=== PATIENT | male | born 1950 | race Caucasian/White ===

== ENCOUNTER → 2017-03-31 14:24 | Outpatient (CLI) | payer SELFPAY ==
[2017-03-31 17:09] LABS: Cholesterol 107 mg/dL (200); High Density Lipoprotein 31 mg/dL; Triglycerides 133 mg/dL; Very Low Density Lipoprotein 27 mg/dL (5-40)
[2017-04-02 11:38] LABS: Hep C Antibodies <0.1 s/co ratio (0.0-0.9)
== END ==
PROVIDERS: Family Provider Family Medicine; PCP Family Medicine; Visit Provider Family Medicine
DX: I73.9 Peripheral vascular disease, unspecified (principal); Z11.59 Encounter for screening for other viral diseases
CPT/HCPCS: 36415; 80061; 86803

== ENCOUNTER → 2018-05-24 | Outpatient (CLI) | payer MEDICARE, OTHER, SELFPAY ==
[2018-05-24 14:46] VITALS: BMI 27.7
[2018-05-24 15:50] LABS: Absolute Lymphocyte Count 1.69 X10^3/ul (0.83-4.51); Absolute Neutrophil Count 2.8 X10^3/uL (2.0-7.7); Basophil# 0.01 X10^3/uL; Basophil% 0.2 % (0-1); Eosinophil# 0.18 X10^3/uL; Eosinophils% 3.5 % (0-5); Hematocrit 37.6 % (40-54); Lymphocyte # 1.69 X10^3/ul (4.0); Lymphocyte % 32.8 % (19-41); Mean Corp Hgb Conc 31.9 g/gl (32-36); Mean Corpuscular Hgb 30.9 pg (27.0-32.0); Mean Corpuscular Volume 96.9 fL (80-94); Mean Platelet Vol. 9.2 fl (6.2-12.0); Monocyte# 0.47 X10^3/uL; Monocyte% 9.1 % (0-10); Neutrophil # 2.78 X10^3/uL (2.7-7.7); POSITIVE COUNT NO; POSITIVE DIFFERENTIAL NO; POSITIVE MORPHOLOGY NO; Platelet Count 146 K/mm3 (150-450); RBC Distribution Width CV 12.8 % (11.6-14.6); RBC Distribution Width SD 43.9 fl (35.1-43.9); Red Blood Count 3.88 M/mm3 (4.6-6.2); White Blood Count 5.2 K/mm3 (4.4-11.0)
[2018-05-24 16:22] LABS: Anion Gap 6 (5-15); BUN 16 mg/dL (7-18); BUN/Creat Ratio 14.4 RATIO (10-20); Calcium,Total 8.4 mg/dL (8.5-10.1); Chloride 105 mmol/L (98-107); Creatinine, Serum 1.11 mg/dL (0.70-1.30); EST Glomerular Filtration Rate 71 mL/min (>60); Est Glom Filt Rate - Afr Amer 85 mL/min (>60); Glucose 85 mg/dL (74-106); Potassium 4.1 mmol/L (3.5-5.1); Sodium Level 140 mmol/L (136-145)
== END | disposition home or self-care (01) ==
LOC: PAVLAB 15:25
PROVIDERS: Family Provider Family Medicine; PCP Family Medicine; Visit Provider Surgery
DX: I73.9 Peripheral vascular disease, unspecified (principal); Z95.828 Presence of other vascular implants and grafts
CPT/HCPCS: 36415; 80048; 85025

== ENCOUNTER → 2018-06-01 | Outpatient (CLI) | payer MEDICARE, OTHER, SELFPAY ==
[2018-05-24 14:46] VITALS: BMI 27.7
--- NOTE | 2018-06-01 17:18 | CT_ITS ---
STUDY: CTA OF THE ABDOMINAL AORTA AND BILATERAL LOWER EXTREMITIES REASON FOR EXAM: Male, 67 years old. History of peripheral vascular disease with the lower extremity pain. History of prior femoral bypass surgery. Prior left-sided stent. RADIATION DOSAGE (If Supplied By Facility): CTDIvol = ( 9.84 ) mGy, DLP = ( 1520.71 ) mGycm TECHNIQUE: Axial CT angiography multi-detector data acquisition was obtained from the dome of the liver to the ankles following intravenous administration of 100mL IV Isovue 370. Axial images and MIP images were reconstructed from the axial data set. Post-processing of the angiographic images was performed, with multiplanar reformation and 3D reconstruction. Individualized dose optimization techniques were used for this CT. TECHNICAL QUALITY: Good COMPARISON: None. Descriptors of Narrowing: None (0%) Mild (< 50%) Moderate (50-70%) Severe (70-90%) Subtotal/Total Occlusion (90-100%) Non-Evaluable (technically non-diagnostic FINDINGS: Abdominal aorta: Calcified atherosclerotic plaque seen throughout the course of the aorta. There is no evidence of narrowing or aneurysmal dilatation. Celiac and superior mesenteric arteries: Atherosclerotic plaque formation at the origin of the celiac artery. Moderate degree of the stenosis caused by atherosclerotic plaque at the origin and proximal portions of the superior mesenteric artery. There is evidence of calcific plaques of the splenic artery. Inferior mesenteric artery: Not visualized. Right renal artery(arteries): No demonstrated narrowing. Left renal artery(arteries): Moderate calcific plaques at the origin of the left renal artery. Right common iliac artery: Diffuse plaque formation along the common iliac artery. Mild stenosis. Right external iliac artery: Moderate degree of calcific plaque throughout the external iliac artery. There is a moderate degree of stenosis in its distal portion. Right internal iliac artery: No demonstrated narrowing. Left common iliac artery: There is occlusion of the left common iliac artery due to calcific plaques. Left external iliac artery: Occlusion of the external iliac artery. 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 Left internal iliac artery: Nonvisualized. There is evidence of a femoral to femoral bypass graft RIGHT LOWER EXTREMITY Right common femoral artery: Nonstenotic calcified plaques. Right profundus femoris: No demonstrated narrowing. Right superficial femoral: Moderate stenosis of the distal superficial femoral artery due to calcified plaques. Right popliteal artery: Atherosclerotic calcified plaques in the popliteal artery causing approximately 50-60% stenosis. Right tibioperoneal trunk: No demonstrated narrowing. Calcific plaques. Right anterior tibial artery: No demonstrated narrowing. Calcific plaques. Right posterior tibial artery: No demonstrated narrowing. Calcific plaques. Right peroneal artery: No demonstrated narrowing. Calcific plaques. LEFT LOWER EXTREMITY Left common femoral artery: No demonstrated narrowing. Left profundus femoris: No demonstrated narrowing. Left superficial femoral: Moderate degree of her atherosclerotic plaques in the distal portion of the superficial femoral artery. Left popliteal artery: Moderate degree of atherosclerotic plaques at the level of the popliteal artery with a focal tight stenoses. Left tibioperoneal trunk: No demonstrated narrowing. Calcific plaques. Left anterior tibial artery: No demonstrated narrowing. Calcific plaques. Left posterior tibial artery: No demonstrated narrowing. Calcific plaques. Left peroneal artery: No demonstrated narrowing. Calcific plaques CT/CTA Abd w/Runoff W/WO Contrast IMPRESSION: Prior femoral-femoral bypass graft. 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 Electronically Signed: Ben Murphy, at 9:07 EDT , Service support ,
== END | disposition home or self-care (01) ==
LOC: CT 17:18
PROVIDERS: Family Provider Family Medicine; PCP Family Medicine; Referring Provider Surgery; Visit Provider Surgery
DX: I73.9 Peripheral vascular disease, unspecified (principal)
CPT/HCPCS: 75635; Q9967

== ENCOUNTER 2018-06-18 06:39 | Day surgery (SDC) | payer MEDICARE, OTHER, SELFPAY ==
[2018-06-04 13:29] VITALS: BMI 28.5
[2018-06-17 08:34] VITALS: BMI 28.5
--- NOTE | 2018-06-18 05:56 | HP.PCM_ITS ---
Problem List (1) PVD (peripheral vascular disease) Status: Acute History and Physical Date of Admission: 06/18/18 MR#:[id number] Name: DESIRAE REINA Rep #: [id number] : 1950 Provider: Rico Tucker MD Age/Sex: 67/M Location: [facility] Status: Signed Intake Vital Signs 06/04/18 Height 6 ft 06/04/18 Weight: 210 lb 5 oz 06/04/18 Body Mass Index (BMI) 28.5 06/04/18 Blood Pressure 178/75 H 06/04/18 Blood Pressure Location Rt brachial 06/04/18 Blood Pressure Position Sitting 06/04/18 Respiratory Rate 20 H 06/04/18 Pulse Rate 74 06/04/18 Pulse Ox 98 Intake Visit Reasons: f/u labs and CTA 06/01 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 Is patient in pain?: Yes Allergies amoxicillin Allergy (Unknown, Verified 06/04/18 13:29) Unknown clindamycin Allergy (Unknown, Verified 06/04/18 13:29) Unknown Sulfa (Sulfonamide Antibiotics) Allergy (Unknown, Verified 06/04/18 13:29) Unknown Medications Aspirin [Aspirin, Baby] 81 mg PO DAILY@0800 08/21/14 [History Confirmed 06/04/18] Atorvastatin Calcium [Lipitor] 20 mg PO QHS 08/21/14 [History Confirmed 06/04/18] Gabapentin [Neurontin] 600 mg PO TIDCM 08/21/14 [History Confirmed 06/04/18] lisinopril 20 mg tablet 30 mg PO DAILY tab 05/24/18 [History Confirmed 06/04/18] metoprolol succinate ER 100 mg tablet,extended release 24 hr 100 mg PO DAILY 05/24/18 [History Confirmed 06/04/18] pentoxifylline ER 400 mg tablet,extended release 400 mg PO TID tab 05/24/18 [History Confirmed 06/04/18] [facility] Medical History PVD (peripheral vascular disease) (Acute) Hyperlipidemia (Acute) Hypertension (Chronic) Erectile dysfunction (Acute) Depression (Acute) COPD (chronic obstructive pulmonary disease) (Chronic) Claudication (Acute) Surgical History hx of APLL (Acute) Hx of colonoscopy (Acute) Hx of right knee surgery (Acute) Hx of aorto-femoral bypass (Acute) Hx of appendectomy (Acute) Family History Father Emphysema lung Mother , DVT History of DVT (deep vein thrombosis) Social History Smoking Status: Former smoker second hand exposure: No alcohol intake: never substance use type: does not use caffeine: Yes frequency: does not exercise HPI HPI HPI: DESIRAE REINA, is a 67 M who presents to the office today for ongoing discussion regarding left greater than right lower extremity claudication which is quality of life limiting MR#:[id number] Name: DESIRAE REINA CRefredrick #:[id number] : 1950 Provider:Rico Tucker MD Age/Sex: 67/M Location:[facility] Status:Signed Intake Vital Signs 05/24/18 Height 6 ft 1 in 05/24/18 Weight: 210 lb 05/24/18 Body Mass Index (BMI) 27.7 05/24/18 Blood Pressure 166/94 H 05/24/18 Blood Pressure Location Rt brachial 05/24/18 Blood Pressure Position Sitting 05/24/18 Respiratory Rate 14 05/24/18 Pulse Rate 71 05/24/18 Pulse Source Monitor 05/24/18 Temperature 97.9 F 05/24/18 Temperature Source Oral 05/24/18 Pulse Ox 100 05/24/18 Oxygen Delivery Method room air Intake Visit Reasons: PAD/PVR 4/2 [facility]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 Is patient in pain?: Yes (Bilateral legs and feet) Pain scale (1-10): 2 Allergies amoxicillin Allergy (Unknown, Verified 05/24/18 14:47) Unknown clindamycin Allergy (Unknown, Verified 05/24/18 14:47) Unknown Sulfa (Sulfonamide Antibiotics) Allergy (Unknown, Verified 05/24/18 14:47) Unknown Medications Aspirin [Aspirin, Baby] 81 mg PO DAILY@0800 08/21/14 [History Confirmed 05/24/18] Atorvastatin Calcium [Lipitor] 20 mg PO QHS 08/21/14 [History Confirmed 05/24/18] Gabapentin [Neurontin] 600 mg PO TIDCM 08/21/14 [History Confirmed 05/24/18] lisinopril 20 mg tablet 30 mg PO DAILY tab 05/24/18 [History Confirmed 05/24/18] metoprolol succinate ER 100 mg tablet,extended release 24 hr 100 mg PO DAILY 05/24/18 [History Confirmed 05/24/18] pentoxifylline ER 400 mg tablet,extended release 400 mg PO TID tab 05/24/18 [History Confirmed 05/24/18] PFSH Medical History PVD (peripheral vascular disease) (Acute) Hyperlipidemia (Acute) Hypertension (Chronic) Erectile dysfunction (Acute) Depression (Acute) COPD (chronic obstructive pulmonary disease) (Chronic) Claudication (Acute) Surgical History hx of APLL (Acute) Hx of colonoscopy (Acute) Hx of right knee surgery (Acute) Hx of aorto-femoral bypass (Acute) Hx of appendectomy (Acute) Family History Father Emphysema lung Mother , DVT History of DVT (deep vein thrombosis) Social History Smoking Status: Former smoker second hand exposure: No alcohol intake: never substance use type: does not use caffeine: Yes frequency: does not exercise HPI HPI HPI: DESIRAE REINA, is a 67 M who presents to the office today for surgical consultation regarding progressive bilateral lower extremity peripheral vascular occlusive disease worse on the left than on the right. Since I last saw the patient he is retired. HPI HPI HPI: DESIRAE REINA, is a 67 M who presents to the office today for ROS General General: No weight change, appetite, fatigue, colon cancer, breast cancer or weakness HEENT HEENT: No difficulty swallowing, eye injury, eye surgery, swollen glands or hoarseness Endo Endocrine: No thyroid disease, diabetes mellitus, thyroid cancer, Hair loss, heat intolerance or cold intolerance Skin Skin: No rash or changing moles Breast Breast: No left breast lump, right breast lump, nipple discharge, breast pain, abnormal mammogram, abnormal US or breast enlargement Musc Musculoskeletal: No back problems, arthritis, rheumatoid arthritis, gout or joint pain Cardio Cardiovascular: No murmur, pacemaker, heart disease, atrial fibrillation, high blood pressure, heart attack, heart stent, palpitations, shortness of breat with exertion or chest pain Psych Psychiatric: No depression, anxiety or hearing voices Resp Respiratory: No shortness of breath, No sleep apnea, Yes cough, Yes COPD, No asthma, No emphysema, No wheezing Gastro Gastrointestinal: No abdominal pain, No nausea or vomiting, No diarrhea, No constipation, No blood in stool, No acid reflux, No hemorrhoids, No ulcers, No gallbladder problem, No black,tarry stools Erik Hematologic: Yes blood thinners, No blood disorders, No bleeding, No anemia, No blood clots Neuro Neurologic: Yes numbness, Yes tingling, No weakness Exam Const General: cooperative, healthy appearing Nutritional Appearance: overweight Orientation: alert, awake HENFL Head: normal to inspection Eyes General: appearance normal, both eyes and all related structures Neck Neck: normal visual inspection Chest Breast Palpation: No nipple discharge Other: Increased anterior posterior diameter, clear to auscultation Resp Effort & Inspection: normal respiratory effort Auscultation: clear to auscultation bilaterally Cardio Rate: regular rate Rhythm: regular rhythm Heart Sounds: no murmurs Other: Bilateral radials are 3+, bilateral brachials 3+, bilateral carotids 3+ with no obvious bruit. Bilateral femorals and popliteals and DPs and PTs are 0 GI Palpation: soft, no hepatosplenomegaly Auscultation: normal bowel sounds Other: No bruits Skin Other: Hyperpigmentation bilateral lower extremities with violaceous discoloration of the feet Extrem Other: 2+ pitting edema bilateral malleolar areas and feet. Erythematous/violaceous discoloration No obvious ulcerations. No tenderness. Capillary refill slightly diminished Psych Affect: other (Slightly flat affect) Assessment & Plan Problems 1. PVD (peripheral vascular disease) I73.9 Plan 67-year-old gentleman. He has a [id number] femoral-femoral crossover graft. He has had angioplasty of the right distal SFA and he has had a Viabahn endograft of the left distal SFA. He has no significant palpable pulses actually from the groins distally bilaterally. The exact location of the disease process difficult to decipher Particularly in light of the patient's femorofemoral crossover and patch angioplasty on the right with extension of the fluid on the left I believe obtaining a CTA of the abdomen with runoff would be quite beneficial. His inflow is dependent upon the right iliac system. He has had an opportunity to ask and have questions answered. I am certainly willing to proceed with a CTA. I will then have him return to my office for ongoing consultation. Hopefully he will not have to be sent to a tertiary center to continue his management. He will continue maximization of his medical care and remain on the aspirin and atorvastatin and pentoxifylline. Very much appreciate the ongoing opportunity of assisting with his surgical care CC: Dr. Chris Tucker M.D., F.A.C.S. Orders Orders: CBC W/Diff, Automated Today Z95.828 Basic Metabolic Profile (BMP) Today I73.9 CTA Abd w/Runoff W/WO Contrast Today I73.9 Coding Level of Care Code Comprehensive,moderate Diagnoses PVD (peripheral vascular disease) I73.9 05/24/18 1547<Electronically signed by Rico Tucker MD> Date Rico Tucker MD [facility] Imaging Services [address] [place] [id number] CTA Abd w/Runoff W/WO Contrast MR#: [id number] Name: DESIRAE REINA #:[id number] : 1950M 67 From: Ben Murphy MD PCP:Yobani Negron MD Status:REG CLI Study:CTA Abd w/Runoff W/WO Contrast Date of Exam:06/01/18 Exam#[id number] Ordering Dr: Rico Tucker MD STUDY: CTA OF THE ABDOMINAL AORTA AND BILATERAL LOWER EXTREMITIES REASON FOR EXAM: Male, 67 years old. History of peripheral vascular disease with the lower extremity pain. History of prior femoral bypass surgery. Prior left-sided stent. RADIATION DOSAGE (If Supplied By Facility): CTDIvol = ( 9.84 ) mGy, DLP = ( 1520.71 ) mGycm TECHNIQUE: Axial CT angiography multi-detector data acquisition was obtained from the dome of the liver to the ankles following intravenous administration of 100mL IV Isovue 370. Axial images and MIP images were reconstructed from the axial data set. Post-processing of the angiographic images was performed, with multiplanar reformation and 3D reconstruction. Individualized dose optimization techniques were used for this CT. TECHNICAL QUALITY: Good COMPARISON: None. Descriptors of Narrowing: None (0%) Mild (< 50%) Moderate (50-70%) Severe (70-90%) Subtotal/Total Occlusion (90-100%) Non-Evaluable (technically non-diagnostic FINDINGS: Abdominal aorta: Calcified atherosclerotic plaque seen throughout the course of the aorta. There is no evidence of narrowing or aneurysmal dilatation. Celiac and superior mesenteric arteries: Atherosclerotic plaque formation at the origin of the celiac artery. Moderate degree of the stenosis caused by atherosclerotic plaque at the origin and proximal portions of the superior mesenteric artery. There is evidence of calcific plaques of the splenic artery. Inferior mesenteric artery: Not visualized. Right renal artery(arteries): No demonstrated narrowing. Left renal artery(arteries): Moderate calcific plaques at the origin of the left renal artery. Right common iliac artery: Diffuse plaque formation along the common iliac artery. Mild stenosis. Right external iliac artery: Moderate degree of calcific plaque throughout the external iliac artery. There is a moderate degree of stenosis in its distal portion. Right internal iliac artery: No demonstrated narrowing. Left common iliac artery: There is occlusion of the left common iliac artery due to calcific plaques. Left external iliac artery: Occlusion of the external iliac artery. 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 Left internal iliac artery: Nonvisualized. There is evidence of a femoral to femoral bypass graft RIGHT LOWER EXTREMITY Right common femoral artery: Nonstenotic calcified plaques. Right profundus femoris: No demonstrated narrowing. Right superficial femoral: Moderate stenosis of the distal superficial femoral artery due to calcified plaques. Right popliteal artery: Atherosclerotic calcified plaques in the popliteal artery causing approximately 50-60% stenosis. Right tibioperoneal trunk: No demonstrated narrowing. Calcific plaques. Right anterior tibial artery: No demonstrated narrowing. Calcific plaques. Right posterior tibial artery: No demonstrated narrowing. Calcific plaques. Right peroneal artery: No demonstrated narrowing. Calcific plaques. LEFT LOWER EXTREMITY Left common femoral artery: No demonstrated narrowing. Left profundus femoris: No demonstrated narrowing. Left superficial femoral: Moderate degree of her atherosclerotic plaques in the distal portion of the superficial femoral artery. Left popliteal artery: Moderate degree of atherosclerotic plaques at the level of the popliteal artery with a focal tight stenoses. Left tibioperoneal trunk: No demonstrated narrowing. Calcific plaques. Left anterior tibial artery: No demonstrated narrowing. Calcific plaques. Left posterior tibial artery: No demonstrated narrowing. Calcific plaques. Left peroneal artery: No demonstrated narrowing. Calcific plaques CT/CTA Abd w/Runoff W/WO Contrast IMPRESSION: Prior femoral-femoral bypass graft. 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 Electronically Signed: Ben Murphy, at 9:07 EDT , Service support , CC: Yobani Negron MD; Rico Tucker MD ~ Casting Sorter: Signed HPI HPI HPI: DESIRAE REINA, is a 67 M who presents to the office today for ROS General General: No weight change, appetite, fatigue, colon cancer, breast cancer or weakness HEENT HEENT: No difficulty swallowing, eye injury, eye surgery, swollen glands or hoarseness Endo Endocrine: No thyroid disease, diabetes mellitus, thyroid cancer, Hair loss, heat intolerance or cold intolerance Skin Skin: No rash or changing moles Breast Breast: No left breast lump, right breast lump, nipple discharge, breast pain, abnormal mammogram, abnormal US or breast enlargement Musc Musculoskeletal: No back problems, arthritis, rheumatoid arthritis, gout or joint pain Cardio Cardiovascular: No murmur, pacemaker, heart disease, atrial fibrillation, high blood pressure, heart attack, heart stent, palpitations, shortness of breat with exertion or chest pain Psych Psychiatric: No depression, anxiety or hearing voices Resp Respiratory: No shortness of breath, No sleep apnea, Yes cough, Yes COPD, No asthma, No emphysema, No wheezing Gastro Gastrointestinal: No abdominal pain, No nausea or vomiting, No diarrhea, No constipation, No blood in stool, No acid reflux, No hemorrhoids, No ulcers, No gallbladder problem, No black,tarry stools Erik Hematologic: Yes blood thinners, No blood disorders, No bleeding, No anemia, No blood clots Neuro Neurologic: No weakness Exam Chest Breast Palpation: No nipple discharge Cardio Heart Sounds: no murmurs Assessment & Plan Problems 1. PVD (peripheral vascular disease) I73.9 Plan 67-year-old gentleman who has occlusion of the left common and external iliac and has a patent right to left femoral-femoral crossover graft. On his CTA he is felt to have at least moderate stenosis of the right external iliac artery. He has mild aneurysmal change of the left common femoral at the insertion of the crossover graft. He has calcific disease of bilateral superficial femoral arteries. By history has known history of a left SFA Viabahn stent graft. I would anticipate possible in-stent stenosis as well as additional disease of the SFA possible popliteal on the left. He is most symptomatic on the left. At this point I would anticipate under ultrasound guidance hopefully being able to access the right superficial femoral artery just distal to the siddiqi of the graft. This would mean I could not use a Perclose device but I could use a minx. I would want to carefully inspect the right external iliac artery for possible recurrent in-stent stenosis or additional disease of the external iliac artery on the right. Then pending those results hopefully would be able to gain access to the femoral femoral crossover graft carefully manipulating my way by the hold on the left where there is post to be some aneurysmal change and then inspecting the left lower extremity for possible endovascular intervention of the SFA and popliteal. In detail I have discussed the technique, benefit, risks, alternatives. Absolutely no guarantees of success have been offered. The patient has had an opportunity to ask and have questions answered. We will schedule and proceed at his discretion. CC: Dr. Chris Tucker M.D., F.A.C.S. Coding Level of Care Code Off vis,est,level 2 Diagnoses PVD (peripheral vascular disease) I73.9 06/04/18 1424 <Electronically signed by Rico Tucker MD> Date Rico Fallon Signature: Date (if applicable) CC: Yobani Negron MD ~
--- NOTE | 2018-06-18 11:02 | PCM.OPRPT ---
Problem List (1) PVD (peripheral vascular disease) Status: Acute Report of Operation Date of Procedure: 06/18/18 Pre-Operative Diagnosis: Symptomatic bilateral lower extremity peripheral vascular occlusive disease Post-Operative Diagnosis: Chronically occluded left common iliac and left external iliac arteries. Occluded right distal external iliac. Occluded right common femoral. Occluded right to left femoral-femoral crossover graft. Occluded left common femoral. Moderate stenosis of right proximal profundofemoral Surgery/Procedure Performed:: Abdominal pelvic proximal bilateral lower extremity arteriogram. Right external iliac 8 x 80 mm ever cross angioplasty and 8 x 80 mm prot?g? stenting. Right common femoral artery 8 x 80 mm Powerflex angioplasty. Left brachial artery percutaneous access. Right superficial femoral artery percutaneous access Description of Surgical Findings:: Timeout and informed consent was obtained. 67-year-old gent was taken the patient special procedure lab placed on the table. The right groin was sterilely prepped draped. Throughout the procedure he received a total of 100 mcg of fentanyl milligrams Versed ascension and sedation. Great effort was required and ultrasound guidance to finally obtain clean access to the right superficial femoral artery using a puncture micropuncture technique. 3 or 4 different accesses were achieved but the wire would not advance. It was later determined that this was secondary to occlusion of the right common femoral artery. I was able to get slightly more distal access in the right superficial femoral artery and under ultrasound guidance and after placing 2% lidocaine advance a stiff micropuncture sheath. I hand injected and obtained retrograde images of the right groin demonstrating occlusion of the right common femoral artery and occlusion of the femoral-femoral crossover graft. At this time then I went to the left brachial artery which was prepped and draped. Again ultrasound was used. Again 2% lidocaine was instilled under ultrasound guidance. A micropuncture needle was inserted micropuncture wire inserted a micropuncture sheath inserted no 3 5 J-wire was inserted a 5 [place]ian short sheath dilator was inserted and then using a angled Glidewire and a 5 [place]ian and a versa flush catheter access was gained to the abdominal aorta. I then exchanged out for a 4 [place]ian angled glide cath placed that into the right common iliac artery. Using hand-injection of Isovue static views were obtained of the pelvis. This demonstrated severe irregular disease of the right external iliac with occlusion of the right distal external iliac and occlusion of the right common femoral severe disease of the proximal portion of the right profundofemoral patent right superficial femoral occluded right to left femoral-femoral crossover graft occluded left common iliac artery occluded left external iliac artery occluded left common femoral artery with separate refill of the left profundofemoral and superficial femoral Subsequently from the left brachial approach I placed an 035 Magic wire and then I advanced a 90 cm 6 [place]ian Vivian sheath. I was able to utilize an 035 quick cross catheter and a stiff 035 Glidewire and gain access to the area of complete occlusion of the right external iliac and I was able to obtain true lumen into the right superficial femoral artery. I then had a pre-balloon that area with a 3 x 40 mm Powerflex balloon. Then placed a 5 x 80 mm Powerflex balloon followed by a 8 x 80 mm ever flex balloon. The right common femoral artery was balloon dilated the right externally act was treated then within the right external iliac because of diffuse irregular plaque I placed a 8 x 80 mm prot?g? stent. That was seated in place with the 8 x 80 ever flex balloon. Having achieved that now I had reestablished straight in-line flow to the right lower extremity albeit with residuals disease involving the right common femoral artery origin of the right profundofemoral artery. Obviously the femoral-femoral crossover graft remains occluded. At this point I felt that the patient was going to require open surgery to re-treat the bilateral occluded common femoral arteries the disease involving the proximal right profundofemoral artery. I felt that I would reestablish in-line flow however through the right iliac system. It is of note that the patient received an initial 9000 units of heparin and then based upon ACT measurements and aliquots received an additional 3000 units of heparin. Based upon ACT measurements and at the end of the procedure he received 20 mg of protamine IV. Also treated some mild hypertension with 10 mg of hydralazine and 5 mg of Lopressor IV. He tolerated procedure well there are no apparent complications Imaging demonstrates a patent though irregular aorta. The left common iliac and external iliac and common femoral are occluded there is separate refill of the left superficial femoral and profunda just close to the occluded femoral-femoral crossover siddiqi. The right common iliac is mildly diseased the right external iliac severely diseased and occluded distally the right common femoral artery is occluded. There is severe disease of the proximal right profundofemoral artery. The right superficial femoral artery is patent. As noted the right to left femoral-femoral crossover graft is occluded. Subsequent to angioplasty and stenting there is now in-line flow with a patent right external iliac. There is flow through a narrowed irregular right common femoral artery filling the right profundofemoral and superficial femoral artery. The femoral-femoral crossover graft remains occluded. It is of additional note that I briefly tried to gain access to the occluded Of the left common iliac but that was not successful with a brief attempt. This is been occluded for at least 9 years. Rico Tucker M.D., F.A.C.S.
[2018-06-18 11:46] LABS: ACT Activated Clotting Time 169 sec (74-137)
[2018-06-18 11:46] LABS: ACT Activated Clotting Time 241 sec (74-137)
[2018-06-18 11:46] LABS: ACT Activated Clotting Time 246 sec (74-137)
[2018-06-18 11:46] LABS: ACT Activated Clotting Time 136 sec (74-137)
[2018-06-18 11:46] LABS: ACT Activated Clotting Time 257 sec (74-137)
[2018-06-18] MEDS: 0.9% Normal Saline 1,000 ML 100 ML IV (13:00)
[2018-06-18 14:00] VITALS: BP 178/76; BP 181/78; PULSE 72; PULSE 85; RESP 16; TEMP 36.7; TEMP 36.8; O2SAT 100
[2018-06-18 15:00] VITALS: BP 137/79; PULSE 65; RESP 16; TEMP 36.8; O2SAT 100
[2018-06-18 16:00] VITALS: BP 178/76; PULSE 74; RESP 16; TEMP 36.7; O2SAT 100
[2018-06-18] MEDS: Acetaminophen 325 MG Tablet PO (16:55)
[2018-06-18 17:01] VITALS: BP 174/81; PULSE 72; RESP 16; TEMP 36.6; O2SAT 100
--- NOTE | 2018-06-18 17:30 | NURSING ---
Dr. Tucker here to see pt, states pt may go home after bedrest up at 1800. Pt to wear arm board brace to left arm until tomorrow morning 06/19/2018. Plavix prescription sent to pts pharmacy per Dr. Tucker.
[2018-06-18 18:00] VITALS: BP 186/83; PULSE 67; RESP 16; TEMP 37.1; O2SAT 100
--- NOTE | 2018-06-18 18:09 | NURSING ---
Pt up to BR and walk in room, tolerated well. Discharge instructions reviewed with pt and verbalizes understanding. Copy of discharge instructions given to pt. Pt called his to come pick him up.
[2023-04-24 15:27] LABS: ACT Activated Clotting Time 136 sec (74-137)
[2023-04-24 15:27] LABS: ACT Activated Clotting Time 257 sec (74-137)
[2023-04-24 15:28] LABS: ACT Activated Clotting Time 241 sec (74-137)
[2023-04-24 15:28] LABS: ACT Activated Clotting Time 169 sec (74-137)
[2023-04-24 15:28] LABS: ACT Activated Clotting Time 246 sec (74-137)
== END 2018-06-18 18:19 | disposition home or self-care (01) ==
LOC: CLSP 06:41 → PCU 06-21 07:26
PROVIDERS: Family Provider Family Medicine; PCP Family Medicine; Referring Provider Surgery; Visit Provider Surgery
DX: I73.9 Peripheral vascular disease, unspecified (principal); E78.5 Hyperlipidemia, unspecified; I10 Essential (primary) hypertension; J44.9 Chronic obstructive pulmonary disease, unspecified; E66.3 Overweight; Z68.28 Body mass index [BMI] 28.0-28.9, adult; Z79.82 Long term (current) use of aspirin; Z79.899 Other long term (current) drug therapy; Z87.891 Personal history of nicotine dependence
CPT/HCPCS: 36245; 37221; 37224; 75710; 76937; 85347; 99152; 99153; J7030; J7040; Q9967; C1725; C1769; C1876; C1887; C1894

== ENCOUNTER 2018-08-23 05:35 | Inpatient (IN) | payer MEDICARE, OTHER, SELFPAY ==
[2018-07-05 13:29] VITALS: BMI 28.5
[2018-08-12 14:01] VITALS: BP 147/74; PULSE 67; RESP 16; TEMP 36.3; O2SAT 99; BMI 29.3
--- NOTE | 2018-08-12 14:28 | SDCEKG_ITS ---
Test Reason : Blood Pressure : / mmHG Vent. Rate : 058 BPM Atrial Rate : 250 BPM P-R Int : 000 ms QRS Dur : 084 ms QT Int : 420 ms P-R-T Axes : 000 -02 021 degrees QTc Int : 412 ms Atrial fibrillation with slow ventricular response Poor R- wave Progression Abnormal ECG Confirmed by EKLSEY PFEIFFER, CHECO ([id number]), brands editor ANGELA RICHARDS ([id number]) on 08/16/2018 1:40:20 PM Referred By: Rico Tucker Confirmed By:CHECO COLE MD
[2018-08-12 15:18] LABS: Anion Gap 4 (5-15); BUN 16 mg/dL (7-18); BUN/Creat Ratio 14.4 RATIO (10-20); Calcium,Total 8.5 mg/dL (8.5-10.1); Chloride 102 mmol/L (98-107); Creatinine, Serum 1.11 mg/dL (0.70-1.30); EST Glomerular Filtration Rate 70 mL/min (>60); Est Glom Filt Rate - Afr Amer 85 mL/min (>60); Estimated Creatinine Clearance 71.85 ml/min; Glucose 90 mg/dL (74-106); Hematocrit 38.9 % (40-54); Hemoglobin 12.6 g/dl (13.0-16.5); Mean Corp Hgb Conc 32.4 g/gl (32-36); Mean Corpuscular Hgb 31.4 pg (27.0-32.0); Mean Platelet Vol. 9.6 fl (6.2-12.0); Platelet Count 162 K/mm3 (150-450); Potassium 4.2 mmol/L (3.5-5.1); RBC Distribution Width CV 14.1 % (11.6-14.6); RBC Distribution Width SD 50.2 fl (35.1-43.9); Red Blood Count 4.01 M/mm3 (4.6-6.2); Sodium Level 134 mmol/L (136-145); White Blood Count 5.2 K/mm3 (4.4-11.0)
[2018-08-12 15:19] LABS: Scan Indicated on CBC? Y/N NO
[2018-08-16 13:54] VITALS: BMI 29.1
[2018-08-23] VITALS (30 sets, daily range): BP systolic 72–133; BP diastolic 44–79; PULSE 69–100; RESP 9–28; TEMP 35.9–36.9; O2SAT 90–100; BMI 29.5
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
--- NOTE | 2018-08-23 06:51 | PCM.OPRPT ---
Problem List (1) Claudication Status: Chronic (2) PVD (peripheral vascular disease) Status: Chronic Report of Operation Date of Procedure: 08/23/18 Pre-Operative Diagnosis: Severe left lower extremity vascular claudication with bilateral common femoral artery stenosis occlusions and occluded femoral-femoral crossover graft and high-grade left profundofemoral artery stenosis Post-Operative Diagnosis: Same Surgery/Procedure Performed:: Right radial arterial line placement. Bilateral common femoral artery endarterectomies, redo 8 mm reinforced propaten right to left femoral-femoral crossover graft. [place] propatent reference number [id number]; serial #[id number] expiry date 03/30/2022 Description of Surgical Findings:: Timeout and informed consent was obtained. At the bedside Roscoe test was performed demonstrating adequate ulnar flow. The right wrist was gently extended. It was prepped with Betadine. Under ultrasound guidance 1% lidocaine was instilled as a local anesthetic. A total of 1 cc was used. 20-gauge Arrow kit Angiocath was advanced into the vessel and the Seldinger wire technique was easily advanced. It was secured to skin with 3-0 silk. OpSite dressing and Yue wrap applied. Blood loss was minimal. The patient tolerated the procedure well. Good waveform was obtained. No apparent complication. The patient was subsequently taken the operating for definitive surgery. Timeout and informed consent was obtained. 68-year-old gentleman was taken to the operating placement table. OR was delayed while he received vancomycin 1 g intravenously. Then bilateral groins and bilateral lower extremities were sterilely prepped and draped. Ioban draping was additionally used. The patient has had a previous right to left femoral-femoral crossover graft with previous bilateral common femoral endarterectomies. The skin scars bilaterally was sharply reexcised inspected and discarded. The right groin was initiated first. Dissection performed down through the substance tissue tedious dissection was performed with sharp and blunt dissection until the right external iliac artery femoral-femoral crossover graft would superficial femoral artery and profundofemoral femoral artery were all identified. Vesseloops were placed circumferential control was obtained. Similar dissection was performed on the left and the patient has a known occluded left common femoral artery occluded left external iliac artery the femorofemoral crossover graft is occluded the left superficial femoral artery and profundofemoral artery refill somewhat after their origins. So sharp and blunt dissection was performed in the left until the siddiqi of the graft could be identified the profundofemoral and superficial femoral arteries are also identified. The patient then received 10,000 units of heparin. Based upon ACT measurements throughout the procedure he received is an additional 1000 units 1000 units and 500 units totaling 13,500 units of heparin. Baseline ACT was 109 with subsequent values of 329 and 274 and 257 and 252 and 208 and after the protamine 131. He received at the end of the procedure 40 mg of protamine of reversal agent. Peripheral vascular clamps were placed on the right superficial femoral artery and profundofemoral artery and external iliac. 11 blade was used to make an arteriotomy in the lateral aspect of the common femoral but there is still remained inflow from the calcific vessel. I wanted to place another Mccoy clamp but none was available. I then used a 7 [place]i Kole balloon and inserted that into the artery and gently inflated the balloon with a stopcock until blood flow had been ceased. I extended the arterectomy more proximally on the right external iliac and down onto the right superficial femoral artery. A redo endarterectomy is warm there is a heavy calcified piece of plaque in the posterior aspect of the right common femoral artery. The profundofemoral artery was nicely patent once this was removed. The incision was carried down onto the superficial femoral artery pass an area of stenosis. Careful debris was removed particularly proximally furthered removing plaque and debris up to where the recently placed self-expanding stent was encountered. The vessel was irrigated. I then used a 8 mm diameter by 40 cm reinforced [place] propaten graft. I used dissection of that to create a rectangular graft. I performed a patch angioplasty of the long endarterectomy site with a running CV 6 [place]-Eric suture. I then made an incision within that patch and placed to the right limb of the newly tunneled PTFE graft spatulated into that with a CV 7 [place]-Eric suture. I released clamps there was good flow significant amount of suture hole bleeding had to Hold Pressure Place, Surgicel. Person was then assigned to hold pressure while I then addressed the left groin. A arteriotomy was made in the proximal left superficial femoral artery extending over into the previous bypass graft fluid. There is thrombus they evacuated and there was plaque debris as I redid the endarterectomy. I was able to get a 4 Latrell dilator into the left profundofemoral artery orifice and there was good backflow. I then spatulated the left limb of the PTFE 8 mm graft ice slight and thinned that siddiqi and I performed a end-to-side anastomosis to the artery performing it combined patch angioplasty and bypass using CV 7 [place]-Eric suture. At the completion there appeared to be good antegrade and retrograde flow. Clamps were released. Again suture hole bleeding was encountered several repair sutures with CV 7 [place]-Eric suture was performed hemostasis was eventually achieved the feet were inspected and noted to be viable and pink. Reversal agent of protamine was given. Significant amount of time was performed and obtaining hemostasis bilaterally. I finally remove the Surgicel and placed FloSeal in each groin. Each groin was then closed in layers with 3 different layers of running 3-0 Vicryl. Then running septic or 4-0 Monocryl for the skin. Steri-Strips Telfa and tape dressings applied. Sponge and instrument and needle counts reported that surgery correct. IV fluids 3000 cc. Anesthesia estimated blood loss to be 1500 cc I believe that is generous. Urine output was 1200 cc. At the completion 30 cc of 0.5% Marcaine was instilled in each groin for postoperative comfort. Specimens plaque. Drains none. The patient was taken to the recovery area in size condition no apparent complication. Rico Tucker M.D., F.A.C.S. Type of Anesthesia:: General Anesthesiologist: lFex Galan
--- NOTE | 2018-08-23 06:53 | DCINST_ITS ---
Discharge Diet: No Restrictions Discharge Activity: May Not Drive - for 1 week or while taking narcotic pain medicine. May shower in (days): 3 - June shower on Thursday Lifting Restrictions: 10 pounds Call your doctor if your incision/area has: Continuous Slow Oozing, Sudden Increased Bleeding, Increased Pain/ Swelling, Increased Redness, Foul Smelling Discharge Call your doctor if you observe: Fever of 101 or Higher Suture Line Care: Avoid Pulling/Pushing, Avoid Pinching/Bending Additional Dressing/Incision Instructions:: You may change your dressings daily to inspect the incisions. Leave Steri-Strips on for 1 week. Allergies/Adverse Reactions: Allergies amoxicillin Allergy (Unknown, Verified 08/16/18 13:58) Unknown clindamycin Allergy (Unknown, Verified 08/16/18 13:58) Unknown Penicillins [PCN] Allergy (Unknown, Verified 08/16/18 13:58) Unknown Sulfa (Sulfonamide Antibiotics) Allergy (Unknown, Verified 08/16/18 13:58) Unknown Medications to take at Discharge Aspirin [Aspirin, Baby] 81 mg PO DAILY@0800 08/21/14 Atorvastatin Calcium [Lipitor] 20 mg PO QHS 08/21/14 Gabapentin [Neurontin] 600 mg PO TIDCM 08/21/14 albuterol sulfate HFA 90 mcg/actuation aerosol inhaler 2 puff INHALATION Q4H PRN g 08/16/18 clopidogrel 75 mg tablet 75 mg PO DAILY 08/16/18 lisinopril 20 mg tablet 30 mg PO DAILY tab 08/16/18 metoprolol succinate ER 100 mg tablet,extended release 24 hr 100 mg PO DAILY 08/16/18 pentoxifylline ER 400 mg tablet,extended release 400 mg PO TID tab 08/16/18 Hydrocodone Bitart/Apap 5-325 [Elmer 5MG-325MG] 1 tab PO Q6H PRN PRN 2 Days #6 tab 08/25/18 The following prescriptions were given: Hydrocodone Bitart/Apap 5-325 [Elmer 5MG-325MG] 1 tab PO Q6H PRN PRN 2 Days #6 tab PRN Reason: Pain Transmission Status: Received by ERROL [id number] [facility] Primary Care Physician: Yobani Negron MD [Primary Care Provider] - Test Results: Test results from this visit will be discussed in further detail at your follow- up appointment, if applicable. Please Follow Up With: Rico Tucker MD - [phone] When: Call to make an appointment to be seen in about 10 days.
--- NOTE | 2018-08-23 07:15 | PLAQ_PTH ---
PATIENT: DESIRAE REINA LOC: MS2 U#:[id number] AGE/SX: 68/M ROOM: [facility] [place] RE08/23/[address]: Dr. Rico Tucker MD : 1950 BED: 1 DIS: 08/25/2018 SPEC #: [id number] RECD: 08/23/18 15:00 STATUS: SHEILA RERica #: [id number] JUSTUS: 08/23/18 07:[address]: Rico Tucker DEPT: SURGICAL PATHOLOGY RECD BY: Jose Antonio Paulson ENTERED: 08/24/18 14:13 SP TYPE: PLAQUE OTHR DR: Dr. Yobani Negron MD Tissues: PLAQUE Procedures: Decalcification bone/plaque Surgery Specimen Level III HEADER OPERATION: Redo of bilateral common femoral artery arterectomy PRE-OP DIAGNOSIS: Claudication; peripheral vascular disease; history of aortofemoral bypass TISSUE SUBMITTED: Plaque MICROSCOPIC DIAGNOSIS Plaque: Pieces of atherosclerotic tissue with focal calcification (plaque) and blood clots. CHRISSY:lacey 08/27/18 GROSS DESCRIPTION Received in fixative is one container labeled with the patient's name and designated plaque. The specimen consists of multiple fragments of poole, indurated tissue mixed with a tubular piece of poole-pink tissue. The tubular piece of poole-pink tissue measures 3.5 cm in length and 0.6 cm in diameter. Additional fragment measures in aggregate 5 x 3.5 x 1 cm. Sectioning of tubular piece of tissue reveals the lumen filled with blood clot. Additional piece of tissue shows a focal, indurated area consistent with calcification. Marketing Liaison tissue is submitted in one cassette after decalcification. / CHRISSY:lacey 08/24/18 TC:5 CPT: 45033, 47176
[2018-08-23] MEDS: Vancomycin IV 1,000 MG/200 ML BAG 200 MG IV (07:25)
[2018-08-23] MEDS: Heparin Injection (Vial) 5,000 UNIT/ML VIAL 5000 UNIT (08:56)
[2018-08-23] MEDS: Bupivacaine 0.5% PF 10 ML VIAL (14:06)
[2018-08-23 15:21] LABS: Hematocrit 25.7 % (40-54); Hemoglobin 8.5 g/dl (13.0-16.5); Mean Corp Hgb Conc 33.1 g/gl (32-36); Mean Corpuscular Hgb 32.3 pg (27.0-32.0); Mean Corpuscular Volume 97.7 fL (80-94); Mean Platelet Vol. 9.6 fl (6.2-12.0); Platelet Count 151 K/mm3 (150-450); RBC Distribution Width CV 13.6 % (11.6-14.6); RBC Distribution Width SD 45.6 fl (35.1-43.9); Red Blood Count 2.63 M/mm3 (4.6-6.2); White Blood Count 5.8 K/mm3 (4.4-11.0)
[2018-08-23 15:26] LABS: Scan Indicated on CBC? Y/N NO
--- NOTE | 2018-08-23 15:49 | SUR.PHASEI ---
AT 15:35, DR. LEWIS CAME TO BEDSIDE AND WAS UPDATED ON PATIENT STATUS. MAP ON THE A-LINE HAS REMAINED [address] LEWIS WILL CONTINUE TO MONITOR
--- NOTE | 2018-08-23 16:56 | PCM.GEN.VAS ---
General Vascular Note - Objective Vital Signs Temp Pulse Resp BP Pulse Ox 98 F 69 16 79/49 L 98 08/23/18 14:45 08/23/18 16:15 08/23/18 16:15 08/23/18 16:15 08/23/18 16:15 Oxygen Flow Rate (L/min) 6 Oxygen Delivery Method Room Air Weight: 217 lb 9.54 oz Body Mass Index (BMI) 29.5 Intake and Output for Last 24 Hours 08/21/18 08/22/18 08/23/18 23:59 23:59 23:59 Output Total 1650 / 1650 Balance -1650 / -1650 Laboratory Tests Past 24 Hrs 08/23/18 08/23/18 10:54 15:05 WBC 5.8 RBC 2.63 L Hgb 8.5 L Hct 25.7 L MCV 97.7 H MCH 32.3 H MCHC 33.1 RDW 13.6 RDW Differential 45.6 H Plt Count 151 MPV 9.6 Blood Type A NEGATIVE Antibody Screen NEGATIVE Vascular Exam: L Femoral: 2+, L Posterior Tibial: 0 - doppler, L Doraslis Pedis: 0 - doppler, R Femoral: 2+, R Posterior Tibial: 0 - doppler, R Doraslis Pedis: 0 - doppler - Assessment/Plan Pt arousable, no specific complaints Mild hypotension noted not responding to fluids No c/o chest pain or SOB Large volume UOP during the procedure Bilateral groins are very supple, no bleeding Feet warm, viable. Will transfer to unit for increased level of care
--- NOTE | 2018-08-23 17:11 | NURSING ---
DR Bebeto BHATIA AT BEDSIDE, PP AND TIBIAL PULSES ASSESSED PER DOPPLER.
--- NOTE | 2018-08-23 17:25 | EKG12_ITS ---
Test Reason : Blood Pressure : / mmHG Vent. Rate : 077 BPM Atrial Rate : 416 BPM P-R Int : 000 ms QRS Dur : 082 ms QT Int : 410 ms P-R-T Axes : 000 011 022 degrees QTc Int : 463 ms Atrial fibrillation Abnormal ECG No previous ECGs available Confirmed by SUSIE LOWRY ([id number]), dictionary editor ANSLEY TRINIDAD ([id number]) on 08/27/2018 3:36:37 PM Referred By: Rico Tucker Confirmed By:SUSIE LOWRY
[2018-08-23] MEDS: Lactated Ringers 1,000 ML 100 ML IV ×2 (17:47→23:00)
[2018-08-23] MEDS: Atorvastatin Calcium 20 MG Tablet PO (21:06)
[2018-08-24] VITALS (15 sets, daily range): BP systolic 80–121; BP diastolic 50–74; PULSE 70–96; RESP 16–19; TEMP 36.4–36.7; O2SAT 96–100
[2018-08-24 04:30] LABS: Hematocrit 25.9 % (40-54); Hemoglobin 8.5 g/dl (13.0-16.5); Mean Corp Hgb Conc 32.8 g/gl (32-36); Mean Corpuscular Hgb 31.1 pg (27.0-32.0); Mean Corpuscular Volume 94.9 fL (80-94); Mean Platelet Vol. 10.1 fl (6.2-12.0); Platelet Count 146 K/mm3 (150-450); RBC Distribution Width CV 14.4 % (11.6-14.6); RBC Distribution Width SD 47.4 fl (35.1-43.9); Red Blood Count 2.73 M/mm3 (4.6-6.2); White Blood Count 8.1 K/mm3 (4.4-11.0)
[2018-08-24 04:31] LABS: Scan Indicated on CBC? Y/N NO
[2018-08-24 04:38] LABS: Anion Gap 8 (5-15); BUN 20 mg/dL (7-18); BUN/Creat Ratio 17.2 RATIO (10-20); Calcium,Total 7.6 mg/dL (8.5-10.1); Chloride 107 mmol/L (98-107); Creatinine, Serum 1.16 mg/dL (0.70-1.30); EST Glomerular Filtration Rate 67 mL/min (>60); Est Glom Filt Rate - Afr Amer 81 mL/min (>60); Estimated Creatinine Clearance 68.75 ml/min; Glucose 120 mg/dL (74-106); Sodium Level 139 mmol/L (136-145)
--- NOTE | 2018-08-24 05:53 | PCM.GEN.VAS ---
General Vascular Note - Subjective No specific complaints, slight numbness of the left foot, no significant pain - Objective Vital Signs Temp Pulse Resp BP Pulse Ox 97.8 F 83 17 97/58 L 98 08/24/18 04:00 08/24/18 05:00 08/24/18 05:00 08/24/18 05:00 08/24/18 05:00 Oxygen Flow Rate (L/min) 3 Oxygen Delivery Method Room Air Weight: 217 lb 9.54 oz Body Mass Index (BMI) 29.5 Intake and Output for Last 24 Hours 08/22/18 08/23/18 08/24/18 23:59 23:59 23:59 Intake Total 3411 / 4834 2176 / 2176 Output Total 1650 / 1950 550 / 550 Balance 1761 / 2884 1626 / 1626 Laboratory Tests Past 24 Hrs 08/23/18 08/23/18 08/23/18 10:54 10:54 15:05 WBC 5.8 RBC 2.63 L Hgb 8.5 L Hct 25.7 L MCV 97.7 H MCH 32.3 H MCHC 33.1 RDW 13.6 RDW Differential 45.6 H Plt Count 151 MPV 9.6 Sodium Potassium Chloride Carbon Dioxide Anion Gap BUN Creatinine Estim Creat Clear Calc Est GFR (MDRD) Af Amer Est GFR (MDRD) Non-Af BUN/Creatinine Ratio Glucose Calcium Troponin I Blood Type A NEGATIVE Antibody Screen NEGATIVE Crossmatch See Detail 08/23/18 08/23/18 08/23/18 18:00 21:10 23:50 WBC RBC Hgb Hct MCV MCH MCHC RDW RDW Differential Plt Count MPV Sodium Potassium Chloride Carbon Dioxide Anion Gap BUN Creatinine Estim Creat Clear Calc Est GFR (MDRD) Af Amer Est GFR (MDRD) Non-Af BUN/Creatinine Ratio Glucose Calcium Troponin I < 0.015 < 0.015 < 0.015 Blood Type Antibody Screen Crossmatch 08/24/18 08/24/18 03:55 03:55 WBC 8.1 RBC 2.73 L Hgb 8.5 L Hct 25.9 L MCV 94.9 H MCH 31.1 MCHC 32.8 RDW 14.4 RDW Differential 47.4 H Plt Count 146 L MPV 10.1 Sodium 139 Potassium 5.0 Chloride 107 Carbon Dioxide 24.0 Anion Gap 8 BUN 20 H Creatinine 1.16 Estim Creat Clear Calc 68.75 Est GFR (MDRD) Af Amer 81 Est GFR (MDRD) Non-Af 67 BUN/Creatinine Ratio 17.2 Glucose 120 H Calcium 7.6 L Troponin I Blood Type Antibody Screen Crossmatch Vascular Exam: L Femoral: 2+, L Posterior Tibial: 0 - doppler, L Doraslis Pedis: 0 - doppler, R Femoral: 2+, R Posterior Tibial: 0 - Doppler, R Doraslis Pedis: 0 - Doppler - Assessment/Plan Chest clear Plan transfer to the floor, dressing change, remove Lima and A-line, mobilize patient, resume routine medications. Cardiac enzymes negative. Hemoglobin stable Rico Tucker M.D., F.A.C.S.
[2018-08-24] MEDS: Enoxaparin 40 MG/0.4 ML Syringe SC (05:55)
[2018-08-24 07:16] LABS: ACT Activated Clotting Time 208 sec (74-137)
[2018-08-24 07:16] LABS: ACT Activated Clotting Time 109 sec (74-137)
[2018-08-24 07:16] LABS: ACT Activated Clotting Time 131 sec (74-137)
[2018-08-24 07:16] LABS: ACT Activated Clotting Time 257 sec (74-137)
[2018-08-24 07:16] LABS: ACT Activated Clotting Time 252 sec (74-137)
[2018-08-24 07:16] LABS: ACT Activated Clotting Time 274 sec (74-137)
[2018-08-24 07:16] LABS: ACT Activated Clotting Time 329 sec (74-137)
[2018-08-24] MEDS: Clopidogrel Bisulfate 75 MG Tablet PO (07:52)
[2018-08-24] MEDS: Acetaminophen 325 MG Tablet 650 MG PO ×2 (07:52→13:53)
[2018-08-24] MEDS: Lisinopril 10 MG Tablet 30 MG PO (07:53)
[2018-08-24] MEDS: Aspirin 81 MG TAB.CHEW PO (07:53)
[2018-08-24] MEDS: Gabapentin 300 MG Capsule 600 MG PO ×3 (07:53→17:45)
[2018-08-24] MEDS: Metoprolol(XL)Succ 100 MG Tablet PO (07:54)
[2018-08-24] MEDS: Lactated Ringers 1,000 ML 100 ML IV ×2 (09:13→19:09)
--- NOTE | 2018-08-24 10:25 | CASEMGMT ---
RN CM Assessment Presentation: Bilateral femoral artery endarterectomies. Intro role of CM and purpose of RN CM assessment to patient in room. Pt is awake and alert and able to participate in assessment. Demographics, PCP and Pharmacy verified. PCP: Dr. Negron Specialists: Dr. bautista Tucker Preferred Pharmacy: [facility] Insurance: [facility] Prescription Benefit: yes LNOK: Living Arrangements: Lives independently with . Denies any care needs. Transportation: Drives DME: none HHC: none Patient DC goals: Home DC PLAN: Home Brandon BARAKAT BSN ACM
--- NOTE | 2018-08-24 17:14 | PCM.PN.BLA ---
Progress Note No significant change from this a.m. Pt has been ambulating BP improved Hasn't voided much since wagner out Will bladder scan Hopeful home tomorrow
[2018-08-24] MEDS: Atorvastatin Calcium 20 MG Tablet PO (21:05)
[2018-08-25] VITALS: PULSE 73
[2018-08-25 01:45] VITALS: BP 111/74; PULSE 76; RESP 16; TEMP 36.6; O2SAT 100
[2018-08-25 04:03] VITALS: PULSE 60
[2018-08-25] MEDS: Enoxaparin 40 MG/0.4 ML Syringe SC (05:06)
[2018-08-25 06:00] LABS: Hematocrit 23.3 % (40-54); Hemoglobin 7.6 g/dl (13.0-16.5); Mean Corp Hgb Conc 32.6 g/gl (32-36); Mean Corpuscular Hgb 31.5 pg (27.0-32.0); Mean Corpuscular Volume 96.7 fL (80-94); Mean Platelet Vol. 9.7 fl (6.2-12.0); Platelet Count 122 K/mm3 (150-450); RBC Distribution Width CV 14.8 % (11.6-14.6); RBC Distribution Width SD 48.7 fl (35.1-43.9); Red Blood Count 2.41 M/mm3 (4.6-6.2); White Blood Count 5.7 K/mm3 (4.4-11.0)
--- NOTE | 2018-08-25 06:02 | PCM.PN.SRG ---
Subjective: Comfortable, able to void, walking - Physical Exam Abdomen: - - groins supple, dressing stuck to steris Vital Signs Temp Pulse Resp BP Pulse Ox 97.9 F 60 16 111/74 100 08/25/18 01:45 08/25/18 04:03 08/25/18 01:45 08/25/18 01:45 08/25/18 01:45 Oxygen Flow Rate (L/min) 3 Oxygen Delivery Method Room Air Weight: 221 lb 1.978 oz Body Mass Index (BMI) 29.5 Intake and Output for Last 24 Hours 08/23/18 08/24/18 08/25/18 23:59 23:59 23:59 Intake Total 3411 / 4834 3982 / 4222 1632 / 1632 Output Total 1650 / 1950 550 / 850 1100 / 1100 Balance 1761 / 2884 3432 / 3372 532 / 532 Laboratory Tests Past 24 Hrs 08/23/18 08/23/18 08/23/18 08:43 10:37 11:14 WBC RBC Hgb Hct MCV MCH MCHC RDW RDW Differential Plt Count Activated Clotting Time 109 329 H 274 H 08/23/18 08/23/18 08/23/18 11:50 12:25 12:58 WBC RBC Hgb Hct MCV MCH MCHC RDW RDW Differential Plt Count Activated Clotting Time 257 H 252 H 208 H 08/23/18 08/25/18 13:25 05:30 WBC Pending RBC Pending Hgb Pending Hct Pending MCV Pending MCH Pending MCHC Pending RDW Pending RDW Differential Pending Plt Count Pending Activated Clotting Time 131 Medical Necessity - Tobacco Use Smoking Status: Former smoker Tobacco Use: Cigarettes Assessment/Plan Plan discharge on home medications
[2018-08-25 06:08] LABS: Scan Indicated on CBC? Y/N NO
--- NOTE | 2018-08-25 06:14 | DS.PCM_ITS ---
Discharge Date and Diagnosis Date of Admission: 08/23/18 Date of Discharge: 08/25/18 - Primary Discharge Diagnosis Multi segmental peripheral vascular occlusive disease with severe claudication Acute perioperative blood loss anemia - Secondary Discharge Diagnosis Chronic Problems (Last Reviewed 08/16/18 @ 14:36 by Christa Kearns MD) Essential hypertension (Chronic) Claudication (Chronic) History of angioplasty of peripheral vessel (Chronic ~06/2018) hx of APLL (Chronic) Hx of aorto-femoral bypass (Chronic) 08/29/10 PVD (peripheral vascular disease) (Chronic) Hyperlipidemia (Chronic) Hospital Course and Treatment Operations: - - Redo bilateral common femoral artery endarterectomies and redo 8 mm reinforced PTFE femoral femoral bypass graft Summary of Care Provided: The patient is a 68 year old M who is been a lifelong smoker. He ceased November 2017. He has severe multisegmental peripheral vascular occlusive disease and progressive claudication. Imaging ever since demonstrates occlusion of the left common iliac and external sac and common femoral and origins of the left superficial femoral and profundofemoral. There is severe occlusive disease involving the right common femoral artery and proximal right profundofemoral and superficial femoral artery. There is occlusion of his previously placed femoral-femoral crossover graft. He was taken to the operating room after arterial line was placed. He underwent redo bilateral common femoral artery endarterectomies which extended on the right all the way up to the recently placed external iliac stent. A PTFE patch angioplasty was performed of the right common femoral artery and then the 8 mm reinforced PTFE femoral-femoral crossover graft was connected to that patch angioplasty. On the left the completely occluded common femoral artery and origins of the superficial femoral artery and profundofemoral artery were endarterectomized and reopened. The siddiqi of the graft was used to perform the patch angioplasty on the left. He did have suture line bleeding from all of the PTFE graft. His admission hemoglobin was approximately 12.5 he did require 1 unit of packed red blood cells in the postoperative period. His cardiopulmonary status remained stable. He presented to the hospital with 1+ pitting edema of bilateral lower extremities and is discharged with approximately 2+ pitting edema. Bilateral DP and PT pulses are dopplerable. Bilateral groins were dry supple with initial healing. He will be discharged on his routine admission medications in addition a prescription for [place] 6 tablets has been provided if needed but zofo-dvk-stoyqcd medicines have been encouraged. He has surgical follow-up scheduled for 10 days. - Physical Exam General: Alert, Oriented x3, Cooperative Lungs: Clear to auscultation Cardiovascular: - - Irregular/atrial fibrillation Abdomen: Bowel Sounds Present, Soft, Non Tender Extremities: - - 2+ pitting edema bilateral lower extremities Skin: - - Initially healing bilateral groin incisions Neurological: - - Alert aware of his situation in place Vital Signs Temp Pulse Resp BP Pulse Ox 97.9 F 60 16 111/74 100 08/25/18 01:45 08/25/18 04:03 08/25/18 01:45 08/25/18 01:45 08/25/18 01:45 Oxygen Flow Rate (L/min) 3 Oxygen Delivery Method Room Air Weight: 221 lb 1.978 oz Body Mass Index (BMI) 29.5 Intake and Output for Last 24 Hours 08/23/18 08/24/18 08/25/18 23:59 23:59 23:59 Intake Total 3411 / 4834 3982 / 4222 1632 / 1632 Output Total 1650 / 1950 550 / 850 1100 / 1100 Balance 1761 / 2884 3432 / 3372 532 / 532 Laboratory Tests Past 24 Hrs 08/23/18 08/23/18 08/23/18 08:43 10:37 11:14 WBC RBC Hgb Hct MCV MCH MCHC RDW RDW Differential Plt Count MPV Activated Clotting Time 109 329 H 274 H 08/23/18 08/23/18 08/23/18 11:50 12:25 12:58 WBC RBC Hgb Hct MCV MCH MCHC RDW RDW Differential Plt Count MPV Activated Clotting Time 257 H 252 H 208 H 08/23/18 08/25/18 13:25 05:30 WBC 5.7 RBC 2.41 L Hgb 7.6 L Hct 23.3 L MCV 96.7 H MCH 31.5 MCHC 32.6 RDW 14.8 H RDW Differential 48.7 H Plt Count 122 L MPV 9.7 Activated Clotting Time 131 Discharge Diet: No Restrictions Discharge Activity: May Not Drive - for 1 week or while taking narcotic pain medicine. May shower in (days): 3 - May shower on Thursday Call your doctor if your incision/area has: Continuous Slow Oozing, Sudden Increased Bleeding, Increased Pain/ Swelling, Increased Redness, Foul Smelling Discharge Call your doctor if you observe: Fever of 101 or Higher Suture Line Care: Avoid Pulling/Pushing, Avoid Pinching/Bending Additional Dressing/Incision Instructions:: You may change your dressings daily to inspect the incisions. Leave Steri-Strips on for 1 week. Home Medications: Medications to take at Discharge Aspirin [Aspirin, Baby] 81 mg PO DAILY@0800 08/21/14 Atorvastatin Calcium [Lipitor] 20 mg PO QHS 08/21/14 Gabapentin [Neurontin] 600 mg PO TIDCM 08/21/14 albuterol sulfate HFA 90 mcg/actuation aerosol inhaler 2 puff INHALATION Q4H PRN g 08/16/18 clopidogrel 75 mg tablet 75 mg PO DAILY 08/16/18 lisinopril 20 mg tablet 30 mg PO DAILY tab 08/16/18 metoprolol succinate ER 100 mg tablet,extended release 24 hr 100 mg PO DAILY 08/16/18 pentoxifylline ER 400 mg tablet,extended release 400 mg PO TID tab 08/16/18 Hydrocodone Bitart/Apap 5-325 [[place] 5MG-325MG] 1 tab PO Q6H PRN PRN 2 Days #6 tab 08/25/18 Following Prescrptions Were Given to Patient: Hydrocodone Bitart/Apap 5-325 [[place] 5MG-325MG] 1 tab PO Q6H PRN PRN 2 Days #6 tab PRN Reason: Pain Transmission Status: Received by ERROL [facility] Primary Care Physician: Yobani Negron MD [Primary Care Provider] - Please Follow Up With: Rico Tucker MD - [phone] When: Call to make an appointment to be seen in about 10 days. Medical Necessity - Tobacco Use Smoking Status: Former smoker Tobacco Use: Cigarettes Meaningful Use Info Meaningful Use Diagnoses (Choose all that apply): None applicable
[2018-08-25] MEDS: Furosemide 20 MG/2 ML VIAL IV (06:33)
[2018-08-25 07:24] VITALS: PULSE 70
[2018-08-25 07:39] VITALS: BP 98/58; PULSE 72; RESP 18; TEMP 36.6; O2SAT 100
[2018-08-25] MEDS: Gabapentin 300 MG Capsule 600 MG PO (07:42)
[2018-08-25] MEDS: Aspirin 81 MG TAB.CHEW PO (07:43)
[2018-08-25] MEDS: Clopidogrel Bisulfate 75 MG Tablet PO (07:43)
[2018-08-25 08:04] VITALS: PULSE 72
== END 2018-08-25 11:50 | disposition home or self-care (01) | DRG 253 ==
LOC: ACINP 06:09 → ICU 17:11 → MS2 08-24 10:27
PROVIDERS: Admitting Provider Surgery; Family Provider Family Medicine; PCP Family Medicine; Referring Provider Surgery; Visit Provider Surgery
PROC: 04CL0ZZ Extirpation of Matter from Left Femoral Artery, Open Approach (ICD-10-PCS; principal; 2018-08-23 06:45)
DX: I70.213 Atherosclerosis of native arteries of extremities with intermittent claudication, bilateral legs (principal); T82.868A Thrombosis due to vascular prosthetic devices, implants and grafts, initial encounter; D62 Acute posthemorrhagic anemia; E78.5 Hyperlipidemia, unspecified; I10 Essential (primary) hypertension; J44.9 Chronic obstructive pulmonary disease, unspecified; F17.210 Nicotine dependence, cigarettes, uncomplicated
CPT/HCPCS: 36415; 80048; 84484; 85027; 85347; 86850; 86900; 86920; 88304; 88311; 93005; J7030; J7040; J7120; P9016; C1757; J1940; J2405

== ENCOUNTER → 2018-08-31 | Outpatient (CLI) | payer MEDICARE, OTHER, SELFPAY ==
[2018-08-23 17:45] VITALS: BMI 29.5
[2018-08-31 13:25] LABS: Hematocrit 25.5 % (40-54); Hemoglobin 8.3 g/dL (13.0-16.5); Mean Corp Hgb Conc 32.5 g/dL (32-36); Mean Corpuscular Hgb 32.8 pg (27.0-32.0); Mean Corpuscular Volume 100.8 fL (80-94); Mean Platelet Vol. 9.5 fl (6.2-12.0); Platelet Count 215 K/mm3 (150-450); RBC Distribution Width CV 16.9 % (11.6-14.6); RBC Distribution Width SD 59.7 fl (35.1-43.9); Red Blood Count 2.53 M/mm3 (4.6-6.2); White Blood Count 6.5 K/mm3 (4.4-11.0)
== END | disposition home or self-care (01) ==
LOC: PAVLAB 13:04
PROVIDERS: Family Provider Family Medicine; PCP Family Medicine; Referring Provider Surgery; Visit Provider Surgery
DX: D64.9 Anemia, unspecified (principal)
CPT/HCPCS: 36415; 85027

== ENCOUNTER → 2018-10-14 | Outpatient (CLI) | payer MEDICARE, OTHER, SELFPAY ==
[2018-08-23 17:45] VITALS: BMI 29.5
--- NOTE | 2018-10-14 10:52 | ART_ITS ---
Reason For Study: Claudication Procedure A bilateral lower extremity continuous wave Doppler with analog waveform analysis,segmental pressures,and ankle brachial indexes with exercise. Left Segmental Pressures Left brachial= 127mmHg. Left posterior tibial artery = 128mmHg. Left dorsalis pedis artery = 146mmHg. The left dorsalis pedis waveforms are biphasic. The left posterior tibial artery waveforms are biphasic. Right Segmental Pressures Right brachial= 126mmHg. Right posterior tibial artery = 132mmHg. Right dorsalis pedis artery = 140mmHg. The right dorsalis pedis waveforms are biphasic. The right posterior tibial artery waveforms are biphasic. Indices The right ankle brachial index by the dorsalis pedis is 1.10. The right ankle brachial index by the posterior tibial artery is 1.04. The right post exercise ankle brachial index is 0.34. The left ankle brachial index by the dorsalis pedis is 1.15. The left ankle brachial index by the posterior tibial artery is 1.01. The left post exercise ankle brachial index is 0.43. Interpretation Summary Normal resting bilateral lower extremity DEVIN's of 1.1 on the right and 1.15 on the left. Abnormal exercise indice of 0.34 on the right and 0.43 on the left. Findings are consistent with arterial occlusive disease bilaterally. Normal resting elevation of VPRs bilateral calves noted. The level of the disease cannot be determined. Digital waveforms are markedly abnormal bilaterally. Ordering Physician: Rico Tucker Referring Physician: Chris Negron Performed By: Elvie Sanders RVT
== END | disposition home or self-care (01) ==
LOC: CVS 10:51
PROVIDERS: Family Provider Family Medicine; PCP Family Medicine; Referring Provider Surgery; Visit Provider Surgery
DX: I73.9 Peripheral vascular disease, unspecified (principal)
CPT/HCPCS: 93924

== ENCOUNTER → 2018-10-21 | Outpatient (CLI) | payer MEDICARE, OTHER, SELFPAY ==
[2018-08-16 13:54] VITALS: BMI 29.1
[2018-08-23 17:45] VITALS: BMI 29.5
--- NOTE | 2018-10-21 13:55 | ECHOD_ITS ---
Reason For Study: HYERTENSION Procedure This was a 2D Doppler, Color Flow transthoracic echocardiogram. Exam performed in department. Left Ventricle Normal size and thickness. The estimated ejection fraction is 60 %. Diastolic function is indeterminate. No regional wall motion abnormalities noted. Right Ventricle Normal RV size. Normal systolic function. Atria The left atrium is mildly enlarged. Normal right atrium. Mitral Valve There is mild mitral annular calcification. There is no mitral valve stenosis. Mild (1+) mitral valve insufficiency. Tricuspid Valve There is no tricuspid stenosis. Mild tricuspid valve insufficiency. Pulmonary artery systolic pressure is 35 mmHg. Aortic Valve Trisinus/trileaflet aortic valve. There is no aortic stenosis. Trivial aortic valve insufficiency. Pulmonic Valve There is no pulmonic valvular stenosis. No pulmonic valve insufficiency. Great Vessels Normal aortic root. Pericardium/Pleural No pericardial effusion. MMode/2D Measurements & Calculations LVIDd: 5.0 cm IVSd: 1.00 cm LAV(MOD-bp): 90.1 ml LVIDs: 3.6 cm LVPWd: 1.0 cm LAV(MOD-bp) Indexed: 41.0 ml/m2 RVDd: 3.4 cm FS: 28.7 % LAV(MOD-sp2): 91.7 ml LAV(MOD-sp4): 86.5 ml LA dimension(2D): 4.4 cm LA A4 area: 27.0 cm2 RA A4 area: 21.9 cm2 Doppler Measurements & Calculations MV E max marizol: 107.7 cm/sec Ao V2 max: 139.6 cm/sec LV V1 max: 101.0 cm/sec Ao max P.8 mmHg LV V1 max P.1 mmHg PA V2 max: 107.9 cm/sec TR max marizol: 269.2 cm/sec TR max P.2 mmHg Interpretation Summary The estimated ejection fraction is 60 %. Diastolic function is indeterminate. Mild (1+) mitral valve insufficiency. Mild tricuspid valve insufficiency. Pulmonary artery systolic pressure is 35 mmHg. Trivial aortic valve insufficiency. Ordering Physician: Christa Kearns Referring Physician: Chris Negron Performed By: Saige Suazo, TANVIR, RVT
== END | disposition home or self-care (01) ==
LOC: CVS 13:55
PROVIDERS: Family Provider Family Medicine; PCP Family Medicine; Referring Provider Specialist; Visit Provider Specialist
DX: I10 Essential (primary) hypertension (principal); I48.91 Unspecified atrial fibrillation
CPT/HCPCS: 93306

== ENCOUNTER 2018-11-05 10:15 | Outpatient (RCR) | payer MEDICARE, OTHER, SELFPAY ==
[2018-08-23 17:45] VITALS: BMI 29.5
[2018-10-28 11:46] LABS: International Normalized Ratio 1.5; Prothrombin Time (Protime)PT. 18.1 SECONDS (11.7-14.9)
[2018-11-05 11:03] LABS: International Normalized Ratio 1.7; Prothrombin Time (Protime)PT. 19.7 SECONDS (11.7-14.9)
== END 2018-11-05 12:00 | disposition home or self-care (01) ==
LOC: LAB 10:15
PROVIDERS: Family Provider Family Medicine; PCP Family Medicine; Referring Provider Specialist; Visit Provider Specialist
DX: I48.1 Persistent atrial fibrillation (principal); Z79.01 Long term (current) use of anticoagulants
CPT/HCPCS: 36415; 85610

== ENCOUNTER 2018-12-16 10:31 | Outpatient (RCR) | payer MEDICARE, OTHER, SELFPAY ==
[2018-11-05 16:02] VITALS: BMI 29.5
[2018-11-16 13:52] LABS: International Normalized Ratio 1.7; Prothrombin Time (Protime)PT. 19.8 SECONDS (11.7-14.9)
[2018-11-25 14:06] LABS: International Normalized Ratio 1.5; Prothrombin Time (Protime)PT. 18.3 SECONDS (11.7-14.9)
[2018-12-02 11:41] LABS: Prothrombin Time (Protime)PT. 22.8 SECONDS (11.7-14.9)
[2018-12-16 11:02] LABS: International Normalized Ratio 1.7; Prothrombin Time (Protime)PT. 19.5 SECONDS (11.7-14.9)
== END 2018-12-16 18:00 | disposition home or self-care (01) ==
LOC: LAB 10:31
PROVIDERS: Family Provider Family Medicine; PCP Family Medicine; Referring Provider Specialist; Visit Provider Specialist
DX: I48.19 Other persistent atrial fibrillation (principal); Z79.01 Long term (current) use of anticoagulants
CPT/HCPCS: 36415; 85610

== ENCOUNTER 2019-01-03 10:47 | Outpatient (RCR) | payer MEDICARE, OTHER, SELFPAY ==
[2018-11-30 13:08] VITALS: BMI 29.4
[2018-12-23 11:43] LABS: International Normalized Ratio 1.9; Prothrombin Time (Protime)PT. 21.6 SECONDS (11.7-14.9)
[2019-01-03 11:46] LABS: International Normalized Ratio 2.1; Prothrombin Time (Protime)PT. 23.2 SECONDS (11.7-14.9)
== END 2019-01-03 18:00 | disposition home or self-care (01) ==
LOC: LAB 10:47
PROVIDERS: Family Provider Family Medicine; PCP Family Medicine; Referring Provider Specialist; Visit Provider Specialist
DX: I48.19 Other persistent atrial fibrillation (principal); Z79.01 Long term (current) use of anticoagulants
CPT/HCPCS: 36415; 85610

== ENCOUNTER 2019-01-24 10:39 | Outpatient (RCR) | payer MEDICARE, OTHER, SELFPAY ==
[2018-11-30 13:08] VITALS: BMI 29.4
[2019-01-24 11:25] LABS: Prothrombin Time (Protime)PT. 22.6 SECONDS (11.7-14.9)
== END 2019-01-24 18:00 | disposition home or self-care (01) ==
LOC: LAB 10:39
PROVIDERS: Family Provider Family Medicine; PCP Family Medicine; Referring Provider Specialist; Visit Provider Specialist
DX: I48.19 Other persistent atrial fibrillation (principal); Z79.01 Long term (current) use of anticoagulants
CPT/HCPCS: 36415; 85610

== ENCOUNTER 2019-02-21 12:59 | Outpatient (RCR) | payer MEDICARE, OTHER, SELFPAY ==
[2018-11-30 13:08] VITALS: BMI 29.4
[2019-02-21 13:58] LABS: Prothrombin Time (Protime)PT. 22.7 SECONDS (11.7-14.9)
== END 2019-02-21 18:00 | disposition home or self-care (01) ==
LOC: LAB 12:59
PROVIDERS: Family Provider Family Medicine; PCP Family Medicine; Referring Provider Specialist; Visit Provider Specialist
DX: I48.19 Other persistent atrial fibrillation (principal); Z79.01 Long term (current) use of anticoagulants
CPT/HCPCS: 36415; 85610

== ENCOUNTER 2019-03-21 13:02 | Outpatient (RCR) | payer MEDICARE, OTHER, SELFPAY ==
[2018-11-30 13:08] VITALS: BMI 29.4
[2019-03-21 14:05] LABS: International Normalized Ratio 2.1; Prothrombin Time (Protime)PT. 23.2 SECONDS (11.7-14.9)
== END 2019-03-21 18:00 | disposition home or self-care (01) ==
LOC: LAB 13:02
PROVIDERS: Family Provider Family Medicine; PCP Family Medicine; Referring Provider Specialist; Visit Provider Specialist
DX: I48.19 Other persistent atrial fibrillation (principal); Z79.01 Long term (current) use of anticoagulants
CPT/HCPCS: 36415; 85610

== ENCOUNTER 2019-04-18 13:33 | Outpatient (RCR) | payer MEDICARE, OTHER, SELFPAY ==
[2018-11-30 13:08] VITALS: BMI 29.4
[2019-04-18 14:28] LABS: Prothrombin Time (Protime)PT. 22.4 SECONDS (11.7-14.9)
== END 2019-04-18 18:00 | disposition home or self-care (01) ==
LOC: LAB 13:33
PROVIDERS: Family Provider Family Medicine; PCP Family Medicine; Referring Provider Specialist; Visit Provider Specialist
DX: I48.19 Other persistent atrial fibrillation (principal); Z79.01 Long term (current) use of anticoagulants
CPT/HCPCS: 36415; 85610

== ENCOUNTER 2019-05-23 13:28 | Outpatient (RCR) | payer MEDICARE, OTHER, SELFPAY ==
[2018-11-30 13:08] VITALS: BMI 29.4
[2019-05-23 14:54] LABS: International Normalized Ratio 2.1; Prothrombin Time (Protime)PT. 23.4 SECONDS (11.7-14.9)
== END 2019-06-16 18:00 | disposition home or self-care (01) ==
LOC: LAB 13:28
PROVIDERS: Family Provider Family Medicine; PCP Family Medicine; Referring Provider Specialist; Visit Provider Specialist
DX: I48.19 Other persistent atrial fibrillation (principal); Z79.01 Long term (current) use of anticoagulants
CPT/HCPCS: 36415; 85610

== ENCOUNTER 2019-06-20 13:16 | Outpatient (RCR) | payer MEDICARE, OTHER, SELFPAY ==
[2019-06-06 11:27] VITALS: BMI 29.4
[2019-06-20 14:01] LABS: International Normalized Ratio 2.1; Prothrombin Time (Protime)PT. 22.9 SECONDS (11.7-14.9)
== END 2019-06-20 18:00 | disposition home or self-care (01) ==
LOC: LAB 13:16
PROVIDERS: Family Provider Family Medicine; PCP Family Medicine; Referring Provider Specialist; Visit Provider Specialist
DX: I48.19 Other persistent atrial fibrillation (principal); Z79.01 Long term (current) use of anticoagulants
CPT/HCPCS: 36415; 85610

== ENCOUNTER 2019-08-15 13:02 | Outpatient (RCR) | payer MEDICARE, OTHER, SELFPAY ==
[2019-06-06 11:27] VITALS: BMI 29.4
[2019-07-18 15:29] LABS: International Normalized Ratio 2.7; Prothrombin Time (Protime)PT. 28.2 SECONDS (11.7-14.9)
[2019-08-15 14:32] LABS: International Normalized Ratio 1.9; Prothrombin Time (Protime)PT. 20.8 SECONDS (11.7-14.9)
== END 2019-08-15 18:00 | disposition home or self-care (01) ==
LOC: LAB 13:02
PROVIDERS: Family Provider Family Medicine; PCP Family Medicine; Referring Provider Specialist; Visit Provider Specialist
DX: I48.19 Other persistent atrial fibrillation (principal); Z79.01 Long term (current) use of anticoagulants
CPT/HCPCS: 36415; 85610

== ENCOUNTER 2019-08-29 13:20 | Outpatient (RCR) | payer MEDICARE, OTHER, SELFPAY ==
[2019-06-06 11:27] VITALS: BMI 29.4
[2019-08-29 14:11] LABS: International Normalized Ratio 2.2; Prothrombin Time (Protime)PT. 23.6 SECONDS (11.7-14.9)
== END 2019-08-29 18:00 | disposition home or self-care (01) ==
LOC: LAB 13:20
PROVIDERS: Family Provider Family Medicine; PCP Family Medicine; Referring Provider Specialist; Visit Provider Specialist
DX: I48.19 Other persistent atrial fibrillation (principal); Z79.01 Long term (current) use of anticoagulants
CPT/HCPCS: 36415; 85610

== ENCOUNTER 2019-09-26 13:19 | Outpatient (RCR) | payer MEDICARE, OTHER, SELFPAY ==
[2019-06-06 11:27] VITALS: BMI 29.4
[2019-09-26 13:43] LABS: International Normalized Ratio 2.1
== END 2019-10-17 18:00 | disposition home or self-care (01) ==
LOC: LAB 13:19
PROVIDERS: Family Provider Family Medicine; PCP Family Medicine; Referring Provider Specialist; Visit Provider Specialist
DX: I48.19 Other persistent atrial fibrillation (principal); Z79.01 Long term (current) use of anticoagulants
CPT/HCPCS: 36415; 85610

== ENCOUNTER 2019-10-26 13:33 | Outpatient (RCR) | payer MEDICARE, OTHER, SELFPAY ==
[2019-06-06 11:27] VITALS: BMI 29.4
[2019-10-26 14:40] LABS: International Normalized Ratio 1.8; Prothrombin Time (Protime)PT. 20.6 SECONDS (11.7-14.9)
== END 2019-10-26 18:00 | disposition home or self-care (01) ==
LOC: LAB 13:33
PROVIDERS: Family Provider Family Medicine; PCP Family Medicine; Referring Provider Specialist; Visit Provider Specialist
DX: I48.19 Other persistent atrial fibrillation (principal); Z79.01 Long term (current) use of anticoagulants
CPT/HCPCS: 36415; 85610

== ENCOUNTER 2019-12-06 13:42 | Outpatient (RCR) | payer MEDICARE, OTHER, SELFPAY ==
[2019-06-06 11:27] VITALS: BMI 29.4
[2019-11-22 15:12] LABS: International Normalized Ratio 1.8; Prothrombin Time (Protime)PT. 20.1 SECONDS (11.7-14.9)
[2019-12-06 14:49] LABS: Prothrombin Time (Protime)PT. 23.3 SECONDS (11.7-14.9)
[2019-12-06 14:50] LABS: International Normalized Ratio 2.1
== END 2019-12-06 18:00 | disposition home or self-care (01) ==
LOC: LAB 13:42
PROVIDERS: Family Provider Family Medicine; PCP Family Medicine; Referring Provider Specialist; Visit Provider Specialist
DX: I48.19 Other persistent atrial fibrillation (principal); Z79.01 Long term (current) use of anticoagulants
CPT/HCPCS: 36415; 85610

== ENCOUNTER 2019-12-20 13:40 | Outpatient (RCR) | payer MEDICARE, OTHER, SELFPAY ==
[2019-12-09 11:27] VITALS: BMI 31.4
[2019-12-20 15:34] LABS: Prothrombin Time (Protime)PT. 22.5 SECONDS (11.7-14.9)
== END 2019-12-20 18:00 | disposition home or self-care (01) ==
LOC: LAB 13:40
PROVIDERS: Family Provider Family Medicine; PCP Family Medicine; Referring Provider Specialist; Visit Provider Specialist
DX: I48.19 Other persistent atrial fibrillation (principal); Z79.01 Long term (current) use of anticoagulants
CPT/HCPCS: 36415; 85610

== ENCOUNTER 2020-02-15 13:32 | Outpatient (RCR) | payer MEDICARE, OTHER, SELFPAY ==
[2019-12-09 11:27] VITALS: BMI 31.4
[2020-01-18 14:20] LABS: International Normalized Ratio 2.1; Prothrombin Time (Protime)PT. 22.6 SECONDS (11.7-14.9)
[2020-02-15 15:00] LABS: International Normalized Ratio 1.7; Prothrombin Time (Protime)PT. 19.6 SECONDS (11.7-14.9)
== END 2020-02-15 18:00 | disposition home or self-care (01) ==
LOC: LAB 13:32
PROVIDERS: Family Provider Family Medicine; PCP Family Medicine; Referring Provider Specialist; Visit Provider Specialist
DX: I48.19 Other persistent atrial fibrillation (principal); Z79.01 Long term (current) use of anticoagulants
CPT/HCPCS: 36415; 85610

== ENCOUNTER 2020-03-07 14:02 | Outpatient (RCR) | payer MEDICARE, SELFPAY ==
[2019-12-09 11:27] VITALS: BMI 31.4
[2020-02-22 16:51] LABS: International Normalized Ratio 1.8; Prothrombin Time (Protime)PT. 20.6 SECONDS (11.7-14.9)
[2020-03-07 14:49] LABS: International Normalized Ratio 2.3
== END 2020-03-07 18:00 | disposition home or self-care (01) ==
LOC: LAB 14:02
PROVIDERS: Family Provider Family Medicine; PCP Family Medicine; Referring Provider Specialist; Visit Provider Specialist
DX: I48.19 Other persistent atrial fibrillation (principal); Z79.01 Long term (current) use of anticoagulants
CPT/HCPCS: 36415; 85610

== ENCOUNTER 2020-03-21 13:44 | Outpatient (RCR) | payer MEDICARE, SELFPAY ==
[2019-12-09 11:27] VITALS: BMI 31.4
[2020-03-21 14:54] LABS: International Normalized Ratio 2.9; Prothrombin Time (Protime)PT. 29.8 SECONDS (11.7-14.9)
== END 2020-03-21 18:00 | disposition home or self-care (01) ==
LOC: LAB 13:44
PROVIDERS: Family Provider Family Medicine; PCP Family Medicine; Referring Provider Specialist; Visit Provider Specialist
DX: I48.19 Other persistent atrial fibrillation (principal); Z79.01 Long term (current) use of anticoagulants
CPT/HCPCS: 36415; 85610

== ENCOUNTER 2020-05-16 13:44 | Outpatient (RCR) | payer MEDICARE, SELFPAY ==
[2019-12-09 11:27] VITALS: BMI 31.4
[2020-04-18 11:21] LABS: International Normalized Ratio 2.4; Prothrombin Time (Protime)PT. 25.5 SECONDS (11.7-14.9)
[2020-05-16 14:28] LABS: International Normalized Ratio 2.7; Prothrombin Time (Protime)PT. 27.7 SECONDS (11.7-14.9)
== END 2020-05-16 18:00 | disposition home or self-care (01) ==
LOC: LAB 13:44
PROVIDERS: Family Provider Family Medicine; PCP Family Medicine; Referring Provider Specialist; Visit Provider Specialist
DX: I48.19 Other persistent atrial fibrillation (principal); Z79.01 Long term (current) use of anticoagulants
CPT/HCPCS: 36415; 85610

== ENCOUNTER 2020-06-13 13:03 | Outpatient (RCR) | payer MEDICARE, SELFPAY ==
[2019-12-09 11:27] VITALS: BMI 31.4
[2020-06-13 13:32] LABS: International Normalized Ratio 2.3; Prothrombin Time (Protime)PT. 24.1 SECONDS (11.7-14.9)
== END 2020-06-13 18:00 | disposition home or self-care (01) ==
LOC: LAB 13:03
PROVIDERS: Family Provider Family Medicine; PCP Family Medicine; Referring Provider Specialist; Visit Provider Specialist
DX: I48.19 Other persistent atrial fibrillation (principal); Z79.01 Long term (current) use of anticoagulants
CPT/HCPCS: 36415; 85610

== ENCOUNTER 2020-07-11 13:57 | Outpatient (RCR) | payer MEDICARE, SELFPAY ==
[2019-12-09 11:27] VITALS: BMI 31.4
[2020-07-11 15:02] LABS: International Normalized Ratio 1.9; Prothrombin Time (Protime)PT. 21.4 SECONDS (11.7-14.9)
== END 2020-07-11 18:00 | disposition home or self-care (01) ==
LOC: LAB 13:57
PROVIDERS: Family Provider Family Medicine; PCP Family Medicine; Referring Provider Specialist; Visit Provider Specialist
DX: I48.19 Other persistent atrial fibrillation (principal); Z79.01 Long term (current) use of anticoagulants
CPT/HCPCS: 36415; 85610

== ENCOUNTER 2020-07-25 13:51 | Outpatient (RCR) | payer MEDICARE, SELFPAY ==
[2019-12-09 11:27] VITALS: BMI 31.4
[2020-07-25 14:26] LABS: International Normalized Ratio 2.3; Prothrombin Time (Protime)PT. 24.5 SECONDS (11.7-14.9)
== END 2020-07-25 18:00 | disposition home or self-care (01) ==
LOC: LAB 13:51
PROVIDERS: Family Provider Family Medicine; PCP Family Medicine; Referring Provider Specialist; Visit Provider Specialist
DX: I48.19 Other persistent atrial fibrillation (principal); Z79.01 Long term (current) use of anticoagulants
CPT/HCPCS: 36415; 85610

== ENCOUNTER 2020-08-22 14:10 | Outpatient (RCR) | payer MEDICARE, SELFPAY ==
[2019-12-09 11:27] VITALS: BMI 31.4
[2020-08-22 17:39] LABS: International Normalized Ratio 2.2; Prothrombin Time (Protime)PT. 23.4 SECONDS (11.7-14.9)
== END 2020-08-22 18:00 | disposition home or self-care (01) ==
LOC: LAB 14:10
PROVIDERS: Family Provider Family Medicine; PCP Family Medicine; Referring Provider Specialist; Visit Provider Specialist
DX: I48.19 Other persistent atrial fibrillation (principal); Z79.01 Long term (current) use of anticoagulants
CPT/HCPCS: 36415; 85610

== ENCOUNTER 2020-09-19 13:09 | Outpatient (RCR) | payer MEDICARE, SELFPAY ==
[2019-12-09 11:27] VITALS: BMI 31.4
[2020-09-19 13:53] LABS: International Normalized Ratio 2.2; Prothrombin Time (Protime)PT. 23.2 SECONDS (11.7-14.9)
== END 2020-09-19 18:00 | disposition home or self-care (01) ==
LOC: LAB 13:09
PROVIDERS: Family Provider Family Medicine; PCP Family Medicine; Referring Provider Specialist; Visit Provider Specialist
DX: I48.19 Other persistent atrial fibrillation (principal); Z79.01 Long term (current) use of anticoagulants
CPT/HCPCS: 36415; 85610

== ENCOUNTER 2020-10-31 13:42 | Outpatient (RCR) | payer MEDICARE, SELFPAY ==
[2020-10-16 20:00] VITALS: BMI 31.4
[2020-10-17 14:59] LABS: International Normalized Ratio 1.9; Prothrombin Time (Protime)PT. 20.6 SECONDS (11.7-14.9)
[2020-10-31 14:09] LABS: Prothrombin Time (Protime)PT. 22.1 SECONDS (11.7-14.9)
== END 2020-10-31 18:00 | disposition home or self-care (01) ==
LOC: LAB 13:42
PROVIDERS: Family Provider Family Medicine; PCP Family Medicine; Referring Provider Specialist; Visit Provider Specialist
DX: I48.19 Other persistent atrial fibrillation (principal); Z79.01 Long term (current) use of anticoagulants
CPT/HCPCS: 36415; 85610

== ENCOUNTER 2020-11-28 13:33 | Outpatient (RCR) | payer MEDICARE, SELFPAY ==
[2020-11-15 20:19] VITALS: BMI 31.4
[2020-11-28 14:44] LABS: International Normalized Ratio 2.3; Prothrombin Time (Protime)PT. 24.5 SECONDS (11.7-14.9)
== END 2020-12-16 03:33 | disposition home or self-care (01) ==
LOC: LAB 13:33
PROVIDERS: Family Provider Family Medicine; PCP Family Medicine; Referring Provider Specialist; Visit Provider Specialist
DX: I48.19 Other persistent atrial fibrillation (principal); Z79.01 Long term (current) use of anticoagulants
CPT/HCPCS: 36415; 85610

== ENCOUNTER 2020-12-26 13:25 | Outpatient (RCR) | payer MEDICARE, SELFPAY ==
[2020-12-16 03:33] VITALS: BMI 31.4
[2020-12-26 14:31] LABS: International Normalized Ratio 2.1; Prothrombin Time (Protime)PT. 22.5 SECONDS (11.7-14.9)
== END 2021-01-15 18:00 | disposition home or self-care (01) ==
LOC: LAB 13:25
PROVIDERS: Family Provider Family Medicine; PCP Family Medicine; Referring Provider Specialist; Visit Provider Specialist
DX: I48.19 Other persistent atrial fibrillation (principal); Z79.01 Long term (current) use of anticoagulants
CPT/HCPCS: 36415; 85610

== ENCOUNTER 2021-01-23 13:21 | Outpatient (RCR) | payer MEDICARE, SELFPAY ==
[2021-01-16 02:12] VITALS: BMI 31.4
[2021-01-23 14:15] LABS: International Normalized Ratio 2.1; Prothrombin Time (Protime)PT. 23.1 SECONDS (11.7-14.9)
== END 2021-02-16 18:00 | disposition home or self-care (01) ==
LOC: LAB 13:21
PROVIDERS: Family Provider Family Medicine; PCP Family Medicine; Referring Provider Specialist; Visit Provider Specialist
DX: I48.19 Other persistent atrial fibrillation (principal); Z79.01 Long term (current) use of anticoagulants
CPT/HCPCS: 36415; 85610

== ENCOUNTER 2021-02-20 12:59 | Outpatient (RCR) | payer MEDICARE, SELFPAY ==
[2021-02-17 04:00] VITALS: BMI 31.4
[2021-02-20 13:55] LABS: Prothrombin Time (Protime)PT. 22.2 SECONDS (11.7-14.9)
== END 2021-03-18 18:00 | disposition home or self-care (01) ==
LOC: LAB 12:59
PROVIDERS: Family Provider Family Medicine; PCP Family Medicine; Referring Provider Specialist; Visit Provider Specialist
DX: I48.11 Longstanding persistent atrial fibrillation (principal); Z79.01 Long term (current) use of anticoagulants
CPT/HCPCS: 36415; 85610

== ENCOUNTER 2021-03-20 13:34 | Outpatient (RCR) | payer MEDICARE, SELFPAY ==
[2021-03-18 22:47] VITALS: BMI 31.4
[2021-03-20 14:20] LABS: International Normalized Ratio 2.1; Prothrombin Time (Protime)PT. 22.5 SECONDS (11.7-14.9)
== END 2021-03-20 18:00 | disposition home or self-care (01) ==
LOC: LAB 13:34
PROVIDERS: Family Provider Family Medicine; PCP Family Medicine; Referring Provider Specialist; Visit Provider Specialist
DX: I48.19 Other persistent atrial fibrillation (principal); Z79.01 Long term (current) use of anticoagulants
CPT/HCPCS: 36415; 85610

== ENCOUNTER 2021-05-09 13:27 | Outpatient (RCR) | payer MEDICARE, SELFPAY ==
[2021-04-16 09:31] VITALS: BMI 31.4
[2021-04-17 15:39] LABS: International Normalized Ratio 1.9; Prothrombin Time (Protime)PT. 21.4 SECONDS (11.7-14.9)
[2021-05-01 17:16] LABS: International Normalized Ratio 1.8; Prothrombin Time (Protime)PT. 19.8 SECONDS (11.7-14.9)
[2021-05-09 14:51] LABS: International Normalized Ratio 2.1
== END 2021-05-16 18:00 | disposition home or self-care (01) ==
LOC: LAB 13:27
PROVIDERS: Family Provider Family Medicine; PCP Family Medicine; Referring Provider Specialist; Visit Provider Specialist
DX: I48.11 Longstanding persistent atrial fibrillation (principal); Z79.01 Long term (current) use of anticoagulants
CPT/HCPCS: 36415; 85610

== ENCOUNTER 2021-05-20 13:57 | Outpatient (CLI) | payer MEDICARE, SELFPAY ==
--- NOTE | 2021-05-20 14:01 | ART_ITS ---
Reason For Study: Claudication Procedure A bilateral lower extremity continuous wave Doppler with analog waveform analysis,segmental pressures,and ankle brachial indexes with exercise. Left Segmental Pressures Left brachial= 171mmHg. Left calf = >254mmHg. Left posterior tibial artery = 82mmHg. Left dorsalis pedis artery = 129mmHg. The left dorsalis pedis waveforms are monophasic. The left posterior tibial artery waveforms are monophasic. Right Segmental Pressures Right brachial= 169mmHg. Right calf = >254mmHg. Right posterior tibial artery = 89mmHg. Right dorsalis pedis artery = 120mmHg. The right dorsalis pedis waveforms are monophasic. The right posterior tibial artery waveforms are monophasic. Indices The right ankle brachial index by the dorsalis pedis is 0.70. The right ankle brachial index by the posterior tibial artery is 0.52. The right post exercise ankle brachial index is 0.19. The left ankle brachial index by the dorsalis pedis is 0.75. The left ankle brachial index by the posterior tibial artery is 0.48. The left post exercise ankle brachial index is 0.15. VL/Lower Ext Art Exam w/ Exercise Interpretation Summary Abnormal bilateral lower extremity ankle-brachial indices and monophasic Dopple r waveforms consistent with moderately severe occlusive disease. Digital volume pulse recordings are significantly depressed suggestive of multi segmental arterial occlusive disease bilaterally as well as small vessel occlusive disease With exercise the right DEVIN goes from resting 0.72 immediately after exercise a t 0.19 with incomplete recovery at 9 minutes to 0.41. This is significantly abnormal. With exercise left DEVIN goes from 0.75 to immediately after exercise at 0.15 and at 9 minutes there is failure to recover at 0.45 which is significantly abnormal Findings suggest advancement of disease bilaterally from previous examination o f October 14, 2018 Ordering Physician: Rico Tucker Referring Physician: Chris Negron Performed By: Elvie Sanders, RVT
== END 2021-05-20 23:59 | disposition home or self-care (01) ==
LOC: CVS 13:59
PROVIDERS: PCP Family Medicine; Referring Provider Surgery; Visit Provider Surgery
DX: I73.9 Peripheral vascular disease, unspecified (principal)
CPT/HCPCS: 93924

== ENCOUNTER 2021-06-05 13:30 | Outpatient (RCR) | payer MEDICARE, SELFPAY ==
[2021-05-17 01:34] VITALS: BMI 31.4
[2021-06-05 14:30] LABS: International Normalized Ratio 2.2
== END 2021-06-05 18:00 | disposition home or self-care (01) ==
LOC: LAB 13:30
PROVIDERS: Family Provider Family Medicine; PCP Family Medicine; Referring Provider Specialist; Visit Provider Specialist
DX: I48.11 Longstanding persistent atrial fibrillation (principal); Z79.01 Long term (current) use of anticoagulants
CPT/HCPCS: 36415; 85610

== ENCOUNTER 2021-06-26 07:18 | Day surgery (SDC) | payer MEDICARE, SELFPAY ==
[2021-06-19 13:51] LABS: Hematocrit 38.2 % (40-54); Hemoglobin 12.3 g/dL (13.0-16.5); Mean Corp Hgb Conc 32.2 g/dL (32-36); Mean Corpuscular Hgb 32.2 pg (27.0-32.0); Mean Platelet Vol. 9.7 fl (6.2-12.0); Platelet Count 145 K/mm3 (150-450); RBC Distribution Width CV 14.5 % (11.6-14.6); RBC Distribution Width SD 52.9 fl (35.1-43.9); Red Blood Count 3.82 M/mm3 (4.6-6.2); White Blood Count 5.8 K/mm3 (4.4-11.0)
[2021-06-19 14:15] LABS: Anion Gap 6 (5-15); BUN 15 mg/dL (7-18); BUN/Creat Ratio 13.3 RATIO (10-20); Calcium,Total 8.5 mg/dL (8.5-10.1); Chloride 104 mmol/L (98-107); Creatinine, Serum 1.13 mg/dL (0.70-1.30); EST Glomerular Filtration Rate 68 mL/min (>60); Est Glom Filt Rate - Afr Amer 83 mL/min (>60); Glucose 77 mg/dL (74-106); Potassium 3.9 mmol/L (3.5-5.1); Sodium Level 139 mmol/L (136-145)
[2021-06-26 07:30] LABS: INR Fingerstick 1.4; Prothrombin Time Fingerstick 17.5 SEC (11.7-14.9)
--- NOTE | 2021-06-26 07:54 | HP.PCM_ITS ---
History and Physical Date of Admission: 06/26/21 [facility] [id number] [place] [address] [phone] OFFICE VISITDate of Service: 05/22/21 MR#:[id number]: DESIRAE REINA CRep #:[id number] Provider:Dr. Rico Tucker MDAge/Sex: 70/M [facility] Intake Visit Reasons: F/U VASCULAR IMAGING 05/20 Chief Complaint: discuss surgery/plan of care Allergies amoxicillin Allergy (Unknown, Verified 05/22/21 13:58) Unknown clindamycin Allergy (Unknown, Verified 05/22/21 13:58) Unknown Penicillins [PCN] Allergy (Unknown, Verified 05/22/21 13:58) Unknown Sulfa (Sulfonamide Antibiotics) Allergy (Unknown, Verified 05/22/21 13:58) Unknown Medications aspirin 81 mg PO DAILY@0800 08/21/14 [History Confirmed 05/22/21] atorvastatin 20 mg PO QHS 08/21/14 [History Confirmed 05/22/21] gabapentin 600 mg PO TIDCM 08/21/14 [History Confirmed 05/22/21] albuterol sulfate 90 mcg/actuation aerosol inhaler 2 puff INHALATION Q4H PRN g 08/16/18 [History Confirmed 05/22/21] lisinopril 20 mg tablet 30 mg PO DAILY tab 08/16/18 [History Confirmed 05/22/21] metoprolol succinate 100 mg tablet,extended release 24 hr 100 mg PO DAILY 08/16/18 [History Confirmed 05/22/21] pentoxifylline 400 mg tablet,extended release 400 mg PO TID tab 08/16/18 [History Confirmed 05/22/21] warfarin 4 mg tablet 4 mg PO .COMPLEX #180 tablet 06/07/20 [Rx Confirmed 05/22/21] folic acid 1 mg tablet 1 mg PO DAILY 05/22/21 [History Confirmed 05/22/21] PFSH Medical History Claudication COPD (chronic obstructive pulmonary disease) Depression Erectile dysfunction Essential hypertension Hyperlipidemia senior care (current) use of anticoagulants PVD (peripheral vascular disease) Surgical History History of angioplasty of peripheral vessel (~06/2018) Hx of aorto-femoral bypass hx of apll Hx of appendectomy Hx of colonoscopy Hx of right knee surgery Family History Father Emphysema lung Mother , DVT History of DVT (deep vein thrombosis) Grandfather Cancer lung Social History Smoking Status: Former smoker how long ago did patient quit smokin year ago second hand exposure: No alcohol intake: never substance use type: does not use caffeine: Yes Type: coffee Number of servings: 3 frequency: does not exercise HPI: Patient is a 70 y/o M I am following for bilateral lower extremity claudication. Patient presents for an update history and physical. He denies any changes, illness or hospitalizations since his last office visit with Dr. Tucker. He denies any new symptoms since his last office visit. He has held his Coumadin for 4 days prior to the procedure. He denies any complications or side effects for previous vascular procedures. Patient's previous history per Dr. Tucker: DESIRAE REINA, is a 70 M who presents to the office today for surgical follow-up of peripheral arterial occlusive disease. I have most recently seen him on November 05, 2018. The patient had significant left lower extremity claudication because he had an occluded previous femoral-femoral crossover graft. We reestablished flow by performing an angioplasty and stenting of the right iliac system. The right common iliac was patent. The right internal iliac was patent. There was thrombus diffuse disease of the right external iliac. This was recanalized and treated with a 8 x 80 mm prot?g? stent and an 8 x 80 mm EverCross angioplasty. This intervention was performed through his left brachial approach as retrograde access could not be achieved through the groin. His left iliac system is chronically occluded. We did a redo femoral-femoral crossover graft with bilateral patch angioplasty and endarterectomies. He was improved with those results. At rest he had a normal right DEVIN of 1.1 and a left DEVIN of 1.15. Exercise indices were abnormal on the right at 0.34 and on the left is 0.43. As noted below he has had an updated bilateral extremity noninvasive exercise study. The right DEVIN at rest per dorsalis pedis is 0.7 and the post exercise index 0.19. On the left the resting index is 0.75 and subsequent exercise 0.15 The patient presents today complaining of progressive bilateral extremity weakness cramping coolness. States that this has been progressive over the past year. He is on routine Coumadin therapy. He states that his INR averages about 2-2-1/2. The Coumadin is treating atrial fibrillation. May 20, 2021 Reason For Study: Claudication Procedure A bilateral lower extremity continuous wave Doppler with analog waveform analysis,segmental pressures,and ankle brachial indexes with exercise. Left Segmental Pressures Left brachial= 171mmHg. Left calf = >254mmHg. Left posterior tibial artery = 82mmHg. Left dorsalis pedis artery = 129mmHg. The left dorsalis pedis waveforms are monophasic. The left posterior tibial artery waveforms are monophasic. Right Segmental Pressures Right brachial= 169mmHg. Right calf = >254mmHg. Right posterior tibial artery = 89mmHg. Right dorsalis pedis artery = 120mmHg. The right dorsalis pedis waveforms are monophasic. The right posterior tibial artery waveforms are monophasic. Indices The right ankle brachial index by the dorsalis pedis is 0.70. The right ankle brachial index by the posterior tibial artery is 0.52. The right post exercise ankle brachial index is 0.19. The left ankle brachial index by the dorsalis pedis is 0.75. The left ankle brachial index by the posterior tibial artery is 0.48. The left post exercise ankle brachial index is 0.15. VL/Lower Ext Art Exam w/ Exercise Interpretation Summary Abnormal bilateral lower extremity ankle-brachial indices and monophasic Doppler waveforms consistent with moderately severe occlusive disease. Digital volume pulse recordings are significantly depressed suggestive of multi segmental arterial occlusive disease bilaterally as well as small vessel occlusive disease With exercise the right DEVIN goes from resting 0.72 immediately after exercise at 0.19 with incomplete recovery at 9 minutes to 0.41. This is significantly abnormal. With exercise left DEVIN goes from 0.75 to immediately after exercise at 0.15 and at 9 minutes there is failure to recover at 0.45 which is significantly abnormal Findings suggest advancement of disease bilaterally from previous examination of October 14, 2018 Ordering Physician: Rico Tucker Referring Physician: Chris Negron Performed By: Elvie Sanders RVT 05/20/21 [id number] Rico Tucker MD The patient's most recent imaging study was June 01, 2018 which was a CTA of the abdomen with runoff STUDY: CTA OF THE ABDOMINAL AORTA AND BILATERAL LOWER EXTREMITIES REASON FOR EXAM: Male, 67 years old. History of peripheral vascular disease with the lower extremity pain. History of prior femoral bypass surgery. Prior left-sided stent. RADIATION DOSAGE (If Supplied By Facility): CTDIvol = ( 9.84 ) mGy, DLP = ( 1520.71 ) mGycm TECHNIQUE: Axial CT angiography multi-detector data acquisition was obtained from the dome of the liver to the ankles following intravenous administration of 100mL IV Isovue 370. Axial images and MIP images were reconstructed from the axial data set. Post-processing of the angiographic images was performed, with multiplanar reformation and 3D reconstruction. Individualized dose optimization techniques were used for this CT. TECHNICAL QUALITY: Good COMPARISON: None. Descriptors of Narrowing: None (0%) Mild (< 50%) Moderate (50-70%) Severe (70-90%) Subtotal/Total Occlusion (90-100%) Non-Evaluable (technically non-diagnostic FINDINGS: Abdominal aorta: Calcified atherosclerotic plaque seen throughout the course of the aorta. There is no evidence of narrowing or aneurysmal dilatation. Celiac and superior mesenteric arteries: Atherosclerotic plaque formation at the origin of the celiac artery. Moderate degree of the stenosis caused by atherosclerotic plaque at the origin and proximal portions of the superior mesenteric artery. There is evidence of calcific plaques of the splenic artery. Inferior mesenteric artery: Not visualized. Right renal artery(arteries): No demonstrated narrowing. Left renal artery(arteries): Moderate calcific plaques at the origin of the left renal artery. Right common iliac artery: Diffuse plaque formation along the common iliac artery. Mild stenosis. Right external iliac artery: Moderate degree of calcific plaque throughout the external iliac artery. There is a moderate degree of stenosis in its distal portion. Right internal iliac artery: No demonstrated narrowing. Left common iliac artery: There is occlusion of the left common iliac artery due to calcific plaques. Left external iliac artery: Occlusion of the external iliac artery. 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 Left internal iliac artery: Nonvisualized. There is evidence of a femoral to femoral bypass graft RIGHT LOWER EXTREMITY Right common femoral artery: Nonstenotic calcified plaques. Right profundus femoris: No demonstrated narrowing. Right superficial femoral: Moderate stenosis of the distal superficial femoral artery due to calcified plaques. Right popliteal artery: Atherosclerotic calcified plaques in the popliteal artery causing approximately 50-60% stenosis. Right tibioperoneal trunk: No demonstrated narrowing. Calcific plaques. Right anterior tibial artery: No demonstrated narrowing. Calcific plaques. Right posterior tibial artery: No demonstrated narrowing. Calcific plaques. Right peroneal artery: No demonstrated narrowing. Calcific plaques. LEFT LOWER EXTREMITY Left common femoral artery: No demonstrated narrowing. Left profundus femoris: No demonstrated narrowing. Left superficial femoral: Moderate degree of her atherosclerotic plaques in the distal portion of the superficial femoral artery. Left popliteal artery: Moderate degree of atherosclerotic plaques at the level of the popliteal artery with a focal tight stenoses. Left tibioperoneal trunk: No demonstrated narrowing. Calcific plaques. Left anterior tibial artery: No demonstrated narrowing. Calcific plaques. Left posterior tibial artery: No demonstrated narrowing. Calcific plaques. Left peroneal artery: No demonstrated narrowing. Calcific plaques CT/CTA Abd w/Runoff W/WO Contrast IMPRESSION: Prior femoral-femoral bypass graft. 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 Electronically Signed: Ben Murphy, at 9:07 EDT , Service support , ROS General General: No weight change, appetite, fatigue, colon cancer, breast cancer or weakness HEENT HEENT: No difficulty swallowing, eye injury, eye surgery, swollen glands or hoarseness Endo Endocrine: No thyroid disease, diabetes mellitus, thyroid cancer, Hair loss, heat intolerance or cold intolerance Skin Skin: No rash or changing moles Breast Breast: No left breast lump, right breast lump, nipple discharge, breast pain, abnormal mammogram, abnormal US or breast enlargement Musc Musculoskeletal: No back problems, arthritis, rheumatoid arthritis, gout or joint pain Cardio Cardiovascular: No murmur, pacemaker, heart disease, atrial fibrillation, high blood pressure, heart attack, heart stent, palpitations, shortness of breat with exertion or chest pain Psych Psychiatric: No depression, anxiety or hearing voices Resp Respiratory: No shortness of breath, No sleep apnea, Yes cough, Yes COPD, No asthma, No emphysema, No wheezing Gastro Gastrointestinal: No abdominal pain, No nausea or vomiting, No diarrhea, No constipation, No blood in stool, No acid reflux, No hemorrhoids, No ulcers, No gallbladder problem, No black,tarry stools Erik Hematologic: Yes blood thinners, No blood disorders, No bleeding, No anemia, No blood clots Neuro Neurologic: No weakness Exam Const General: cooperative, comfortable and no acute distress Nutritional Appearance: obese Orientation: alert and awake [facility] Head: normal to inspection Eyes General: appearance normal, both eyes and all related structures Neck Neck: normal visual inspection Chest Other: Increased AP diameter Resp Effort & Inspection: normal respiratory effort Auscultation: clear to auscultation bilaterally Cardio Other: Normal rate, regular rhythm Bilateral radials 3+. Bilateral brachials 3+. Bilateral femorals are palpable at approximately 2+. Well-healed bilateral groin incisions. GI Other: Soft, nontender, overweight, normal bowel sounds Musc Cervical Spine: normal cervical lordosis Skin Other: Lower extremities demonstrate violaceous changes particularly to the feet. Neuro General: patient alert, patient awake and patient oriented x3 Extrem Other: There is 2+ pitting edema. Psych Appearance: grossly normal Assessment & Plan Assessment/Plan (1) Claudication: PLAN: Dr. Tucker will plan to perform an abdominopelvic bilateral lower ext remity arteriogram with possible intervention. Access will be gained retrograde left brachial approach. Patient has had the opportunity to ask and have questions answered. Patient verbally understands and agrees with the plan. He will be instructed when to restart the Coumadin following the procedure. Dr. Tucker's plan per his note: 70-year-old gentleman who has progressive bilateral extremity arterial occlusive disease and claudication. As noted he has had angioplasty and stenting of his right external iliac system with then a redo right to left femoral-femoral crossover graft. This was done with bilateral common femoral endarterectomies and patch angioplasty. He now has recurrent symptoms which would correlate with his noninvasive PVRs. The fact that both legs seem to be recurring might suggest that there is an inflow problem within the right iliac system. His left iliac system is chronically occluded. I propose for him a retrograde left brachial approach. We were able to successfully perform this in the past for him. Obtain abdominal pelvic bilateral extremity arteriogram. Hopefully his disease is located within the right external iliac system and that we can intervene with an endovascular approach. He is aware of the technique, benefit, risk and alternatives. No guarantees of success have been offered. We will have him hold his Coumadin 4 days pr eprocedure. He is aware that pending findings I might recommend tertiary referral. At this point he is desiring to have an attempt with performance of the arteriogram for detailed analysis and possible intervention. I think that would be a reasonable approach. I had his previous arteriogram we were dealing with thrombus and occlusion of the right iliac system. A formal extended bilateral extremity arteriogram was not performed. I anticipate proceeding with that on this occasion. Charges/Coding Visit Charges Inpatient E&M: 48026 Init Hosp L1 (No charge update H&P)
[2021-06-26 07:57] VITALS: BMI 30.3
--- NOTE | 2021-06-26 10:30 | OP.PCM_ITS ---
Problems Associated Problem List Diagnoses (1) PVD (peripheral vascular disease): Report of Operation Date of Procedure: 06/26/21 Pre-Operative Diagnosis: Progressive bilateral extremity arterial occlusive disease with claudication Post-Operative Diagnosis: 90% stenosis proximal right external iliac artery. Patent femoral-femoral crossover graft and bilateral femoral patch angioplasty Surgery/Procedure Performed:: Abdominal pelvic bilateral lower extremity arteriogram Right external iliac 5 x 80 mm [place] cross balloon angioplasty Right proximal external iliac 8 x 60 mm Misago stent placement with subsequent 8 x 60 mm med across angioplasty Description of Surgical Findings:: Timeout and informed consent was obtained. 70-year-old gentleman was taken to the special procedures lab placed upon on the table. Throughout the procedure in aliquots he received a total of 50 mcg of fentanyl and 3 mg of Versed is intravenous sedation. Bilateral groins and the left upper extremity was sterilely prepped and draped. Ultrasound was used to initially inspect the left radial artery and then I used that to inject 2% lidocaine throughout the procedure total of 8 cc was used. Micropuncture needle was used to gain access to the left radial artery followed by wire advancement the skin was slightly incised to 6 Cameroonian short sheath dilator was inserted an 035 angled Glidewire and a 4 Cameroonian IM cath was used to gain access to the thoracic aorta the Glidewire was then advanced. We then used 110 cm pigtail catheter a aortogram was obtained using 15 cc a second for 8 cc of contrast. This demonstrated high-grade 90% stenosis of the proximal right external iliac. A J-wire was placed and then subsequently a [employer] destination slender 6 Cameroonian sheath was placed. As soon as the radial sheath had been initially placed the patient received 10,000 units of heparin intravenously. Then I was able to get a Glidewire to go past the high-grade stenosis of the proximal right external iliac demonstrating that the previously placed 8 x 80 EverCross stent was widely patent. We predilated with a 5 x 8 rapid exchange balloon. Then we placed a 8 x 60 mm Misago stent. Unfortunately we could not image through the sheath with the stent in position due to valve failure on the sheath. Patient had significant amount of calcification in stent placement was mostly based upon that. A 30 degree RACHEAL oblique view was utilized to maximize visualization. The stent was deployed and then an 8 x 60 mm [place] cross balloon was used to post dilate and this was done up to 14 edward of pressure. The pigtail catheter was reinserted and final images of the abdomen pelvis and bilateral lower extremities down to the knees were obtained. This demonstrated a very nicely placed stent with resolution of the area of high-grade proximal right external iliac stenosis as well as patent femoral-femoral crossover and patent bilateral profundofemoral and superficial femoral arteries. The Glidewire was reinserted the pigtail removed back to the sheath the sheath was withdrawn and a transradial band was applied with sheath removal. Patient's hand remained viable no apparent complication about the procedure Total contrast used approximately 40 cc of Visipaque. Images demonstrate a patent abdominal aorta the right renal artery appears to be completely occluded there is mild stenosis of the proximal left renal artery there is complete occlusion of the left common iliac and the internal/external iliac not identified on the left the right common iliac is patent with diffuse disease there is high-grade 90% stenosis of the proximal right external iliac proximal to the previously placed stent. The previously placed 8 x 80 mm EverCross stent is widely patent. The patch angioplasty of the right common femoral widely patent as is the profundofemoral and superficial femoral and the crossover graft nicely open. The left femoral patch angioplasty also widely patent with good flow to the profundofemoral and superficial femoral with again good flow down to the knee. Due to the positioning of my sheath and catheter I did not give a large contrast bolus to image below the knee He was separately taken to the recovery room in satisfactory addition without apparent complication. He tolerated the procedure well. Specimens none. Drains none. Blood loss 100 cc Rico Tucker M.D., F.A.C.S. Surgeon: Rico Tucker Type of Anesthesia: IV Sedation and Local
== END 2021-06-26 13:30 | disposition home or self-care (01) ==
LOC: CLSP 07:18
PROVIDERS: PCP Family Medicine; Referring Provider Surgery; Visit Provider Surgery
DX: I70.211 Atherosclerosis of native arteries of extremities with intermittent claudication, right leg (principal); I82.421 Acute embolism and thrombosis of right iliac vein; I10 Essential (primary) hypertension; Z87.891 Personal history of nicotine dependence; E78.5 Hyperlipidemia, unspecified; Z79.899 Other long term (current) drug therapy; Z79.82 Long term (current) use of aspirin; Z79.01 Long term (current) use of anticoagulants
CPT/HCPCS: 36200; 36245; 36246; 36415; 36416; 37221; 75625; 75716; 76937; 80048; 85027; 85610; 99152; 99153; C1725; C1894; J7030; Q9967; C1769; C1876

== ENCOUNTER 2021-07-03 13:28 | Outpatient (RCR) | payer MEDICARE, SELFPAY ==
[2021-06-16 02:52] VITALS: BMI 31.4
[2021-07-03 14:38] LABS: International Normalized Ratio 1.6; Prothrombin Time (Protime)PT. 18.2 SECONDS (11.7-14.9)
== END 2021-07-03 18:00 | disposition home or self-care (01) ==
LOC: LAB 13:28
PROVIDERS: Family Provider Family Medicine; PCP Family Medicine; Referring Provider Specialist; Visit Provider Specialist
DX: I48.19 Other persistent atrial fibrillation (principal); Z79.01 Long term (current) use of anticoagulants
CPT/HCPCS: 36415; 85610

== ENCOUNTER → 2021-07-31 | Outpatient (CLI) | payer MEDICARE, SELFPAY ==
--- NOTE | 2021-07-31 14:02 | ART_ITS ---
Reason For Study: Claudication Procedure A bilateral lower extremity continuous wave Doppler with analog waveform analysis,segmental pressures,and ankle brachial indexes with exercise. Left Segmental Pressures Left brachial= 125mmHg. Left posterior tibial artery = 119mmHg. Left dorsalis pedis artery = 146mmHg. Left digit = 77 mmHg. Right Segmental Pressures Right brachial= 118mmHg. Right posterior tibial artery = 135mmHg. Right dorsalis pedis artery = 173mmHg. Right digit = 93 mmHg. Indices The right ankle brachial index by the posterior tibial artery is 1.08. The right ankle brachial index by the dorsalis pedis is 1.38. The right digital-brachial index is 0.74. The right ankle brachial index by the dorsalis pedis post exercise is 0.79. The left ankle brachial index by the posterior tibial artery is 0.95. The left ankle brachial index by the dorsalis pedis is 1.17. The left digital-brachial index is 0.62. The left dorsalis pedis index post exercise is 0.83. VL/Lower Ext Art Exam w/ Exercise Interpretation Summary Normal right lower extremity resting ankle-brachial indices for the right PT an d DP respectively at 1.08 and 1.38. Abnormal right posterior tibial and dorsalis pedis monophasic Doppler waveforms consistent with a more significant level of occlusive disease. Abnormal right lower extremity exercise response from a baseline DEVIN of 1.38 to immediately after exercise at 0.79 with failure recovery by 9 minutes Normal left lower extremity PT and DP ankle-brachial index at rest at 0.95 and 1.17 respectively. As above abnormal left posterior tibial and dorsalis pedis Doppler waveforms being monophasic suggesting a more severe level of occlusive disease. Abnormal left lower extremity exercise index from a resting 1.172 immediately a fter exercise at 0.83 with failure of complete recovery by 9 minutes. The findings above however are significantly improved bilaterally from the prev ious examination of May 20, 2021 Ordering Physician: Sagrario Gonzalez Referring Physician: Sagrario Gonzalez Performed By: Garima West RDCS/RVT
== END | disposition home or self-care (01) ==
PROVIDERS: PCP Family Medicine; Referring Provider Physician Assistant; Visit Provider Physician Assistant
DX: I73.9 Peripheral vascular disease, unspecified (principal)
CPT/HCPCS: 93924

== ENCOUNTER 2021-08-07 12:52 | Outpatient (RCR) | payer MEDICARE, SELFPAY ==
[2021-07-16 20:30] VITALS: BMI 31.4
[2021-07-17 15:38] LABS: Prothrombin Time (Protime)PT. 22.3 SECONDS (11.7-14.9)
[2021-08-07 13:45] LABS: International Normalized Ratio 1.7; Prothrombin Time (Protime)PT. 19.2 SECONDS (11.7-14.9)
== END 2021-08-07 23:59 | disposition home or self-care (01) ==
LOC: LAB 12:52
PROVIDERS: Family Provider Family Medicine; PCP Family Medicine; Referring Provider Specialist; Visit Provider Specialist
DX: I48.19 Other persistent atrial fibrillation (principal); Z79.01 Long term (current) use of anticoagulants
CPT/HCPCS: 36415; 85610

== ENCOUNTER 2021-09-04 13:25 | Outpatient (RCR) | payer MEDICARE, SELFPAY ==
[2021-08-16 06:50] VITALS: BMI 31.4
[2021-08-21 14:47] LABS: International Normalized Ratio 2.2; Prothrombin Time (Protime)PT. 24.1 SECONDS (11.7-14.9)
[2021-09-04 14:52] LABS: Prothrombin Time (Protime)PT. 22.1 SECONDS (11.7-14.9)
== END 2021-09-15 02:09 | disposition home or self-care (01) ==
LOC: LAB 13:25
PROVIDERS: Family Provider Family Medicine; PCP Family Medicine; Referring Provider Specialist; Visit Provider Specialist
DX: I48.19 Other persistent atrial fibrillation (principal); Z79.01 Long term (current) use of anticoagulants
CPT/HCPCS: 36415; 85610

== ENCOUNTER 2021-10-16 13:29 | Outpatient (RCR) | payer MEDICARE, SELFPAY ==
[2021-09-15 02:09] VITALS: BMI 31.4
[2021-10-02 14:30] LABS: International Normalized Ratio 1.9; Prothrombin Time (Protime)PT. 21.3 SECONDS (11.7-14.9)
[2021-10-16 14:05] LABS: International Normalized Ratio 1.8; Prothrombin Time (Protime)PT. 20.6 SECONDS (11.7-14.9)
== END 2021-10-16 18:00 | disposition home or self-care (01) ==
LOC: LAB 13:29
PROVIDERS: Family Provider Family Medicine; PCP Family Medicine; Referring Provider Specialist; Visit Provider Specialist
DX: I48.19 Other persistent atrial fibrillation (principal); Z79.01 Long term (current) use of anticoagulants
CPT/HCPCS: 36415; 85610

== ENCOUNTER 2021-10-30 13:44 | Outpatient (RCR) | payer MEDICARE, SELFPAY ==
[2021-10-16 22:46] VITALS: BMI 31.4
[2021-10-30 15:13] LABS: Prothrombin Time (Protime)PT. 22.7 SECONDS (11.7-14.9)
== END 2021-10-30 18:00 | disposition home or self-care (01) ==
LOC: LAB 13:44
PROVIDERS: Family Provider Family Medicine; PCP Family Medicine; Referring Provider Specialist; Visit Provider Specialist
DX: I48.19 Other persistent atrial fibrillation (principal); Z79.01 Long term (current) use of anticoagulants
CPT/HCPCS: 36415; 85610

== ENCOUNTER 2021-12-11 13:58 | Outpatient (RCR) | payer MEDICARE, SELFPAY ==
[2021-11-15 20:36] VITALS: BMI 31.4
[2021-11-27 15:47] LABS: International Normalized Ratio 1.9; Prothrombin Time (Protime)PT. 21.2 SECONDS (11.7-14.9)
[2021-12-11 15:01] LABS: International Normalized Ratio 2.3
== END 2021-12-11 18:00 | disposition home or self-care (01) ==
LOC: LAB 13:58
PROVIDERS: Internal Medicine Cardiovascular Disease; Family Provider Family Medicine; PCP Family Medicine; Referring Provider Specialist; Visit Provider Specialist
DX: I48.19 Other persistent atrial fibrillation (principal); Z79.01 Long term (current) use of anticoagulants
CPT/HCPCS: 36415; 85610

== ENCOUNTER → 2022-01-01 | Outpatient (CLI) | payer MEDICARE, SELFPAY ==
--- NOTE | 2022-01-01 13:55 | ART_ITS ---
Reason For Study: Claudication Procedure A bilateral lower extremity continuous wave Doppler with analog waveform analysis,segmental pressures,and ankle brachial indexes without exercise. Left Segmental Pressures Left brachial= 155mmHg. Left posterior tibial artery = 146mmHg. Left dorsalis pedis artery = >254mmHg. Left digit = 99 mmHg. Right Segmental Pressures Right brachial= 162mmHg. Right posterior tibial artery = >254mmHg. Right dorsalis pedis artery = >254mmHg. Right digit = 130 mmHg. Indices The right ankle brachial index by the posterior tibial artery is NC. The right ankle brachial index by the dorsalis pedis is NC. The right digital-brachial index is 0.80. The left ankle brachial index by the posterior tibial artery is 0.90. The left ankle brachial index by the dorsalis pedis is NC. The left digital-brachial index is 0.61. VL/Lower Ext Art Exam w/o Exercis Interpretation Summary Noncalculable right PT and DP ankle-brachial indices secondary noncompressibili ty. Triphasic right posterior tibial and dorsalis pedis Doppler waveforms with normal digital index of 0.8. Medial calcification of vessel wall suspected. Mildly depressed left PT ankle-brachial index of 0.9 with a 9 calculable left D P index due to noncompressibility. Triphasic normal left PT and DP Doppler waveforms. Abnormal left digital brachial index of 0.61 consistent with arterial occlusive disease. Direct comparison to July 31, 2021 was difficult due to the noncompressibility of vessel garvey. Ordering Physician: Sagrario Gonzalez Referring Physician: Chris Negron Performed By: Garima West RDCS/RVT
== END | disposition home or self-care (01) ==
LOC: CVS 13:54
PROVIDERS: PCP Family Medicine; Referring Provider Physician Assistant; Visit Provider Physician Assistant
DX: I73.9 Peripheral vascular disease, unspecified (principal)
CPT/HCPCS: 93923

== ENCOUNTER 2022-01-15 13:31 | Outpatient (RCR) | payer MEDICARE, SELFPAY ==
[2021-12-17 09:27] VITALS: BMI 31.4
[2022-01-15 14:37] LABS: International Normalized Ratio 2.7; Prothrombin Time (Protime)PT. 28.3 SECONDS (11.7-14.9)
== END 2022-01-15 18:00 | disposition home or self-care (01) ==
LOC: LAB 13:31
PROVIDERS: Family Provider Family Medicine; PCP Family Medicine; Referring Provider Specialist; Visit Provider Specialist
DX: I48.19 Other persistent atrial fibrillation (principal); Z79.01 Long term (current) use of anticoagulants
CPT/HCPCS: 36415; 85610

== ENCOUNTER 2022-02-12 14:01 | Outpatient (RCR) | payer MEDICARE, SELFPAY ==
[2022-01-15 22:55] VITALS: BMI 31.4
[2022-02-12 14:36] LABS: International Normalized Ratio 2.6; Prothrombin Time (Protime)PT. 27.5 SECONDS (11.7-14.9)
== END 2022-02-12 18:00 | disposition home or self-care (01) ==
LOC: LAB 14:01
PROVIDERS: Family Provider Family Medicine; PCP Family Medicine; Referring Provider Specialist; Visit Provider Specialist
DX: I48.19 Other persistent atrial fibrillation (principal); Z79.01 Long term (current) use of anticoagulants
CPT/HCPCS: 36415; 85610

== ENCOUNTER 2022-03-12 13:36 | Outpatient (RCR) | payer MEDICARE, SELFPAY ==
[2022-02-16 00:52] VITALS: BMI 31.4
[2022-03-12 15:02] LABS: International Normalized Ratio 2.5; Prothrombin Time (Protime)PT. 26.4 SECONDS (11.7-14.9)
== END 2022-03-12 15:00 | disposition home or self-care (01) ==
LOC: LAB 13:36
PROVIDERS: Family Provider Family Medicine; PCP Family Medicine; Referring Provider Specialist; Visit Provider Specialist
DX: I48.19 Other persistent atrial fibrillation (principal); Z79.01 Long term (current) use of anticoagulants
CPT/HCPCS: 36415; 85610

== ENCOUNTER 2022-05-14 13:37 | Outpatient (RCR) | payer MEDICARE, SELFPAY ==
[2022-03-19 08:03] VITALS: BMI 31.4
[2022-04-16 15:22] LABS: International Normalized Ratio 2.5; Prothrombin Time (Protime)PT. 26.7 SECONDS (11.7-14.9)
[2022-05-14 15:26] LABS: International Normalized Ratio 3.5; Prothrombin Time (Protime)PT. 34.6 SECONDS (11.7-14.9)
== END 2022-05-16 21:43 | disposition home or self-care (01) ==
LOC: LAB 13:37
PROVIDERS: Family Provider Family Medicine; PCP Family Medicine; Referring Provider Specialist; Visit Provider Specialist
DX: I48.19 Other persistent atrial fibrillation (principal); Z79.01 Long term (current) use of anticoagulants
CPT/HCPCS: 36415; 85610

== ENCOUNTER 2022-06-04 13:22 | Outpatient (RCR) | payer MEDICARE, SELFPAY ==
[2022-05-16 21:44] VITALS: BMI 31.4
[2022-06-04 13:55] LABS: International Normalized Ratio 3.6; Prothrombin Time (Protime)PT. 35.5 SECONDS (11.7-14.9)
== END 2022-06-15 01:09 | disposition home or self-care (01) ==
LOC: LAB 13:22
PROVIDERS: Family Provider Family Medicine; PCP Family Medicine; Referring Provider Specialist; Visit Provider Specialist
DX: I48.19 Other persistent atrial fibrillation (principal); Z79.01 Long term (current) use of anticoagulants
CPT/HCPCS: 36415; 85610

== ENCOUNTER 2022-07-02 13:46 | Outpatient (RCR) | payer MEDICARE, SELFPAY ==
[2022-06-15 01:09] VITALS: BMI 31.4
[2022-06-18 14:01] LABS: International Normalized Ratio 3.1; Prothrombin Time (Protime)PT. 32.4 SECONDS (11.7-14.9)
[2022-07-02 15:00] LABS: International Normalized Ratio 2.8; Prothrombin Time (Protime)PT. 29.7 SECONDS (11.7-14.9)
== END 2022-07-02 15:00 | disposition home or self-care (01) ==
LOC: LAB 13:46
PROVIDERS: Family Provider Family Medicine; PCP Family Medicine; Referring Provider Specialist; Visit Provider Specialist
DX: I48.19 Other persistent atrial fibrillation (principal); Z79.01 Long term (current) use of anticoagulants
CPT/HCPCS: 36415; 85610

== ENCOUNTER 2022-08-06 13:52 | Outpatient (RCR) | payer MEDICARE, SELFPAY ==
[2022-07-17 08:13] VITALS: BMI 31.4
[2022-07-30 15:01] LABS: International Normalized Ratio 3.5; Prothrombin Time (Protime)PT. 35.3 SECONDS (11.7-14.9)
[2022-08-06 15:06] LABS: International Normalized Ratio 2.9
== END 2022-08-06 18:00 | disposition home or self-care (01) ==
LOC: LAB 13:52
PROVIDERS: Family Provider Family Medicine; PCP Family Medicine; Referring Provider Specialist; Visit Provider Specialist
DX: I48.19 Other persistent atrial fibrillation (principal); Z79.01 Long term (current) use of anticoagulants
CPT/HCPCS: 36415; 85610

== ENCOUNTER 2022-09-03 13:35 | Outpatient (RCR) | payer MEDICARE, SELFPAY ==
[2022-08-15 21:46] VITALS: BMI 31.4
[2022-09-03 14:46] LABS: Prothrombin Time (Protime)PT. 31.9 SECONDS (11.7-14.9)
== END 2022-09-15 18:00 | disposition home or self-care (01) ==
LOC: LAB 13:35
PROVIDERS: Family Provider Family Medicine; PCP Family Medicine; Referring Provider Specialist; Visit Provider Specialist
DX: I48.19 Other persistent atrial fibrillation (principal); Z79.01 Long term (current) use of anticoagulants
CPT/HCPCS: 36415; 85610

== ENCOUNTER 2022-10-15 13:31 | Outpatient (RCR) | payer MEDICARE, SELFPAY ==
[2022-09-16 00:18] VITALS: BMI 31.4
[2022-10-01 14:37] LABS: International Normalized Ratio 3.2
[2022-10-15 13:51] LABS: International Normalized Ratio 2.8; Prothrombin Time (Protime)PT. 29.5 SECONDS (11.7-14.9)
== END 2022-10-15 18:00 | disposition home or self-care (01) ==
LOC: LAB 13:31
PROVIDERS: Family Provider Family Medicine; PCP Family Medicine; Referring Provider Specialist; Visit Provider Specialist
DX: I48.19 Other persistent atrial fibrillation (principal); Z79.01 Long term (current) use of anticoagulants
CPT/HCPCS: 36415; 85610

== ENCOUNTER 2022-11-12 12:53 | Outpatient (RCR) | payer MEDICARE, SELFPAY ==
[2022-10-16 22:09] VITALS: BMI 31.4
[2022-11-12 13:32] LABS: International Normalized Ratio 2.9; Prothrombin Time (Protime)PT. 30.8 SECONDS (11.7-14.9)
== END 2022-11-12 18:00 | disposition home or self-care (01) ==
LOC: LAB 12:53
PROVIDERS: Family Provider Family Medicine; PCP Family Medicine; Referring Provider Specialist; Visit Provider Specialist
DX: I48.19 Other persistent atrial fibrillation (principal); Z79.01 Long term (current) use of anticoagulants
CPT/HCPCS: 36415; 85610

== ENCOUNTER 2022-12-10 13:31 | Outpatient (RCR) | payer MEDICARE, SELFPAY ==
[2022-11-16 01:50] VITALS: BMI 31.4
[2022-12-10 15:15] LABS: International Normalized Ratio 3.2
== END 2022-12-10 18:00 | disposition home or self-care (01) ==
LOC: LAB 13:31
PROVIDERS: Family Provider Family Medicine; PCP Family Medicine; Referring Provider Specialist; Visit Provider Specialist
DX: I48.19 Other persistent atrial fibrillation (principal); Z79.01 Long term (current) use of anticoagulants
CPT/HCPCS: 36415; 85610

== ENCOUNTER 2022-12-24 13:29 | Outpatient (RCR) | payer MEDICARE, SELFPAY ==
[2022-12-16 23:23] VITALS: BMI 31.4
[2022-12-24 13:53] LABS: International Normalized Ratio 2.1; Prothrombin Time (Protime)PT. 23.5 SECONDS (11.7-14.9)
== END 2023-01-15 18:00 | disposition home or self-care (01) ==
LOC: LAB 13:29
PROVIDERS: Family Provider Family Medicine; PCP Family Medicine; Referring Provider Specialist; Visit Provider Specialist
DX: I48.19 Other persistent atrial fibrillation (principal); Z79.01 Long term (current) use of anticoagulants
CPT/HCPCS: 36415; 85610

== ENCOUNTER → 2022-12-30 | Outpatient (CLI) | payer MEDICARE, SELFPAY ==
--- NOTE | 2022-12-30 13:50 | ART_ITS ---
Reason For Study: PVD Procedure A bilateral lower extremity continuous wave Doppler with analog waveform analysis,segmental pressures,and ankle brachial indexes without exercise. Left Segmental Pressures Left brachial= 110mmHg. Left calf = >254mmHg. Left posterior tibial artery = 103mmHg. Left dorsalis pedis artery = 184mmHg. Left digit = 82 mmHg. The left posterior tibial artery waveforms are biphasic. The left dorsalis pedis waveforms are biphasic. Right Segmental Pressures Right brachial= 114mmHg. Right calf = 170mmHg. Right posterior tibial artery = 100mmHg. Right dorsalis pedis artery = 188mmHg. Right digit = 78 mmHg. The right posterior tibial artery waveforms are biphasic. The right dorsalis pedis waveforms are biphasic. Indices The right ankle brachial index by the posterior tibial artery is 0.88. The right ankle brachial index by the dorsalis pedis is 1.65. The right digital-brachial index is 0.68. The left ankle brachial index by the posterior tibial artery is 0.90. The left ankle brachial index by the dorsalis pedis is 1.61. The left digital-brachial index is 0.72. VL/Lower Ext Art Exam w/o Exercis Interpretation Summary Right PT and DP ankle-brachial indices at rest are 0.88 and 1.65 respectively w ith biphasic Doppler waveforms. This suggests medial calcification of the vessel garvey. The right di gital brachial index is borderline abnormal at 0.68 Left PT and DP ankle-brachial indices are 0.9 and 1.61 respectively with biphas ic Doppler waveforms again suggesting medial calcification of vessel garvey. The left digital brachia l index is normal at 0.72 It is of note that previously January 01, 2022 bilateral PT and DP Doppler wav eforms were triphasic Ordering Physician: Rico Tucker Referring Physician: Rico Tucker Performed By: Dave Gonzalez RVT
== END | disposition home or self-care (01) ==
LOC: CVS 13:48
PROVIDERS: PCP Family Medicine; Referring Provider Surgery; Visit Provider Surgery
DX: I73.9 Peripheral vascular disease, unspecified (principal)
CPT/HCPCS: 93923

== ENCOUNTER 2023-02-11 13:36 | Outpatient (RCR) | payer MEDICARE, SELFPAY ==
[2023-01-16 03:10] VITALS: BMI 31.4
[2023-01-21 15:20] LABS: International Normalized Ratio 2.1; Prothrombin Time (Protime)PT. 23.3 SECONDS (11.7-14.9)
[2023-02-11 14:23] LABS: International Normalized Ratio 2.2; Prothrombin Time (Protime)PT. 24.3 SECONDS (11.7-14.9)
== END 2023-02-15 18:00 | disposition home or self-care (01) ==
LOC: LAB 13:36
PROVIDERS: Family Provider Family Medicine; PCP Family Medicine; Referring Provider Specialist; Visit Provider Specialist
DX: Z79.01 Long term (current) use of anticoagulants
CPT/HCPCS: 36415; 85610

== ENCOUNTER 2023-03-11 14:03 | Outpatient (RCR) | payer MEDICARE, SELFPAY ==
[2023-02-15 20:59] VITALS: BMI 31.4
[2023-03-11 15:36] LABS: International Normalized Ratio 1.9; Prothrombin Time (Protime)PT. 22.1 SECONDS (11.7-14.9)
== END 2023-03-11 18:00 | disposition home or self-care (01) ==
LOC: LAB 14:03
PROVIDERS: Family Provider Family Medicine; PCP Family Medicine; Referring Provider Specialist; Visit Provider Specialist
DX: Z79.01 Long term (current) use of anticoagulants (principal); I48.19 Other persistent atrial fibrillation
CPT/HCPCS: 36415; 85610

== ENCOUNTER 2023-03-25 13:44 | Outpatient (RCR) | payer MEDICARE, SELFPAY ==
[2023-03-18 21:48] VITALS: BMI 31.4
[2023-03-25 14:30] LABS: International Normalized Ratio 2.2; Prothrombin Time (Protime)PT. 24.7 SECONDS (11.7-14.9)
== END 2023-04-16 18:00 | disposition home or self-care (01) ==
LOC: LAB 13:44
PROVIDERS: Family Provider Family Medicine; PCP Family Medicine; Referring Provider Specialist; Visit Provider Specialist
DX: Z79.01 Long term (current) use of anticoagulants (principal); I48.11 Longstanding persistent atrial fibrillation
CPT/HCPCS: 36415; 85610

== ENCOUNTER 2023-04-23 13:39 | Outpatient (RCR) | payer MEDICARE, SELFPAY ==
[2023-04-16 22:24] VITALS: BMI 31.4
[2023-04-23 15:04] LABS: International Normalized Ratio 2.8; Prothrombin Time (Protime)PT. 29.6 SECONDS (11.7-14.9)
== END 2023-05-16 18:00 | disposition home or self-care (01) ==
LOC: LAB 13:39
PROVIDERS: Family Provider Family Medicine; PCP Family Medicine; Referring Provider Specialist; Visit Provider Specialist
DX: Z79.01 Long term (current) use of anticoagulants (principal); I48.19 Other persistent atrial fibrillation
CPT/HCPCS: 36415; 85610

== ENCOUNTER 2023-05-20 13:42 | Outpatient (RCR) | payer MEDICARE, SELFPAY ==
[2023-05-16 22:06] VITALS: BMI 31.4
[2023-05-20 14:14] LABS: International Normalized Ratio 2.3; Prothrombin Time (Protime)PT. 25.1 SECONDS (11.7-14.9)
== END 2023-06-16 22:40 | disposition home or self-care (01) ==
LOC: LAB 13:42
PROVIDERS: Family Provider Family Medicine; PCP Family Medicine; Referring Provider Specialist; Visit Provider Specialist
DX: Z79.01 Long term (current) use of anticoagulants (principal); I48.19 Other persistent atrial fibrillation
CPT/HCPCS: 36415; 85610

== ENCOUNTER 2023-07-15 13:00 | Outpatient (RCR) | payer MEDICARE, SELFPAY ==
[2023-06-16 22:40] VITALS: BMI 31.4
[2023-06-17 16:01] LABS: International Normalized Ratio 1.7; Prothrombin Time (Protime)PT. 20.3 SECONDS (11.7-14.9)
[2023-06-24 15:08] LABS: Prothrombin Time (Protime)PT. 22.4 SECONDS (11.7-14.9)
[2023-07-15 13:45] LABS: International Normalized Ratio 2.9; Prothrombin Time (Protime)PT. 30.5 SECONDS (11.7-14.9)
== END 2023-07-15 18:00 | disposition home or self-care (01) ==
LOC: LAB 13:00
PROVIDERS: Family Provider Family Medicine; PCP Family Medicine; Referring Provider Specialist; Visit Provider Specialist
DX: Z79.01 Long term (current) use of anticoagulants (principal); I48.19 Other persistent atrial fibrillation
CPT/HCPCS: 36415; 85610

== ENCOUNTER 2023-08-05 13:51 | Outpatient (RCR) | payer MEDICARE, SELFPAY ==
[2023-07-20 09:18] VITALS: BMI 31.4
[2023-08-05 15:21] LABS: International Normalized Ratio 2.3; Prothrombin Time (Protime)PT. 24.8 SECONDS (11.7-14.9)
== END 2023-08-05 18:00 | disposition home or self-care (01) ==
LOC: LAB 13:51
PROVIDERS: Family Provider Family Medicine; PCP Family Medicine; Referring Provider Specialist; Visit Provider Specialist
DX: Z79.01 Long term (current) use of anticoagulants (principal); I48.19 Other persistent atrial fibrillation
CPT/HCPCS: 36415; 85610

== ENCOUNTER 2023-09-02 13:36 | Outpatient (RCR) | payer MEDICARE, SELFPAY ==
[2023-08-16 22:13] VITALS: BMI 31.4
[2023-09-02 15:43] LABS: International Normalized Ratio 2.3
== END 2023-09-16 18:00 | disposition home or self-care (01) ==
LOC: LAB 13:36
PROVIDERS: Family Provider Family Medicine; PCP Family Medicine; Referring Provider Specialist; Visit Provider Specialist
DX: Z79.01 Long term (current) use of anticoagulants (principal); I48.19 Other persistent atrial fibrillation
CPT/HCPCS: 36415; 85610

== ENCOUNTER 2023-09-30 13:33 | Outpatient (RCR) | payer MEDICARE, SELFPAY ==
[2023-09-16 20:45] VITALS: BMI 31.4
== END 2023-09-30 18:00 | disposition home or self-care (01) ==
LOC: LAB 13:33
PROVIDERS: Family Provider Family Medicine; PCP Family Medicine; Referring Provider Specialist; Visit Provider Specialist
DX: Z79.01 Long term (current) use of anticoagulants (principal); I48.19 Other persistent atrial fibrillation

== ENCOUNTER 2023-10-28 13:33 | Outpatient (RCR) | payer MEDICARE, SELFPAY ==
[2023-10-18 02:21] VITALS: BMI 31.4
[2023-10-28 15:05] LABS: International Normalized Ratio 2.3
== END 2023-10-28 18:00 | disposition home or self-care (01) ==
LOC: LAB 13:33
PROVIDERS: Family Provider Family Medicine; PCP Family Medicine; Referring Provider Specialist; Visit Provider Specialist
DX: Z79.01 Long term (current) use of anticoagulants (principal); I48.19 Other persistent atrial fibrillation
CPT/HCPCS: 36415; 85610

== ENCOUNTER 2023-11-25 13:53 | Outpatient (RCR) | payer MEDICARE, SELFPAY ==
[2023-11-17 03:38] VITALS: BMI 31.4
[2023-11-25 15:28] LABS: International Normalized Ratio 2.2; Prothrombin Time (Protime)PT. 24.7 SECONDS (11.7-14.9)
== END 2023-11-25 18:00 | disposition home or self-care (01) ==
LOC: LAB 13:53
PROVIDERS: Family Provider Family Medicine; PCP Family Medicine; Referring Provider Specialist; Visit Provider Specialist
DX: Z79.01 Long term (current) use of anticoagulants (principal); I48.19 Other persistent atrial fibrillation
CPT/HCPCS: 36415; 85610

== ENCOUNTER 2023-12-24 13:31 | Outpatient (RCR) | payer MEDICARE, SELFPAY ==
[2023-12-17 21:03] VITALS: BMI 31.4
[2023-12-24 14:08] LABS: International Normalized Ratio 1.9
== END 2024-01-16 18:00 | disposition home or self-care (01) ==
LOC: LAB 13:31
PROVIDERS: Family Provider Family Medicine; PCP Family Medicine; Referring Provider Specialist; Visit Provider Specialist
DX: Z79.01 Long term (current) use of anticoagulants (principal); I48.19 Other persistent atrial fibrillation

== ENCOUNTER 2024-01-20 14:03 | Outpatient (RCR) | payer MEDICARE, SELFPAY ==
[2024-01-16 22:46] VITALS: BMI 31.4
[2024-01-20 14:49] LABS: International Normalized Ratio 2.3; Prothrombin Time (Protime)PT. 25.1 SECONDS (11.7-14.9)
== END 2024-01-20 18:00 | disposition home or self-care (01) ==
LOC: LAB 14:03
PROVIDERS: Physician Assistant Medical; Family Provider Family Medicine; PCP Family Medicine; Referring Provider Specialist; Visit Provider Specialist
DX: Z79.01 Long term (current) use of anticoagulants (principal); I48.19 Other persistent atrial fibrillation
CPT/HCPCS: 36415; 85610

== ENCOUNTER 2024-02-23 14:27 | Outpatient (RCR) | payer MEDICARE, SELFPAY ==
[2024-02-17 03:56] VITALS: BMI 31.4
[2024-02-23 15:14] LABS: International Normalized Ratio 2.7; Prothrombin Time (Protime)PT. 28.9 SECONDS (11.7-14.9)
== END 2024-02-23 18:00 | disposition home or self-care (01) ==
LOC: LAB 14:27
PROVIDERS: Family Provider Family Medicine; PCP Family Medicine; Referring Provider Specialist; Visit Provider Specialist
DX: Z79.01 Long term (current) use of anticoagulants (principal); I48.19 Other persistent atrial fibrillation
CPT/HCPCS: 36415; 85610

== ENCOUNTER 2024-03-24 14:19 | Outpatient (RCR) | payer MEDICARE, SELFPAY ==
[2024-03-18 21:21] VITALS: BMI 31.4
[2024-03-24 15:21] LABS: International Normalized Ratio 2.5; Prothrombin Time (Protime)PT. 27.4 SECONDS (11.7-14.9)
== END 2024-04-15 18:00 | disposition home or self-care (01) ==
LOC: LAB 14:19
PROVIDERS: Family Provider Family Medicine; PCP Family Medicine; Referring Provider Specialist; Visit Provider Specialist
DX: Z79.01 Long term (current) use of anticoagulants (principal); I48.19 Other persistent atrial fibrillation
CPT/HCPCS: 36415; 85610

== ENCOUNTER 2024-03-29 18:48 | Inpatient (IN) | payer MEDICARE, SELFPAY ==
[2024-03-29 18:52] VITALS: BP 146/86; PULSE 72; RESP 16; TEMP 35.6; O2SAT 80; BMI 33.2
[2024-03-29 18:57] VITALS: O2SAT 85
--- NOTE | 2024-03-29 20:03 | RAD_ITS ---
PROCEDURE: CHEST 1 VIEW (PORTABLE) REASON FOR EXAM: Shortness of breath. TECHNIQUE: Frontal view of the chest. COMPARISON: None. FINDINGS: Cardiac size and pulmonary vasculature are within normal limits. No consolidation, pleural effusion, or pneumothorax is present. RAD/Chest 1 View (Portable) IMPRESSION: No acute cardiopulmonary process. Reading [facility]
[2024-03-29 20:04] VITALS: O2SAT 93
--- NOTE | 2024-03-29 20:04 | EKG12_ITS ---
Test Reason : DYSRHYTHMIA Blood Pressure : */* mmHG Vent. Rate : 77 BPM Atrial Rate : * BPM P-R Int : * ms QRS Dur : 170 ms QT Int : 390 ms P-R-T Axes : * 3 46 degrees QTcB Int : 441 ms Atrial fibrillation Abnormal ECG Confirmed by Minh Izquierdo ([id number]), commercial production editor [place] ([id number]) on 03/30/2024 11:27:29 AM Referred By: Confirmed By: Minh Izquierdo
--- NOTE | 2024-03-29 20:06 | EDS_ITS ---
HPI History of Present Illness Chief Complaint: Fall Informant: patient Narrative Narrative: Patient is a 73 year old male with history of hypertension, hyperlipidemia, persistent atrial fibrillation (on Coumadin reports last INR was 2.5, last dose was last night), peripheral vascular disease with claudication and history of left femorofemoral bypass graft in 2019 as well as angioplasty in 2021. He is presenting today after a fall. Patient states he was taking the trash out in his garage and he just tripped and fell. He landed on his right side. He is complaining of pain to his left hip. He is not able to get himself up. He was on the ground for about an hour until he called family and ultimately EMS came to get him up. When family tried to get him up it was too painful for him and his left hip. When EMS arrived it was also noted that patient was hypoxic and he was placed on supplemental oxygen. Patient does not wear home O2. Patient does report that he has had cold all winter and feels his breathing is actually doing a lot better lately. He states this happens every winter. He does have a history of COPD and history of tobacco use. He has been having wheezing intermittently. He denies any chest pain. He denies any fevers. Does not claim any GI or symptoms. No abdominal pain reported. States he did not hit his head when he fell. No other complaints or concerns at this time. Denies any acute numbness or tingling. Patient states that he usually uses a cane to ambulate. [facility] Medical History (Updated 03/29/24 @ 23:[address] 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 Essential hypertension Hyperlipidemia Erectile dysfunction Depression COPD (chronic obstructive pulmonary disease) Home Medications ?Medication ?Instructions ?Recorded ?Last Taken ?Type aspirin 81 mg chewable tablet 81 mg PO DAILY@0800 bloo d thining 08/21/14 08/22/18 History atorvastatin 20 mg tablet 20 mg PO QHS cholesterol 07/3108/22/18 History gabapentin 300 mg capsule 600 mg PO TIDCM pain 5 08/22/18 History albuterol sulfate 90 mcg/actuation 2 puff inhalation Q 4H PRN Sob &/Or 08/16/18 08/09/18 History aerosol inhaler Wheezing metoprolol succinate 100 mg 100 mg PO DAILY bp 9 06/26/21 History tablet,extended release 24 hr folic acid 1 mg tablet 1 mg PO DAILY 05/22/21 Unkno wn History lisinopril 40 mg tablet 40 mg PO DAILY 12/22/22 Unkn own History amlodipine 5 mg tablet 5 mg PO DAILY #90 tabs 02/24 Unknown Rx warfarin 6 mg tablet 6 mg PO DAILY 03/29/24 Unkno wn History Allergy/AdvReac Type Severity Reaction Status Date / Time amoxicillin Allergy Unknown Unknown Verified 02/25/24 13:19 clindamycin Allergy Unknown Unknown Verified 02/25/24 13:19 Penicillins (PCN) Allergy Unknown Unknown Verified 02/25/24 13:19 Sulfa (Sulfonamide Allergy Unknown Unknown Verified 02/25/24 13:19 Antibiotics) Family History Father Emphysema lung Mother , DVT History of DVT (deep vein thrombosis) Grandfather Cancer lung Surgical History Femoral-femoral bypass graft thrombosis, 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) History of angioplasty of peripheral vessel (06/2021) Hx of colonoscopy Hx of right knee surgery Hx of aorto-femoral bypass Hx of appendectomy Social History Smoking Status: Light Smoker (<10/day) how long ago did patient quit smokin year ago second hand exposure: No alcohol intake: never substance use type: does not use caffeine: Yes Type: coffee Number of servings: 3 frequency: does not exercise ROS ROS ED Constitutional Constitutional ED: Denies chills or fever(s) ENT ENT ED: Denies rhinorrhea or sore throat Cardiovascular Cardiovascular: Denies chest pain Respiratory/Chest Respiratory/Chest: Reports cough, dyspnea and sputum Gastrointestinal Gastrointestinal: Denies abdominal pain, diarrhea, nausea or vomiting Genitourinary Genitourinary ED: Denies dysuria Musculoskeletal Musculoskeletal: Reports other Details: right hip pain ; Denies arthralgias or back pain Integumentary Denies Abrasions or rash Neurologic Neurologic: Denies paresthesias or weakness Hematologic/Lymphatic Hematologic/Lymphatic: Reports easy bleeding, easy bruising and other Details: ON Coumadin EXAM Physical Exam Const Vital Signs: 03/29/24 18:52 03/29/24 18:57 03/29/24 19:16 Temperature 96.1 F L Temperature Source Temporal Pulse Rate 72 Respiratory Rate 16 Respiratory Effort Normal Respiratory Pattern Blood Pressure 146/86 H Blood Pressure Mean 106 Pulse Ox 80 85 Oxygen Delivery Method Room Air Nasal Cannula Oxygen Flow Rate (L/min) 3 03/29/24 20:04 03/29/24 20:25 03/29/24 21:00 Temperature Temperature Source Pulse Rate 85 82 Respiratory Rate 20 H 18 Respiratory Effort Respiratory Pattern Normal Blood Pressure 151/79 H Blood Pressure Mean 103 Pulse Ox 93 92 Oxygen Delivery Method Nasal Cannula Nasal Cannula Oxygen Flow Rate (L/min) 4 4 03/29/24 23:00 03/29/24 23:00 Temperature 98.2 F Temperature Source Pulse Rate 79 79 Respiratory Rate 18 18 Respiratory Effort Respiratory Pattern Blood Pressure 170/84 H 170/84 H Blood Pressure Mean 112 112 Pulse Ox 96 96 Oxygen Delivery Method Room Air Oxygen Flow Rate (L/min) Positive well nourished and well developed General Appearance ED: well developed and NAD HEENT Reports dry mucous membranes Negative for trauma or tenderness Mouth ED: Yes dry mucous membranes Mouth: dry mucous membranes Eyes PERRL Neck supple and no JVD Chest Wall inspection of chest normal and palpation of chest normal Resp normal respiratory effort Effort and Inspection: Negative for retractions Auscultation: wheezes expiratory wheezes; Negative for rales Cardio regular rate Rhythm: abnormal rhythm irregularly irregular GI normal to inspection, nondistended, normoactive bowel sounds and non-tender Palpation: soft; Negative for tender or guarding Extremity Extremity Narrative: chornic peripheral edema. No rotational deformity of the extremity. Pelvis is stable. Mild pain with range of motion of the right hip. No pain with range of motion of the left hip. No other bony tenderness appreciated. General Extremety ED: Yes edema General Extremity: edema Neuro oriented x3 Sensorium / Orientation: alert Motor Exam: general weakness Psych mental status grossly normal Skin no rashes or lesions noted and no wounds MDM MDM MDM Narrative Medical decision making narrative: Patient valuated for fall with subsequent right hip pain. He also notes he has had ongoing cough and was found to be hypoxic per EMS. Does have a history of C OPD and history of tobacco use. On exam does have some wheezing. Differential includes hip fracture, hip dislocation, hip contusion, COPD exacerbation, pneumonia, influenza, CHF. Patient is she declined any pain medication. Is requiring supplemental oxygen. He is anticoagulated on Coumadin low special for pulmonary bullae. INR is therapeutic with level of 3.0. He did not hit his head and denies any loss of conscious. I do not think he requires any neuroimaging at this time. CBC largely normal. BMP normal. CK is normal with no signs of rhabdomyolysis. He is mildly elevated BNP of 210 which is nonspecific in this clinical setting. Again INR is therapeutic at 3.0. X-ray reviewed by myself as well as radiology does not show any acute process. Hip x-ray does show acute minimally displaced right femoral neck fracture on my review as well as with radiology. Patient's case is discussed with orthopedics on-call, Dr. Isaacs. Will be admitted for operative management of his hip fracture. Patient admitted to the medicine service with Dr. Quiroz. Tentative plan for surgery the day after tomorrow. Lab Data Attestation: I reviewed the patient's lab results. Labs: Laboratory Results - last 24 hr 03/29/24 19:10 WBC 8.9 RBC 4.47 L Hgb 13.9 Hct 45.0 MCV 100.7 H MCH 31.1 MCHC 30.9 L RDW Std Deviation 59.3 H RDW Coeff of Hermes 15.9 H Plt Count 177 MPV 10.4 Immature Gran % (Auto) 0.600 Neut % (Auto) 75.3 H Lymph % (Auto) 14.5 L [place] % (Auto) 6.0 Eos % (Auto) 3.2 Baso % (Auto) 0.4 Absolute Neuts (auto) 6.7 Absolute Lymphs (auto) 1.30 Nucleated RBC % 0 PT 31.8 H INR 3.0 Sodium 142 Potassium 3.6 Chloride 104 Carbon Dioxide 33.0 H Anion Gap 5 BUN 22 H Creatinine 1.15 Estim Creat Clear Calc 75.80 Est GFR (MDRD) Af Amer 81 Est GFR (MDRD) Non-Af 67 BUN/Creatinine Ratio 19.1 Glucose 129 H Calcium 8.8 Total Creatine Kinase 54 B-Natriuretic Peptide 210.7 H Radiography Diagnostic Testing: Clinical Impression(s) from Imaging Studies Chest X-Ray 03/29/24 20:03 IMPRESSION: No acute cardiopulmonary process. Reading Location: [facility] Hip/Pelvis X-Ray 03/29/24 20:50 IMPRESSION: Acute minimally displaced right femoral neck fracture. [facility] Rhythm Strip Rhythm Strip: A-fib Rate: 77 Ectopy: None EKG Initial EKG: Attestation: I personally reviewed and interpreted this EKG as follows: Interpretation: Atrial Fibrillation Comments: Atrial fibrillation at a rate of 77 bpm Normal QRS and QTc Normal ST segments Nonspecific intraventricular block present Prior EKG tracings: available for review Prior: No Prior Management Discussion w/another healthcare provider: Hospitalist and Recreation Program Specialist Discharge Plan Triage Chief Complaint: Fall ED Provider: Destiny Angela Dx/Rx/DC Orders Clinical Impression: Hip fracture, right, Persistent atrial fibrillation, assisted (current) use of anticoagulants, Wheezing Prescriptions: No Action albuterol sulfate 90 mcg/actuation HFA aerosol inhaler 2 puff INHALATION Q4H PRN (Reason: Sob &/Or Wheezing) metoprolol succinate 100 mg tablet extended release 24 hr 100 mg PO DAILY folic acid 1 mg tablet 1 mg PO DAILY lisinopril 40 mg tablet 40 mg PO DAILY amlodipine 5 mg tablet 5 mg PO DAILY Qty: 90 3RF atorvastatin 20 MG tablet 20 mg PO QHS Patient Comments: CHOLESTEROL gabapentin 300 MG capsule 600 mg PO TIDCM Patient Comments: PAIN, NEUROPATHY aspirin 81 MG tablet,chewable 81 mg PO DAILY@0800 Patient Comments: [facility] warfarin 6 mg tablet 6 mg PO DAILY Primary Care Provider: Yobani Negron Referrals: Yobani Negron MD [Primary Care Provider] - Print Language: Com[place]an Disposition Disposition: Acute Care Hospital [facility]
[2024-03-29 20:23] LABS: Absolute Neutrophil Count 6.7 X10^3/uL (2.0-7.7); Basophil# 0.04 X10^3/uL; Basophil% 0.4 % (0-1); Eosinophil# 0.29 X10^3/uL; Eosinophils% 3.2 % (0-5); Hemoglobin 13.9 g/dL (13.0-16.5); Lymphocyte % 14.5 % (19-41); Mean Corp Hgb Conc 30.9 g/dL (32-36); Mean Corpuscular Hgb 31.1 pg (27.0-32.0); Mean Corpuscular Volume 100.7 fL (80-94); Mean Platelet Vol. 10.4 fl (6.2-12.0); Monocyte# 0.54 X10^3/uL; NRBC Flagged by Analyzer 0 % (0-5); Neutrophil # 6.72 X10^3/uL (2.7-7.7); Neutrophil % 75.3 % (47-70); Platelet Count 177 K/mm3 (150-450); RBC Distribution Width CV 15.9 % (11.6-14.6); RBC Distribution Width SD 59.3 fl (35.1-43.9); Red Blood Count 4.47 M/mm3 (4.6-6.2); White Blood Count 8.9 K/mm3 (4.4-11.0)
[2024-03-29 20:25] VITALS: PULSE 85; RESP 20
[2024-03-29] MEDS: Ipratropium/Albuterol Sulfate 3 ML AMPUL.NEB INHALATION (20:25)
[2024-03-29 20:34] LABS: Anion Gap 5 (5-15); BUN 22 mg/dL (7-18); BUN/Creat Ratio 19.1 RATIO (10-20); Calcium,Total 8.8 mg/dL (8.5-10.1); Chloride 104 mmol/L (98-107); Creatinine, Serum 1.15 mg/dL (0.70-1.30); EST Glomerular Filtration Rate 67 mL/min (>60); Est Glom Filt Rate - Afr Amer 81 mL/min (>60); Glucose 129 mg/dL (74-106); Potassium 3.6 mmol/L (3.5-5.1); Sodium Level 142 mmol/L (136-145)
--- NOTE | 2024-03-29 20:50 | RAD_ITS ---
PROCEDURE: RIGHT HIP, UNI W/ PELVIS 2-3 VIEWS REASON FOR EXAM: Pain. Fall. TECHNIQUE: Two views of the right hip and single frontal view of the pelvis are obtained. COMPARISON: None. FINDINGS: There is cortical irregularity involving the right femoral neck related to an acute mildly displaced fracture. No dislocation is identified. Mild degenerative changes are present. Extensive vascular calcifications are identified. RAD/HIP, UNI W/ Pelvis 2-3 Views IMPRESSION: Acute minimally displaced right femoral neck fracture. Reading Location: [facility]
[2024-03-29 21:00] VITALS: BP 151/79; PULSE 82; RESP 18; O2SAT 92
[2024-03-29 21:01] LABS: CPK Total, Creatine Kinase 54 U/L (39-308)
[2024-03-29 21:10] LABS: BNP,B-Type NATRIURETIC PEPTIDE 210.7 pg/mL (0-100)
--- NOTE | 2024-03-29 21:28 | CONS.ORTHO ---
HPI Consult Data Date of Consult: 03/29/24 HPI Narrative HPI Narrative: DESIRAE REINA, is a 73 M who presents with a right hip fracture. NOF. displaced. called this evening at 928pm. [facility] Medical History (Updated 03/29/24 @ 21:29 by Andres Isaacs MD) Hip fracture, right Peripheral vascular disease of extremity with claudication senior living (current) use of anticoagulants Essential hypertension Hyperlipidemia Erectile dysfunction Depression COPD (chronic obstructive pulmonary disease) Home Medications ?Medication ?Instructions ?Recorded ?Last Taken ?Type aspirin 81 mg chewable tablet 81 mg PO DAILY@0800 blood thining 08/21/14 08/22/18 History atorvastatin 20 mg tablet 20 mg PO QHS cholesterol 08/21/14 08/22/18 History gabapentin 300 mg capsule 600 mg PO TIDCM pain 08/21/14 08/22/18 History albuterol sulfate 90 mcg/actuation 2 puff inhalation Q4H PRN Sob &/Or 08/16/18 08/09/18 History aerosol inhaler Wheezing metoprolol succinate 100 mg 100 mg PO DAILY bp 08/16/18 06/26/21 History tablet,extended release 24 hr folic acid 1 mg tablet 1 mg PO DAILY 05/22/21 Unknown History lisinopril 40 mg tablet 40 mg PO DAILY 12/22/22 Unknown History amlodipine 5 mg tablet 5 mg PO DAILY #90 tabs 02/25/24 Unknown Rx warfarin 6 mg tablet 6 mg PO DAILY 03/29/24 Unknown History Allergy/AdvReac Type Severity Reaction Status Date / Time amoxicillin Allergy Unknown Unknown Verified 02/25/24 13:19 clindamycin Allergy Unknown Unknown Verified 02/25/24 13:19 Penicillins (PCN) Allergy Unknown Unknown Verified 02/25/24 13:19 Sulfa (Sulfonamide Allergy Unknown Unknown Verified 02/25/24 13:19 Antibiotics) Family History Father Emphysema lung Mother , DVT History of DVT (deep vein thrombosis) Grandfather Cancer lung Surgical History Femoral-femoral bypass graft thrombosis, 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) History of angioplasty of peripheral vessel (06/2021) Hx of colonoscopy Hx of right knee surgery Hx of aorto-femoral bypass Hx of appendectomy Social History Smoking Status: Light Smoker (<10/day) how long ago did patient quit smokin year ago second hand exposure: No alcohol intake: never substance use type: does not use caffeine: Yes Type: coffee Number of servings: 3 frequency: does not exercise Vital Signs Vital Signs Vital Signs: 03/29/24 18:52 03/29/24 18:57 03/29/24 19:16 Temperature 96.1 F L Temperature Source Temporal Pulse Rate 72 Respiratory Rate 16 Respiratory Effort Normal Respiratory Pattern Blood Pressure 146/86 H Blood Pressure Mean 106 Pulse Ox 80 85 Oxygen Delivery Method Room Air Nasal Cannula Oxygen Flow Rate (L/min) 3 03/29/24 20:25 Temperature Temperature Source Pulse Rate 85 Respiratory Rate 20 H Respiratory Effort Respiratory Pattern Normal Blood Pressure Blood Pressure Mean Pulse Ox Oxygen Delivery Method Oxygen Flow Rate (L/min) Weight Weight: 244 lb 11.41 oz Body Mass Index (BMI) 33.2 Lab / Micro Data 03/29/24 19:10 03/29/24 19:10 Labs: Laboratory Results - last 24 hr 03/29/24 19:10: WBC 8.9, RBC 4.47 L, Hgb 13.9, Hct 45.0, MCV 100.7 H, MCH 31.1, MCHC 30.9 L, RDW Std Deviation 59.3 H, RDW Coeff of Hermes 15.9 H, Plt Count 177, MPV 10.4, Immature Gran % (Auto) 0.600, Neut % (Auto) 75.3 H, Lymph % (Auto) 14.5 L, [place] % (Auto) 6.0, Eos % (Auto) 3.2, Baso % (Auto) 0.4, Absolute Neuts (auto) 6.7, Absolute Lymphs (auto) 1.30, Nucleated RBC % 0, Sodium 142, Potassium 3.6, Chloride 104, Carbon Dioxide 33.0 H, Anion Gap 5, BUN 22 H, Creatinine 1.15, Estim Creat Clear Calc 75.80, Est GFR (MDRD) Af Amer 81, Est GFR (MDRD) Non-Af 67, BUN/Creatinine Ratio 19.1, Glucose 129 H, Calcium 8.8, Total Creatine Kinase 54, B-Natriuretic Peptide 210.7 H Assessment & Plan Assessment/Plan (1) Hip fracture, right: PLAN: 73 yr M with right NOF displaced garden type 3. would recommend shayy arthroplasty. plan for medicine to admit. ED doc to order INR as the patient on warfarin. will need to hold anti coagulation, wait for INR to be normalized before proceeding to surgery. typically give vitamin K 5mg po to reverse arthur - will leave up to hospitalist to get his levels within range to be safe to proceed to surgery. JOE for now. plan to see the patient some time tomorrow.
[2024-03-29] MEDS: Morphine 4 MG/ML Syringe IV (22:28)
[2024-03-29 22:31] LABS: Prothrombin Time (Protime)PT. 31.8 SECONDS (11.7-14.9)
[2024-03-29 23:00] VITALS: BP 170/84; PULSE 79; RESP 18; TEMP 36.8; O2SAT 96
--- NOTE | 2024-03-29 23:30 | PCM.HP.STD ---
[facility] - General General Date of Admission: 03/30/24 Date of Service: 03/29/24 Chief Complaint: Fall with Right Hip Pain. HPI Narrative DESIRAE REINA, is a 73 M with a past medical history of essential hypertension; on lisinopril, metoprolol and amlodipine, hyperlipidemia; on atorvastatin, obesity; with BMI of 33.2 this admission, chronic atrial fibrillation; on warfarin, history of tobacco abuse; with subsequent COPD, PVD; s/p LLE fem-pop bypass with graft (2010) and thrombosis with angioplasty (2018) and stent (2021) on baby aspirin daily, history of ED, neuropathy; on gabapentin, history of depression; currently untreated, history of appendectomy, history of colonoscopy and OA; with history of Right knee surgery with patient ambulating with cane at baseline who presents to [facility] ER complaining of fall with subsequent Right hip pain and inability to ambulate. Mr. Reina reports his symptoms began approximately one hour prior to admission when he was walking to take out the trash when he lost his balance and fell onto his Right hip with subsequent inability to get up. He then laid on the ground for ~1 hour until his family discovered him and activated EMS. When EMS arrived he was noted to he hypoxic so he was started on supplemental oxygen. He denies significant head trauma or LOC with his fall. He admits to intermittent wheezing but he denies associated fever, chills, chest pain, palpitations, heart racing, dysuria, paresthesias, headache or recent illness. In the ER he was noted to have a pelvic x-ray positive for cortical irregularity involving the Right femoral neck related to an acute mildly displaced fracture with no dislocation identified and mild degenerative changes present with extensive vascular calcification identified in chest x-ray that showed no acute cardiopulmonary process with an INR 3 present on admission which will likely delay his ORIF for ~48 hours. He was then admitted to the general medical floor for a stay that is expected to extend beyond 2 midnights. [facility] Medical History (Updated 03/30/24 @ 01:54 by Danisha Crabtree) Atrial fibrillation Former smoker Hip fracture, right Peripheral vascular disease of extremity with claudication [facility] (current) use of anticoagulants Essential hypertension Hyperlipidemia Erectile dysfunction Depression COPD (chronic obstructive pulmonary disease) Home Medications ?Medication ?Instructions ?Recorded ?Last Taken ?Type aspirin 81 mg chewable tablet 81 mg PO DAILY@0800 blood thining 08/21/14 08/22/18 History atorvastatin 20 mg tablet 20 mg PO QHS cholesterol 08/21/14 08/22/18 History gabapentin 300 mg capsule 600 mg PO TIDCM pain 08/21/14 08/22/18 History albuterol sulfate 90 mcg/actuation 2 puff inhalation Q4H PRN Sob &/Or 08/16/18 08/09/18 History aerosol inhaler Wheezing metoprolol succinate 100 mg 100 mg PO DAILY bp 08/16/18 06/26/21 History tablet,extended release 24 hr folic acid 1 mg tablet 1 mg PO DAILY 05/22/21 Unknown History lisinopril 40 mg tablet 40 mg PO DAILY 12/22/22 Unknown History amlodipine 5 mg tablet 5 mg PO DAILY #90 tabs 02/25/24 Unknown Rx warfarin 6 mg tablet 6 mg PO DAILY 03/29/24 Unknown History Allergy/AdvReac Type Severity Reaction Status Date / Time amoxicillin Allergy Unknown Unknown Verified 02/25/24 13:19 clindamycin Allergy Unknown Unknown Verified 02/25/24 13:19 Penicillins (PCN) Allergy Unknown Unknown Verified 02/25/24 13:19 Sulfa (Sulfonamide Allergy Unknown Unknown Verified 02/25/24 13:19 Antibiotics) Family History Father Emphysema lung Mother , DVT History of DVT (deep vein thrombosis) Grandfather Cancer lung Surgical History Femoral-femoral bypass graft thrombosis, 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) History of angioplasty of peripheral vessel (06/2021) Hx of colonoscopy Hx of right knee surgery Hx of aorto-femoral bypass Hx of appendectomy Social History Smoking Status: Former smoker how long ago did patient quit smokin year ago second hand exposure: No alcohol intake: never substance use type: does not use caffeine: Yes Type: coffee Number of servings: 3 frequency: does not exercise ROS ROS Narrative Review of Systems: Constitutional: Patient denies fever or chills. Eyes: Patient denies changes in vision or discharge from eyes. ENT: Patient denies runny nose, sore throat or ear pain. Resp: Patient admits to SOB and cough with sputum. CV: Patient denies chest pain, palpitations or heart racing. GI: Patient denies abdominal pain, nausea, vomiting, constipation or diarrhea. : Patient denies dysuria or hematuria. MSK: Patient admits to Right hip pain made worse with movement. Skin: Patient denies rash, abscess, wounds or jaundice. Psych: Patient denies symptoms of uncontrolled depression or anxiety. Allergy: Patient denies lip swelling, tongue swelling or urticaria. Hematology: Patient denies easy bleeding or easy bruisability. Endocrinology: Patient polyuria, polydipsia or polyphagia. 14 point ROS otherwise negative for positives noted above in HPI. Vital Signs Vital Signs Vital Signs: 03/29/24 18:52 03/29/24 18:57 03/29/24 19:16 Temperature 96.1 F L Temperature Source Temporal Pulse Rate 72 Respiratory Rate 16 Respiratory Effort Normal Respiratory Pattern Blood Pressure 146/86 H Blood Pressure Mean 106 Pulse Ox 80 85 Oxygen Delivery Method Room Air Nasal Cannula Oxygen Flow Rate (L/min) 3 03/29/24 20:04 03/29/24 20:25 03/29/24 21:00 Temperature Temperature Source Pulse Rate 85 82 Respiratory Rate 20 H 18 Respiratory Effort Respiratory Pattern Normal Blood Pressure 151/79 H Blood Pressure Mean 103 Pulse Ox 93 92 Oxygen Delivery Method Nasal Cannula Nasal Cannula Oxygen Flow Rate (L/min) 4 4 Weight Weight: 244 lb 11.41 oz Body Mass Index (BMI) 33.2 Physical Exam Const alert, oriented x3, no apparent distress, average body habitus and healthy appearing General Appearance: cooperative HEENT normocephalic, head/scalp atraumatic, hearing grossly normal bilaterally and moist oral mucous membranes Eyes PERRL, EOMs intact bilaterally and conjunctivae normal Neck no lymphadenopathy and supple Resp normal respiratory effort, no retractions, no use of accessory muscles and clear to auscultation bilaterally Cardio regular rate and regular rhythm GI normal to inspection, nondistended, normoactive bowel sounds, soft to palpation, non-tender and non-distended Extremity Extremity Narrative: Pain with movement of the Right hip with positive log-roll sign and no signs of vascular compromise. Skin Skin Narrative: Patient denies rash, abscess, jaundice or wounds. Neuro oriented x3, CN's II-XII intact bilaterally, moves all extremities and no focal motor deficits Sensorium / Orientation: awake, alert, oriented to person, oriented to place and oriented to time Speech: speech normal Psych affect normal Results Medical Records Data Attestation: I reviewed the patient's medical records Lab / Micro Data Attestation: I reviewed the patient's lab results. 03/30/24 06:35 03/29/24 19:10 Labs: Laboratory Results - last 24 hr 03/29/24 19:10: WBC 8.9, RBC 4.47 L, Hgb 13.9, Hct 45.0, MCV 100.7 H, MCH 31.1, MCHC 30.9 L, RDW Std Deviation 59.3 H, RDW Coeff of Hermes 15.9 H, Plt Count 177, MPV 10.4, Immature Gran % (Auto) 0.600, Neut % (Auto) 75.3 H, Lymph % (Auto) 14.5 L, [place] % (Auto) 6.0, Eos % (Auto) 3.2, Baso % (Auto) 0.4, Absolute Neuts (auto) 6.7, Absolute Lymphs (auto) 1.30, Nucleated RBC % 0, PT 31.8 H, INR 3.0, Sodium 142, Potassium 3.6, Chloride 104, Carbon Dioxide 33.0 H, Anion Gap 5, BUN 22 H, Creatinine 1.15, Estim Creat Clear Calc 75.80, Est GFR (MDRD) Af Amer 81, Est GFR (MDRD) Non-Af 67, BUN/Creatinine Ratio 19.1, Glucose 129 H, Calcium 8.8, Total Creatine Kinase 54, B-Natriuretic Peptide 210.7 H Micro: Microbiology 03/29/24 21:14 Mucosa - Nose SARS-CoV-2, Influenza & RSV (PCR) - Final Imaging Radiology Impression Chest X-Ray 03/29/24 20:03 IMPRESSION: No acute cardiopulmonary process. Reading Location: [facility] Hip/Pelvis X-Ray 03/29/24 20:50 IMPRESSION: Acute minimally displaced right femoral neck fracture. Reading Location: [facility] Assessment & Plan Assessment/Plan (1) Hip fracture, right: QUALIFIERS: Encounter type: initial encounter Fracture type: closed Qualified Code(s): S72.001A - Fracture of unspecified part of neck of right femur, initial encounter for closed fracture (2) Persistent atrial fibrillation: (3) COPD (chronic obstructive pulmonary disease): QUALIFIERS: COPD type: unspecified COPD Qualified Code(s): J44.9 - Chronic obstructive pulmonary disease, unspecified (4) Peripheral vascular disease of extremity with claudication: (5) Essential hypertension: (6) Obesity (BMI 30.0-34.9): PLAN: Plan 1. Pelvic x-ray positive for cortical irregularity involving the Right femoral neck related to an acute mildly displaced fracture with no dislocation identified and mild degenerative changes present with extensive vascular calcification identified - Admit to general medical floor. Give acetaminophen as needed for [id number] (level 1-5/10) pain or fever. Give morphine IV as needed for severe (level 6-10/10) pain. Finally, orthopedic surgeon is already evaluated patient with help greatly appreciated and plan for ORIF in ~48 hours once INR reaches goal of 1.6. 2. Chronic Atrial Fibrillation; on warfarin with INR of 3 present on admission complicating #1 - Hold warfarin and give vitamin K 2.5 mg po once for gentle reversal with preoperative goal INR of 1.6. Check INR daily. Check echocardiogram to evaluate LVEF with last echo done here in 2021 showed LVEF of 60% with indeterminate diastolic dysfunction and no regional wall motion abnormalities at that time. Patient earnestly requested to see his housekeeper cleaning cooking this admission with consult pending in the a.m. and appreciated advance. 3. Hypoxia with history of tobacco abuse; and subsequent COPD compounding #1 & #2 - Stable with no evidence of acute flare. Give albuterol nebulizers prn. 4. PVD; s/p LLE fem-pop bypass with graft (2010) and thrombosis with angioplasty (2018) and stent (2021) on baby aspirin daily adding to the medical complexity of #1 - #3 - Noted. 5. Obesity; with BMI of 33.2 this admission adding to the burden of disease from #1 - #4 - Weight loss will be recommended. Check TSH. This complicates his case and may hamper recovery. 6. Essential Hypertension; on lisinopril, metoprolol and amlodipine - Maintain home regimen plus give prn Hydralazine IV for systolic blood pressure > 160 mmHg. 7. History of ED - Noted. 8. Neuropathy; on gabapentin - Resume gabapentin as previous. 9. History of depression; currently untreated - Stable. 10. History of appendectomy - Noted. 11. History of colonoscopy - Noted. 12. OA; with history of Right knee surgery with patient ambulating with cane at baseline - Noted. 13. DVT prophylaxis - INR of 3 present on admission with low-dose oral vitamin K ordered 2.[address] SCD on LLE. Orthopod to decide on postoperative DVT prophylaxis regimen. Total time: Approximately (but not less than) 75 minutes. Charges/Coding Visit Charges Inpatient E&M: 50300 Init Hosp L3
[2024-03-30] VITALS (19 sets, daily range): BP systolic 101–184; BP diastolic 53–77; PULSE 69–95; RESP 16–22; TEMP 36.3–37.2; O2SAT 91–96; BMI 32.0
[2024-03-30] MEDS: Phytonadione (Vit K1) 5 MG TABLET 2.5 MG PO (02:07)
[2024-03-30] MEDS: 0.9% Normal Saline (1000mL) 1,000 ML 70 ML IV (02:07)
[2024-03-30 06:50] LABS: Absolute Lymphocyte Count 1.06 X10^3/uL (0.83-4.51); Absolute Neutrophil Count 6.1 X10^3/uL (2.0-7.7); Basophil# 0.03 X10^3/uL; Basophil% 0.4 % (0-1); Eosinophil# 0.29 X10^3/uL; Eosinophils% 3.6 % (0-5); Hematocrit 41.1 % (40-54); Hemoglobin 12.6 g/dL (13.0-16.5); Lymphocyte # 1.06 X10^3/ul (0.83-4.51); Lymphocyte % 13.2 % (19-41); Mean Corp Hgb Conc 30.7 g/dL (32-36); Mean Corpuscular Hgb 30.6 pg (27.0-32.0); Mean Corpuscular Volume 99.8 fL (80-94); Mean Platelet Vol. 9.9 fl (6.2-12.0); Monocyte# 0.55 X10^3/uL; Monocyte% 6.8 % (0-10); NRBC Flagged by Analyzer 0 % (0-5); Neutrophil # 6.08 X10^3/uL (2.7-7.7); Neutrophil % 75.6 % (47-70); Platelet Count 156 K/mm3 (150-450); RBC Distribution Width CV 15.8 % (11.6-14.6); Red Blood Count 4.12 M/mm3 (4.6-6.2)
[2024-03-30 07:00] LABS: International Normalized Ratio 2.9; Prothrombin Time (Protime)PT. 30.9 SECONDS (11.7-14.9)
[2024-03-30 07:23] LABS: ALB/GLOB Ratio 0.6 RATIO (0.9-2.4); AST(SGOT) 12 U/L (15-37); Alanine Aminotransfer ALT/SGPT 12 U/L (16-61); Albumin, Serum 2.7 g/dL (3.2-5.0); Alkaline Phosphatase 94 U/L (45-117); Anion Gap 3 (5-15); BUN 21 mg/dL (7-18); BUN/Creat Ratio 20.2 RATIO (10-20); Calcium,Total 8.5 mg/dL (8.5-10.1); Chloride 105 mmol/L (98-107); Creatinine, Serum 1.04 mg/dL (0.70-1.30); EST Glomerular Filtration Rate 75 mL/min (>60); Est Glom Filt Rate - Afr Amer 90 mL/min (>60); Estimated Creatinine Clearance 82.34 ml/min; Globulin 4.4 g/dL (2.2-4.2); Glucose 118 mg/dL (74-106); Magnesium 2.1 mg/dL (1.6-2.6); Phosphorus 2.9 mg/dL (2.5-4.9); Protein, Total 7.1 g/dL (6.4-8.2); Sodium Level 140 mmol/L (136-145)
--- NOTE | 2024-03-30 07:45 | CONS.ORTHO ---
HPI Consult Data Date of Consult: 03/30/24 HPI Narrative HPI Narrative: DESIRAE REINA, is a 73 M who presents with a right femoral neck fracture. The patient fell at home on concrete was unable to ambulate after that. Complaining of right hip pain. Was found to have a femoral neck fracture. Was called last evening. Patient's INR is elevated due to being on warfarin for chronic atrial fibrillation. Patient usually uses a cane at home. [facility] Medical History (Updated 03/30/24 @ 01:54 by Danisha Crabtree) Atrial fibrillation Former smoker Hip fracture, right Peripheral vascular disease of extremity with claudication [facility] (current) use of anticoagulants Essential hypertension Hyperlipidemia Erectile dysfunction Depression COPD (chronic obstructive pulmonary disease) Home Medications ?Medication ?Instructions ?Recorded ?Last Taken ?Type aspirin 81 mg chewable tablet 81 mg PO DAILY@0800 blood thining 08/21/14 08/22/18 History atorvastatin 20 mg tablet 20 mg PO QHS cholesterol 08/21/14 08/22/18 History gabapentin 300 mg capsule 600 mg PO TIDCM pain 08/21/14 08/22/18 History albuterol sulfate 90 mcg/actuation 2 puff inhalation Q4H PRN Sob &/Or 08/16/18 08/09/18 History aerosol inhaler Wheezing metoprolol succinate 100 mg 100 mg PO DAILY bp 08/16/18 06/26/21 History tablet,extended release 24 hr folic acid 1 mg tablet 1 mg PO DAILY 05/22/21 Unknown History lisinopril 40 mg tablet 40 mg PO DAILY 12/22/22 Unknown History amlodipine 5 mg tablet 5 mg PO DAILY #90 tabs 02/25/24 Unknown Rx warfarin 6 mg tablet 6 mg PO DAILY 03/29/24 Unknown History Allergy/AdvReac Type Severity Reaction Status Date / Time amoxicillin Allergy Unknown Unknown Verified 02/25/24 13:19 clindamycin Allergy Unknown Unknown Verified 02/25/24 13:19 Penicillins (PCN) Allergy Unknown Unknown Verified 02/25/24 13:19 Sulfa (Sulfonamide Allergy Unknown Unknown Verified 02/25/24 13:19 Antibiotics) Family History Father Emphysema lung Mother , DVT History of DVT (deep vein thrombosis) Grandfather Cancer lung Surgical History Femoral-femoral bypass graft thrombosis, 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) History of angioplasty of peripheral vessel (06/2021) Hx of colonoscopy Hx of right knee surgery Hx of aorto-femoral bypass Hx of appendectomy Social History Smoking Status: Former smoker how long ago did patient quit smokin year ago second hand exposure: No alcohol intake: never substance use type: does not use caffeine: Yes Type: coffee Number of servings: 3 frequency: does not exercise Vital Signs Vital Signs Vital Signs: 03/29/24 18:52 03/29/24 18:57 03/29/24 19:16 Temperature 96.1 F L Temperature Source Temporal Pulse Rate 72 Respiratory Rate 16 Respiratory Effort Normal Respiratory Depth Respiratory Pattern Blood Pressure 146/86 H Blood Pressure Mean 106 Blood Pressure Source Blood Pressure Position Blood Pressure Location Pulse Ox 80 85 Oxygen Delivery Method Room Air Nasal Cannula Oxygen Flow Rate (L/min) 3 Fraction of Inspired Oxygen (FIO2) 03/29/24 20:04 03/29/24 20:25 03/29/24 21:00 Temperature Temperature Source Pulse Rate 85 82 Respiratory Rate 20 H 18 Respiratory Effort Respiratory Depth Respiratory Pattern Normal Blood Pressure 151/79 H Blood Pressure Mean 103 Blood Pressure Source Blood Pressure Position Blood Pressure Location Pulse Ox 93 92 Oxygen Delivery Method Nasal Cannula Nasal Cannula Oxygen Flow Rate (L/min) 4 4 Fraction of Inspired Oxygen (FIO2) 03/29/24 23:00 03/29/24 23:00 03/30/24 00:56 Temperature 98.2 F Temperature Source Pulse Rate 79 79 90 Respiratory Rate 18 18 22 H Respiratory Effort Respiratory Depth Shallow Respiratory Pattern Tachypnea Blood Pressure 170/84 H 170/84 H Blood Pressure Mean 112 112 Blood Pressure Source Blood Pressure Position Blood Pressure Location Pulse Ox 96 96 Oxygen Delivery Method Room Air Nasal Cannula Oxygen Flow Rate (L/min) 4 Fraction of Inspired Oxygen (FIO2) 94 03/30/24 01:02 03/30/24 01:31 03/30/24 02:50 Temperature 98 F 98.1 F Temperature Source Oral Oral Pulse Rate 95 93 Respiratory Rate 20 H 20 H Respiratory Effort Respiratory Depth Respiratory Pattern Blood Pressure 128/66 H 184/69 H Blood Pressure Mean 86 107 Blood Pressure Source Manual Monitor Blood Pressure Position Semi-Fowlers Semi-Fowlers Blood Pressure Location Left Arm Left Forearm Pulse Ox 92 96 Oxygen Delivery Method Nasal Cannula Nasal Cannula Nasal Cannula Oxygen Flow Rate (L/min) 4 4 4 Fraction of Inspired Oxygen (FIO2) 03/30/24 03:00 03/30/24 05:30 03/30/24 05:35 Temperature 97.4 F L 98.7 F Temperature Source Oral Oral Pulse Rate 69 94 95 Respiratory Rate 18 18 Respiratory Effort Respiratory Depth Respiratory Pattern Blood Pressure 101/53 L 141/77 H Blood Pressure Mean 69 98 Blood Pressure Source Monitor Monitor Blood Pressure Position Semi-Fowlers Semi-Fowlers Blood Pressure Location Right Arm Left Arm Pulse Ox 92 93 Oxygen Delivery Method Nasal Cannula Nasal Cannula Oxygen Flow Rate (L/min) 6 4 Fraction of Inspired Oxygen (FIO2) Weight Weight: 235 lb 14.314 oz Body Mass Index (BMI) 32.0 Physical Exam Const alert, oriented x3, no apparent distress and well nourished Extremity normal capillary refill Extremity Narrative: Closed injury. There is hip pain on the right side. Able to wiggle the toes dorsiflex and plantarflex the foot. Normal sensation throughout the foot foot is warm and well-perfused. Lab / Micro Data 03/30/24 06:35 03/30/24 06:35 Labs: Laboratory Results - last 24 hr 03/29/24 19:10: WBC 8.9, RBC 4.47 L, Hgb 13.9, Hct 45.0, MCV 100.7 H, MCH 31.1, MCHC 30.9 L, RDW Std Deviation 59.3 H, RDW Coeff of Hermes 15.9 H, Plt Count 177, MPV 10.4, Immature Gran % (Auto) 0.600, Neut % (Auto) 75.3 H, Lymph % (Auto) 14.5 L, [place] % (Auto) 6.0, Eos % (Auto) 3.2, Baso % (Auto) 0.4, Absolute Neuts (auto) 6.7, Absolute Lymphs (auto) 1.30, Nucleated RBC % 0, PT 31.8 H, INR 3.0, Sodium 142, Potassium 3.6, Chloride 104, Carbon Dioxide 33.0 H, Anion Gap 5, BUN 22 H, Creatinine 1.15, Estim Creat Clear Calc 75.80, Est GFR (MDRD) Af Amer 81, Est GFR (MDRD) Non-Af 67, BUN/Creatinine Ratio 19.1, Glucose 129 H, Calcium 8.8, Total Creatine Kinase 54, B-Natriuretic Peptide 210.7 H, TSH 4.080 H 03/30/24 06:35: WBC 8.0, RBC 4.12 L, Hgb 12.6 L, Hct 41.1, MCV 99.8 H, MCH 30.6, MCHC 30.7 L, RDW Std Deviation 58.0 H, RDW Coeff of Hermes 15.8 H, Plt Count 156, MPV 9.9, Immature Gran % (Auto) 0.400, Neut % (Auto) 75.6 H, Lymph % (Auto) 13.2 L, [place] % (Auto) 6.8, Eos % (Auto) 3.6, Baso % (Auto) 0.4, Absolute Neuts (auto) 6.1, Absolute Lymphs (auto) 1.06, Nucleated RBC % 0, PT 30.9 H, INR 2.9, Sodium 140, Potassium 4.0, Chloride 105, Carbon Dioxide 32.0, Anion Gap 3 L, BUN 21 H, Creatinine 1.04, Estim Creat Clear Calc 82.34, Est GFR (MDRD) Af Amer 90, Est GFR (MDRD) Non-Af 75, BUN/Creatinine Ratio 20.2 H, Glucose 118 H, Calcium 8.5, Phosphorus 2.9, Magnesium 2.1, Total Bilirubin 1.30 H, AST 12 L, ALT 12 L, Alkaline Phosphatase 94, Total Protein 7.1, Albumin 2.7 L, Globulin 4.4 H, Albumin/Globulin Ratio 0.6 L Micro: Microbiology 03/29/24 21:14 Mucosa - Nose SARS-CoV-2, Influenza & RSV (PCR) - Final Rhythm Strip Rhythm Strip: A-fib Rate: 77 Ectopy: None Imaging Radiology Impression Chest X-Ray 03/29/24 20:03 IMPRESSION: No acute cardiopulmonary process. Reading Location: [facility] Hip/Pelvis X-Ray 03/29/24 20:50 IMPRESSION: Acute minimally displaced right femoral neck fracture. Reading Location: [facility] Assessment & Plan Assessment/Plan (1) Hip fracture, right: QUALIFIERS: Encounter type: initial encounter Fracture type: closed Qualified Code(s): S72.001A - Fracture of unspecified part of neck of right femur, initial encounter for closed fracture PLAN: 73-year-old man with a right femoral neck fracture. This appears displaced. Discussed the pros cons risk benefits conservative versus surgical intervention here. Typically all hip fractures are fixed and necessary debilitated. Nonoperative treatment high risk of prolonged bedrest DVT and pneumonia and other complications. Surgery has its onset risks. My preferred treatment here would be hemiarthroplasty cemented. Get evidence for superiorly with cementing as well as lower dislocation risk with hemiarthroplasty. This is given the displacement of the hip fracture would not recommend sedation due to higher secondary complications such as repeat interventions needed. Patient right hip marked signed the consent form for right hip hemiarthroplasty possible need for blood products. Patient has an INR that is 2.9 this morning I have ordered IV 5 mg vitamin K and to recheck the INR to make sure that comes down to within normal range for surgery. The patient is aware it can be diet as tolerated today.
--- NOTE | 2024-03-30 08:06 | ECHOCS_ITS ---
Reason For Study Reason For Study: Arrhythmia Procedure This was a 2D Doppler, Color Flow transthoracic echocardiogram. Technically difficult study. Echo done with patient sitting upright due to right hip fracture. Contrast injection was performed. Exam performed portable in patient room. Left Ventricle Normal LV size. The estimated ejection fraction is 65 %. Unable to assess diastolic dysfunction. No regional wall motion abnormalities noted. Right Ventricle Normal RV size. Normal systolic function. Atria The left and right atria are normal. No doppler evidence for ASD. Mitral Valve There is moderate to severe mitral annular calcification. There is no mitral valve stenosis. No mitral valve insufficiency. Tricuspid Valve There is no tricuspid stenosis. Unable to estimate RV systolic pressure due to insufficient tricuspid regurgitant envelope. No tricuspid valve insufficiency. Aortic Valve There is no aortic stenosis. Trivial aortic valve insufficiency. Pulmonic Valve There is no pulmonic valvular stenosis. No pulmonic valve insufficiency. Great Vessels Normal aortic root. Pericardium/Pleural No pericardial effusion. Medication Diluted definity 2ml given slow IV push to enhance endocardial definition. MMode/2D Measurements & Calculations LVIDd: 4.4 cm IVSd: 1.2 cm LAV(MOD- bp): 67.7 ml LVIDs: 2.9 cm LVPWd: 1.1 cm RVDd: 4.2 cm FS: 32.4 % LAV(MOD- bp) Indexed: 29.7 ml/m2 LAV(MOD- sp2): 53.3 ml LAV(MOD- sp4): 79.5 ml SV(MOD-sp2): 43.7 ml LVAd ap2: 25.1 cm2 LA A4 area: 25.6 cm2 LVLd ap2: 7.3 cm SI(MOD-sp2): 19.2 ml/m2 EDV(MOD-sp2): 68.9 ml EDV(sp2-el): 73.3 ml LVAs ap2: 13.6 cm2 LVLs ap2: 6.3 cm ESV(MOD-sp2): 25.1 ml ESV(sp2-el): 24.9 ml EF(MOD-sp2): 63.5 % LA dimension(2D): 4.3 cm RA A4 area: 21.4 cm2 Doppler Measurements & Calculations MV E max marizol: 90.3 cm/sec MV V2 max: 111.6 cm/sec Ao V2 max: 98.2 cm/sec MV max P.0 mmHg Ao max P.9 mmHg MV V2 mean: 43.8 cm/sec MV mean P.1 mmHg MV V2 VTI: 22.1 cm LV V1 max: 78.3 cm/sec LV V1 max P.5 mmHg ECHO/Echo Complete W/ Contrast Interpretation Summary The estimated ejection fraction is 65 %. Unable to assess diastolic dysfunction. Trivial aortic valve insufficiency. Ordering Physician: Brayden Aguilar Performed By: Rashaad Salinas RCS
[2024-03-30] MEDS: Folic Acid 1 MG Tablet PO (08:45)
[2024-03-30] MEDS: Aspirin E.C. 81 MG Tablet PO (08:45)
[2024-03-30] MEDS: Gabapentin 600 MG Tablet PO ×3 (08:46→16:35)
[2024-03-30] MEDS: Phytonadione (Vit K) 5 MG in 0.9% Normal Saline (50mL Bag) 50 ML 150 MG IV ×2 (08:56→20:07)
[2024-03-30] MEDS: Metoprolol(XL)Succ 100 MG Tablet PO (10:11)
[2024-03-30] MEDS: Lisinopril 40 MG Tablet PO (10:12)
[2024-03-30] MEDS: amLODIPine 5 MG Tablet PO (10:13)
--- NOTE | 2024-03-30 11:37 | CASEMGMT ---
YUVAL DAO Assessment: Face to Face with pt for initial transition planning/care coordination assessment. YUVAL DAO introduced self and role at [facility], pt voices understanding and consents to assessment. Pt is A&O x4 and answers all questions appropriately at this time. Pt lying in bed in no distress with oxygen on. Care providers, pharmacy, and demographics verified/updated. Admitting Dx: R hip fx after fall Strata Score: 1 PCP:Jamil Specialists:Dennis cardio Preferred Pharmacy: [facility] Insurance: [employer] [facility] Prescription Benefit: yes LNOK: Yana Lord, Living Arrangements: Pt lives with in a single story home with 6 steps to enter with a rail. Pt reports he was I in ADL/IADLs at home prior to fall but his does IADLs. Pt denies concerns at home. Transportation: Pt drives self and denies concerns with transportation. DME:cane HHC/SNF:Denies hx of Pt to have OR. Pt aware that therapy will evaluate him post surgery to make recommendations. Pt states no further concerns/needs. CM to follow. Advised pt to ask CM if any further questions/concerns/needs arise, voices understanding. Pt Goal: Home Plan: TBD pending surgery and therapy anthony Gabriel RN, CM
[2024-03-30] MEDS: Albuterol 2.5 MG/3 ML VIAL.NEB. INHALATION (13:50)
--- NOTE | 2024-03-30 15:06 | PN.ORTHO_ITS ---
Subjective Subjective PAD 1 right NOF fracture Objective Data Objective Data Vital Signs: Vital Signs Temp Pulse Resp BP Pulse Ox O2 Del Method O2 Flow Rate 98.5 F 82 18 122/63 H 94 Nasal Cannula 4 03/30/24 12:37 03/30/24 13:20 03/30/24 13:20 03/30/24 12:37 03/30/24 13:20 03/30/24 14:50 03/30/24 14:50 FiO2 94 03/30/24 00:56 Oxygen Flow Rate (L/min) 4 Oxygen Delivery Method Nasal Cannula Weight: 235 lb 14.314 oz Body Mass Index (BMI) 32.0 Intake & Output: Intake and Output for Last 24 Hours 03/28/24 03/29/24 03/30/24 23:59 23:59 23:59 Intake Total 50.5 / 50.5 Output Total 600 / 600 Balance -549.5 / -549.5 Lab / Micro Data 03/30/24 06:35 03/30/24 06:35 Labs: Laboratory Results - last 24 hr 03/29/24 19:10: WBC 8.9, RBC 4.47 L, Hgb 13.9, Hct 45.0, MCV 100.7 H, MCH 31.1, MCHC 30.9 L, RDW Std Deviation 59.3 H, RDW Coeff of Hermes 15.9 H, Plt Count 177, MPV 10.4, Immature Gran % (Auto) 0.600, Neut % (Auto) 75.3 H, Lymph % (Auto) 14.5 L, [place] % (Auto) 6.0, Eos % (Auto) 3.2, Baso % (Auto) 0.4, Absolute Neuts (auto) 6.7, Absolute Lymphs (auto) 1.30, Nucleated RBC % 0, PT 31.8 H, INR 3.0, Sodium 142, Potassium 3.6, Chloride 104, Carbon Dioxide 33.0 H, Anion Gap 5, BUN 22 H, Creatinine 1.15, Estim Creat Clear Calc 75.80, Est GFR (MDRD) Af Amer 81, Est GFR (MDRD) Non-Af 67, BUN/Creatinine Ratio 19.1, Glucose 129 H, Calcium 8.8, Total Creatine Kinase 54, B-Natriuretic Peptide 210.7 H, TSH 4.080 H 03/30/24 06:35: WBC 8.0, RBC 4.12 L, Hgb 12.6 L, Hct 41.1, MCV 99.8 H, MCH 30.6, MCHC 30.7 L, RDW Std Deviation 58.0 H, RDW Coeff of Hermes 15.8 H, Plt Count 156, MPV 9.9, Immature Gran % (Auto) 0.400, Neut % (Auto) 75.6 H, Lymph % (Auto) 13.2 L, [place] % (Auto) 6.8, Eos % (Auto) 3.6, Baso % (Auto) 0.4, Absolute Neuts (auto) 6.1, Absolute Lymphs (auto) 1.06, Nucleated RBC % 0, PT 30.9 H, INR 2.9, Sodium 140, Potassium 4.0, Chloride 105, Carbon Dioxide 32.0, Anion Gap 3 L, BUN 21 H, Creatinine 1.04, Estim Creat Clear Calc 82.34, Est GFR (MDRD) Af Amer 90, Est GFR (MDRD) Non-Af 75, BUN/Creatinine Ratio 20.2 H, Glucose 118 H, Calcium 8.5, Phosphorus 2.9, Magnesium 2.1, Total Bilirubin 1.30 H, AST 12 L, ALT 12 L, Alkaline Phosphatase 94, Total Protein 7.1, Albumin 2.7 L, Globulin 4.4 H, A lbumin/Globulin Ratio 0.6 L Micro: Microbiology 03/29/24 21:14 Mucosa - Nose SARS-CoV-2, Influenza & RSV (PCR) - Final Radiography Diagnostic Testing: Radiology Impression Chest X-Ray 03/29/24 20:03 IMPRESSION: No acute cardiopulmonary process. Reading Location: [facility] Hip/Pelvis X-Ray 03/29/24 20:50 IMPRESSION: Acute minimally displaced right femoral neck fracture. Reading Location: [facility] Echocardiogram 03/30/24 08:06 Interpretation Summary The estimated ejection fraction is 65 %. Unable to assess diastolic dysfunction. Trivial aortic valve insufficiency. Ordering Physician: Brayden Aguilar Performed By: Rashaad Salinas RCS Rhythm Strip Rhythm Strip: A-fib Rate: 77 Ectopy: None Assessment & Plan Assessment/Plan (1) Hip fracture, right: QUALIFIERS: Encounter type: initial encounter Fracture type: c losed Qualified Code(s): S72.001A - Fracture of unspecified part of neck of right femur, initial encounter for closed fracture PLAN: Discussed with Dr. Echevarria today (anesthesia). Will go ahead with case tomorrow around noon, with FFP to be given tomorrow morning. Asked the nurse to order - hospitalist please ensure patient gets it before surgery and INR tomorrow AM. Goal to do hip fractures with 48 hours or increased mortality. Latrice aware. NPO midnight please.
--- NOTE | 2024-03-30 16:05 | NURSING ---
All documentation by nursing educator Pamela Chiu reviewed by assistant professor of nursing [place] PETITN, RN.
[2024-03-30 17:53] LABS: International Normalized Ratio 2.2; Prothrombin Time (Protime)PT. 24.5 SECONDS (11.7-14.9)
--- NOTE | 2024-03-30 18:38 | PCM.PN.HOSP ---
Reason for Visit Reason for Visit: Diagnoses Essential (primary) hypertension (03/30/24) Chronic obstructive pulmonary disease, unspecified (03/30/24) Fracture of unspecified part of neck of right femur, initial encounter for closed fracture (03/30/24) Subjective Subjective Patient was seen and examined today, I talked with him about his surgery, I also talked with his son who was in the room at the time my examination. I talked with Dr. Isaacs today and recommended that the patient receive 4 units of fresh frozen plasma 2 hours prior to his surgery. Patient had an echocardiogram done today which showed a normal EF patient had calcified mitral valve but there was no mitral valve stenosis and no mitral valve insufficiency. Patient does not not have significant aortic valve disease. Objective Data Objective Data Vital Signs: Vital Signs Temp Pulse Resp BP Pulse Ox O2 Del Method O2 Flow Rate 98.3 F 74 18 144/70 H 96 Room Air 4 03/30/24 16:22 03/30/24 16:22 03/30/24 16:22 03/30/24 16:22 03/30/24 16:22 03/30/24 16:22 03/30/24 14:50 FiO2 94 03/30/24 00:56 Oxygen Flow Rate (L/min) 4 Oxygen Delivery Method Room Air Weight: 107 kg Body Mass Index (BMI) 32.0 Intake & Output: Intake and Output for Last 24 Hours 03/28/24 03/29/24 03/30/24 23:59 23:59 23:59 Intake Total 1050.5 / 1050.5 Output Total 900 / 900 Balance 150.5 / 150.5 Lab / Micro Data 03/30/24 06:35 03/30/24 06:35 Labs: Laboratory Results - last 24 hr 03/29/24 19:10: WBC 8.9, RBC 4.47 L, Hgb 13.9, Hct 45.0, MCV 100.7 H, MCH 31.1, MCHC 30.9 L, RDW Std Deviation 59.3 H, RDW Coeff of Hermes 15.9 H, Plt Count 177, MPV 10.4, Immature Gran % (Auto) 0.600, Neut % (Auto) 75.3 H, Lymph % (Auto) 14.5 L, [place] % (Auto) 6.0, Eos % (Auto) 3.2, Baso % (Auto) 0.4, Absolute Neuts (auto) 6.7, Absolute Lymphs (auto) 1.30, Nucleated RBC % 0, PT 31.8 H, INR 3.0, Sodium 142, Potassium 3.6, Chloride 104, Carbon Dioxide 33.0 H, Anion Gap 5, BUN 22 H, Creatinine 1.15, Estim Creat Clear Calc 75.80, Est GFR (MDRD) Af Amer 81, Est GFR (MDRD) Non-Af 67, BUN/Creatinine Ratio 19.1, Glucose 129 H, Calcium 8.8, Total Creatine Kinase 54, B-Natriuretic Peptide 210.7 H, TSH 4.080 H 03/30/24 06:35: WBC 8.0, RBC 4.12 L, Hgb 12.6 L, Hct 41.1, MCV 99.8 H, MCH 30.6, MCHC 30.7 L, RDW Std Deviation 58.0 H, RDW Coeff of Hermes 15.8 H, Plt Count 156, MPV 9.9, Immature Gran % (Auto) 0.400, Neut % (Auto) 75.6 H, Lymph % (Auto) 13.2 L, [place] % (Auto) 6.8, Eos % (Auto) 3.6, Baso % (Auto) 0.4, Absolute Neuts (auto) 6.1, Absolute Lymphs (auto) 1.06, Nucleated RBC % 0, PT 30.9 H, INR 2.9, Sodium 140, Potassium 4.0, Chloride 105, Carbon Dioxide 32.0, Anion Gap 3 L, BUN 21 H, Creatinine 1.04, Estim Creat Clear Calc 82.34, Est GFR (MDRD) Af Amer 90, Est GFR (MDRD) Non-Af 75, BUN/Creatinine Ratio 20.2 H, Glucose 118 H, Calcium 8.5, Phosphorus 2.9, Magnesium 2.1, Total Bilirubin 1.30 H, AST 12 L, ALT 12 L, Alkaline Phosphatase 94, Total Protein 7.1, Albumin 2.7 L, Globulin 4.4 H, Albumin/Globulin Ratio 0.6 L 03/30/24 17:16: PT 24.5 H, INR 2.2 Micro: Microbiology 03/29/24 21:14 Mucosa - Nose SARS-CoV-2, Influenza & RSV (PCR) - Final Radiography Diagnostic Testing: Radiology Impression Chest X-Ray 03/29/24 20:03 IMPRESSION: No acute cardiopulmonary process. Reading Location: [facility] Hip/Pelvis X-Ray 03/29/24 20:50 IMPRESSION: Acute minimally displaced right femoral neck fracture. Reading Location: [facility] Echocardiogram 03/30/24 08:06 Interpretation Summary The estimated ejection fraction is 65 %. Unable to assess diastolic dysfunction. Trivial aortic valve insufficiency. Ordering Physician: Brayden Aguilar Performed By: Rashaad Salinas RCS Rhythm Strip Rhythm Strip: A-fib Rate: 77 Ectopy: None Physical Exam Const alert, oriented x3 and no apparent distress General Appearance: cooperative, well kempt and well developed Orientation / Consciousness: awake, oriented to person, oriented to place and oriented to time HEENT normocephalic, head/scalp atraumatic and moist oral mucous membranes Eyes PERRL, EOMs intact bilaterally and conjunctivae normal Neck supple, no JVD, thyroid normal and no carotid bruits General: trachea midline Resp normal respiratory effort, no retractions, no use of accessory muscles and clear to auscultation bilaterally Auscultation: Negative for rales, rhonchi or wheezes Cardio S1 normal heart sound, S2 normal heart sound, no murmurs, no rub and no gallops Cardio Narrative: Heart rate and rhythm was irregular GI normal to inspection, nondistended, normoactive bowel sounds, soft to palpation, non-tender and non-distended Skin no rashes or lesions noted General Skin Exam: no breakdown Neuro oriented x3, CN's II-XII intact bilaterally, no focal motor deficits and no sensory deficits noted Sensorium / Orientation: awake and alert Speech: speech normal Psych affect normal Assessment & Plan Assessment/Plan (1) Hip fracture, right: QUALIFIERS: Encounter type: initial encounter Fracture type: closed Qualified Code(s): S72.001A - Fracture of unspecified part of neck of right femur, initial encounter for closed fracture PLAN: Plan 1. Right femoral neck fracture secondary to osteoporosis-patient appears stable for surgery at this time, I will give an additional dose of vitamin K this evening, patient will have fresh frozen plasma on order, depending on what the patient's INR is in the morning, he may not need to fresh frozen plasma. #2 permanent atrial fibrillation-patient is on rate limiting medication, again patient's Coumadin will be held and he will be given fresh frozen plasma if needed #3 essential hypertension-patient will remain on his present medications #4 chronic obstructive pulmonary disease-patient is on aerosol treatments Total clinical time spent by myself addressing the patient's medical issues, reviewing all of his data, and collaborating with patient's care team: 35-minute Charges/Coding Visit Charges Inpatient E&M: 50377 Subs Hosp L2
[2024-03-30] MEDS: 0.9% Saline Lock 10 ML Syringe IV (20:07)
[2024-03-30] MEDS: Atorvastatin Calcium 20 MG Tablet PO (20:14)
[2024-03-31] VITALS (38 sets, daily range): BP systolic 83–172; BP diastolic 59–93; PULSE 66–112; RESP 10–32; TEMP 36.2–37.5; O2SAT 78–99; BMI 32.0
[2024-03-31] MEDS: Morphine 2 MG/ML Syringe IV (02:24)
[2024-03-31 03:58] LABS: Absolute Lymphocyte Count 1.07 X10^3/uL (0.83-4.51); Absolute Neutrophil Count 5.9 X10^3/uL (2.0-7.7); Basophil# 0.05 X10^3/uL; Basophil% 0.6 % (0-1); Eosinophil# 0.45 X10^3/uL; Eosinophils% 5.6 % (0-5); Hematocrit 39.6 % (40-54); Hemoglobin 12.6 g/dL (13.0-16.5); Lymphocyte # 1.07 X10^3/ul (0.83-4.51); Lymphocyte % 13.3 % (19-41); Mean Corp Hgb Conc 31.8 g/dL (32-36); Mean Corpuscular Hgb 31.6 pg (27.0-32.0); Mean Corpuscular Volume 99.2 fL (80-94); Monocyte# 0.58 X10^3/uL; Monocyte% 7.2 % (0-10); NRBC Flagged by Analyzer 0 % (0-5); Neutrophil # 5.88 X10^3/uL (2.7-7.7); Neutrophil % 72.9 % (47-70); Platelet Count 141 K/mm3 (150-450); RBC Distribution Width CV 16.1 % (11.6-14.6); RBC Distribution Width SD 59.3 fl (35.1-43.9); Red Blood Count 3.99 M/mm3 (4.6-6.2); White Blood Count 8.1 K/mm3 (4.4-11.0)
[2024-03-31 04:13] LABS: Anion Gap 5 (5-15); BUN 19 mg/dL (7-18); Calcium,Total 8.3 mg/dL (8.5-10.1); Chloride 104 mmol/L (98-107); EST Glomerular Filtration Rate 78 mL/min (>60); Est Glom Filt Rate - Afr Amer 95 mL/min (>60); Estimated Creatinine Clearance 85.64 ml/min; Glucose 111 mg/dL (74-106); Potassium 3.9 mmol/L (3.5-5.1); Sodium Level 140 mmol/L (136-145)
[2024-03-31 04:24] LABS: International Normalized Ratio 1.8; Prothrombin Time (Protime)PT. 21.1 SECONDS (11.7-14.9)
[2024-03-31] MEDS: Phytonadione (Vit K) 5 MG in 0.9% Normal Saline (50mL Bag) 50 ML 150 MG IV (07:51)
[2024-03-31] MEDS: Albuterol 2.5 MG/3 ML VIAL.NEB. INHALATION (08:08)
[2024-03-31] MEDS: Metoprolol(XL)Succ 100 MG Tablet PO (08:52)
[2024-03-31] MEDS: amLODIPine 5 MG Tablet PO (08:52)
[2024-03-31] MEDS: Lisinopril 40 MG Tablet PO (08:52)
[2024-03-31] MEDS: Budesonide Respules 0.5 MG/2 ML AMPUL.NEB. INHALATION ×2 (09:38→19:37)
[2024-03-31] MEDS: 0.9% Saline Lock 10 ML Syringe IV ×2 (09:39→10:41)
[2024-03-31] MEDS: Furosemide 20 MG/2 ML VIAL 10 MG IV ×2 (11:06→11:50)
[2024-03-31 11:18] LABS: International Normalized Ratio 1.5; Prothrombin Time (Protime)PT. 18.9 SECONDS (11.7-14.9)
[2024-03-31] MEDS: 0.9% Normal Saline (1000mL) 1,000 ML 15 ML IV (11:50)
--- NOTE | 2024-03-31 11:57 | PCM.PRE.AN2 ---
ASA Classification* ASA Classification ASA Classification: 4 and E Assessment & Plan Anesthesia* Anesthesia Assessment Anesthesia Assessment: Discussed sedation and/or anesthesia options, risks, benefits, and alternatives with patient/parents/legal guardian/POA. Questions invited. The patient/parents/legal guardian/POA seems to understand and agrees to proceed with anesthesia plan. Reviewed the physical assessment, medical history, allergy history and patient home medications list prior to surgery/procedure/anesthetic and documented any changes. Performed airway and anesthesia risk assessments. Anesthesia Type Anesthesia Type: General (Patient gotten FFP for elevated INR. Requiring 6 L of oxygen nasal cannula. Lasix given in care director. Good diuresis. Patient did get informed of possible postop intubation and ICU stay.) History Source History Obtained from:: Patient and Chart Anesthesia Focused Assessment* Temperature: 98.8 F Pulse Rate: 87 Blood Pressure: 141/73 Respiratory Rate: 21 Pulse Ox: 93 Oxygen Delivery Method: Nasal Cannula Oxygen Flow Rate (L/min): 6 Fraction of Inspired Oxygen (FIO2): 94 Airway Assessment Mouth opens: >3 cm Mallampati Score: II Teeth Condition: Dentures (Patient has full upper and lower dentures. They are out.) Neck Range of motion (ROM): Limited ROM (Slight decrease i extension) Focused Labs Anesthesia Preop lab: CBC WBC 8.1 K/mm3 (4.4-11.0) 03/31/24 03:43 03/31/24 RBC 3.99 M/mm3 (4.6-6.2) L 03/31/24 03:43 03/31/24 Hgb 12.6 g/dL (13.0-16.5) L 03/31/24 03:43 03/31/24 Hct 39.6 % (40-54) L 03/31/24 03:43 03/31/24 Plt Count 141 K/mm3 (150-450) L 03/31/24 03:43 03/31/24 CHEMISTRY Potassium 3.9 mmol/L (3.5-5.1) 03/31/24 03:43 03/31/24 Sodium 140 mmol/L (136-145) 03/31/24 03:43 03/31/24 Magnesium 2.1 mg/dL (1.6-2.6) 03/30/24 06:35 03/30/24 Phosphorus 2.9 mg/dL (2.5-4.9) 03/30/24 06:35 03/30/24 BUN 19 mg/dL (7-18) H 03/31/24 03:43 03/31/24 Creatinine 1.00 mg/dL (0.70-1.30) 03/31/24 03:43 03/31/24 Glucose 111 mg/dL (74-106) H 03/31/24 03:43 03/31/24 TSH 4.080 uIU/mL (0.358-3.740) H 03/29/24 19:10 03/29/24 COAG PT 18.9 SECONDS (11.7-14.9) H 03/31/24 11:00 03/31/24 Pre-Assessment Diagnosis/Proposed Procedure Planned Operative Procedure(s): Right hip hemiarthroplasty. 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 When Was Last Pacemaker Check QUESTION #4 FULL TEXT: You/Your Family Experience fever (hyperthermia) with Anesthesia Last Oral Intake Last Oral intake: Last Oral Intake NPO since 00:00 03/31/24 09:53 Meds taken in AM with sips of Yes 03/31/24 09:53 water? 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 Female HX of Motion Sickness HX of N/V After Surgery Non-Smoker Duration of Surgery greater than 60 minutes Number of Risk Factors PONV Score Height & Weight Height & Weight: Anesthesia: Height & Weight Height 6 ft 03/31/24 09:53 Weight: 107 kg 03/31/24 09:53 Body Mass Index (BMI) 32.0 03/31/24 09:53 Respiratory Assessment Respiratory Assessment - drilling machine operator: Respiratory Tract Infection Hx - drilling machine operator Hx Respiratory Tract Infection No 03/30/24 20:17 STOP Sleep Apnea STOP Sleep Apnea - drilling machine operator: STOP Sleep Apnea - drilling machine operator Hx Hypertension Yes 03/30/24 01:11 Hx Sleep Apnea No 03/30/24 01:11 CPAP BIPAP Do you snore loudly (louder Yes 03/30/24 01:11 than talking or can be heard Do you often feel tired/ Yes 03/30/24 01:11 fatigued/ sleepy during daytime? Has anyone observed you stop No 03/30/24 01:11 breathing during sleep? STOP Results Positive 03/30/24 01:11 QUESTION #5 FULL TEXT : Do you snore loudly (louder than talking or can be heard through closed doors)? 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 Specify any problems Hx of Preganancy in last 3 N/A 03/30/24 01:11 Months Nurse Filling Out Transfusion [id number] 03/30/24 01:11 & Questions: Date: 03/30/24 03/30/24 01:11 Time: 01:12 03/30/24 01:11 Patient unable to answer at this time (ie. 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 machine operator: /Reproductive Hx- drilling machine operator Hx Now na 03/30/24 20:17 Gestational Age (in weeks): EDC: Hx Hx Para Hx Section SAB No 03/30/24 20:17 Active Medications Active Medications: Current Medications Generic Name Dose Route Start Last Admin Trade Name Freq PRN Reason Stop Dose Admin Acetaminophen 650 mg 03/30/24 00:55 Acetaminophen 325 Mg Tablet PO Q6H PRN PRN Pain 1-5/10 Or Fever>100.7 Al Hydroxide/Mg Hydroxide 30 ml 03/30/24 00:55 Mag Hydrox/Al Hydrox/Simeth 30 Ml Udc PO Q6H PRN PRN Gastric Burning Albuterol Sulfate 2.5 mg 03/30/24 01:22 03/31/24 08:08 Albuterol 2.5 Mg/3 Ml Vial.Neb. INHALATION 2.5 mg Q4H PRN PRN Administration Sob &/Or Wheezing Amlodipine Besylate 5 mg 03/30/24 10:00 03/31/24 08:52 Amlodipine 5 Mg Tablet PO 5 mg DAILY SHELBIE Administration Protocol Aspirin 81 mg 03/30/24 08:00 03/31/24 08:51 Aspirin E.C. 81 Mg Tablet PO Not Given BREAKFAST SHELBIE Atorvastatin Calcium 20 mg 03/30/24 22:00 03/30/24 20:14 Atorvastatin Calcium 20 Mg Tablet PO 20 mg QHS SHELBIE Administration Budesonide 0.5 mg 03/31/24 09:00 03/31/24 09:38 Budesonide Respules 0.5 Mg/2 Ml Ampul.Neb. INHALATION 0.5 mg BID.RT SHELBIE Administration Folic Acid 1 mg 03/30/24 08:00 03/31/24 08:51 Folic Acid 1 Mg Tablet PO Not Given BREAKFAST SHELBIE Gabapentin 600 mg 03/30/24 08:00 03/31/24 08:51 Gabapentin 600 Mg Tablet PO Not Given TIDCM SHELBIE Guaifenesin 20 ml 03/30/24 00:55 Guaifenesin 10 Ml Udc (200mg/10ml) PO Q4H PRN PRN COUGH Hydralazine HCl 5 mg 03/30/24 00:56 Hydralazine 20 Mg/Ml Vial IV Q6H PRN PRN SBP GREATER THAN 160 Protocol Sodium Chloride 100 mls @ 15 mls/hr 03/30/24 00:56 IV .Q6H40M PRN Additional IVPB Infusion Tranexamic Acid 1,000 mg/ 110 mls @ 660 mls/hr 03/31/24 12:30 Sodium Chloride IV 03/31/24 12:39 X1 ONE Sodium Chloride 1,000 mls @ 15 mls/hr 03/31/24 11:50 03/31/24 11:50 IV 04/06/24 01:09 15 mls/hr .Q48H SHELBIE Administration Protocol Lisinopril 40 mg 03/30/24 10:00 03/31/24 08:52 Lisinopril 40 Mg Tablet PO 40 mg DAILY SHELBIE Administration Protocol Melatonin 3 mg 03/30/24 00:55 Melatonin 3 Mg Tablet PO QHS PRN PRN INSOMNIA Metoprolol Succinate 100 mg 03/30/24 10:00 03/31/24 08:52 Metoprolol(Xl)Succ 100 Mg Tablet PO 100 mg DAILY SHELBIE Administration Protocol Morphine Sulfate 2 mg 03/30/24 00:55 03/31/24 02:24 Morphine 2 Mg/Ml Syringe IV 2 mg Q4H PRN PRN Administration Pain Score 6-10 Ondansetron HCl 4 mg 03/30/24 00:55 Ondansetron 4 Mg/2 Ml Vial IV Q8H PRN PRN NAUSEA/VOMITING Sodium Chloride 10 - 40 ml 03/30/24 00:56 03/31/24 10:41 0.9% Saline Lock 10 Ml Syringe IV 10 ml UD PRN Administration SALINE FLUSH PFSH Medical History Atrial fibrillation Former smoker Hip fracture, right Peripheral vascular disease of extremity with claudication 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 Essential hypertension Hyperlipidemia Erectile dysfunction Depression COPD (chronic obstructive pulmonary disease) Home Medications ?Medication ?Instructions ?Recorded ?Last Taken ?Type aspirin 81 mg chewable tablet 81 mg PO DAILY@0800 blood thining 08/21/14 08/22/18 History atorvastatin 20 mg tablet 20 mg PO QHS cholesterol 08/21/14 08/22/18 History gabapentin 300 mg capsule 600 mg PO TIDCM pain 08/21/14 08/22/18 History albuterol sulfate 90 mcg/actuation 2 puff inhalation Q4H PRN Sob &/Or 08/16/18 08/09/18 History aerosol inhaler Wheezing metoprolol succinate 100 mg 100 mg PO DAILY bp 08/16/18 06/26/21 History tablet,extended release 24 hr folic acid 1 mg tablet 1 mg PO DAILY 05/22/21 Unknown History lisinopril 40 mg tablet 40 mg PO DAILY 12/22/22 Unknown History amlodipine 5 mg tablet 5 mg PO DAILY #90 tabs 02/25/24 Unknown Rx warfarin 6 mg tablet 6 mg PO DAILY 03/29/24 Unknown History Allergy/AdvReac Type Severity Reaction Status Date / Time amoxicillin Allergy Unknown Unknown Verified 02/25/24 13:19 clindamycin Allergy Unknown Unknown Verified 02/25/24 13:19 Penicillins (PCN) Allergy Unknown Unknown Verified 02/25/24 13:19 Sulfa (Sulfonamide Allergy Unknown Unknown Verified 02/25/24 13:19 Antibiotics) Family History Father Emphysema lung Mother , DVT History of DVT (deep vein thrombosis) Grandfather Cancer lung Surgical History Femoral-femoral bypass graft thrombosis, 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
--- NOTE | 2024-03-31 12:00 | FEM_PTH ---
PATIENT: DESIRAE REINA LOC: MS3 U#:[id number] AGE/SX: 73/M ROOM: UT321 RE03/30/[address]: Dr. Ruben Trevino DO : 1950 BED: 1 DIS: 04/05/2024 SPEC #: [id number] RECD: 03/31/24 16:25 STATUS: SHEILA REQ #: [id number] JUSTUS: 03/31/24 12:[address]: Andres Isaacs DEPT: SURGICAL PATHOLOGY RECD BY: Opal Sanchez ENTERED: 04/01/24 12:44 SP TYPE: FEM HEAD OTHR DR: MD Dr. Norberto Garrett MD Dr. Bruce Arthur, MD Dr. Christophe Bursley, MD Dr. Derek Brown, DO Dr. David de Lorenzo, DO Dr. David P Myers, MD Dr. Edward Matheis, MD Dr. Gautam Baskaran, MD Dr. Yordanos Habtegebriel, MD Dr. Hemant Dand, MD Dr. Jose Ochoa, MD Dr. Justin Wong, MD Dr. Kimber Foust, MD Dr. Lamia Aljundi, MD Dr. Marisa Magana, MD Dr. Mark Tereletsky, DO Dr. Pritam Ghosh, MD Dr. Pavan Irukulla, MD Dr. Saad Farooqi, MD Dr. Sukhdeep Dhesi, DO Dr. Sujoy Gill, MD Dr. Soleyah Groves, MD Dr. Scott Mollison, MD Dr. Timothy Fernstrom, MD Dr. Toño Ceballos Dr., MD Tissues: Femoral region, NOS Procedures: Decalcification bone/plaque Surgery Specimen Level V Comments: @ Ordering doctor for DEC edited from to @ by SASHA at 04/01/24 [id number] @ Ordering doctor for [facility] edited from to @ by SASHA at 04/01/24 1339 @ Submitting doctor edited from to @ by SASHA at 04/01/24 3829 HEADER OPERATION: Hemiarthroplasty, hip PRE-OP DIAGNOSIS: Acute minimally displaced right femoral neck fracture TISSUE SUBMITTED: Right femoral head MICROSCOPIC DIAGNOSIS Right hip bone and soft tissue, total hip replacement/resection: Femoral head and detached pieces of bone with focal area of hemorrhage, clinically right femoral neck fracture. CHRISSY: 04/06/2024 MICROSCOPIC DESCRIPTION Slides are reviewed. GROSS DESCRIPTION Received is one container labeled with the patient's name and designated femoral head and tissue. The specimen consists of a poole femoral head measuring 5 x 5.5 x 3.5 cm. The articular surface is smooth. Non-articular surface is irregular and hemorrhagic. Also present in the specimen container are multiple detached pieces of bone measuring in aggregate 5 x 4 x 2 cm. No soft tissue is identified. Transit Police Officer sections are submitted in three cassettes as follows: 1 - detached pieces of bone, 2&3-femoral head after decalcification. / 04/01/2024 TC:5 CPT: 99186, 07435
--- NOTE | 2024-03-31 12:11 | PN.ORTHO_ITS ---
Subjective Subjective PAD 2 right hip fracture Objective Data Objective Data Vital Signs: Vital Signs Temp Pulse Resp BP Pulse Ox O2 Del Method O2 Flow Rate 98.8 F 87 21 H 141/73 H 93 Nasal Cannula 6 03/31/24 12:05 03/31/24 12:05 03/31/24 12:05 03/31/24 12:05 03/31/24 12:05 03/31/24 12:05 03/31/24 12:05 FiO2 94 03/31/24 12:05 Oxygen Flow Rate (L/min) 6 Oxygen Delivery Method Nasal Cannula Weight: 235 lb 14.314 oz Body Mass Index (BMI) 32.0 Intake & Output: Intake and Output for Last 24 Hours 03/29/24 03/30/24 03/31/24 23:59 23:59 23:59 Intake Total 1101.0 / 1101.0 450.5 / 450.5 Output Total 1150 / 1150 450 / 450 Balance -49.0 / -49.0 0.5 / 0.5 Lab / Micro Data 03/31/24 03:43 03/31/24 03:43 Labs: Laboratory Results - last 24 hr 03/30/24 17:16: PT 24.5 H, INR 2.2 03/31/24 03:43: WBC 8.1, RBC 3.99 L, Hgb 12.6 L, Hct 39.6 L, MCV 99.2 H, MCH 31.6, MCHC 31.8 L, RDW Std Deviation 59.3 H, RDW Coeff of Hermes 16.1 H, Plt Count 141 L, MPV 10.0, Immature Gran % (Auto) 0.400, Neut % (Auto) 72.9 H, Lymph % (Auto) 13.3 L, [place] % (Auto) 7.2, Eos % (Auto) 5.6 H, Baso % (Auto) 0.6, Absolute Neuts (auto) 5.9, Absolute Lymphs (auto) 1.07, Nucleated RBC % 0, PT 21.1 H, INR 1.8, Sodium 140, Potassium 3.9, Chloride 104, Carbon Dioxide 31.0, Anion Gap 5, BUN 19 H, Creatinine 1.00, Estim Creat Clear Calc 85.64, Est GFR (MDRD) Af Amer 95, Est GFR (MDRD) Non-Af 78, BUN/Creatinine Ratio 19.0, Glucose 111 H, Calcium 8.3 L, Blood Type A NEGATIVE, Antibody Screen NEGATIVE 03/31/24 11:00: PT 18.9 H, INR 1.5 Micro: Microbiology 03/29/24 21:14 Mucosa - Nose SARS-CoV-2, Influenza & RSV (PCR) - Final Radiography Diagnostic Testing: Radiology Impression Echocardiogram 03/30/24 08:06 Interpretation Summary The estimated ejection fraction is 65 %. Unable to assess diastolic dysfunction. Trivial aortic valve insufficiency. Ordering Physician: Brayden Aguilar Performed By: Rashaad Salinas RCS Rhythm Strip Rhythm Strip: A-fib Rate: 77 Ectopy: None Assessment & Plan Assessment/Plan (1) Hip fracture, right: QUALIFIERS: Encounter type: initial encounter Fracture type: c losed Qualified Code(s): S72.001A - Fracture of unspecified part of neck of right femur, initial encounter for closed fracture PLAN: Pending to be optimized by medicine / Dr. Gray. Getting a diueretic after the FFP. No further questions or concerns from the patient. Will proceed to surgery for right hip shayy when safe
--- NOTE | 2024-03-31 12:11 | PCM.PRE.AN2 ---
ASA Classification* ASA Classification ASA Classification: 4 and E Assessment & Plan Anesthesia* Anesthesia Assessment Anesthesia Assessment: Discussed sedation and/or anesthesia options, risks, benefits, and alternatives with patient/parents/legal guardian/POA. Questions invited. The patient/parents/legal guardian/POA seems to understand and agrees to proceed with anesthesia plan. Reviewed the physical assessment, medical history, allergy history and patient home medications list prior to surgery/procedure/anesthetic and documented any changes. Performed airway and anesthesia risk assessments. Anesthesia Type Anesthesia Type: General (INR still elevated at 1.5. Will proceed with general anesthetic. Patient is informed of possible postoperative intubation and ventilation. Lasix was given to help diurese the patient after his FFP.) History Source History Obtained from:: Patient and Chart Anesthesia Focused Assessment* Temperature: 98.8 F Pulse Rate: 87 Blood Pressure: 141/73 Respiratory Rate: 21 Pulse Ox: 93 Oxygen Flow Rate (L/min): 6 Fraction of Inspired Oxygen (FIO2): 94 Airway Assessment Mouth opens: >3 cm Mallampati Score: III Focused Labs Anesthesia Preop lab: CBC WBC 6.4 K/mm3 (4.4-11.0) 04/01/24 05:35 04/01/24 RBC 3.43 M/mm3 (4.6-6.2) L 04/01/24 05:35 04/01/24 Hgb 10.8 g/dL (13.0-16.5) L 04/01/24 05:35 04/01/24 Hct 33.7 % (40-54) L 04/01/24 05:35 04/01/24 Plt Count 129 K/mm3 (150-450) L 04/01/24 05:35 04/01/24 CHEMISTRY Potassium 4.0 mmol/L (3.5-5.1) 04/01/24 05:35 04/01/24 Sodium 141 mmol/L (136-145) 04/01/24 05:35 04/01/24 Magnesium 2.0 mg/dL (1.6-2.6) 03/31/24 00:10 03/31/24 Phosphorus 6.0 mg/dL (2.5-4.9) H 03/31/24 00:10 03/31/24 BUN 30 mg/dL (7-18) H 04/01/24 05:35 04/01/24 Creatinine 1.34 mg/dL (0.70-1.30) H 04/01/24 05:35 04/01/24 Glucose 136 mg/dL (74-106) H 04/01/24 05:35 04/01/24 TSH 4.080 uIU/mL (0.358-3.740) H 03/29/24 19:10 03/29/24 COAG PT 19.9 SECONDS (11.7-14.9) H 04/01/24 05:35 04/01/24 Pre-Assessment Diagnosis/Proposed Procedure Planned Operative Procedure(s): Right hip hemiarthroplasty. Anesthesia History Anesthesia History - machine stripper cutter: Anesthesia History - machine stripper cutter Hx Hospitalization No 08/13/18 08:50 Any Problems With Anesthesia No 03/30/24 20:17 Cholinesterase deficiency No 03/30/24 20:17 You/Your Family Experience No 03/30/24 20:17 fever (hyperthermia) with Relationship Recent Exposure to Contagious No 03/30/24 20:17 Disease Does patient have nerve No 03/30/24 20:17 stimulator Patient instructed to have No 03/30/24 20:17 device shut off --Does patient have Pacemaker No 03/31/24 09:53 or ICD? When Was Last Pacemaker Check QUESTION #4 FULL TEXT: You/Your Family Experience fever (hyperthermia) with Anesthesia Last Oral Intake Last Oral intake: Last Oral Intake NPO since 00:00 03/31/24 09:53 Meds taken in AM with sips of Yes 03/31/24 09:53 water? Meds patient instructed to SEE 03/31/24 09:53 take am of surgery PONV PONV - machine stripper cutter: PONV - machine stripper cutter Female HX of Motion Sickness HX of N/V After Surgery Non-Smoker Duration of Surgery greater than 60 minutes Number of Risk Factors PONV Score Height & Weight Height & Weight: Anesthesia: Height & Weight Height 6 ft 03/31/24 09:53 Weight: 107 kg 03/31/24 09:53 Body Mass Index (BMI) 32.0 03/31/24 09:53 Respiratory Assessment Respiratory Assessment - machine stripper cutter: Respiratory Tract Infection Hx - machine stripper cutter Hx Respiratory Tract Infection No 03/30/24 20:17 STOP Sleep Apnea STOP Sleep Apnea - machine stripper cutter: STOP Sleep Apnea - machine stripper cutter Hx Hypertension Yes 03/30/24 01:11 Hx Sleep Apnea No 03/30/24 01:11 CPAP BIPAP Do you snore loudly (louder Yes 03/30/24 01:11 than talking or can be heard Do you often feel tired/ Yes 03/30/24 01:11 fatigued/ sleepy during daytime? Has anyone observed you stop No 03/30/24 01:11 breathing during sleep? STOP Results Positive 03/30/24 01:11 QUESTION #5 FULL TEXT : Do you snore loudly (louder than talking or can be heard through closed doors)? 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 Specify any problems Hx of Preganancy in last 3 N/A 03/30/24 01:11 Months Nurse Filling Out Transfusion MMELUCH 03/30/24 01:11 & Questions: Date: 03/30/24 03/30/24 01:11 Time: 01:12 03/30/24 01:11 Patient unable to answer at this time (ie. confused, unrespo /Reproduction History /Reproductive History - machine stripper cutter: /Reproductive Hx- machine stripper cutter Hx Now na 03/30/24 20:17 Gestational Age (in weeks): EDC: Hx Hx Para Hx Section SAB No 03/30/24 20:17 Active Medications Active Medications: Current Medications Generic Name Dose Route Start Last Admin Trade Name Freq PRN Reason Stop Dose Admin Acetaminophen 650 mg 03/30/24 00:55 Acetaminophen 325 Mg Tablet PO Q6H PRN PRN Pain 1-5/10 Or Fever>100.7 Al Hydroxide/Mg Hydroxide 30 ml 03/30/24 00:55 Mag Hydrox/Al Hydrox/Simeth 30 Ml Udc PO Q6H PRN PRN Gastric Burning Albuterol Sulfate 2.5 mg 03/30/24 01:22 03/31/24 08:08 Albuterol 2.5 Mg/3 Ml Vial.Neb. INHALATION 2.5 mg Q4H PRN PRN Administration Sob &/Or Wheezing Amlodipine Besylate 5 mg 03/30/24 10:00 03/31/24 08:52 Amlodipine 5 Mg Tablet PO 5 mg DAILY SHELBIE Administration Protocol Aspirin 81 mg 03/30/24 08:00 03/31/24 08:51 Aspirin E.C. 81 Mg Tablet PO Not Given BREAKFAST SHELBIE Atorvastatin Calcium 20 mg 03/30/24 22:00 03/30/24 20:14 Atorvastatin Calcium 20 Mg Tablet PO 20 mg QHS SHELBIE Administration Budesonide 0.5 mg 03/31/24 09:00 03/31/24 09:38 Budesonide Respules 0.5 Mg/2 Ml Ampul.Neb. INHALATION 0.5 mg BID.RT SHELBIE Administration Folic Acid 1 mg 03/30/24 08:00 03/31/24 08:51 Folic Acid 1 Mg Tablet PO Not Given BREAKFAST SHELBIE Gabapentin 600 mg 03/30/24 08:00 03/31/24 12:06 Gabapentin 600 Mg Tablet PO Not Given TIDCM SHELBIE Guaifenesin 20 ml 03/30/24 00:55 Guaifenesin 10 Ml Udc (200mg/10ml) PO Q4H PRN PRN COUGH Hydralazine HCl 5 mg 03/30/24 00:56 Hydralazine 20 Mg/Ml Vial IV Q6H PRN PRN SBP GREATER THAN 160 Protocol Sodium Chloride 100 mls @ 15 mls/hr 03/30/24 00:56 IV .Q6H40M PRN Additional IVPB Infusion Tranexamic Acid 1,000 mg/ 110 mls @ 660 mls/hr 03/31/24 12:30 Sodium Chloride IV 03/31/24 12:39 X1 ONE Sodium Chloride 1,000 mls @ 15 mls/hr 03/31/24 11:50 03/31/24 11:50 IV 04/06/24 01:09 15 mls/hr .Q48H SHELBIE Administration Protocol Lisinopril 40 mg 03/30/24 10:00 03/31/24 08:52 Lisinopril 40 Mg Tablet PO 40 mg DAILY SHELBIE Administration Protocol Melatonin 3 mg 03/30/24 00:55 Melatonin 3 Mg Tablet PO QHS PRN PRN INSOMNIA Metoprolol Succinate 100 mg 03/30/24 10:00 03/31/24 08:52 Metoprolol(Xl)Succ 100 Mg Tablet PO 100 mg DAILY SHELBIE Administration Protocol Morphine Sulfate 2 mg 03/30/24 00:55 03/31/24 02:24 Morphine 2 Mg/Ml Syringe IV 2 mg Q4H PRN PRN Administration Pain Score 6-10 Ondansetron HCl 4 mg 03/30/24 00:55 Ondansetron 4 Mg/2 Ml Vial IV Q8H PRN PRN NAUSEA/VOMITING Sodium Chloride 10 - 40 ml 03/30/24 00:56 03/31/24 10:41 0.9% Saline Lock 10 Ml Syringe IV 10 ml UD PRN Administration SALINE FLUSH PFSH Medical History Atrial fibrillation Former smoker Hip fracture, right Peripheral vascular disease of extremity with claudication 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 Essential hypertension Hyperlipidemia Erectile dysfunction Depression COPD (chronic obstructive pulmonary disease) Home Medications ?Medication ?Instructions ?Recorded ?Last Taken ?Type aspirin 81 mg chewable tablet 81 mg PO DAILY@0800 blood thining 08/21/14 08/22/18 History atorvastatin 20 mg tablet 20 mg PO QHS cholesterol 08/21/14 08/22/18 History gabapentin 300 mg capsule 600 mg PO TIDCM pain 08/21/14 08/22/18 History albuterol sulfate 90 mcg/actuation 2 puff inhalation Q4H PRN Sob &/Or 08/16/18 08/09/18 History aerosol inhaler Wheezing metoprolol succinate 100 mg 100 mg PO DAILY bp 08/16/18 06/26/21 History tablet,extended release 24 hr folic acid 1 mg tablet 1 mg PO DAILY 05/22/21 Unknown History lisinopril 40 mg tablet 40 mg PO DAILY 12/22/22 Unknown History amlodipine 5 mg tablet 5 mg PO DAILY #90 tabs 01/09/25 Unknown Rx warfarin 6 mg tablet 6 mg PO DAILY 03/29/24 Unknown History Allergy/AdvReac Type Severity Reaction Status Date / Time amoxicillin Allergy Unknown Unknown Verified 02/25/24 13:19 clindamycin Allergy Unknown Unknown Verified 02/25/24 13:19 Penicillins (PCN) Allergy Unknown Unknown Verified 02/25/24 13:19 Sulfa (Sulfonamide Allergy Unknown Unknown Verified 02/25/24 13:19 Antibiotics) Family History Father Emphysema lung Mother , DVT History of DVT (deep vein thrombosis) Grandfather Cancer lung Surgical History Femoral-femoral bypass graft thrombosis, 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
[2024-03-31] MEDS: Cefazolin 2 GM in Syringe IV (12:38)
[2024-03-31] MEDS: TRANEXAMIC ACID 1,000 MG in 0.9% Normal Saline (100mL Bag) 100 ML 660 MG IV ×2 (12:40→14:00)
[2024-03-31] MEDS: Bupivacaine 0.25% 30 ML Vial (14:13)
--- NOTE | 2024-03-31 14:26 | PCM.OPRPT ---
Problems Associated Problem List Diagnoses (1) Hip fracture, right: Procedures Musculoskeletal 20xxx-29xxx: Other Procedure See Report Operative Report (Standard) Operative Information Date of Procedure: 03/31/24 Pre-Operative Diagnosis: R femoral neck fracture Post-Operative Diagnosis: same Surgery/Procedure Performed: Right hip cemented hemiarthroplasty resident hall director: Yes Bending Machine Operator: joanna Tasks completed by human resources office assistant: Retracting Additional assistant grocery store manager?: No Type of Anesthesia: General and Local RN Documented Start/Stop Times: Operation Date: 03/31/24 12:00 Case Time Into Pre-Op 03/31/24 11:01 Anesthesia Start 03/31/24 12:26 Into Room 03/31/24 12:26 Procedure Start 03/31/24 13:00 Procedure End 03/31/24 14:22 Procedure Start Time: :00 Procedure Stop Time: 14:22 Select all DRAINS/GRAFTS/IMPLANTS that apply: Prosthetic device Prosthetic device details: Bre accolade C size 6, 52mm bipolar head, medium cement restrictor, 127 degree, 15mm distal centralizer Estimated Blood Loss: 100 Specimen collected: Yes Description of specimen(s) removed: femoral head Description of surgery: Patient brought to the operating theater. Placed supine on the table. General anesthesia induced. 1 g IV tranexamic acid at the start time 1 g IV tranexamic acid at the end of the case. 2 g IV Ancef administered prior to the start of the case. Patient transferred right side up lateral decubitus [place] hip positioner appropriately padded. SCD on the nonoperative leg. Axillary roll used. Leg prepped and draped in the usual sterile fashion allowing over 3 minutes drying time prior to draping with chlorhexidine-based prep solution. Preoperative timeout performed to confirm the site patient and the surgery. Began by making a standard lateral incision centered over the proximal femur. Carried the dissection down through skin and subcutaneous tissue achieved meticulous hemostasis. Incised the tensor fascia gail in line with the skin incision. I then sharply released the anterior one third of the abductors from the greater trochanter of the hip. I then made a T-shaped capsulotomy and put stay sutures in each limb. Identified the acetabulum. Identified the fracture site. I remove the femoral head. I made my neck cut approximately 1 cm above the level of the lesser trochanter, perhaps slightly less. I sized the head to a size 52 mm. I thoroughly irrigated the acetabulum removed any debris. I then used the lateralizing box osteotome followed by broaching up to a size 6 with trialing the standard 127 degree offset with a size 52 mm head. This achieved good reduction and appropriate fit with appropriate flexion internal rotation and external rotation with extension no instability and no impingement. Equal leg lengths. Trial components removed. I then turned my attention back to the femur using the preparation devices, pulse lavage, Irrisept which I used irrigate throughout the case as well as the padded suction device. I sized for a distal cement restrictor up to a medium placed this after appropriate period of time of suctioning the canal. I selected my final implants the Bre Accolade size 6. Mixed cement using third-generation cement techniques. I cemented the femur use the pressurizing system. I then inserted the final component into the canal patient was stable throughout cementing. I cleaned away any excess cement. Thoroughly irrigated the acetabulum. I cleaned the trunnion thoroughly. I then impacted the final head size 52 mm bipolar. The Skelton taper was stable and solid. I then reduced the hip again this was trialed and felt to be of appropriate length no impingement no instability. Appropriate length in terms of leg lengths and normal shuck test. I then closed the capsule using #1 Vicryl suture, abductors were repaired to the greater trochanter using drill holes and FiberWire suture. I then used the barbed suture running locking suture for the repair of the tensor fascia gail. Again soft tissues were thoroughly irrigated followed by closure of the subcutaneous tissue with 2-0 Vicryl sutures and skin with 3-0 Monocryl. 30 cc of 0.25% bupivacaine instilled in and around the soft tissues. Skin cleaned with wet and dry dressing followed application of Steri-Strips and silver Mepilex dressing. Patient transferred off the operating room table, case terminated. All sponge needle instrument counts were correct no complications plan for the patient readmitted under the hospitalist service VTE prophylaxis per them and postoperative x-ray and weightbearing as tolerated with PT and OT to assess. CPT 61425 Surgical Findings: as above, fractured femoral neck Complications Complications: No Admit VTE Documentation VTE Present on Admission: Yes VTE Mechan Device Prophylaxis: SCD's VTE Pharm Prophylaxis ordered?: Yes
--- NOTE | 2024-03-31 14:44 | CASEMGMT ---
Discharge Planning A list of?SNF providers including quality and resource use data and consistent with the patient's preferred geographic region, medical needs, and insurance network was created in [facility] Guide.? This list was provided to the SW. Jessica Patino Discharge Planning Asst.
--- NOTE | 2024-03-31 15:15 | RAD_ITS ---
EXAM: HIP MIN 2 VIEWS (PORTABLE) CLINICAL HISTORY: Status post right total hip replacement. COMPARISON: Comparison is made with prior study dated March 29, 2024. TECHNIQUE: Two views were obtained. FINDINGS: The patient is status post right total hip replacement. There is good alignment. Postoperative soft tissue changes. RAD/Hip Min 2 Views (Portable) IMPRESSION: Status post right total hip replacement. There is good alignment. Postoperative soft tissue changes. Reading Location: [place] [id number]
--- NOTE | 2024-03-31 15:15 | PCM.POST.ANE ---
Anesthesia: Postop Eval I Current Vital Signs Temperature: 99 F Pulse Rate: 96 Blood Pressure: 172/93 Respiratory Rate: 16 Pulse Ox: 93 Oxygen Delivery Method: Venturi Mask Oxygen Flow Rate (L/min): 6 Assessment Airway patent: Yes Spontaneous unlabored respirations: Yes Mental status: Awake nausea: No Vomiting: No Anesthesia Complication: No Fluid Hydration Crystalloid volume administer (ml): 700 Total IV fluid infused: 700 Progress Note Anesthesia document: Postop Eval 1 completed: Yes
[2024-03-31 15:44] LABS: Base Excess 6 mmol/L (-2 to +2); Bicarbonate 33.5 mmol/L (22-26); Blood Gas Specimen Type ART; Mode Not entered; PO2 76 mmHG (75-100); SITE R Radial; SO2 91 % (95-99); Total Carbon Dioxide 36 mmol/L; pCO2 83.2 mmHg (35-45); pH 7.21 (7.35-7.45)
[2024-03-31 15:52] LABS: Anion Gap 5 (5-15); BUN 18 mg/dL (7-18); BUN/Creat Ratio 14.6 RATIO (10-20); Calcium,Total 8.4 mg/dL (8.5-10.1); Chloride 101 mmol/L (98-107); Creatinine, Serum 1.23 mg/dL (0.70-1.30); EST Glomerular Filtration Rate 62 mL/min (>60); Est Glom Filt Rate - Afr Amer 75 mL/min (>60); Estimated Creatinine Clearance 69.62 ml/min; Glucose 135 mg/dL (74-106); Potassium 4.1 mmol/L (3.5-5.1); Sodium Level 139 mmol/L (136-145)
[2024-03-31] MEDS: Naloxone 0.4 MG/ML Syringe IV ×3 (16:05→16:58)
[2024-03-31 16:30] LABS: Base Excess 7 mmol/L (-2 to +2); Bicarbonate 34.4 mmol/L (22-26); Blood Gas Specimen Type ART; Mode Not entered; PO2 113 mmHG (75-100); SITE R Radial; SO2 97 % (95-99); Total Carbon Dioxide 37 mmol/L; pCO2 82.2 mmHg (35-45); pH 7.23 (7.35-7.45)
[2024-03-31 16:31] LABS: O2 Delivery Device Bi Pap
--- NOTE | 2024-03-31 16:56 | CPS ---
This RT is taking over care once pt has come up from PACU. Increased RR to [address] Balbuena
[2024-03-31 18:04] LABS: Base Excess 8 mmol/L (-2 to +2); Bicarbonate 35.1 mmol/L (22-26); Blood Gas Specimen Type ART; Mode Not entered; O2 Delivery Device BiPAP; PO2 73 mmHG (75-100); SITE Not entered; SO2 90 % (95-99); Total Carbon Dioxide 38 mmol/L; pCO2 80.9 mmHg (35-45); pH 7.25 (7.35-7.45)
--- NOTE | 2024-03-31 18:20 | RAD_ITS ---
PROCEDURE: CHEST 1 VIEW REASON FOR EXAM: 73-year-old male, respiratory failure. Status post hip surgery earlier today. TECHNIQUE: Frontal view of the chest. COMPARISON: Chest radiograph 03/29/2024. FINDINGS: The heart size is normal. The lungs are clear. No focal consolidation, pleural effusion or pneumothorax. Degenerative changes are identified within the thoracic spine. RAD/Chest 1 View IMPRESSION: NEGATIVE CHEST. Reading Location: [id number]
--- NOTE | 2024-03-31 18:41 | PCM.POSTANE2 ---
Anesthesia Postop Eval I Sum Postop Eval Completion status Anesthesia document: Postop Eval 1 completed: Yes Anesthesia Postop Eval I Summary Anesthesia Postop Eval I Summary: Anesthesia Postop Eval I: Assessment Summary Airway patent Yes 03/31/24 15:16 RENT AND HOUSING INVESTIGATOR.MDOT Spontaneous unlabored Yes 03/31/24 15:16 RENT AND HOUSING INVESTIGATOR.MDOT respirations Mental status Awake 03/31/24 15:16 RENT AND HOUSING INVESTIGATOR.MDOT nausea No 03/31/24 15:16 RENT AND HOUSING INVESTIGATOR.MDOT Vomiting No 03/31/24 15:16 RENT AND HOUSING INVESTIGATOR.MDOT Anesthesia Postop Eval I: Fluid Summary Crystalloid volume administer 700 03/31/24 15:16 RENT AND HOUSING INVESTIGATOR.MDOT (ml) Colloids volume administered ( ml) Blood Product volume administered (ml) Total IV fluid infused 700 03/31/24 15:16 RENT AND HOUSING INVESTIGATOR.MDOT Anesthesia Postop Eval I: Summary Notes Anesthesia Complication No 03/31/24 15:16 RENT AND HOUSING INVESTIGATOR.MDOT Anesthesia Complication Comment: Post-operative progress note Anesthesia: Postop Eval II Evaluation Mental status: Asleep (Arousable) Pain Level: 0 nausea: No Vomiting: No Progress Note Post-operative progress note: Patient remains very drowsy. Requiring BiPAP to maintain oxygenation. Oxygenation remains adequate. pCO2 is still in the 80s. Dr. Polanco believes that the patient would do best in the ICU. Plan for transfer to ICU with monitors and BiPAP once he gets there. Complications Anesthesia Complication: Yes Anesthesia Complication Comment:: Patient extremely drowsy at the end of surgery and anesthesia. Seems to get better with Narcan. Narcotic dose during the case was reviewed and seems to be extremely small. All muscle laxation and medications reversed. Still requiring BiPAP and ICU transfer upon leaving PACU.
--- NOTE | 2024-03-31 19:19 | PN.HOSP_ITS ---
Reason for Visit Reason for Visit: Diagnoses Essential (primary) hypertension (03/30/24) Chronic obstructive pulmonary disease, unspecified (03/30/24) Fracture of unspecified part of neck of right femur, initial encounter for closed fracture (03/30/24) Subjective Subjective Patient was seen and examined today initially in PACU after he completed his right hemiarthroplasty today. Patient was extubated but was not breathing adequately, BiPAP was first applied and then AVAPS was applied and the patient was transferred to ICU for further care. Additional blood gases were ordered which showed the patient to be acidotic but his pCO2 appeared to be decreasing slightly and I elected to keep the patient on AVAPS and monitor him closely rather than reintubate the patient. I had talked by phone with critical care and went over the case with Dr. Clayton, I also talked with anesthesia to let them know there could be a problem later on tonight, and I finally talked with the night hospitalist Dr. Pratt about the case. In the meantime, respiratory therapy contacted me and stated that they felt the patient would breathe better on BiPAP with increased settings and so they changed the patient over to BiPAP and he appears to be pulling better tidal volumes. Patient is waking up, I gave him extra Narcan when he got to the ICU and as of 7 PM tonight, he was following commands and opening his eyes to verbal and tactile stimuli. It appears that when he was on AVAPS, and fell asleep he did not spontaneously breathe. Objective Data Objective Data Vital Signs: Vital Signs Temp Pulse Resp BP Pulse Ox O2 Del Method O2 Flow Rate 98.5 F 85 20 H 112/71 96 Bi-pap 15 03/31/24 16:40 03/31/24 19:00 03/31/24 19:00 03/31/24 19:00 03/31/24 19:00 03/31/24 19:00 03/31/24 15:30 FiO2 40 03/31/24 19:00 Oxygen Flow Rate (L/min) 15 Oxygen Delivery Method Bi-pap Weight: 107 kg Body Mass Index (BMI) 32.0 Intake & Output: Intake and Output for Last 24 Hours 03/29/24 03/30/24 03/31/24 23:59 23:59 23:59 Intake Total 1101.0 / 1101.0 776.25 / 776.25 Output Total 1150 / 1150 1999 Balance -49.0 / -49.0 -1223.75 / -1223.75 Lab / Micro Data 03/31/24 03:43 03/31/24 15:22 Labs: Laboratory Results - last 24 hr 03/31/24 03:43: WBC 8.1, RBC 3.99 L, Hgb 12.6 L, Hct 39.6 L, MCV 99.2 H, MCH 31.6, MCHC 31.8 L, RDW Std Deviation 59.3 H, RDW Coeff of Hermes 16.1 H, Plt Count 141 L, MPV 10.0, Immature Gran % (Auto) 0.400, Neut % (Auto) 72.9 H, Lymph % (Auto) 13.3 L, [place] % (Auto) 7.2, Eos % (Auto) 5.6 H, Baso % (Auto) 0.6, Absolute Neuts (auto) 5.9, Absolute Lymphs (auto) 1.07, Nucleated RBC % 0, PT 21.1 H, INR 1.8, Sodium 140, Potassium 3.9, Chloride 104, Carbon Dioxide 31.0, Anion Gap 5, BUN 19 H, Creatinine 1.00, Estim Creat Clear Calc 85.64, Est GFR (MDRD) Af Amer 95, Est GFR (MDRD) Non-Af 78, BUN/Creatinine Ratio 19.0, Glucose 111 H, Calcium 8.3 L, Blood Type A NEGATIVE, Antibody Screen NEGATIVE 03/31/24 11:00: PT 18.9 H, INR 1.5 03/31/24 15:22: Sodium 139, Potassium 4.1, Chloride 101, Carbon Dioxide 33.0 H, Anion Gap 5, BUN 18, Creatinine 1.23, Estim Creat Clear Calc 69.62, Est GFR (MDRD) Af Amer 75, Est GFR (MDRD) Non-Af 62, BUN/Creatinine Ratio 14.6, Glucose 135 H, Calcium 8.4 L Micro: Microbiology 03/29/24 21:14 Mucosa - Nose SARS-CoV-2, Influenza & RSV (PCR) - Final ABG Data ABG results: ABG 03/31/24 03/31/24 03/31/24 15:40 16:26 17:59 Specimen Type ART ART ART Sample Site R Radial R Radial Not entered pH 7.21 L 7.23 L 7.25 L Bicarbonate Actual 33.5 H 34.4 H 35.1 H Total CO2 36 37 38 Base Excess 6 H 7 H 8 H O2 Saturation 91 L 97 90 L O2 % 10.0 50.0 40.0 ABG pCO2 83.2 H* 82.2 H* 80.9 H* ABG pO2 76 113 H 73 L O2 Delivery Device simple Bi Pap BiPAP Vent Mode Not entered Not entered Not entered Crit Call To/Read Back Yes Yes Yes Blood Gas Notified Whom ro barrois Blood Gas Notified Time 15:41:48 16:27:37 18:01:26 Radiography Diagnostic Testing: Radiology Impression Hip X-Ray 03/31/24 15:15 IMPRESSION: Status post right total hip replacement. There is good alignment. Postoperative soft tissue changes. Reading Location: [place] [address] Rhythm Strip Rhythm Strip: A-fib Rate: 77 Ectopy: None Physical Exam Const no apparent distress Constitutional Narrative: Patient is lethargic but responds to verbal and tactile stimuli and follows certain commands. General Appearance: cooperative, well kempt and well developed HEENT normocephalic, head/scalp atraumatic and moist oral mucous membranes Eyes PERRL, EOMs intact bilaterally and conjunctivae normal Neck supple, no JVD, thyroid normal and no carotid bruits General: trachea midline Resp normal respiratory effort, no retractions, no use of accessory muscles and clear to auscultation bilaterally Auscultation: Negative for rales, rhonchi or wheezes Cardio S1 normal heart sound, S2 normal heart sound, no murmurs, no rub and no gallops Cardio Narrative: Heart rate and rhythm is irregular GI normal to inspection, nondistended, normoactive bowel sounds, soft to palpation, non-tender and non-distended Extremity no clubbing, cyanosis or edema Skin no rashes or lesions noted Neuro CN's II-XII intact bilaterally Neuro Narrative: Patient is lethargic but responds to verbal and tactile stimuli and follows some commands Psych Psych Narrative: Patient follows some commands, he responds to tactile and verbal stimuli. Assessment & Plan Assessment/Plan (1) Hip fracture, right: QUALIFIERS: Encounter type: initial encounter Fracture type: c losed Qualified Code(s): S72.001A - Fracture of unspecified part of neck of right femur, initial encounter for closed fracture PLAN: Plan 1. Acute respiratory failure-most probably secondary to effects of anesthesia on a backdrop of chronic COPD-patient appears to be slowly improving, we will keep a close eye on the patient in the ICU, I do not anticipate he will have to be reintubated at this time but that is a possibility. ABG will be repeated at 9 PM tonight. #2 right femoral neck fracture-postop day 0 right hemiarthroplasty-patient will need to be seen by PT and OT, orthopedic surgery is participating in his care #3 chronic obstructive pulmonary disease-patient will be kept on aerosol treatments, complicates care, management, recovery, and prognosis #4 permanent atrial fibrillation-patient is currently off Coumadin, I will repeat his INR tomorrow morning, most likely we will restart his anticoagulation either tomorrow or the next day #5 essential hypertension-patient's blood pressure will be monitored, his oral meds will be restarted when he is able to intake orals Total clinical time spent by myself addressing the patient's medical issues, reviewing all of his data, and collaborating with the patient's care team: 50 minutes Charges/Coding Visit Charges Inpatient E&M: 65861 Subs Hosp L2
[2024-03-31 21:14] LABS: Base Excess 6 mmol/L (-2 to +2); Bicarbonate 33.6 mmol/L (22-26); Blood Gas Specimen Type ART; Mode Not entered; O2 Delivery Device BiPAP; PEEP 14; PO2 114 mmHG (75-100); RR 18; SITE R Radial; SO2 97 % (95-99); Total Carbon Dioxide 36 mmol/L; pCO2 82.6 mmHg (35-45); pH 7.22 (7.35-7.45)
--- NOTE | 2024-03-31 21:26 | MDS.RN ---
Dr. Barajas updated on patient's respiratory status; noncompliance with BIPAP, and results of ABG recheck. Discussing with MD; it was determined to start low dose precedex in order to help patient compliance with allowing BIPAP to clear the Co2. Recheck of ABG approximately [id number] hours per RT Romatt. Intubation equipment staged outside patient room in anticipation of possible intubation without improvement in CO2 and pH following ABG recheck.
[2024-03-31 22:52] LABS: Base Excess 4 mmol/L (-2 to +2); Bicarbonate 34.6 mmol/L (22-26); Blood Gas Specimen Type ART; Mode Not entered; O2 Delivery Device BiPAP; PEEP 14; PO2 79 mmHG (75-100); RR 18; SITE R Radial; SO2 86 % (95-99); Total Carbon Dioxide 39 mmol/L; pCO2 127.9 mmHg (35-45); pH 7.04 (7.35-7.45)
[2024-03-31] MEDS: 0.9% Normal Saline (1000mL) 1,000 ML 999 ML IV (23:00)
[2024-03-31] MEDS: Etomidate 20 MG/10 ML Vial 10 MG IV (23:02)
--- NOTE | 2024-03-31 23:09 | RAD_ITS ---
PROCEDURE: ABDOMEN SINGLE VIEW (PORTABLE) REASON FOR EXAM: Nasogastric placement. TECHNIQUE: Single view of the upper abdomen. COMPARISON: None FINDINGS: Enteric tube is identified with the tip in the distal stomach/proximal duodenum. No free air is present. Nonobstructive bowel gas pattern is present. RAD/Abdomen Single View (Portable) IMPRESSION: Enteric tube tip in the distal stomach/proximal duodenum. Reading Location: [facility]
--- NOTE | 2024-03-31 23:09 | RAD_ITS ---
PROCEDURE: CXR FOR LINE PLACEMENT REASON FOR EXAM: Endotracheal tube placement. TECHNIQUE: Single frontal view(s) of the chest is obtained. COMPARISON: Chest x-ray from 03/31/2024. FINDINGS: Endotracheal tube tip is approximately 4.1 cm above the cesar. Enteric tube tip is below the diaphragm. Cardiac size and pulmonary vasculature are within normal limits. No consolidation, pleural effusion, or pneumothorax is present. RAD/CXR for Line Placement IMPRESSION: 1. Interval placement of an endotracheal tube and enteric tube. 2. No acute cardiopulmonary process. Reading Location: [facility]
--- NOTE | 2024-03-31 23:15 | RAD_ITS ---
PROCEDURE: CXR FOR LINE PLACEMENT REASON FOR EXAM: Endotracheal tube placement. TECHNIQUE: Single frontal view of the chest is obtained. COMPARISON: Chest x-ray from 03/31/2024. FINDINGS: Endotracheal tube tip is approximately 4.7 cm above the cesar. Enteric tube tip is below the diaphragm. Cardiac size and pulmonary vasculature are within normal limits. No consolidation, pleural effusion, or pneumothorax is present. RAD/CXR for Line Placement IMPRESSION: 1. Endotracheal tube and enteric tube placement. 2. No acute cardiopulmonary process. [facility]
[2024-03-31] MEDS: LORazepam 2 MG/ML Syringe IV (23:18)
[2024-03-31] MEDS: dexMEDEtomidine 400 MCG in 0.9% Normal Saline (100mL Bag) 96 ML 13.4 MCG CONT INF (23:22)
[2024-04-01] VITALS (42 sets, daily range): BP systolic 58–148; BP diastolic 44–79; PULSE 59–78; RESP 16–24; TEMP 36.2–36.9; O2SAT 91–100; BMI 32.5
[2024-04-01] MEDS: Norepinephrine 8 MG in 0.9% Normal Saline (250mL Bag) 242 ML 9.4 MG CONT INF (00:25)
[2024-04-01 00:36] LABS: Anion Gap 4 (5-15); BUN 26 mg/dL (7-18); BUN/Creat Ratio 17.3 RATIO (10-20); Calcium,Total 7.8 mg/dL (8.5-10.1); Chloride 103 mmol/L (98-107); EST Glomerular Filtration Rate 49 mL/min (>60); Est Glom Filt Rate - Afr Amer 59 mL/min (>60); Estimated Creatinine Clearance 57.09 ml/min; Glucose 164 mg/dL (74-106); Potassium 4.9 mmol/L (3.5-5.1); Sodium Level 140 mmol/L (136-145)
[2024-04-01 01:04] LABS: Base Excess 4 mmol/L (-2 to +2); Bicarbonate 29.4 mmol/L (22-26); Blood Gas Specimen Type ART; Mode AC; O2 Delivery Device Adult Vent; PEEP 5; PO2 71 mmHG (75-100); RR 18; SITE R Radial; SO2 94 % (95-99); Total Carbon Dioxide 31 mmol/L; pCO2 49.4 mmHg (35-45); pH 7.38 (7.35-7.45)
--- NOTE | 2024-04-01 02:52 | PN.HOSP_ITS ---
Hospitalist Note I was notified by my hospitalist colleague shortly after arrival for work today that this patient was having difficulty recovering from anesthesia with patient postoperative day #0 after Right hemiarthroplasty and would need to be watched closely overnight with a goal to avoid intubation if it was at all possible. I was then called by the MEDICAL ESTHETICIAN shortly after shift change and notified that this patient was struggling to breathe with poor tolerance of AVAPS and BiPAP in addition to persistent sedation after recent anesthesia with additional evidence of patient noted by respiratory therapist and MEDICAL ESTHETICIAN to not have chest wall rise even while on high intensity BiPAP even after receiving several doses of Narcan throughout the day with patient also witnessed to have short episodes of apnea that were still occurring after 4 doses of Narcan. At ~6 PM he was noted to have an ABG of 7.25/ pCO2 of 80.9 mmHg/ pO2 73 mmHg/ bicarbonate 35.1 mmol/L on BiPAP and a respiratory rate of 18 with an FiO2 of 50% and PEEP of 14. Then a second ABG was checked at ~9 PM which revealed deterioration with pH 7.22/ pCO2 82.6 mmHg/ pO2 114 mmHg/ bicarbonate of 23.6 mmol/L with the patient having intermittent agitation and noted to be occasionally trying to remove his mask on BiPAP with a respiratory rate of 18 with 50% FiO2 and 14 of PEEP. Finally, patient's pattern of decline continued with ABG done at approximately 11 PM revealing pH 7.04/ pCO2 127.9 mmHg/ pO2 79 mmHg/ bicarbonate 34.6 mmol/L on BiPAP with a respiratory rate of 18 FiO2 of 50% and PEEP of 14. With plan to avoid intubation unable to be achieved due to reasons noted above and below. Patient seemed to still be suffering from strong aftereffects of recent anesthesia and was not tolerating noninvasive ventilation due to increased muscle tone in his chest wall complicated by lethargy with hypersomnolence and altered mental status that progressively worsened over the above timeframe in spite of aggressive noninvasive ventilation implying his re-intubation was virtually inevitable. Therefore, he was emergently intubated with a Beacon-Scope after induction with 10 mg of etomidate IV once. He was intubated on the first attempt with no blood loss noted. A 7.5 Japanese ET tube was placed without difficulty with chest x-ray confirming good position noted below. His follow-up ABG at 1 AM revealed pH 7.38/ pCO2 49.4 mmHg/ pO2 71 mmHg/bicarbonate 29.4 mmol/L on ventilator AC with tidal volume of 500 mL and respiratory rate of 18 with 5% PEEP. MEDICAL ESTHETICIAN and respiratory therapists were updated with plan to recheck ABG in a.m to confirm pattern of continued improvement with their expertise and support greatly appreciated! [facility] Imaging Services [address] [place], [place] [id number] CXR for Line Placement MR#: [id number] Acct: [id number] Name: DESIRAE REINA Rep #: [id number] : 1950 M 73 From: Matt Joseph DO PCP: Dr. Yobani Negron MD Status: ADM IN Study: CXR for Line Placement Date of Exam: 03/31/24 Exam# [id number] Ordering Dr: Brayden Aguilar DO PROCEDURE: CXR FOR LINE PLACEMENT REASON FOR EXAM: Endotracheal tube placement. TECHNIQUE: Single frontal view of the chest is obtained. COMPARISON: Chest x-ray from 03/31/2024. FINDINGS: Endotracheal tube tip is approximately 4.7 cm above the cesar. Enteric tube tip is below the diaphragm. Cardiac size and pulmonary vasculature are within normal limits. No consolidation, pleural effusion, or pneumothorax is present. RAD/CXR for Line Placement IMPRESSION: 1. Endotracheal tube and enteric tube placement. 2. No acute cardiopulmonary process. Reading Location: [facility] CC: Dr. Yobani Negron MD; Dr. Brayden Aguilar DO ~ Offset Lithographic Press Setter: Signed RUN DATE: 04/01/24 [facility], DEPARTMENT OF LABORATORIES PAGE 1 RUN TIME: 0304 Specimen Inquiry [address], [place], [address] PATIENT: DESIRAE REINA LOC: ICU U #: [id number] : 1950 AGE/SX: 73/M FACILITY: [facility] ROOM: [place] [address] RE03/30/[address]: Dr. Geovanny Eng DO STATUS:ADM IN ED: 1 DIS: ~ SPEC #: [id number] JUSTUS: 04/01/24 STATUS: COMP REQ #: [id number] RECD: 04/01/[address]: Dr. Geovanny Eng, ENTERED: 04/01/[address]: MD Dr. Brayden Yung, DO Dr. Andres Isaacs MD ~ Test Result Flag Reference Range IBG Blood Gas Type ART SITE R Radial SITA TEST N/A Mode AC O2 Delivery Dev Adult Vent Vt 500.0 mL RR 18 FI02 60.0 PEEP 5 pH 7.38 7.35-7.45 pCO2 49.4 H 35-45 mmHg PO2 71 L 75-100 mmHG HCO3 29.4 H 22-26 mmol/L BE 4 H -2 to +2 mmol/L TOTAL CO2 31 mmol/L SO2 94 L 95-99 %
[2024-04-01 05:52] LABS: Absolute Lymphocyte Count 0.83 X10^3/uL (0.83-4.51); Basophil# 0.01 X10^3/uL; Basophil% 0.2 % (0-1); Eosinophil# 0.01 X10^3/uL; Eosinophils% 0.2 % (0-5); Hematocrit 33.7 % (40-54); Hemoglobin 10.8 g/dL (13.0-16.5); Lymphocyte # 0.83 X10^3/ul (0.83-4.51); Lymphocyte % 12.9 % (19-41); Mean Corpuscular Hgb 31.5 pg (27.0-32.0); Mean Corpuscular Volume 98.3 fL (80-94); Mean Platelet Vol. 10.5 fl (6.2-12.0); Monocyte# 0.58 X10^3/uL; NRBC Flagged by Analyzer 0 % (0-5); Neutrophil # 4.96 X10^3/uL (2.7-7.7); Neutrophil % 77.1 % (47-70); Platelet Count 129 K/mm3 (150-450); RBC Distribution Width CV 15.9 % (11.6-14.6); RBC Distribution Width SD 57.7 fl (35.1-43.9); Red Blood Count 3.43 M/mm3 (4.6-6.2); White Blood Count 6.4 K/mm3 (4.4-11.0)
[2024-04-01 06:04] LABS: International Normalized Ratio 1.7; Prothrombin Time (Protime)PT. 19.9 SECONDS (11.7-14.9)
[2024-04-01 06:16] LABS: Anion Gap 7 (5-15); BUN 30 mg/dL (7-18); BUN/Creat Ratio 22.4 RATIO (10-20); Calcium,Total 8.1 mg/dL (8.5-10.1); Chloride 105 mmol/L (98-107); Creatinine, Serum 1.34 mg/dL (0.70-1.30); EST Glomerular Filtration Rate 56 mL/min (>60); Est Glom Filt Rate - Afr Amer 67 mL/min (>60); Estimated Creatinine Clearance 64.45 ml/min; Glucose 136 mg/dL (74-106); Sodium Level 141 mmol/L (136-145)
[2024-04-01] MEDS: Budesonide Respules 0.5 MG/2 ML AMPUL.NEB. INHALATION ×2 (07:19→18:56)
[2024-04-01] MEDS: Cefazolin 2 GM in Syringe IV ×3 (08:22→21:32)
--- NOTE | 2024-04-01 08:27 | EX.PCM.CONCC ---
Assessment & Plan Assessment/Plan (1) Acute respiratory failure with hypoxia and hypercapnia: PLAN: Plan RECOMMENDATIONS: 1. Continue assist-control mode mechanical ventilation. Wean FiO2 as tolerated. 2. Attempt to minimize sedation with Precedex. 3. Hold on tube feeding initiation. 4. Start appropriate ICU prophylaxis. 5. Continue as needed bronchodilator therapy. 6. Plan to repeat spontaneous awakening and breathing trial again tomorrow morning. IMPRESSIONS: 1. Acute hypoxemic and hypercapnic respiratory failure The patient was initially admitted to the hospital with a right femoral neck fracture, for which she underwent right hip cemented hemiarthroplasty on March 31. Postprocedure, the patient demonstrated hypoxemia and frequent apneic events, likely secondary to the anesthesia that was administered. Ultimately, he did have to be intubated due to a lack of ventilatory drive. He does have a suspected history of COPD, but is not currently followed by a product/device technologist. In addition, family reported symptoms concerning for underlying sleep disordered breathing. The patient failed his spontaneous breathing trial this morning. Therefore, we will attempt to minimize sedation as feasible, with Precedex. In the interim, he will be continued on assist-control mode of mechanical ventilation with as needed bronchodilators to be administered. Recommend follow-up spontaneous awakening and breathing trial tomorrow morning. 2. Right femoral neck fracture, now postop day #1 status post right hip hemiarthroplasty Continue routine postoperative care per orthopedic surgery recommendations. 3. History of tobacco dependency/hypertension/hyperlipidemia/neuropathy/atrial fibrillation on Coumadin Complicates care, management, recovery and prognosis. Continue home medications as indicated. TIME: 40 minutes of critical care time, independent of procedures, was spent addressing the patient's acute hypoxemic and hypercapnic respiratory failure, review of all data and collaboration with the care team. HPI Consult Data Date of Consult: 04/01/24 HPI Narrative Reason for Consultation: Acute respiratory failure with hypoxemia and hypercapnia HPI Narrative: The patient is a 73-year-old male, with a history as outlined below, who presented to the emergency department on March 29 after sustaining a mechanical fall. History pertinent to the patient's hospitalization was obtained primarily via chart review, as the patient is currently intubated and mechanically ventilated. He has a documented history of hypertension, hyperlipidemia, atrial fibrillation, peripheral vascular disease, tobacco dependency and questionable COPD. His initial workup in the emergency department demonstrated a minimally displaced right femoral neck fracture on imaging. The patient was subsequently evaluated by orthopedic surgery, who recommended surgical intervention. However, INR was elevated at 3.0. Therefore, the patient was treated with vitamin K and his Coumadin was placed on hold. On March 31, the patient was taken to the OR, where he underwent a right hip cemented hemiarthroplasty. Postoperatively, the patient was noted to be extremely drowsy and was requiring noninvasive positive pressure ventilatory support to maintain oxygenation. The patient was administered Narcan, but still remained extremely drowsy in the PACU. No further intervention was performed by anesthesia. Rather, the patient was transferred to the medical intensive care unit. The patient was maintained on AVAPS therapy on arrival to the ICU, but remained acidotic and apneic, according to nursing report. Therefore, the patient was ultimately intubated. He was maintained on assist-control mode of mechanical ventilation overnight with improvement in his acid-base status. This morning, white blood cell count remains normal. Hemoglobin is stable at 10.8 g/dL with a platelet count of 129,000. ABG obtained earlier this morning demonstrated a pH of 7.38 with a pCO2 of 50 and pO2 of 71. Chemistry profile was notable for a BUN of 30 and creatinine of 1.34. The patient failed his spontaneous breathing trial this morning. 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 Essential hypertension Hyperlipidemia Erectile dysfunction Depression COPD (chronic obstructive pulmonary disease) Home Medications ?Medication ?Instructions ?Recorded ?Last Taken ?Type aspirin 81 mg chewable tablet 81 mg PO DAILY@0800 blood thining 08/21/14 08/22/18 History atorvastatin 20 mg tablet 20 mg PO QHS cholesterol 08/21/14 08/22/18 History gabapentin 300 mg capsule 600 mg PO TIDCM pain 08/21/14 08/22/18 History albuterol sulfate 90 mcg/actuation 2 puff inhalation Q4H PRN Sob &/Or 08/16/18 08/09/18 History aerosol inhaler Wheezing metoprolol succinate 100 mg 100 mg PO DAILY bp 08/16/18 06/26/21 History tablet,extended release 24 hr folic acid 1 mg tablet 1 mg PO DAILY 05/22/21 Unknown History lisinopril 40 mg tablet 40 mg PO DAILY 12/22/22 Unknown History amlodipine 5 mg tablet 5 mg PO DAILY #90 tabs 02/25/24 Unknown Rx warfarin 6 mg tablet 6 mg PO DAILY 03/29/24 Unknown History Allergy/AdvReac Type Severity Reaction Status Date / Time amoxicillin Allergy Unknown Unknown Verified 02/25/24 13:19 clindamycin Allergy Unknown Unknown Verified 02/25/24 13:19 Penicillins (PCN) Allergy Unknown Unknown Verified 02/25/24 13:19 Sulfa (Sulfonamide Allergy Unknown Unknown Verified 02/25/24 13:19 Antibiotics) Family History Father Emphysema lung Mother , DVT History of DVT (deep vein thrombosis) Grandfather Cancer lung Surgical History Femoral-femoral bypass graft thrombosis, 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 No ventilator dyssynchrony noted. HEENT normocephalic and head/scalp atraumatic Mouth: endotracheal tube in place and OG tube in place Eyes PERRL, EOMs intact bilaterally and conjunctivae normal Neck supple General: trachea midline Chest inspection of chest normal Resp Auscultation: diminished lung sounds; Negative for rales, rhonchi or wheezes Cardio S1 normal heart sound and S2 normal heart sound Rhythm: abnormal rhythm GI normal to inspection, nondistended, normoactive bowel sounds Extremity no clubbing, cyanosis or edema Skin no rashes or lesions noted Neuro Sensorium / Orientation: sedated on vent Lab / Micro Data 04/01/24 05:35 04/01/24 05:35 Labs: Laboratory Results - last 24 hr 03/31/24 00:10: Sodium 140, Potassium 4.9, Chloride 103, Carbon Dioxide 33.0 H, Anion Gap 4 L, BUN 26 H, Creatinine 1.50 H, Estim Creat Clear Calc 57.09, Est GFR (MDRD) Af Amer 59 L, Est GFR (MDRD) Non-Af 49 L, BUN/Creatinine Ratio 17.3, Glucose 164 H, Calcium 7.8 L, Phosphorus 6.0 H, Magnesium 2.0 03/31/24 11:00: PT 18.9 H, INR 1.5 03/31/24 15:22: Sodium 139, Potassium 4.1, Chloride 101, Carbon Dioxide 33.0 H, Anion Gap 5, BUN 18, Creatinine 1.23, Estim Creat Clear Calc 69.62, Est GFR (MDRD) Af Amer 75, Est GFR (MDRD) Non-Af 62, BUN/Creatinine Ratio 14.6, Glucose 135 H, Calcium 8.4 L 04/01/24 05:35: WBC 6.4, RBC 3.43 L, Hgb 10.8 L, Hct 33.7 L, MCV 98.3 H, MCH 31.5, MCHC 32.0, RDW Std Deviation 57.7 H, RDW Coeff of Hermes 15.9 H, Plt Count 129 L, MPV 10.5, Immature Gran % (Auto) 0.600, Neut % (Auto) 77.1 H, Lymph % (Auto) 12.9 L, [place] % (Auto) 9.0, Eos % (Auto) 0.2, Baso % (Auto) 0.2, Absolute Neuts (auto) 5.0, Absolute Lymphs (auto) 0.83, Nucleated RBC % 0, PT 19.9 H, INR 1.7, Sodium 141, Potassium 4.0, Chloride 105, Carbon Dioxide 30.0, Anion Gap 7, BUN 30 H, Creatinine 1.34 H, Estim Creat Clear Calc 64.45, Est GFR (MDRD) Af Amer 67, Est GFR (MDRD) Non-Af 56 L, BUN/Creatinine Ratio 22.4 H, Glucose 136 H, Calcium 8.1 L ABG Data ABG results: ABG 03/31/24 03/31/24 03/31/24 15:40 16:26 17:59 Specimen Type ART ART ART Sample Site R Radial R Radial Not entered pH 7.21 L 7.23 L 7.25 L Bicarbonate Actual 33.5 H 34.4 H 35.1 H Total CO2 36 37 38 Base Excess 6 H 7 H 8 H O2 Saturation 91 L 97 90 L O2 % 10.0 50.0 40.0 ABG pCO2 83.2 H* 82.2 H* 80.9 H* ABG pO2 76 113 H 73 L [place]coe Test Respiration Rate O2 Delivery Device simple Bi Pap BiPAP Vent Mode Not entered Not entered Not entered Tidal Volume POC PEEP Crit Call To/Read Back Yes Yes Yes Blood Gas Notified Whom ro barrios Blood Gas Notified Time 15:41:48 16:27:37 18:01:26 03/31/24 03/31/24 04/01/24 21:08 22:46 00:59 Specimen Type ART ART ART Sample Site R Radial R Radial R Radial pH 7.22 L 7.04 L* 7.38 Bicarbonate Actual 33.6 H 34.6 H 29.4 H Total CO2 36 39 31 Base Excess 6 H 4 H 4 H O2 Saturation 97 86 L 94 L O2 % 50.0 50.0 60.0 ABG pCO2 82.6 H* 127.9 H* 49.4 H ABG pO2 114 H 79 71 L [place] Test N/A N/A N/A Respiration Rate 18 18 18 O2 Delivery Device BiPAP BiPAP Adult Vent Vent Mode Not entered Not entered AC Tidal Volume 500.0 POC PEEP 14 14 5 Crit Call To/Read Back Yes Yes Blood Gas Notified Whom Dr Justin Anderson Blood Gas Notified Time 21:10:58 22:47:38 Rhythm Strip Rhythm Strip: A-fib Rate: 77 Ectopy: None Imaging Radiology Impression Hip X-Ray 03/31/24 15:15 IMPRESSION: Status post right total hip replacement. There is good alignment. Postoperative soft tissue changes. Reading Location: [facility] Chest X-Ray 03/31/24 18:20 IMPRESSION: NEGATIVE CHEST. Reading Location: [facility] Chest X-Ray 03/31/24 23:09 IMPRESSION: 1. Interval placement of an endotracheal tube and enteric tube. 2. No acute cardiopulmonary process. Reading Location: [facility] X-Ray 03/31/24 23:09 IMPRESSION: Enteric tube tip in the distal stomach/proximal duodenum. Reading Location: [facility] Chest X-Ray 03/31/24 23:15 IMPRESSION: 1. Endotracheal tube and enteric tube placement. 2. No acute cardiopulmonary process. [facility] Charges/Coding Procedures Hospitalists Procedures: [id number] Critical Care 1st Hr
[2024-04-01] MEDS: Folic Acid 1 MG Tablet PO (09:35)
[2024-04-01] MEDS: Gabapentin 600 MG Tablet PO (09:35)
[2024-04-01] MEDS: Lisinopril 40 MG Tablet PO (09:35)
[2024-04-01] MEDS: Aspirin E.C. 81 MG Tablet PO (09:35)
[2024-04-01 10:46] LABS: Allen Test Positive; Base Excess 5 mmol/L (-2 to +2); Bicarbonate 29.4 mmol/L (22-26); Blood Gas Specimen Type ART; Mode AC; O2 Delivery Device Adult Vent; PEEP 5; PO2 70 mmHG (75-100); RR 16; SITE R Radial; SO2 94 % (95-99); Total Carbon Dioxide 31 mmol/L; pCO2 45.2 mmHg (35-45); pH 7.42 (7.35-7.45)
[2024-04-01] MEDS: dexMEDEtomidine 400 MCG in 0.9% Normal Saline (100mL Bag) 96 ML 8 MCG CONT INF ×2 (10:53→21:31)
--- NOTE | 2024-04-01 12:31 | PCM.PN.ORT ---
Subjective Subjective POD 1 right hip shayy for NOF. on the ventilator. family at the bed side Objective Data Objective Data Vital Signs: Vital Signs Temp Pulse Resp BP Pulse Ox O2 Del Method O2 Flow Rate 98.1 F 74 16 112/75 96 Mechanical Ventilator 15 04/01/24 08:00 04/01/24 11:03 04/01/24 11:03 04/01/24 11:00 04/01/24 11:03 04/01/24 11:00 03/31/24 15:30 FiO2 45 04/01/24 11:03 Oxygen Flow Rate (L/min) 15 Oxygen Delivery Method Mechanical Ventilator Weight: 240 lb 1.334 oz Body Mass Index (BMI) 32.5 Intake & Output: Intake and Output for Last 24 Hours 03/30/24 03/31/24 04/01/24 23:59 23:59 23:59 Intake Total 1101.0 / 1101.0 781.39 / 781.39 1126.91 / 1126.91 Output Total 1150 / 1150 2000 / 2200 475 / 475 Balance -49.0 / -49.0 -1218.61 / -1418.61 651.91 / 651.91 Lab / Micro Data 04/01/24 05:35 04/01/24 05:35 Labs: Laboratory Results - last 24 hr 03/31/24 00:10: Sodium 140, Potassium 4.9, Chloride 103, Carbon Dioxide 33.0 H, Anion Gap 4 L, BUN 26 H, Creatinine 1.50 H, Estim Creat Clear Calc 57.09, Est GFR (MDRD) Af Amer 59 L, Est GFR (MDRD) Non-Af 49 L, BUN/Creatinine Ratio 17.3, Glucose 164 H, Calcium 7.8 L, Phosphorus 6.0 H, Magnesium 2.0 03/31/24 15:22: Sodium 139, Potassium 4.1, Chloride 101, Carbon Dioxide 33.0 H, Anion Gap 5, BUN 18, Creatinine 1.23, Estim Creat Clear Calc 69.62, Est GFR (MDRD) Af Amer 75, Est GFR (MDRD) Non-Af 62, BUN/Creatinine Ratio 14.6, Glucose 135 H, Calcium 8.4 L 04/01/24 05:35: WBC 6.4, RBC 3.43 L, Hgb 10.8 L, Hct 33.7 L, MCV 98.3 H, MCH 31.5, MCHC 32.0, RDW Std Deviation 57.7 H, RDW Coeff of Hermes 15.9 H, Plt Count 129 L, MPV 10.5, Immature Gran % (Auto) 0.600, Neut % (Auto) 77.1 H, Lymph % (Auto) 12.9 L, [place] % (Auto) 9.0, Eos % (Auto) 0.2, Baso % (Auto) 0.2, Absolute Neuts (auto) 5.0, Absolute Lymphs (auto) 0.83, Nucleated RBC % 0, PT 19.9 H, INR 1.7, Sodium 141, Potassium 4.0, Chloride 105, Carbon Dioxide 30.0, Anion Gap 7, BUN 30 H, Creatinine 1.34 H, Estim Creat Clear Calc 64.45, Est GFR (MDRD) Af Amer 67, Est GFR (MDRD) Non-Af 56 L, BUN/Creatinine Ratio 22.4 H, Glucose 136 H, Calcium 8.1 L Micro: Microbiology 03/29/24 21:14 Mucosa - Nose SARS-CoV-2, Influenza & RSV (PCR) - Final ABG Data ABG results: ABG 03/31/24 03/31/24 03/31/24 15:40 16:26 17:59 Specimen Type ART ART ART Sample Site R Radial R Radial Not entered pH 7.21 L 7.23 L 7.25 L Bicarbonate Actual 33.5 H 34.4 H 35.1 H Total CO2 36 37 38 Base Excess 6 H 7 H 8 H O2 Saturation 91 L 97 90 L O2 % 10.0 50.0 40.0 ABG pCO2 83.2 H* 82.2 H* 80.9 H* ABG pO2 76 113 H 73 L Roscoe Test Respiration Rate O2 Delivery Device simple Bi Pap BiPAP Vent Mode Not entered Not entered Not entered Tidal Volume POC PEEP Crit Call To/Read Back Yes Yes Yes Blood Gas Notified Whom ro barrios Blood Gas Notified Time 15:41:48 16:27:37 18:01:26 03/31/24 03/31/24 04/01/24 21:08 22:46 00:59 Specimen Type ART ART ART Sample Site R Radial R Radial R Radial pH 7.22 L 7.04 L* 7.38 Bicarbonate Actual 33.6 H 34.6 H 29.4 H Total CO2 36 39 31 Base Excess 6 H 4 H 4 H O2 Saturation 97 86 L 94 L O2 % 50.0 50.0 60.0 ABG pCO2 82.6 H* 127.9 H* 49.4 H ABG pO2 114 H 79 71 L [place] Test N/A N/A N/A Respiration Rate 18 18 18 O2 Delivery Device BiPAP BiPAP Adult Vent Vent Mode Not entered Not entered AC Tidal Volume 500.0 POC PEEP 14 14 5 Crit Call To/Read Back Yes Yes Blood Gas Notified Whom Dr Justin Anderson Blood Gas Notified Time 21:10:58 22:47:38 04/01/24 10:42 Specimen Type ART Sample Site R Radial pH 7.42 Bicarbonate Actual 29.4 H Total CO2 31 Base Excess 5 H O2 Saturation 94 L O2 % 40.0 ABG pCO2 45.2 H ABG pO2 70 L [place]coe Test Positive Respiration Rate 16 O2 Delivery Device Adult Vent Vent Mode AC Tidal Volume 500.0 POC PEEP 5 Crit Call To/Read Back Blood Gas Notified Whom Blood Gas Notified Time Radiography Diagnostic Testing: Radiology Impression Hip X-Ray 03/31/24 15:15 IMPRESSION: Status post right total hip replacement. There is good alignment. Postoperative soft tissue changes. Reading Location: [facility] Chest X-Ray 03/31/24 18:20 IMPRESSION: NEGATIVE CHEST. Reading Location: [facility] Chest X-Ray 03/31/24 23:09 IMPRESSION: 1. Interval placement of an endotracheal tube and enteric tube. 2. No acute cardiopulmonary process. Reading Location: [facility] X-Ray 03/31/24 23:09 IMPRESSION: Enteric tube tip in the distal stomach/proximal duodenum. Reading Location: [facility] Chest X-Ray 03/31/24 23:15 IMPRESSION: 1. Endotracheal tube and enteric tube placement. 2. No acute cardiopulmonary process. Reading Location: [facility] Rhythm Strip Rhythm Strip: A-fib Rate: 77 Ectopy: None Physical Exam Extremity Extremity Narrative: drsg dry, intact. soft thigh. foot warm well perfused. Assessment & Plan Assessment/Plan (1) Hip fracture, right: QUALIFIERS: Encounter type: initial encounter Fracture type: closed Qualified Code(s): S72.001A - Fracture of unspecified part of neck of right femur, initial encounter for closed fracture PLAN: POD 1 right hip shayy. pending to wean the vent before starting PT/OT.
[2024-04-01] MEDS: Pantoprazole Sodium 40 MG in 0.9% Normal Saline (100mL MB+) 100 ML 330 MG IV (12:55)
--- NOTE | 2024-04-01 16:54 | PN.HOSP_ITS ---
Reason for Visit Reason for Visit: Diagnoses Essential (primary) hypertension (03/30/24) Chronic obstructive pulmonary disease, unspecified (03/30/24) Acute respiratory failure with hypoxia (03/30/24) Acute respiratory failure with hypercapnia (03/30/24) Fracture of unspecified part of neck of right femur, initial encounter for closed fracture (03/30/24) Subjective Subjective Patient was seen and examined today, he remains on the ventilator at this time. I talked briefly with critical care about his medical care today. I also talked to his family who came in to visit him during the time I was examining the patient. Objective Data Objective Data Vital Signs: Vital Signs Temp Pulse Resp BP Pulse Ox O2 Del Method O2 Flow Rate 98.4 F 60 24 H 109/69 94 Mechanical Ventilator 15 04/01/24 16:00 04/01/24 16:00 04/01/24 16:00 04/01/24 16:00 04/01/24 16:00 04/01/24 16:00 03/31/24 15:30 FiO2 30 04/01/24 16:00 Oxygen Flow Rate (L/min) 15 Oxygen Delivery Method Mechanical Ventilator Weight: 108.9 kg Body Mass Index (BMI) 32.5 Intake & Output: Intake and Output for Last 24 Hours 03/30/24 03/31/24 04/01/24 23:59 23:59 23:59 Intake Total 1101.0 / 1101.0 781.39 / 781.39 1293.84 / 1293.84 Output Total 1150 / 1150 2000 / 2200 475 / 475 Balance -49.0 / -49.0 -1218.61 / -1418.61 818.84 / 818.84 Lab / Micro Data 04/01/24 05:35 04/01/24 05:35 Labs: Laboratory Results - last 24 hr 03/31/24 00:10: Sodium 140, Potassium 4.9, Chloride 103, Carbon Dioxide 33.0 H, Anion Gap 4 L, BUN 26 H, Creatinine 1.50 H, Estim Creat Clear Calc 57.09, Est GFR (MDRD) Af Amer 59 L, Est GFR (MDRD) Non-Af 49 L, BUN/Creatinine Ratio 17.3, Glucose 164 H, Calcium 7.8 L, Phosphorus 6.0 H, Magnesium 2.0 04/01/24 05:35: WBC 6.4, RBC 3.43 L, Hgb 10.8 L, Hct 33.7 L, MCV 98.3 H, MCH 31.5, MCHC 32.0, RDW Std Deviation 57.7 H, RDW Coeff of Hermes 15.9 H, Plt Count 129 L, MPV 10.5, Immature Gran % (Auto) 0.600, Neut % (Auto) 77.1 H, Lymph % (Auto) 12.9 L, [place] % (Auto) 9.0, Eos % (Auto) 0.2, Baso % (Auto) 0.2, Absolute Neuts (auto) 5.0, Absolute Lymphs (auto) 0.83, Nucleated RBC % 0, PT 19.9 H, INR 1.7, Sodium 141, Potassium 4.0, Chloride 105, Carbon Dioxide 30.0, Anion Gap 7, BUN 30 H, Creatinine 1.34 H, Estim Creat Clear Calc 64.45, Est GFR (MDRD) Af Amer 67, Est GFR (MDRD) Non-Af 56 L, BUN/Creatinine Ratio 22.4 H, Glucose 136 H, Calcium 8.1 L Micro: Microbiology 03/31/24 23:30 Sputum, Tracheal Aspirate Gram Stain - Final 03/29/24 21:14 Mucosa - Nose SARS-CoV-2, Influenza & RSV (PCR) - Final ABG Data ABG results: ABG 03/31/24 03/31/24 03/31/24 17:59 21:08 22:46 Specimen Type ART ART ART Sample Site Not entered R Radial R Radial pH 7.25 L 7.22 L 7.04 L* Bicarbonate Actual 35.1 H 33.6 H 34.6 H Total CO2 38 36 39 Base Excess 8 H 6 H 4 H O2 Saturation 90 L 97 86 L O2 % 40.0 50.0 50.0 ABG pCO2 80.9 H* 82.6 H* 127.9 H* ABG pO2 73 L 114 H 79 [place]coe Test N/A N/A Respiration Rate 18 18 O2 Delivery Device BiPAP BiPAP BiPAP Vent Mode Not entered Not entered Not entered Tidal Volume POC PEEP 14 14 Crit Call To/Read Back Yes Yes Yes Blood Gas Notified Whom dr denis Anderson Blood Gas Notified Time 18:01:26 21:10:58 22:47:38 04/01/24 04/01/24 00:59 10:42 Specimen Type ART ART Sample Site R Radial R Radial pH 7.38 7.42 Bicarbonate Actual 29.4 H 29.4 H Total CO2 31 31 Base Excess 4 H 5 H O2 Saturation 94 L 94 L O2 % 60.0 40.0 ABG pCO2 49.4 H 45.2 H ABG pO2 71 L 70 L [place]coe Test N/A Positive Respiration Rate 18 16 O2 Delivery Device Adult Vent Adult Vent Vent Mode AC AC Tidal Volume 500.0 500.0 POC PEEP 5 5 Crit Call To/Read Back Blood Gas Notified Whom Blood Gas Notified Time Radiography Diagnostic Testing: Radiology Impression Chest X-Ray 03/31/24 18:20 IMPRESSION: NEGATIVE CHEST. Reading Location: [facility] Chest X-Ray 03/31/24 23:09 IMPRESSION: 1. Interval placement of an endotracheal tube and enteric tube. 2. No acute cardiopulmonary process. Reading Location: [facility] X-Ray 03/31/24 23:09 IMPRESSION: Enteric tube tip in the distal stomach/proximal duodenum. Reading Location: [facility] Chest X-Ray 03/31/24 23:15 IMPRESSION: 1. Endotracheal tube and enteric tube placement. 2. No acute cardiopulmonary process. Reading Location: [facility] Rhythm Strip Rhythm Strip: A-fib Rate: 77 Ectopy: None Physical Exam Const Constitutional Narrative: Patient is sedated and on the ventilator General Appearance: well kempt and well developed HEENT normocephalic, head/scalp atraumatic and moist oral mucous membranes Eyes PERRL, EOMs intact bilaterally and conjunctivae normal Neck supple, no JVD, thyroid normal and no carotid bruits General: trachea midline Resp normal respiratory effort, no retractions, no use of accessory muscles and clear to auscultation bilaterally Auscultation: Negative for rales, rhonchi or wheezes Cardio regular rate, regular rhythm, S1 normal heart sound, S2 normal heart sound, no murmurs, no rub and no gallops GI normal to inspection, nondistended, normoactive bowel sounds, soft to palpation, non-tender and non-distended Extremity no clubbing, cyanosis or edema Skin no rashes or lesions noted General Skin Exam: no breakdown Neuro Neuro Narrative: Patient is sedated and on the ventilator Psych Psych Narrative: Patient is sedated and on ventilator Assessment & Plan Assessment/Plan (1) Acute respiratory failure with hypoxia and hypercapnia: PLAN: Plan 1. Acute combined respiratory failure-patient remains on the vent at this time, pulmonary medicine is participating in his care #2 femoral neck fracture right hip-postop day #1 cemented hemiarthroplasty right hip-PT and OT will work with the patient when he comes off the vent, patient is on Ancef currently #3 probable COPD-patient will remain on aerosol treatments #4 essential hypertension-patient is on metoprolol and Norvasc Total clinical time spent by myself addressing the patient's medical issues, reviewing all of his data, and collaborating with patient's care team: 35 minutes Charges/Coding Visit Charges Inpatient E&M: 85572 Subs Hosp L2
[2024-04-02] VITALS (27 sets, daily range): BP systolic 91–141; BP diastolic 57–76; PULSE 53–103; RESP 15–24; TEMP 36.4–37.1; O2SAT 89–100; BMI 30.9
[2024-04-02] MEDS: Cefazolin 2 GM in Syringe IV (06:30)
[2024-04-02] MEDS: Enoxaparin 40 MG/0.4 ML Syringe SC (06:38)
[2024-04-02] MEDS: Budesonide Respules 0.5 MG/2 ML AMPUL.NEB. INHALATION ×2 (07:11→20:20)
[2024-04-02] MEDS: Folic Acid 1 MG Tablet PO (08:01)
[2024-04-02] MEDS: Aspirin E.C. 81 MG Tablet PO (08:01)
--- NOTE | 2024-04-02 09:27 | PCM.PN.TICU ---
Objective Data Objective Data Vital Signs: Vital Signs Last response Temperature 37.1 C 04/02/24 08:42 Temperature Source Core 04/02/24 08:00 Pulse Rate 71 04/02/24 09:00 Pulse Strength Normal (2+) 04/02/24 08:47 Respiratory Rate 23 H 04/02/24 09:00 Respiratory Effort Mechanically Ventilated 04/02/24 08:10 Respiratory Depth Normal 04/02/24 08:10 Respiratory Pattern Normal 04/02/24 08:51 Blood Pressure 109/65 04/02/24 09:00 Blood Pressure Mean 79 04/02/24 09:00 Blood Pressure Source Monitor 04/02/24 09:00 Blood Pressure Position Semi-Fowlers 04/02/24 09:00 Blood Pressure Location Left Arm 04/02/24 09:00 Baseline BP 141/73 03/31/24 16:17 Pulse Ox 94 04/02/24 09:00 Oxygen Delivery Method Mechanical Ventilator 04/02/24 09:00 Oxygen Flow Rate (L/min) 6 04/02/24 08:42 Fraction of Inspired Oxygen (FIO2) 45 04/02/24 09:00 I&O: I&O Last 24 Hours 04/01/24 04/01/24 04/02/24 11:59 23:59 11:59 Intake Total 1127.84 / 1381.84 246.00 / 1381.84 175 / 175 Output Total 475 / 900 225 / 900 550 / 550 Balance 652.84 / 481.84 21.00 / 481.84 -375 / -375 I&O: Total Stay 03/29/24 18:48 thru 04/02/24 09:00 Intake Total 3431.23 Output Total 4400 Balance -968.77 Current Meds Ordered / Administered: Current meds ordered / Administered Generic Name Dose Route Start Last Admin Trade Name Freq PRN Reason Stop Dose Admin Acetaminophen 650 mg 03/30/24 00:55 Acetaminophen 325 Mg Tablet PO Q6H PRN PRN Pain 1-5/10 Or Fever>100.7 Al Hydroxide/Mg Hydroxide 30 ml 03/30/24 00:55 Mag Hydrox/Al Hydrox/Simeth 30 Ml Udc PO Q6H PRN PRN Gastric Burning Albuterol Sulfate 2.5 mg 03/30/24 01:22 03/31/24 08:08 Albuterol 2.5 Mg/3 Ml Vial.Neb. INHALATION 2.5 mg Q4H PRN PRN Administration Sob &/Or Wheezing Amlodipine Besylate 5 mg 03/30/24 10:00 04/02/24 09:17 Amlodipine 5 Mg Tablet PO Not Given DAILY [facility] Protocol Aspirin 81 mg 03/30/24 08:00 04/02/24 08:01 Aspirin E.C. 81 Mg Tablet PO 81 mg BREAKFAST SHELBIE Administration Atorvastatin Calcium 20 mg 03/30/24 22:00 04/01/24 21:14 Atorvastatin Calcium 20 Mg Tablet PO Not Given QHS SHELBIE Budesonide 0.5 mg 03/31/24 09:00 04/02/24 07:11 Budesonide Respules 0.5 Mg/2 Ml Ampul.Neb. INHALATION 0.5 mg BID.RT SHELBIE Administration Enoxaparin Sodium 40 mg 04/02/24 06:00 04/02/24 06:38 Enoxaparin 40 Mg/0.4 Ml Syringe SC 40 mg DAILY@0600 SHELBIE Administration Folic Acid 1 mg 03/30/24 08:00 04/02/24 08:01 Folic Acid 1 Mg Tablet PO 1 mg BREAKFAST SHELBIE Administration Guaifenesin 20 ml 03/30/24 00:55 Guaifenesin 10 Ml Udc (200mg/10ml) PO Q4H PRN PRN COUGH Hydralazine HCl 5 mg 03/30/24 00:56 Hydralazine 20 Mg/Ml Vial IV Q6H PRN PRN SBP GREATER THAN 160 Protocol Sodium Chloride 100 mls @ 15 mls/hr 03/30/24 00:56 IV .Q6H40M PRN Additional IVPB Infusion Sodium Chloride 1,000 mls @ 15 mls/hr 03/31/24 11:50 04/01/24 21:58 IV 04/06/24 01:09 Infused .Q48H SHELBIE Infusion Protocol Dexmedetomidine HCl 400 mcg/ 100 mls @ 13.375 mls/hr 03/31/24 21:30 04/02/24 09:00 Sodium Chloride CONT INF 0.3 mcg/kg/hr .Q7H29M SHELBIE 8 mls/hr Titration Protocol 0.5 MCG/KG/HR Pantoprazole Sodium 40 mg/ 110 mls @ 330 mls/hr 04/01/24 11:25 04/01/24 13:27 Sodium Chloride IV Infused Q24 SHELBIE Infusion Ondansetron HCl 4 mg 03/30/24 00:55 Ondansetron 4 Mg/2 Ml Vial IV Q8H PRN PRN NAUSEA/VOMITING Sodium Chloride 10 - 40 ml 03/30/24 00:56 03/31/24 10:41 0.9% Saline Lock 10 Ml Syringe IV 10 ml UD PRN Administration SALINE FLUSH Lab / Micro Data 04/01/24 05:35 04/01/24 05:35 Micro: Microbiology 03/31/24 23:30 Sputum, Tracheal Aspirate Gram Stain - Final ABG Data ABG results: ABG 04/01/24 10:42 Specimen Type ART Sample Site R Radial pH 7.42 Bicarbonate Actual 29.4 H Total CO2 31 Base Excess 5 H O2 Saturation 94 L O2 % 40.0 ABG pCO2 45.2 H ABG pO2 70 L [place]coe Test Positive Respiration Rate 16 O2 Delivery Device Adult Vent Vent Mode AC Tidal Volume 500.0 POC PEEP 5 Rhythm Strip Rhythm Strip: A-fib Rate: 77 Ectopy: None Assessment and Plan . Assessment and plan: Patient seen and examined Chart and data reviewed He is awake and alert Extubated this am after successful SBT Pain is modest Lab and data reviewed On exam - NAD - O2 2 LPM Neck obese Cor irreg Chest CTA Abd soft EXT minimal edema Seun NF IMP 1. Postoperative MV support 2. s/p op repair of femoral neck fracture 3. Obesity / chronic AF / tobacco use / ASCVD REC -O2 as needed -would resume po A/C -mobilize as able The entirety of this encounter was done via Telemedicine
--- NOTE | 2024-04-02 10:00 | CPS ---
NIF not needed per Dr. Mancilla
[2024-04-02] MEDS: Pantoprazole Sodium 40 MG in 0.9% Normal Saline (100mL MB+) 100 ML 330 MG IV (11:50)
--- NOTE | 2024-04-02 12:01 | NURSING ---
Patient extubated at 10:20am on 4L now and tolerating well.
--- NOTE | 2024-04-02 14:18 | CASEMGMT ---
Social Work SW met w/pt in room, pt's and son also present. Pt was extubated today. We discussed briefly discharge plan, pt states he will go home. SW did provide to list from [facility] of long-term facilities in network w/insurance, in pt's preferred geographic area and complete w/quality and resource use data should it be needed. At this time however, pt focused on getting home after this hospital stay. SW explained that SW/CM will continue to follow, if pt is able to return home we can look at home health and getting pt the DME needed. Pt and family state understanding. SW will continue to follow. IVAN Jarquin
--- NOTE | 2024-04-02 15:01 | PN.HOSP_ITS ---
Reason for Visit Reason for Visit: Diagnoses Essential (primary) hypertension (03/30/24) Chronic obstructive pulmonary disease, unspecified (03/30/24) Acute respiratory failure with hypoxia (03/30/24) Acute respiratory failure with hypercapnia (03/30/24) Fracture of unspecified part of neck of right femur, initial encounter for closed fracture (03/30/24) Subjective Subjective Patient was seen and examined today, he appeared alert and followed commands appropriately this morning on the ventilator, he did not appear in any distress. I gave him a brief trial of around 15 minutes, he remained stable so I made the decision to extubate the patient. He has been doing well since extubation and he is on nasal cannula oxygen at this time. Objective Data Objective Data Vital Signs: Vital Signs Temp Pulse Resp BP Pulse Ox O2 Del Method O2 Flow Rate 98.8 F 103 H 20 H 91/76 99 Nasal Cannula 6 04/02/24 08:42 04/02/24 13:00 04/02/24 13:00 04/02/24 13:00 04/02/24 13:00 04/02/24 13:00 04/02/24 13:32 FiO2 45 04/02/24 10:00 Oxygen Flow Rate (L/min) 6 Oxygen Delivery Method Nasal Cannula Weight: 103.8 kg Body Mass Index (BMI) 30.9 Intake & Output: Intake and Output for Last 24 Hours 03/31/24 04/01/24 04/02/24 23:59 23:59 23:59 Intake Total 781.39 / 781.39 1373.84 / 1381.84 289 / 289 Output Total 1999 700 / 900 775 / 775 Balance -1218.61 / -1418.61 673.84 / 481.84 -486 / -486 Lab / Micro Data 04/01/24 05:35 04/01/24 05:35 Micro: Microbiology 03/31/24 23:30 Sputum, Tracheal Aspirate Gram Stain - Final 03/29/24 21:14 Mucosa - Nose SARS-CoV-2, Influenza & RSV (PCR) - Final Rhythm Strip Rhythm Strip: A-fib Rate: 77 Ectopy: None Physical Exam Const alert, oriented x3, no apparent distress, average body habitus and healthy appearing General Appearance: cooperative, well kempt and well developed Orientation / Consciousness: awake, oriented to person, oriented to place and oriented to time HEENT normocephalic, head/scalp atraumatic and moist oral mucous membranes Eyes PERRL, EOMs intact bilaterally and conjunctivae normal Neck supple, no JVD, thyroid normal and no carotid bruits General: trachea midline Resp normal respiratory effort, no retractions, no use of accessory muscles and clear to auscultation bilaterally Auscultation: Negative for rales, rhonchi or wheezes Cardio regular rate, regular rhythm, S1 normal heart sound, S2 normal heart sound, no murmurs, no rub and no gallops GI normal to inspection, nondistended, normoactive bowel sounds, soft to palpation, non-tender and non-distended Extremity no clubbing, cyanosis or edema Skin no rashes or lesions noted General Skin Exam: no breakdown Neuro oriented x3, CN's II-XII intact bilaterally, moves all extremities, no focal motor deficits and no sensory deficits noted Sensorium / Orientation: awake and alert Speech: speech normal Psych affect normal Assessment & Plan Assessment/Plan (1) Acute respiratory failure with hypoxia and hypercapnia: PLAN: Plan 1. Acute combined respiratory failure-patient has been extubated at this time and is on nasal cannula oxygen, he appears stable for transfer to [facility], I will keep him on telemetry and continuous pulse ox. #2 femoral neck fracture right hip-postop day #2 cemented hemiarthroplasty right hip-PT and OT will work with the patient #3 probable COPD-patient will remain on aerosol treatments #4 essential hypertension-patient is on metoprolol and Norvasc Total clinical time spent by myself addressing the patient's medical issues, reviewing all of his data, and collaborating with patient's care team: 35 minutes Charges/Coding Visit Charges Inpatient E&M: 26475 Subs Hosp L2
[2024-04-02] MEDS: Acetaminophen 325 MG Tablet 650 MG PO (16:40)
[2024-04-02] MEDS: Atorvastatin Calcium 20 MG Tablet PO (21:20)
[2024-04-03] VITALS (11 sets, daily range): BP systolic 134–157; BP diastolic 69–91; PULSE 77–107; RESP 16–24; TEMP 36.3–36.8; O2SAT 90–97; BMI 31.3; BMI 32.5
[2024-04-03] MEDS: Enoxaparin 40 MG/0.4 ML Syringe SC (05:01)
[2024-04-03] MEDS: Budesonide Respules 0.5 MG/2 ML AMPUL.NEB. INHALATION ×2 (07:35→20:40)
[2024-04-03] MEDS: Acetaminophen 325 MG Tablet 650 MG PO (10:19)
[2024-04-03] MEDS: Folic Acid 1 MG Tablet PO (10:21)
[2024-04-03] MEDS: Aspirin E.C. 81 MG Tablet PO (10:21)
[2024-04-03] MEDS: amLODIPine 5 MG Tablet PO (10:22)
[2024-04-03] MEDS: Pantoprazole Sodium 40 MG Tablet PO (10:29)
[2024-04-03] MEDS: oxyCODONE 5 MG Tablet 10 MG PO (14:41)
[2024-04-03] MEDS: Polyethylene Glycol 3350 17 GM PACKET PO (14:42)
[2024-04-03] MEDS: Ensure Plus High Protein 120 ML LIQUID PO (15:51)
[2024-04-03] MEDS: Gabapentin 400 MG Capsule PO (17:37)
[2024-04-03] MEDS: Metoprolol(XL)Succ 50 MG Tablet PO (17:37)
[2024-04-03] MEDS: Lisinopril 20 MG Tablet PO (17:38)
--- NOTE | 2024-04-03 17:49 | PN.HOSP_ITS ---
Reason for Visit Reason for Visit: Diagnoses Essential (primary) hypertension (03/30/24) Chronic obstructive pulmonary disease, unspecified (03/30/24) Acute respiratory failure with hypoxia (03/30/24) Acute respiratory failure with hypercapnia (03/30/24) Fracture of unspecified part of neck of right femur, initial encounter for closed fracture (03/30/24) Subjective Subjective Patient was seen and examined today, he was weaned off oxygen, he states he would rather go home and go to a rehab facility or usp at the time of discharge from the hospital. Objective Data Objective Data Vital Signs: Vital Signs Temp Pulse Resp BP Pulse Ox O2 Del Method O2 Flow Rate 97.4 F L 107 H 18 147/77 H 94 Nasal Cannula 2 04/03/24 17:36 04/03/24 17:37 04/03/24 17:36 04/03/24 17:36 04/03/24 17:36 04/03/24 17:36 04/03/24 17:36 FiO2 45 04/02/24 10:00 Oxygen Flow Rate (L/min) 2 Oxygen Delivery Method Nasal Cannula Weight: 105 kg Body Mass Index (BMI) 31.3 Intake & Output: Intake and Output for Last 24 Hours 04/01/24 04/02/24 04/03/24 23:59 23:59 23:59 Intake Total 1373.84 / 1381.84 409 / 409 500 / 500 Output Total 700 / 900 1135 / 1585 1350 / 1350 Balance 673.84 / 481.84 -726 / -1176 -850 / -850 Lab / Micro Data 04/01/24 05:35 04/01/24 05:35 Micro: Microbiology 03/31/24 23:30 Sputum, Tracheal Aspirate Gram Stain - Final 03/31/24 23:30 Sputum, Tracheal Aspirate Respiratory Culture - Final Mixed normal respiratory stephany. No Streptococcus pneumoniae, beta-hemolytic Streptococcus or Staphylococcus aureus isolated. 03/29/24 21:14 Mucosa - Nose SARS-CoV-2, Influenza & RSV (PCR) - Final Rhythm Strip Rhythm Strip: A-fib Rate: 77 Ectopy: None Physical Exam Narrative alert, oriented x3, no apparent distress, average body habitus and healthy appearing General Appearance: cooperative, well kempt and well developed Orientation / Consciousness: awake, oriented to person, oriented to place and oriented to time HEENT normocephalic, head/scalp atraumatic and moist oral mucous membranes Eyes PERRL, EOMs intact bilaterally and conjunctivae normal Neck supple, no JVD, thyroid normal and no carotid bruits General: trachea midline Resp normal respiratory effort, no retractions, no use of accessory muscles and clear to auscultation bilaterally Auscultation: Negative for rales, rhonchi or wheezes Cardio regular rate, regular rhythm, S1 normal heart sound, S2 normal heart sound, no murmurs, no rub and no gallops GI normal to inspection, nondistended, normoactive bowel sounds, soft to palpation, non-tender and non-distended Extremity no clubbing, cyanosis or edema Skin no rashes or lesions noted General Skin Exam: no breakdown Neuro oriented x3, CN's II-XII intact bilaterally, moves all extremities, no focal motor deficits and no sensory deficits noted Sensorium / Orientation: awake and alert Speech: speech normal Psych affect normal Assessment & Plan Assessment/Plan (1) Hip fracture, right: QUALIFIERS: Encounter type: initial encounter Fracture type: c losed Qualified Code(s): S72.001A - Fracture of unspecified part of neck of right femur, initial encounter for closed fracture (2) Acute respiratory failure with hypoxia and hypercapnia: PLAN: Plan 1. Acute combined respiratory failure-patient has been weaned from oxygen at this time #2 femoral neck fracture right hip-postop day #3 cemented hemiarthroplasty right hip-PT and OT will work with the patient, patient would like to go home rather than go to a rehab facility or usp #3 probable COPD-patient will remain on aerosol treatments #4 essential hypertension-patient is on metoprolol and Norvasc and lisinopril-I have adjusted the doses of these medications #5 peripheral neuropathy-patient is on gabapentin, I have adjusted the dose of gabapentin to 400 mg 3 times daily from 600 mg 3 times daily. Total clinical time spent by myself addressing the patient's medical issues, reviewing all of his data, and collaborating with patient's care team: 35 minutes Charges/Coding Visit Charges Inpatient E&M: 47419 Subs Hosp L2
[2024-04-03] MEDS: Atorvastatin Calcium 20 MG Tablet PO (22:37)
[2024-04-03] MEDS: Nystatin Powder 15gm Bottle 1 APPLIC TOPICAL (22:37)
[2024-04-03] MEDS: Senna/Docusate Sodium 1 Tablet PO (22:39)
[2024-04-04] VITALS (12 sets, daily range): BP systolic 111–169; BP diastolic 71–81; PULSE 79–100; RESP 16–22; TEMP 36.4–37.1; O2SAT 64–97; BMI 31.6
[2024-04-04 06:44] LABS: International Normalized Ratio 1.4; Prothrombin Time (Protime)PT. 17.4 SECONDS (11.7-14.9)
[2024-04-04] MEDS: Enoxaparin 40 MG/0.4 ML Syringe SC (06:47)
[2024-04-04] MEDS: Budesonide Respules 0.5 MG/2 ML AMPUL.NEB. INHALATION ×2 (07:28→20:37)
[2024-04-04 09:20] LABS: Hematocrit 37.8 % (40-54); Hemoglobin 11.9 g/dL (13.0-16.5); Mean Corp Hgb Conc 31.5 g/dL (32-36); Mean Corpuscular Volume 98.4 fL (80-94); Mean Platelet Vol. 10.2 fl (6.2-12.0); Platelet Count 148 K/mm3 (150-450); RBC Distribution Width CV 15.5 % (11.6-14.6); Red Blood Count 3.84 M/mm3 (4.6-6.2)
[2024-04-04 09:26] LABS: Anion Gap 6 (5-15); BUN 24 mg/dL (7-18); Calcium,Total 8.6 mg/dL (8.5-10.1); Chloride 104 mmol/L (98-107); Creatinine, Serum 0.92 mg/dL (0.70-1.30); EST Glomerular Filtration Rate 86 mL/min (>60); Est Glom Filt Rate - Afr Amer 104 mL/min (>60); Estimated Creatinine Clearance 92.58 ml/min; Glucose 106 mg/dL (74-106); Potassium 3.5 mmol/L (3.5-5.1); Sodium Level 141 mmol/L (136-145)
[2024-04-04] MEDS: oxyCODONE 5 MG Tablet 10 MG PO (09:36)
[2024-04-04] MEDS: Folic Acid 1 MG Tablet PO (09:39)
[2024-04-04] MEDS: Ensure Plus High Protein 120 ML LIQUID PO ×2 (09:39→18:33)
[2024-04-04] MEDS: Polyethylene Glycol 3350 17 GM PACKET PO (09:39)
[2024-04-04] MEDS: Aspirin E.C. 81 MG Tablet PO (09:39)
[2024-04-04] MEDS: Metoprolol(XL)Succ 50 MG Tablet PO (09:40)
[2024-04-04] MEDS: Nystatin Powder 15gm Bottle 1 APPLIC TOPICAL ×2 (09:46→21:28)
[2024-04-04] MEDS: Senna/Docusate Sodium 1 Tablet PO ×2 (09:46→21:27)
[2024-04-04] MEDS: amLODIPine 5 MG Tablet PO (09:46)
[2024-04-04] MEDS: Enoxaparin 60 MG/0.6 ML Syringe SC (09:50)
[2024-04-04] MEDS: Gabapentin 400 MG Capsule PO ×3 (09:50→18:33)
[2024-04-04] MEDS: Pantoprazole Sodium 40 MG Tablet PO (09:53)
[2024-04-04] MEDS: Lisinopril 20 MG Tablet PO (09:58)
--- NOTE | 2024-04-04 12:35 | PCM.PN.HOSP ---
Reason for Visit Reason for Visit: Diagnoses Essential (primary) hypertension (03/30/24) Chronic obstructive pulmonary disease, unspecified (03/30/24) Acute respiratory failure with hypoxia (03/30/24) Acute respiratory failure with hypercapnia (03/30/24) Fracture of unspecified part of neck of right femur, initial encounter for closed fracture (03/30/24) Subjective Subjective Saw patient at bedside this morning. Patient was sitting comfortably at the edge of the bed, conversing normally and in no acute distress. Did have mild hip pain this morning that improved with pain medication. States that he does feel weaker than his baseline but is still hoping to go home on discharge. Notably has had poor therapy scores over the past few days. He otherwise denies any new concerns this morning. Objective Data Objective Data Vital Signs: Vital Signs Temp Pulse Resp BP Pulse Ox O2 Del Method O2 Flow Rate 98.7 F 100 18 169/81 H 93 Nasal Cannula 2 04/04/24 09:00 04/04/24 09:40 04/04/24 10:00 04/04/24 09:40 04/04/24 09:00 04/04/24 10:00 04/04/24 10:00 FiO2 45 04/02/24 10:00 Oxygen Flow Rate (L/min) 2 Oxygen Delivery Method Nasal Cannula Weight: 105.8 kg Body Mass Index (BMI) 31.6 Intake & Output: Intake and Output for Last 24 Hours 04/02/24 04/03/24 04/04/24 23:59 23:59 23:59 Intake Total 409 / 409 1250 / 1500 750 / 750 Output Total 1135 / 1585 1850 / 2150 750 / 750 Balance -726 / -1176 -600 / -650 0 / 0 Lab / Micro Data 04/04/24 08:51 04/04/24 08:51 Labs: Laboratory Results - last 24 hr 04/04/24 05:46: PT 17.4 H, INR 1.4 04/04/24 08:51: WBC 6.0, RBC 3.84 L, Hgb 11.9 L, Hct 37.8 L, MCV 98.4 H, MCH 31.0, MCHC 31.5 L, RDW Std Deviation 56.0 H, RDW Coeff of Hermes 15.5 H, Plt Count 148 L, MPV 10.2, Sodium 141, Potassium 3.5, Chloride 104, Carbon Dioxide 31.0, Anion Gap 6, BUN 24 H, Creatinine 0.92, Estim Creat Clear Calc 92.58, Est GFR (MDRD) Af Amer 104, Est GFR (MDRD) Non-Af 86, BUN/Creatinine Ratio 26.0 H, Glucose 106, Calcium 8.6 Micro: Microbiology 03/31/24 23:30 Sputum, Tracheal Aspirate Gram Stain - Final 03/31/24 23:30 Sputum, Tracheal Aspirate Respiratory Culture - Final Mixed normal respiratory stephany. No Streptococcus pneumoniae, beta-hemolytic Streptococcus or Staphylococcus aureus isolated. 03/29/24 21:14 Mucosa - Nose SARS-CoV-2, Influenza & RSV (PCR) - Final Rhythm Strip Rhythm Strip: A-fib Rate: 77 Ectopy: None Physical Exam Const alert, oriented x3 and no apparent distress Constitutional Narrative: Elderly male, class I obesity, mildly fatigued appearing but otherwise sitting up comfortably at edge of bed, conversing normally, in no acute distress. General Appearance: cooperative and comfortable HEENT normocephalic, head/scalp atraumatic, hearing grossly normal bilaterally, nasal mucous membranes and turbinates normal and moist oral mucous membranes Eyes PERRL, EOMs intact bilaterally and conjunctivae normal Neck full ROM Chest inspection of chest normal Resp normal respiratory effort, normal air movement, no use of accessory muscles and clear to auscultation bilaterally Cardio regular rate, regular rhythm, no murmurs and peripheral pulses 2+ throughout GI normal to inspection, nondistended, normoactive bowel sounds, soft to palpation, non-tender and non-distended Back/Spine normal ROM Extremity Extremity Narrative: Right hip with dressing in place, clean and dry. Skin no rashes or lesions noted Neuro no focal motor deficits Speech: speech normal Psych mental status grossly normal Assessment & Plan Assessment/Plan (1) Acute respiratory failure with hypoxia and hypercapnia: (2) Persistent atrial fibrillation: (3) Hip fracture, right: QUALIFIERS: Encounter type: initial encounter Fracture type: closed Qualified Code(s): S72.001A - Fracture of unspecified part of neck of right femur, initial encounter for closed fracture PLAN: Plan Patient is a 73-year-old male who presented [facility] ED on 03/29/2024 with right hip pain after a fall at home. 1. Acute combined respiratory failure, resolved; history of COPD ? 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 Patient developed acute combined respiratory failure with frequent apneic events post procedurally on 03/31 requiring intubation. Successfully extubated to nasal cannula on 04/02. Weaned off supplemental oxygen on 04/04. Continue home inhalers. 2. Right hip fracture ? Orthopedic surgery followed. S/p right hip hemiarthroplasty with Dr. Isaacs on 03/31. Tolerated procedure well, no intraoperative complications. Further recommendations per orthopedics. 3. Acute on chronic debility ? PT/OT/case management following. Poor therapy scores postoperatively, planning for SNF on discharge. 4. Persistent A-fib on warfarin ? Warfarin was held perioperatively, restarted on 04/04. INR 1.4 on 04/04. Will bridge with therapeutic Lovenox up to goal INR 2-3. Continue home Toprol. 5. Hypertension ? Continue home amlodipine and lisinopril. 6. Peripheral neuropathy ? Continue home gabapentin. 7. Class I obesity ? BMI 31 on admit. Complicates hospital course, care and prognosis. 8. Hyperlipidemia ? Continue home statin. DVT prophylaxis: Not indicated, on warfarin CODE STATUS: Full code, verified Expected disposition: SNF, medically ready on 04/04, awaiting placement Total clinical time spent by myself addressing the patient's medical issues, reviewing all the data, and collaborating with patient's care team: 35 minutes. Charges/Coding Visit Charges Inpatient E&M: 18997 Subs Hosp L2
--- NOTE | 2024-04-04 13:43 | CASEMGMT ---
Social Work Spoke with PT today who reports patient still requiring much assist. Reviewed chart and noted patient still an assist of 2. Met with patient in room, introducing to self, role, and reason for visit. Broached recommendation for further care/therapy in a skilled facility prior to discharging home. Patient smiled and said we don't use that word referencing alf facility. Patient expressed hope about going home with HHC. Educated that HHC is a possibility, but concern is present due to needing hands on assist of 2. Explored who is at home with patient. Patient lives with , dog, and a cat. Explored whether patient feels can assist to the degree patient needs, if it is taking 2 people at hospital, and HHC will only be in the home intermittently. Encouraged patient to consider safety over desire to go home, and reflect on what patient needs to get to patient's main goal of going home. After some reflection, patient acknowledged that does not want to fall again and intermittent HHC with assist may not be enough. Patient mentioned having rehab at [facility], as has been to [facility] or TCU in the past (patient could not recall which floor). Patient gave permission for SW to check on availability of [facility] TCU or RU, but wants to finalize choice and plan with later today. Spoke with Naila in admission at [facility] TCU/RU. Referral given. Plan: Anticipate short term SNF. [facility]. SW to follow up with patient and later today. -CHANDANA Lewis
[2024-04-04] MEDS: Acetaminophen 325 MG Tablet 650 MG PO (14:53)
--- NOTE | 2024-04-04 15:30 | CASEMGMT ---
Social Work Received notice from Naila out [facility] transitional care unit who reports patient can be accepted if TCU is indeed the facility of choice. Met with patient, patient's Ingrid, patient's son and a daughter in law. Introduced to self and social work role. Patient acknowledges that just got done speaking with the family about recommendation for nursing home facility. This physician underwriter updated that [facility] TCU is able to except should this be patient's facility of choice. Patient's discussed having rehabilitation after stroke both in the rehab unit and the transitional care unit. Family expressed desire to have patient home, but also concerned about safety and wanting patient to get stronger and more stable before returning home. After discussion patient voiced consent to this physician underwriter to have the TCU start precertification process for the TCU. Supportive listening provided and emotional support. Patient did ask if his pet dog could visit in the transitional care unit. This physician underwriter checked with optometric coordinator who indicates people to bring pets in the cannot be aggressive. Updated patient and family, as well as that if the animal is aggression free, the animal should be up-to-date on shots. Updated Naila in the TCU that TCU is facility of choice. Naila will start pre-CERT. Plan: [facility] TCU when medically ready and precertification is obtained. -IVAN Lewis, ROLL TABLE OPERATOR *This note was generated with Live Mobileation software. It may contain incorrect words, spelling, and punctuation that were not noted in review of the chart prior to signing*
[2024-04-04] MEDS: Enoxaparin 100 MG/ML Syringe SC (21:27)
[2024-04-04] MEDS: Atorvastatin Calcium 20 MG Tablet PO (21:28)
[2024-04-05 05:43] VITALS: BMI 31.1
[2024-04-05 06:36] LABS: Hematocrit 34.3 % (40-54); Hemoglobin 10.8 g/dL (13.0-16.5); Mean Corp Hgb Conc 31.5 g/dL (32-36); Mean Corpuscular Hgb 31.1 pg (27.0-32.0); Mean Corpuscular Volume 98.8 fL (80-94); Mean Platelet Vol. 10.7 fl (6.2-12.0); Platelet Count 153 K/mm3 (150-450); RBC Distribution Width CV 15.4 % (11.6-14.6); RBC Distribution Width SD 56.2 fl (35.1-43.9); Red Blood Count 3.47 M/mm3 (4.6-6.2); White Blood Count 6.5 K/mm3 (4.4-11.0)
[2024-04-05 06:43] LABS: International Normalized Ratio 1.5; Prothrombin Time (Protime)PT. 18.8 SECONDS (11.7-14.9)
[2024-04-05] MEDS: Budesonide Respules 0.5 MG/2 ML AMPUL.NEB. INHALATION (07:54)
[2024-04-05 08:38] LABS: Anion Gap 3 (5-15); BUN 31 mg/dL (7-18); Calcium,Total 8.5 mg/dL (8.5-10.1); Chloride 102 mmol/L (98-107); Creatinine, Serum 1.29 mg/dL (0.70-1.30); EST Glomerular Filtration Rate 58 mL/min (>60); Est Glom Filt Rate - Afr Amer 71 mL/min (>60); Estimated Creatinine Clearance 65.55 ml/min; Glucose 103 mg/dL (74-106); Potassium 3.5 mmol/L (3.5-5.1); Sodium Level 139 mmol/L (136-145)
[2024-04-05] MEDS: Aspirin E.C. 81 MG Tablet PO (09:24)
[2024-04-05] MEDS: Gabapentin 400 MG Capsule PO ×2 (09:25→12:27)
[2024-04-05] MEDS: Folic Acid 1 MG Tablet PO (09:25)
[2024-04-05] MEDS: Ensure Plus High Protein 120 ML LIQUID PO (09:25)
[2024-04-05] MEDS: Polyethylene Glycol 3350 17 GM PACKET PO (09:40)
[2024-04-05] MEDS: Pantoprazole Sodium 40 MG Tablet PO (09:41)
[2024-04-05] MEDS: amLODIPine 5 MG Tablet PO (09:41)
[2024-04-05] MEDS: Senna/Docusate Sodium 1 Tablet PO (09:41)
[2024-04-05 09:42] VITALS: BP 112/69; PULSE 82
[2024-04-05] MEDS: Metoprolol(XL)Succ 50 MG Tablet PO (09:42)
[2024-04-05] MEDS: Lisinopril 20 MG Tablet PO (09:43)
[2024-04-05] MEDS: Enoxaparin 100 MG/ML Syringe SC (09:49)
[2024-04-05 10:00] VITALS: BP 112/69; PULSE 82; RESP 16; TEMP 36.8; O2SAT 93
[2024-04-05 10:41] VITALS: BP 117/66; PULSE 81; RESP 18; TEMP 36.6; O2SAT 94
--- NOTE | 2024-04-05 10:42 | TREXTCAR_ITS ---
Diet Diet Order/Speech Therapy: 04/02/24 12:12 Diet: Regular - General Routine Orders/Code Status Routine Lab Work: INR (Please recheck every other day until he reaches goal range of 2-3, then discontinue lovenox (on lovenox bridge)) Code Status: Full Code DC O2, CPAP, BIPAP needs Home O2 Discharge instructions: Yes Type of respiratory needs?: Oxygen Oxygen frequency: Continuous Continuous oxygen liters per minute: 2 Wound(s) rt hip: Wound Type: Surgical Incision Therapies Weight Bearing: Full weight bearing Physical Therapy: Eval and Treat Occupational Therapy: Eval and Treat Problem/Diagnosis (1) Acute respiratory failure with hypoxia and hypercapnia: Status: Acute Code(s): J96.01 - Acute respiratory failure with hypoxia; J96.02 - Acute respiratory failure with hypercapnia (2) Persistent atrial fibrillation: Status: Chronic Code(s): I48.1 - Persistent atrial fibrillation (3) Hip fracture, right: Status: Acute Code(s): S72.001A - Fracture of unspecified part of neck of right femur, initial encounter for closed fracture Plan Patient is a 73-year-old male who presented [facility] ED on 03/29/2024 with right hip pain after a fall at home. Hospital course as noted below. Patient discharged to TCU in stable condition on 04/05. 1. Acute combined respiratory failure, resolved; history of COPD ? 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 Patient developed acute combined respiratory failure with frequent apneic events post procedurally on 03/31 requiring intubation. Successfully extubated to nasal cannula on 04/02. Stable on 2L NC on discharge, may be able to be weaned off while in TCU. Continue home inhalers. 2. Right hip fracture ? Orthopedic surgery followed. S/p right hip hemiarthroplasty with Dr. Isaacs on 03/31. Tolerated procedure well, no intraoperative complications. Further recommendations per orthopedics. 3. Acute on chronic debility ? PT/OT/case management followed. Stable for discharge to TCU on 04/05. 4. Persistent A-fib on warfarin ? Warfarin was held perioperatively, restarted on 04/04. INR 1.5 on 04/05. Bridging with therapeutic Lovenox with goal INR 2-3. Please recheck INR at least every other day while in TCU and discontinue Lovenox once he reaches goal INR. Continue home Toprol. 5. Hypertension ? Continue home amlodipine and lisinopril. 6. Peripheral neuropathy ? Continue home gabapentin. 7. Class I obesity ? BMI 31 on admit. Complicates hospital course, care and prognosis. 8. Hyperlipidemia ? Continue home statin. Total clinical time spent by myself addressing the patient's medical issues, reviewing all the data, and collaborating with patient's care team: 35 minutes. Allergies/Procedures Done in Hospital Allergies amoxicillin Allergy (Unknown, Verified 02/25/24 13:19) Unknown clindamycin Allergy (Unknown, Verified 02/25/24 13:19) Unknown Penicillins (PCN) Allergy (Unknown, Verified 02/25/24 13:19) Unknown Sulfa (Sulfonamide Antibiotics) Allergy (Unknown, Verified 02/25/24 13:19) Unknown Procedures: EKG, Intubation, Transthoracic Echo and - (chest x-ray x 4, hip x- ray x 2, KUB) Type of Care/Length of Stay Estimated LOS: Convalescent Care Less Than 30 days Type of Care Needed: Skilled Rehab Potential: Fair Prognosis: Fair Additional Orders/Day of Discharge H&P will serve as current which was dated: 03/29/24 Day of Discharge: 04/05/24 Dietary and Speech Recommendations Dietitian Recommendations/Changes: Continue regular diet. PO still needs to be established, monitor need for ONS. Will monitor weight trends. Reviewed and approved by Swapna Lowry RD, LD. Discharge Plan Admission Admit Date/Time: 03/30/24 00:06 Primary Reason for Your Visit: fall w/ hip fracture Attending Provider: Ruben Trevino Primary Care Provider: Yobani Negron Consulting Providers: Brayden Aguilar; Roger Barnett; Norberto Thompson; Oscar Mendenhall; Jaquan Clayton; Brayden Lozada; Brian Patricio; Taz Orozco; Kalpana Chester; Hossein Campos; Faustino Avalos; Deuce Albert; Miriam Woods; Court Mckeon; Sangeeta Hogan; Gabriel Raymundo; Elio Ellis; Luis Simpson; Celestino Webb; Cora Reardon; Carolina Lopez; Reyes Sosa; Davion Brunson; Toño Fields; Andres Isaacs; Geovanny Eng Discharge Orders/Prescriptions Prescriptions: New metoprolol succinate 50 mg Tablet Extended Release 24 Hr 50 mg PO DAILY 30 Days Qty: 0 0RF lisinopril 20 mg Tablet 20 mg PO DAILY 30 Days Qty: 0 0RF sennosides-docusate sodium [Stimulant Laxative Plus] 8.6-50 mg Tablet 1 tab PO BID 14 Days Qty: 0 0RF pantoprazole 40 mg Tablet,Delayed Release (Dr/Ec) 40 mg PO DAILY 30 Days Qty: 0 0RF budesonide 0.5 mg/2 mL Suspension For Nebulization 0.5 mg inhalation BID.RT 30 Days Qty: 0 0RF enoxaparin 100 mg/mL Syringe 100 mg subcut BID 7 Days Qty: 0 0RF acetaminophen [Tylenol Extra Strength] 500 mg tablet 1,000 mg PO Q8 14 Days Qty: 84 0RF oxycodone 5 mg tablet 5 mg PO Q6H PRN (Reason: pain) 3 Days Qty: 12 0RF Continued albuterol sulfate 90 mcg/actuation HFA aerosol inhaler 2 puff INHALATION Q4H PRN (Reason: Sob &/Or Wheezing) folic acid 1 mg tablet 1 mg PO DAILY amlodipine 5 mg tablet 5 mg PO DAILY Qty: 90 3RF atorvastatin 20 MG tablet 20 mg PO QHS Patient Comments: CHOLESTEROL gabapentin 300 MG capsule 600 mg PO TIDCM Patient Comments: PAIN, NEUROPATHY aspirin 81 MG tablet,chewable 81 mg PO DAILY@0800 Patient Comments: HEART HEALTH warfarin 6 mg tablet 6 mg PO DAILY Discontinued metoprolol succinate 100 mg tablet extended release 24 hr 100 mg PO DAILY lisinopril 40 mg tablet 40 mg PO DAILY Referrals / Follow Up: Yobani Negron MD [Primary Care Provider] - Disposition Disposition (needs filled in before D/C Order can be placed): Care Home Facility (3) Hip fracture, right Qualifiers: Encounter type: initial encounter Fracture type: closed Qualified Code(s): S72.001A - Fracture of unspecified part of neck of right femur, initial encounter for closed fracture
--- NOTE | 2024-04-05 10:43 | CASEMGMT ---
Social Work- SW updated pt that precert has been approved. SW updated physician of precert status. SW remains available to follow for discharge planning needs. Plan: TCU; skilled level of care MADDIE Adames
[2024-04-05] MEDS: Nystatin Powder 15gm Bottle 1 APPLIC TOPICAL (10:50)
--- NOTE | 2024-04-05 10:52 | PCM.DC.SUM ---
Providers Date of Admission: 03/29/24 Date of Discharge: 04/05/24 Primary Care Physician: Dr. Yobani Negron MD Consultations 03/30/24 06:50 Consult: Orthopedics Routine Consulting Provider: Andres Isaacs Reason for Consult: hip fracture EMERGENT Consult: No Notified: Yes Date Notified: 03/29/24 Time Notified: 21:28 Method of Notification: Verbal 04/01/24 08:13 Consult: Controls Project Engineer / Pulmonary Medicine Routine Consulting Provider: Intensivists/Pulmonary Med Reason for Consult: respiratory failure EMERGENT Consult: No Notified: Yes Date Notified: 04/01/24 Time Notified: 08:00 Method of Notification: Verbal Reason For Visit: RIGHT HIP FX AFTER FALL Diagnosis Discharge Diagnosis (1) Acute respiratory failure with hypoxia and hypercapnia: Status: Acute Code(s): J96.01 - Acute respiratory failure with hypoxia; J96.02 - Acute respiratory failure with hypercapnia (2) Persistent atrial fibrillation: Status: Chronic Code(s): I48.1 - Persistent atrial fibrillation (3) Hip fracture, right: Status: Acute Code(s): S72.001A - Fracture of unspecified part of neck of right femur, initial encounter for closed fracture Qualifiers: Encounter type: initial encounter Fracture type: closed Qualified Code(s): S72.001A - Fracture of unspecified part of neck of right femur, initial encounter for closed fracture Medications at Discharge Home Medications aspirin 81 mg chewable tablet 81 mg PO DAILY@0800 blood thining 08/21/14 atorvastatin 20 mg tablet 20 mg PO QHS cholesterol 08/21/14 gabapentin 300 mg capsule 600 mg PO TIDCM pain 08/21/14 albuterol sulfate 90 mcg/actuation aerosol inhaler 2 puff inhalation Q4H PRN Sob &/Or Wheezing 08/16/18 folic acid 1 mg tablet 1 mg PO DAILY Supplement 05/22/21 amlodipine 5 mg tablet 5 mg PO DAILY BP #90 tabs 02/25/24 warfarin 6 mg tablet 6 mg PO DAILY Anticoagulant 03/29/24 acetaminophen 500 mg tablet (Tylenol Extra Strength) 1,000 mg (2 x 500 mg) PO Q8 Pain 14 days #84 tabs 04/05/24 budesonide 0.5 mg/2 mL suspension for nebulization 0.5 mg (2 mL) inhalation BID.RT COPD 30 days #0 mL 02/18/25 enoxaparin 100 mg/mL subcutaneous syringe 100 mg subcut BID DVT prophylaxis 7 days #0 mL 04/05/24 lisinopril 20 mg tablet 20 mg PO DAILY BP 30 days #0 tabs 04/05/24 metoprolol succinate 50 mg tablet,extended release 24 hr 50 mg PO DAILY BP 30 days #0 tabs 04/05/24 oxycodone 5 mg tablet 5 mg PO Q6H PRN pain 3 days #12 tabs 04/05/24 pantoprazole 40 mg tablet,delayed release 40 mg PO DAILY GERD 30 days #0 tabs 04/05/24 sennosides 8.6 mg-docusate sodium 50 mg tablet (Stimulant Laxative Plus) 1 tab PO BID Constipation 14 days #0 tabs 04/05/24 Hospital Course Operations total hip replacement Procedures EKG, Intubation, Transthoracic echo and - (Chest x-ray x 4, hip x-ray x 2, KUB) Summary of Care Provided Minutes Spent on Discharge: 35 Hospital Course: Patient is a 73-year-old male who presented [facility] ED on 03/29/2024 with right hip pain after a fall at home. Hospital course as noted below. Patient discharged to TCU in stable condition on 04/05. 1. Acute combined respiratory failure, resolved; history of COPD ? Controls Project Engineer followed. Patient developed acute combined respiratory failure with frequent apneic events post procedurally on 03/31 requiring intubation. Successfully extubated to nasal cannula on 04/02. Stable on 2L NC on discharge, may be able to be weaned off while in TCU. Continue home inhalers. 2. Right hip fracture ? Orthopedic surgery followed. S/p right hip hemiarthroplasty with Dr. Isaacs on 03/31. Tolerated procedure well, no intraoperative complications. Further recommendations per orthopedics. 3. Acute on chronic debility ? PT/OT/case management followed. Stable for discharge to TCU on 04/05. 4. Persistent A-fib on warfarin ? Warfarin was held perioperatively, restarted on 04/04. INR 1.5 on 04/05. Bridging with therapeutic Lovenox with goal INR 2-3. Please recheck INR at least every other day while in TCU and discontinue Lovenox once he reaches goal INR. Continue home Toprol. 5. Hypertension ? Continue home amlodipine and lisinopril. 6. Peripheral neuropathy ? Continue home gabapentin. 7. Class I obesity ? BMI 31 on admit. Complicates hospital course, care and prognosis. 8. Hyperlipidemia ? Continue home statin. Total clinical time spent by myself addressing the patient's medical issues, reviewing all the data, and collaborating with patient's care team: 35 minutes. Physical Exam Const alert, oriented x3 and no apparent distress Constitutional Narrative: Elderly male, class I obesity, mildly fatigued appearing but otherwise sitting up comfortably at edge of bed, conversing normally, in no acute distress. General Appearance: cooperative and comfortable HEENT normocephalic, head/scalp atraumatic, hearing grossly normal bilaterally, nasal mucous membranes and turbinates normal and moist oral mucous membranes Eyes PERRL, EOMs intact bilaterally and conjunctivae normal Neck full ROM Chest inspection of chest normal Resp normal respiratory effort, normal air movement, no use of accessory muscles and clear to auscultation bilaterally Cardio regular rate, regular rhythm, no murmurs and peripheral pulses 2+ throughout GI normal to inspection, nondistended, normoactive bowel sounds, soft to palpation, non-tender and non-distended Back/Spine normal ROM Extremity Extremity Narrative: Right hip with dressing in place, clean and dry. Skin no rashes or lesions noted Neuro no focal motor deficits Speech: speech normal Psych mental status grossly normal Weight / BMI Weight Weight: 104.2 kg Body Mass Index (BMI) 31.1 ABG / Lab / Microbiology Data 04/05/24 05:53 04/05/24 05:53 Laboratory: Laboratory Results - last 24 hr 04/05/24 05:53: WBC 6.5, RBC 3.47 L, Hgb 10.8 L, Hct 34.3 L, MCV 98.8 H, MCH 31.1, MCHC 31.5 L, RDW Std Deviation 56.2 H, RDW Coeff of Hermes 15.4 H, Plt Count 153, MPV 10.7, PT 18.8 H, INR 1.5, Sodium 139, Potassium 3.5, Chloride 102, Carbon Dioxide 33.0 H, Anion Gap 3 L, BUN 31 H, Creatinine 1.29, Estim Creat Clear Calc 65.55, Est GFR (MDRD) Af Amer 71, Est GFR (MDRD) Non-Af 58 L, BUN/Creatinine Ratio 24.0 H, Glucose 103, Calcium 8.5 Microbiology: Microbiology 03/31/24 23:30 Sputum, Tracheal Aspirate Gram Stain - Final 03/31/24 23:30 Sputum, Tracheal Aspirate Respiratory Culture - Final Mixed normal respiratory stephany. No Streptococcus pneumoniae, beta-hemolytic Streptococcus or Staphylococcus aureus isolated. 03/29/24 21:14 Mucosa - Nose SARS-CoV-2, Influenza & RSV (PCR) - Final D/C Instructions DC O2, CPAP, BIPAP Needs PSN CPAP & BiPAP: BiPAP & CPAP Settings per PSN Mode BiPAP 03/31/24 19:02 Bipap Delivery Device Face Mask 03/31/24 19:02 BiPAP Inspiratory Pressure 26 03/31/24 19:02 BiPAP Expiratory Pressure 14 03/31/24 19:02 BiPAP Rate 18 03/31/24 19:02 Fraction of Inspired Oxygen ( 45 04/02/24 10:00 FIO2) Home O2 Discharge instructions: Yes Type of respiratory needs?: Oxygen Oxygen frequency: Continuous Continuous oxygen liters per minute: 2 DC home with Oxygen: No Meaningful Use Info Meaningful Use Meaningful Use Diagnoses (Choose all that apply): None applicable Ischemic Stroke Statin Dosing Therapy Reference: STATIN DOSE THERAPY REFERENCE: * Patients > 75 years receive moderate or high dose statin therapy. * Patients 75 years or YOUNGER should receive HIGH intensity statin dose unless contraindicated. You will be required to document reason for non-treatment if statin daily dose does not meet guidelines. HIGH DOSE STATIN THERAPY DAILY Atorvastatin > than or = to 40 mg Rosuvastatin > than or = to 20 mg Amlodipine + Atorvastatin > than or = to 2.5/40 mg Ezetimibe + Simvastatin 10/80 mg Simvastatin 80mg Discharge Plan Admission Admit Date/Time: 03/30/24 00:06 Primary Reason for Your Visit: fall w/ hip fracture Attending Provider: Ruben Trevino Primary Care Provider: Yobani Negron Consulting Providers: Brayden Aguilar; Roger Barnett; Norberto Thompson; Oscar Mendenhall; Jaquan Clayton; Brayden Lozada; Brian Patricio; Taz Orozco; Kalpana Chester; Hossein Campos; Faustino Avalos; Deuce Albert; Miriam Woods; Court Mckeon; Sangeeta Hogan; Gabriel Raymundo; Elio Ellis; Luis Simpson; Celestino Webb; Cora Reardon; Carolina Lopez; Reyes Sosa; Davion Brunson; Toño Fields; Andres Isaacs; Geovanny Eng Discharge Orders/Prescriptions Prescriptions: New metoprolol succinate 50 mg Tablet Extended Release 24 Hr 50 mg PO DAILY 30 Days Qty: 0 0RF lisinopril 20 mg Tablet 20 mg PO DAILY 30 Days Qty: 0 0RF sennosides-docusate sodium [Stimulant Laxative Plus] 8.6-50 mg Tablet 1 tab PO BID 14 Days Qty: 0 0RF pantoprazole 40 mg Tablet,Delayed Release (Dr/Ec) 40 mg PO DAILY 30 Days Qty: 0 0RF budesonide 0.5 mg/2 mL Suspension For Nebulization 0.5 mg inhalation BID.RT 30 Days Qty: 0 0RF enoxaparin 100 mg/mL Syringe 100 mg subcut BID 7 Days Qty: 0 0RF acetaminophen [Tylenol Extra Strength] 500 mg tablet 1,000 mg PO Q8 14 Days Qty: 84 0RF oxycodone 5 mg tablet 5 mg PO Q6H PRN (Reason: pain) 3 Days Qty: 12 0RF Continued albuterol sulfate 90 mcg/actuation HFA aerosol inhaler 2 puff INHALATION Q4H PRN (Reason: Sob &/Or Wheezing) folic acid 1 mg tablet 1 mg PO DAILY amlodipine 5 mg tablet 5 mg PO DAILY Qty: 90 3RF atorvastatin 20 MG tablet 20 mg PO QHS Patient Comments: CHOLESTEROL gabapentin 300 MG capsule 600 mg PO TIDCM Patient Comments: PAIN, NEUROPATHY aspirin 81 MG tablet,chewable 81 mg PO DAILY@0800 Patient Comments: HEART HEALTH warfarin 6 mg tablet 6 mg PO DAILY Discontinued metoprolol succinate 100 mg tablet extended release 24 hr 100 mg PO DAILY lisinopril 40 mg tablet 40 mg PO DAILY Referrals / Follow Up: Yobani Negron MD [Primary Care Provider] - Disposition Disposition (needs filled in before D/C Order can be placed): [facility] Facility Charges/Coding Visit Charges Inpatient E&M: 64101 Disch Hosp >30min
--- NOTE | 2024-04-05 11:08 | CASEMGMT ---
Social Work Precert has been obtained.? Physician updated and pt is ready for discharge today.? SW met with pt and they are agreeable to discharge plan as stated above.?Bedside nurse notified of discharge. Disposition:TCU, skilled level of care MADDIE Adames
--- NOTE | 2024-04-05 11:26 | PHA.DC_ITS ---
Pharmacy [place] Med Reconciliation Pharmacy Service has performed discharge medication reconciliation for this patient. The patient's discharge medication list was reviewed for discrepancies and discrepancies were resolved. Medications at Discharge Home Medications aspirin 81 mg chewable tablet 81 mg PO DAILY@0800 blood thining 08/21/14 atorvastatin 20 mg tablet 20 mg PO QHS cholesterol 08/21/14 gabapentin 300 mg capsule 600 mg PO TIDCM pain 08/21/14 albuterol sulfate 90 mcg/actuation aerosol inhaler 2 puff inhalation Q4H PRN Sob &/Or Wheezing 08/16/18 folic acid 1 mg tablet 1 mg PO DAILY 05/22/21 amlodipine 5 mg tablet 5 mg PO DAILY #90 tabs 02/25/24 warfarin 6 mg tablet 6 mg PO DAILY 03/29/24 acetaminophen 500 mg tablet (Tylenol Extra Strength) 1,000 mg (2 x 500 mg) PO Q8 14 days #84 tabs 04/05/24 budesonide 0.5 mg/2 mL suspension for nebulization 0.5 mg (2 mL) inhalation BID. RT 30 days #0 mL 04/05/24 enoxaparin 100 mg/mL subcutaneous syringe 100 mg subcut BID 7 days #0 mL 04/05/24 lisinopril 20 mg tablet 20 mg PO DAILY 30 days #0 tabs 04/05/24 metoprolol succinate 50 mg tablet,extended release 24 hr 50 mg PO DAILY 30 days #0 tabs 04/05/24 oxycodone 5 mg tablet 5 mg PO Q6H PRN pain 3 days #12 tabs 04/05/24 pantoprazole 40 mg tablet,delayed release 40 mg PO DAILY 30 days #0 tabs 04/05/24 sennosides 8.6 mg-docusate sodium 50 mg tablet (Stimulant Laxative Plus) 1 tab PO BID 14 days #0 tabs 04/05/24
[2024-04-05] MEDS: oxyCODONE 5 MG Tablet 10 MG PO (12:27)
[2024-04-05] MEDS: Acetaminophen 325 MG Tablet 650 MG PO (12:29)
--- NOTE | 2024-04-05 12:34 | NURSING ---
At 1030 this Morning pt was bladder scanned for 347cc after still not being able to void. This RN was waiting on therapy to get him up to [facility] so we could see if he could void. Up to [facility] and using a urinal. Pt was able to have a bowel movement but unable to void. Back in bed now and eating lunch. This RN will look at orders for st. cath and if not notify hospitalist on for this patient.
[2024-04-05 13:02] VITALS: BP 109/56; PULSE 88; RESP 18; TEMP 36.7; O2SAT 90
== END 2024-04-05 13:35 | disposition skilled nursing facility (03) | DRG 521 ==
LOC: ED 23:52 → MS3 03-30 04:35 → ICU 03-31 16:32 → MS3 04-02 17:15
PROVIDERS: Anesthesiology; Internal Medicine; Orthopaedic Surgery Sports Medicine; Admitting Provider Internal Medicine; Emergency Provider Emergency Medicine; PCP Family Medicine; Visit Provider Hospitalist
PROC: 0SRR0J9 Replacement of Right Hip Joint, Femoral Surface with Synthetic Substitute, Cemented, Open Approach (ICD-10-PCS; CPT 27125; principal; 2024-03-31 11:40)
DX: M80.051A Age-related osteoporosis with current pathological fracture, right femur, initial encounter for fracture (principal); J95.821 Acute postprocedural respiratory failure; I48.21 Permanent atrial fibrillation; I48.20 Chronic atrial fibrillation, unspecified; J43.9 Emphysema, unspecified; I10 Essential (primary) hypertension; F32.A Depression, unspecified; I70.212 Atherosclerosis of native arteries of extremities with intermittent claudication, left leg; E66.811 Obesity, class 1; E78.5 Hyperlipidemia, unspecified; S72.001A Fracture of unspecified part of neck of right femur, initial encounter for closed fracture; I25.10 Atherosclerotic heart disease of native coronary artery without angina pectoris; W18.30XA Fall on same level, unspecified, initial encounter; M17.11 Unilateral primary osteoarthritis, right knee; R54 Age-related physical debility; Z87.891 Personal history of nicotine dependence; Z79.01 Long term (current) use of anticoagulants; Z68.33 Body mass index [BMI] 33.0-33.9, adult; R79.1 Abnormal coagulation profile; Z88.1 Allergy status to other antibiotic agents; Z79.02 Long term (current) use of antithrombotics/antiplatelets; Z79.899 Other long term (current) drug therapy; Z95.820 Peripheral vascular angioplasty status with implants and grafts; Z79.82 Long term (current) use of aspirin; N52.9 Male erectile dysfunction, unspecified; Z99.89 Dependence on other enabling machines and devices; Z88.2 Allergy status to sulfonamides; Z90.49 Acquired absence of other specified parts of digestive tract; Z98.890 Other specified postprocedural states; T41.205A Adverse effect of unspecified general anesthetics, initial encounter
CPT/HCPCS: 31500; 31720; 36415; 36600; 71045; 73502; 74018; 80048; 80053; 82550; 82803; 83735; 83880; 84100; 84443; 85025; 85027; 85610; 86850; 86900; 86901; 87070; 87205; 87631; 88307; 88311; 93005; 93306; 94002; 94003; 94640; 94660; 94668; 97116; 97162; 97166; 97530; 97535; 97803; 99252; 99285; C1776; Q9957; A4216; C8929; G0463; J1940; J2310; J2405; P9017

== ENCOUNTER 2024-04-05 13:47 | Inpatient (IN) | payer MEDICARE, SELFPAY ==
[2024-04-05 14:12] VITALS: BMI 31.9
[2024-04-05 14:30] VITALS: BP 109/62; PULSE 83; RESP 16; TEMP 36.2; O2SAT 94
[2024-04-05 14:45] VITALS: PULSE 83; O2SAT 94
[2024-04-05] MEDS: Gabapentin 600 MG Tablet PO (17:51)
[2024-04-05 18:35] VITALS: PULSE 68; RESP 18; O2SAT 94
[2024-04-05] MEDS: Budesonide Respules 0.5 MG/2 ML AMPUL.NEB. INHALATION (18:35)
--- NOTE | 2024-04-05 19:25 | HP.PCM_ITS ---
HPI - General General Date of Admission: 04/05/24 Date of Service: 04/05/24 Chief Complaint: Here for rehabilitation. HPI Narrative DESIRAE REINA, is a 73 Male who presents with followin03/29/2024 [facility] ED with fall. Taking out trash, tripped, fell, landed on right side. Left hip pain, unable to get up, on ground 1 hour. Called family, then EMS, severe left hip pain. Hypoxic, oxygen applied. X-ray showed right hip fracture. 03/29/2024 Admit [facility]. Pain control, PT/OT, Orthopedics consultation for right hip fracture. Hold warfarin, give Vitamin K to reverse anticoagulation to prepare for surgery. 03/30/2024 Echo EF 65%. Unable to assess diastolic dysfunction. 03/30/2024 Give Vitamin D, 4 units FFP 2 hours prior to surgery to normalize INR. 03/31/2024 Dr. Isaacs performed right hip cemented hemiarthroplasty. 04/01/2024 On ventilator, pulmonary medicine consulted. Ancef post op right hip cemented hemiarthroplasty. 04/02/2024 Extubated, oxygen per nasal cannula. Transfer to Med Surg. PT/OT. 04/03/2024 Weaned off oxygen, patient prefers discharge home. PT/OT. 04/04/2024 Weaker than baseline, poor therapy scores. PT/OT recommended SNF. Restart warfarin, bridge with Lovenox. 04/05/2024 Admit to TCU with debility, here for rehabilitation, strengthening, prior to discharge home with . [facility] Medical History Atrial fibrillation Former smoker Hip fracture, right Peripheral vascular disease of extremity with claudication shelter (current) use of anticoagulants Essential hypertension Hyperlipidemia Erectile dysfunction Depression COPD (chronic obstructive pulmonary disease) Home Medications ?Medication ?Instructions ?Recorded ?Last Taken ?Type aspirin 81 mg chewable tablet 81 mg PO DAILY@0800 bloo d thining 08/21/14 04/05/24 09:25 History atorvastatin 20 mg tablet 20 mg PO QHS cholesterol 07/3104/04/24 21:25 History gabapentin 300 mg capsule 600 mg PO TIDCM pain 5 04/01/24 History albuterol sulfate 90 mcg/actuation 2 puff inhalation Q 4H PRN Sob &/Or 08/16/18 03/31/24 History aerosol inhaler Wheezing folic acid 1 mg tablet 1 mg PO DAILY Supplement 08/0704/05/24 09:25 History amlodipine 5 mg tablet 5 mg PO DAILY BP #90 tabs 04/05/24 09:40 Rx warfarin 6 mg tablet 6 mg PO DAILY Anticoagulant 03/29/24 04/05/24 09:40 History acetaminophen 500 mg tablet 1,000 mg (2 x 500 mg) PO Q 8 Pain 04/05/24 Unknown Rx (Tylenol Extra Strength) 14 days #84 tabs budesonide 0.5 mg/2 mL suspension 0.5 mg (2 mL) inhala tion BID.RT 04/05/24 Unknown Rx for nebulization COPD 30 days #0 mL enoxaparin 100 mg/mL subcutaneous 100 mg subcut BID DV T prophylaxis 04/05/24 Unknown Rx syringe 7 days #0 mL lisinopril 20 mg tablet 20 mg PO DAILY BP 30 days #0 tabs 04/05/24 04/05/24 09:45 Rx metoprolol succinate 50 mg 50 mg PO DAILY BP 30 days # 0 tabs 04/05/24 04/05/24 09:45 Rx tablet,extended release 24 hr oxycodone 5 mg tablet 5 mg PO Q6H PRN pain 3 days #12 04/05/24 Unknown Rx tabs pantoprazole 40 mg tablet,delayed 40 mg PO DAILY GERD 30 days #0 tabs 04/05/24 04/05/24 09:40 Rx release sennosides 8.6 mg-docusate sodium 1 tab PO BID Constip ation 14 days 04/05/24 04/05/24 09:20 Rx 50 mg tablet (Stimulant Laxative #0 tabs Plus) Allergy/AdvReac Type Severity Reaction Status Date / Time amoxicillin Allergy Unknown Unknown Verified 02/25/24 13:19 clindamycin Allergy Unknown Unknown Verified 02/25/24 13:19 Penicillins (PCN) Allergy Unknown Unknown Verified 02/25/24 13:19 Sulfa (Sulfonamide Allergy Unknown Unknown Verified 02/25/24 13:19 Antibiotics) Family History Father Emphysema lung Mother , DVT History of DVT (deep vein thrombosis) Grandfather Cancer lung Surgical History Femoral-femoral bypass graft thrombosis, 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 Enrique Smiley MD) household members: spouse Smoking Status: Former smoker how long ago did patient quit smokin year ago second hand exposure: No alcohol intake: never substance use type: does not use caffeine: Yes Type: coffee Number of servings: 3 frequency: does not exercise ROS Constitutional Constitutional: Reports weakness; Denies chills, fever(s) or weight gain ENT HEENT: Denies headache(s), nasal congestion or nasal discharge Cardiovascular Cardiovascular: Denies chest pain or palpitations Respiratory/Chest Respiratory/Chest: Denies cough, excessive phlegm production or shortness of breath with exertion Gastrointestinal Gastrointestinal: Denies abdominal pain, nausea or vomiting Genitourinary Genitourinary: Denies dysuria Musculoskeletal Musculoskeletal: Denies joint pain or joint swelling Integumentary Integumentary: Denies rash or wounds Neurologic Neurologic: Denies focal weakness, numbness or tingling Psychiatric Psychiatric: Denies anxiety, auditory hallucinations, depression, homicidal ideation or suicidal ideation Vital Signs Vital Signs Vital Signs: 04/05/24 14:30 04/05/24 14:45 04/05/24 18:35 Temperature 97.1 F L Temperature Source Temporal Pulse Rate 83 83 68 Pulse Rhythm Regular Pulse Strength Normal (2+) Respiratory Rate 16 18 Respiratory Effort Normal Non-Labored Respiratory Depth Normal Respiratory Pattern Normal Normal Blood Pressure 109/62 Blood Pressure Mean 77 Blood Pressure Source Monitor Blood Pressure Position Semi-Fowlers Blood Pressure Location Right Arm Pulse Ox 94 94 Oxygen Delivery Method Room Air Room Air 04/05/24 18:35 Temperature Temperature Source Pulse Rate Pulse Rhythm Pulse Strength Respiratory Rate Respiratory Effort Respiratory Depth Respiratory Pattern Blood Pressure Blood Pressure Mean Blood Pressure Source Blood Pressure Position Blood Pressure Location Pulse Ox 94 Oxygen Delivery Method Room Air Weight Weight: 106.912 kg Body Mass Index (BMI) 31.9 Physical Exam Const alert General Appearance: cooperative HEENT normocephalic Eyes PERRL and EOMs intact bilaterally Neck supple, no JVD and no carotid bruits Resp normal respiratory effort, normal air movement and clear to auscultation bilaterally Cardio regular rate and regular rhythm GI normal to inspection, nondistended, normoactive bowel sounds, non-tender and non-distended Extremity normal capillary refill General Extremity: Negative for edema Skin no rashes or lesions noted General Skin Exam: no breakdown Psych affect normal Appearance: appropriate Assessment & Plan Assessment/Plan (1) Debility: (2) Closed right hip fracture: (3) Acute respiratory failure with hypoxia and hypercapnia: (4) Essential hypertension: (5) Hyperlipidemia: QUALIFIERS: Hyperlipidemia type: unspecified Qualified Code(s): E78.5 - Hyperlipidemia, unspecified (6) Persistent atrial fibrillation: (7) PAOD (peripheral arterial occlusive disease): (8) COPD (chronic obstructive pulmonary disease): QUALIFIERS: COPD type: unspecified COPD Qualified Code(s): J44.9 - Chronic obstructive pulmonary disease, unspecified (9) Tobacco abuse: (10) Neuropathic pain: PLAN: Plan 73 year old male with below past medical history hospitalized for right hip fracture, underwent right hip hemiarthroplasty 03/31/[address] Isaacs, postoperative course complicated by acute respiratory failure with hypoxia, prolonged intubation, admitted to TCU with debility, here for rehabilitation, strengthening, prior to discharge home with . * Debility - PT/OT. * Pain - Tylenol 1000mg q8, Oxycodone 5mg q4 prn pain (1-10). * Bowel - senna/colace 2 tablets bid, Magnesium citrate 300mL daily prn, Lactulose 20gm po x 1 dose. * Adult immunization - Administer pneumonia vaccine, covid vaccine, flu vaccine as appropriate. * DVT prophylaxis - Lovenox/Warfarin. * COPD - Budesonide 0.5mg inhaled bid, Albuterol 2 puffs q4 prn. * Hypertension - Metoprolol succinate 50mg daily, Lisinopril 20mg daily, Amlodipine 5mg daily. * Hyperlipidemia - Atorvastatin 20mg qhs. * Atrial fibrillation - Metoprolol succinate 50mg daily, warfarin 6mg daily, Lovenox 40mg sc daily thru 04/13/2024 bridge. Stop aspirin, adding aspirin to warfarin increases risk of bleeding without lowering cardiovascular risk. * Folate deficiency - Folic acid 1mg daily. * Neuropathic pain - Gabapentin 600g tidcm. * Tinea corporis - Nystatin powder topical bid. * GERD - Pantoprazole 40mg daily.
[2024-04-05] MEDS: Atorvastatin Calcium 20 MG Tablet PO (20:53)
[2024-04-05] MEDS: Senna/Docusate Sodium 1 Tablet 2 TABLET PO (20:53)
[2024-04-05] MEDS: Acetaminophen 500 MG Tablet 1000 MG PO (20:55)
[2024-04-05] MEDS: Lactulose 20 GM/30 ML UDC PO (20:57)
[2024-04-06] MEDS: Acetaminophen 500 MG Tablet 1000 MG PO ×3 (05:46→21:05)
[2024-04-06 06:01] LABS: Absolute Lymphocyte Count 1.53 X10^3/uL (0.83-4.51); Absolute Neutrophil Count 4.4 X10^3/uL (2.0-7.7); Basophil# 0.03 X10^3/uL; Basophil% 0.4 % (0-1); Eosinophil# 0.28 X10^3/uL; Eosinophils% 4.1 % (0-5); Hemoglobin 10.2 g/dL (13.0-16.5); Lymphocyte # 1.53 X10^3/ul (0.83-4.51); Lymphocyte % 22.5 % (19-41); Mean Corp Hgb Conc 31.9 g/dL (32-36); Mean Corpuscular Hgb 31.5 pg (27.0-32.0); Mean Corpuscular Volume 98.8 fL (80-94); Mean Platelet Vol. 10.7 fl (6.2-12.0); Monocyte# 0.53 X10^3/uL; Monocyte% 7.8 % (0-10); NRBC Flagged by Analyzer 0 % (0-5); Neutrophil % 64.8 % (47-70); Platelet Count 174 K/mm3 (150-450); RBC Distribution Width CV 15.4 % (11.6-14.6); RBC Distribution Width SD 56.2 fl (35.1-43.9); Red Blood Count 3.24 M/mm3 (4.6-6.2); White Blood Count 6.8 K/mm3 (4.4-11.0)
[2024-04-06 06:47] LABS: Anion Gap 5 (5-15); BUN 34 mg/dL (7-18); BUN/Creat Ratio 30.6 RATIO (10-20); Calcium,Total 8.2 mg/dL (8.5-10.1); Chloride 102 mmol/L (98-107); Creatinine, Serum 1.11 mg/dL (0.70-1.30); EST Glomerular Filtration Rate 69 mL/min (>60); Est Glom Filt Rate - Afr Amer 84 mL/min (>60); Estimated Creatinine Clearance 77.12 ml/min; Glucose 121 mg/dL (74-106); Potassium 3.3 mmol/L (3.5-5.1); Sodium Level 139 mmol/L (136-145)
[2024-04-06] MEDS: Budesonide Respules 0.5 MG/2 ML AMPUL.NEB. INHALATION ×2 (07:14→20:00)
[2024-04-06 07:16] VITALS: RESP 16
[2024-04-06] MEDS: Folic Acid 1 MG Tablet PO (09:03)
[2024-04-06] MEDS: Nystatin Powder 15gm Bottle 1 APPLIC TOPICAL ×2 (09:03→21:06)
[2024-04-06] MEDS: Gabapentin 600 MG Tablet PO ×3 (09:03→17:31)
[2024-04-06] MEDS: Senna/Docusate Sodium 1 Tablet 2 TABLET PO ×2 (09:04→21:05)
[2024-04-06] MEDS: Pantoprazole Sodium 40 MG Tablet PO (09:04)
[2024-04-06] MEDS: amLODIPine 5 MG Tablet PO (09:04)
[2024-04-06 09:05] VITALS: BP 106/59; PULSE 83
[2024-04-06] MEDS: Metoprolol(XL)Succ 50 MG Tablet PO (09:05)
[2024-04-06] MEDS: Enoxaparin 40 MG/0.4 ML Syringe SC (09:05)
[2024-04-06] MEDS: Lisinopril 20 MG Tablet PO (09:05)
[2024-04-06] MEDS: Potassium Chloride Oral Tablet 20 MEQ 60 MEQ PO (09:12)
[2024-04-06 09:24] VITALS: BP 106/59; PULSE 83; RESP 18; O2SAT 91
[2024-04-06] MEDS: Tuberculin,Purif.prot.deriv. 50 TU/ML Vial 0.1 ML ID (10:48)
--- NOTE | 2024-04-06 13:47 | NURSING ---
Medical Affairs Specialist Note; Activity Asset: Remy Kingsley is independent in his choice of daily activities. His will visits daily and bring him the newspaper. He has his smartphone, will watch tv, read and welcomes visits from the psychologist educational and therapy dog when available. Staff will remind him of weekly activities and respect his right to say no.
[2024-04-06 16:00] VITALS: TEMP 35.4
--- NOTE | 2024-04-06 16:09 | PCM.PN.DRR ---
Documented by User: Antonietta Olson 04/06/24 16:21 TCU RX Drug Regimen Review Subjective/Objective Subjective/Objective Subjective: TCU Admission. 73 YOM presented to the ER with a fall. Hospitalized for right hip fracture, underwent right hip hemiarthroplasty 03/31/[address] Isaacs, postoperative course complicated by acute respiratory failure with hypoxia, prolonged intubation. Admitted to TCU with debility for strengthening and rehabilitation. Objective: Allergies amoxicillin Allergy (Unknown, Verified 02/25/24 13:19) Unknown clindamycin Allergy (Unknown, Verified 02/25/24 13:19) Unknown Penicillins (PCN) Allergy (Unknown, Verified 02/25/24 13:19) Unknown Sulfa (Sulfonamide Antibiotics) Allergy (Unknown, Verified 02/25/24 13:19) Unknown Current Medications Generic Name Dose Route Start Last Admin Trade Name Freq PRN Reason Stop Dose Admin Acetaminophen 1,000 mg 04/05/24 22:00 04/06/24 13:32 Acetaminophen 500 Mg Tablet PO 1,000 mg Q8 SHELBIE Administration Albuterol Sulfate 2 puff 04/05/24 14:11 Albuterol Ih (6.7 Gm) 1 Puff Inhaler INHALATION Q4H PRN Sob &/Or Wheezing Amlodipine Besylate 5 mg 04/06/24 10:00 04/06/24 09:04 Amlodipine 5 Mg Tablet PO 5 mg DAILY SHELBIE Administration Protocol Atorvastatin Calcium 20 mg 04/05/24 22:00 04/05/24 20:53 Atorvastatin Calcium 20 Mg Tablet PO 20 mg QHS SHELBIE Administration Budesonide 0.5 mg 04/05/24 14:15 04/06/24 07:14 Budesonide Respules 0.5 Mg/2 Ml Ampul.Neb. INHALATION 0.5 mg BID.RT SHELBIE Administration Enoxaparin Sodium 40 mg 04/06/24 10:00 04/06/24 09:05 Enoxaparin 40 Mg/0.4 Ml Syringe SC 04/13/24 10:01 40 mg DAILY SHELBIE Administration Folic Acid 1 mg 04/06/24 08:00 04/06/24 09:03 Folic Acid 1 Mg Tablet PO 1 mg BREAKFAST SHELBIE Administration Gabapentin 600 mg 04/05/24 17:45 04/06/24 13:32 Gabapentin 600 Mg Tablet PO 600 mg TIDCM SHELBIE Administration Lisinopril 20 mg 04/06/24 10:00 04/06/24 09:05 Lisinopril 20 Mg Tablet PO 20 mg DAILY [facility] Administration Protocol Magnesium Citrate 300 ml 04/05/24 19:38 Magnesium Citrate 300 Ml PO DAILY PRN CONSTIPATION Metoprolol Succinate 50 mg 04/06/24 10:00 04/06/24 09:05 Metoprolol(Xl)Succ 50 Mg Tablet PO 50 mg DAILY [facility] Administration Protocol Nystatin 1 applic 04/05/24 22:00 04/06/24 09:03 Nystatin Powder 15gm Bottle TOPICAL 1 applic BID [facility] Administration Protocol Oxycodone HCl 5 mg 04/05/24 19:39 Oxycodone 5 Mg Tablet PO Q4H PRN Pain Score 1-10 or Pre PT/OT Pantoprazole Sodium 40 mg 04/06/24 10:00 04/06/24 09:04 Pantoprazole Sodium 40 Mg Tablet PO 40 mg DAILY [facility] Administration Senna/Docusate Sodium 2 tablet 04/05/24 22:00 04/06/24 09:04 Senna/Docusate Sodium 1 Tablet PO 2 tablet BID [facility] Administration Tamsulosin HCl 0.4 mg 04/06/24 17:30 Tamsulosin Hcl 0.4 Mg Capsule PO DAILY@1730 [facility] Tuberculin PPD 0.1 ml 04/13/24 10:00 Tuberculin,Purif.Prot.Deriv. 50 Tu/Ml Vial ID 04/13/24 10:01 X1 ONE Warfarin Sodium 6 mg 04/06/24 17:00 Warfarin 6 Mg Tablet PO DAILY@1700 [facility] Problem List Neuropathic pain (Acute) Tobacco abuse (Acute) PAOD (peripheral arterial occlusive disease) (Acute) Closed right hip fracture (Acute) Debility (Acute) Acute respiratory failure with hypoxia and hypercapnia (Acute) Persistent atrial fibrillation (Chronic) COPD (chronic obstructive pulmonary disease) (Chronic) Essential hypertension (Chronic) Hyperlipidemia (Chronic) Vital Signs Temp Pulse Resp BP Pulse Ox O2 Del Method 97.1 F L 83 18 106/59 L 91 Room Air 04/05/24 14:30 04/06/24 09:24 04/06/24 09:24 04/06/24 09:24 04/06/24 09:24 04/06/24 09:24 Oxygen Delivery Method Room Air Weight: 106.912 kg Body Mass Index (BMI) 31.9 Sodium 139 mmol/L (136-145) 04/06/24 05:20 Potassium 3.3 mmol/L (3.5-5.1) L 04/06/24 05:20 Chloride 102 mmol/L (98-107) 04/06/24 05:20 Carbon Dioxide 32.0 mmol/L (21.0-32.0) 04/06/24 05:20 Anion Gap 5 (5-15) 04/06/24 05:20 BUN 34 mg/dL (7-18) H 04/06/24 05:20 Creatinine 1.11 mg/dL (0.70-1.30) 04/06/24 05:20 Est GFR (MDRD) Af Amer 84 mL/min (>60) 04/06/24 05:20 Est GFR (MDRD) Non-Af 69 mL/min (>60) 04/06/24 05:20 BUN/Creatinine Ratio 30.6 RATIO (10-20) H 04/06/24 05:20 Glucose 121 mg/dL (74-106) H 04/06/24 05:20 Assessment/Plan: 1. Pain: acetaminophen 1000mg PO Q8 and oxycodone 5mg PO Q4H PRN pain 1-10. Resident has not had any PRN doses. Please continue to monitor for increased pain and PRN usage. 2. Bowel: senna/docusate 2T PO BID and magnesium citrate 300mL PO daily PRN constipation. Resident has not had any PRN doses. Please continue to monitor for constipation and PRN usage. 3. Atrial fibrillation/hypertension: metoprolol succinate 50mg PO daily, lisinopril 20mg PO daily, amlodipine 5mg PO daily, warfarin 6mg PO daily and enoxaparin 40mg SC daily thru 04/13/24 (bridge). Please continue to monitor for S/S of bleeding, hemoglobin (last 10.2g/dL), platelets (last 174,000), INR (last 1.5 04/05), renal function, swelling, HR (last 83), BP (last 106/59), potassium (last 3.3mmol/L, had KCl 60mEq x1 dose today), cough. 4. Hyperlipidemia: atorvastatin 20mg PO QHS. Please consider ordering a lipid panel as the last panel is from 2018. Thanks. Please continue to monitor LFTs (last 03/30/24) and muscle pain. 5. COPD: budesonide 0.5mg nebulized solution BID and albuterol MDI 2puff inhalation Q4H PRN SOB/wheezing. Resident has not had any PRN doses. Please continue to monitor for PRN usage, thrush, SOB, wheezing. 6. GERD: pantoprazole 40mg PO daily. Please continue to monitor for S/S of GERD and diarrhea (BEERs). 7. Urinary retention/BPH: tamsulosin 0.4mg PO daily. Please continue to monitor for S/S of urinary retention and BP. 8. Folate deficiency: folic acid 1mg PO daily. Please continue to monitor. 9. Tinea corporis: Nystatin powder topical bid. Assessment/Plan for indications treated with psychotropic medications: 1. Neuropathic pain: gabapentin 600mg PO TIDCM. GDR not appropriate as this medication is being used for neuropathic pain. Please continue to monitor for confusion, falls/fractures (BEERs) and renal function. Medical chart and medication regimen reviewed. The following medication irregularities or issues were identified: 1. Atorvastatin 20mg PO QHS. Please consider ordering a lipid panel as the last panel is from 2018. Thanks. Date Date of Note: 04/06/24 Documented by User: Dr. Enrique Smiley MD 04/06/24 16:34 TCU RX Drug Regimen Review Provider Comments Provider responsibility Provider Comments to Recommendations by Pharmacy Agree
[2024-04-06] MEDS: Tamsulosin HCl 0.4 MG Capsule PO (17:28)
[2024-04-06] MEDS: oxyCODONE 5 MG Tablet PO (17:31)
[2024-04-06 20:00] VITALS: PULSE 90; RESP 16
[2024-04-06] MEDS: Atorvastatin Calcium 20 MG Tablet PO (21:05)
[2024-04-07] MEDS: Acetaminophen 500 MG Tablet 1000 MG PO ×3 (05:17→19:25)
[2024-04-07 06:20] LABS: Anion Gap 4 (5-15); BUN 40 mg/dL (7-18); Calcium,Total 8.2 mg/dL (8.5-10.1); Chloride 104 mmol/L (98-107); Cholesterol 98 mg/dL (200); Creatinine, Serum 1.29 mg/dL (0.70-1.30); EST Glomerular Filtration Rate 58 mL/min (>60); Est Glom Filt Rate - Afr Amer 71 mL/min (>60); Estimated Creatinine Clearance 66.36 ml/min; Glucose 107 mg/dL (74-106); High Density Lipoprotein 27 mg/dL; Potassium 4.3 mmol/L (3.5-5.1); Sodium Level 142 mmol/L (136-145); Triglycerides 172 mg/dL; Very Low Density Lipoprotein 34 mg/dL (5-40)
[2024-04-07 07:40] VITALS: PULSE 77; RESP 19
[2024-04-07] MEDS: Budesonide Respules 0.5 MG/2 ML AMPUL.NEB. INHALATION ×2 (07:40→19:36)
[2024-04-07] MEDS: Nystatin Powder 15gm Bottle 1 APPLIC TOPICAL ×2 (08:02→19:27)
[2024-04-07] MEDS: Folic Acid 1 MG Tablet PO (08:02)
[2024-04-07] MEDS: amLODIPine 5 MG Tablet PO (08:02)
[2024-04-07 08:03] VITALS: BP 112/59; PULSE 72
[2024-04-07] MEDS: Metoprolol(XL)Succ 50 MG Tablet PO (08:03)
[2024-04-07] MEDS: Lisinopril 20 MG Tablet PO (08:03)
[2024-04-07] MEDS: Senna/Docusate Sodium 1 Tablet 2 TABLET PO ×2 (08:03→19:25)
[2024-04-07] MEDS: Pantoprazole Sodium 40 MG Tablet PO (08:03)
[2024-04-07] MEDS: Gabapentin 600 MG Tablet PO ×3 (08:06→16:53)
[2024-04-07 08:09] VITALS: BP 112/59; PULSE 72; RESP 18; O2SAT 91
[2024-04-07] MEDS: Hydrocortisone 2.5% Crm 1 APPLIC TOPICAL (09:02)
[2024-04-07 10:36] LABS: International Normalized Ratio 1.8; Prothrombin Time (Protime)PT. 21.4 SECONDS (11.7-14.9)
[2024-04-07] MEDS: Enoxaparin 40 MG/0.4 ML Syringe SC (11:18)
[2024-04-07 11:20] VITALS: PULSE 67; RESP 18; O2SAT 93
[2024-04-07 14:50] VITALS: TEMP 36.7
--- NOTE | 2024-04-07 15:06 | NURSING ---
PT OLD SURGICAL MEPILEX TO RT HIP REMOVED,MINIMAL DRY DRAINAGE. AREA CLEANED AND DRIED. STERI STRIPS INTACT, NO S/S OF INFECTION,SWELLING AND BRUISING TO AREA. APPLIED DRY DRESSING TO AREA. PT TOLERATED WELL.
--- NOTE | 2024-04-07 15:47 | CASEMGMT ---
Social Work SW met with patient to complete initial assessment. Introduced self and role. Verified contacts. Patient confirmed code status as full code. Requested pt have provide copies of advance directives for chart. Educated to [facility] insurance with [employer] 04/13 and continued stay is not guaranteed with each review. Pt's goal is to return home with . See assessment for barriers. SW will continue to follow for DC planning. Shima Reddy ASPNET DEVELOPER GRANITE INSTALLER
[2024-04-07] MEDS: Tamsulosin HCl 0.4 MG Capsule PO (16:54)
[2024-04-07] MEDS: Atorvastatin Calcium 20 MG Tablet PO (19:26)
[2024-04-07 19:36] VITALS: PULSE 85; RESP 18; O2SAT 96
[2024-04-08] MEDS: Acetaminophen 500 MG Tablet 1000 MG PO ×3 (06:21→19:53)
[2024-04-08] MEDS: Budesonide Respules 0.5 MG/2 ML AMPUL.NEB. INHALATION ×2 (07:05→19:03)
[2024-04-08 07:19] VITALS: PULSE 88; RESP 18; O2SAT 94
[2024-04-08 08:15] VITALS: BP 108/67; PULSE 84; RESP 17; TEMP 35.7; O2SAT 94
[2024-04-08] MEDS: Enoxaparin 40 MG/0.4 ML Syringe SC (08:18)
[2024-04-08] MEDS: Folic Acid 1 MG Tablet PO (08:18)
[2024-04-08] MEDS: Nystatin Powder 15gm Bottle 1 APPLIC TOPICAL ×2 (08:18→19:54)
[2024-04-08 08:19] VITALS: PULSE 84
[2024-04-08] MEDS: amLODIPine 5 MG Tablet PO (08:19)
[2024-04-08] MEDS: Lisinopril 20 MG Tablet PO (08:19)
[2024-04-08] MEDS: Metoprolol(XL)Succ 50 MG Tablet PO (08:19)
[2024-04-08] MEDS: Pantoprazole Sodium 40 MG Tablet PO (08:19)
[2024-04-08] MEDS: Gabapentin 600 MG Tablet PO ×3 (08:21→17:20)
[2024-04-08] MEDS: oxyCODONE 5 MG Tablet PO (11:37)
[2024-04-08] MEDS: Tamsulosin HCl 0.4 MG Capsule PO (17:20)
[2024-04-08 19:03] VITALS: PULSE 78; RESP 18
[2024-04-08] MEDS: Atorvastatin Calcium 20 MG Tablet PO (19:53)
[2024-04-08 19:57] VITALS: PULSE 78; RESP 16; O2SAT 94
[2024-04-09] MEDS: Acetaminophen 500 MG Tablet 1000 MG PO ×3 (05:27→21:00)
[2024-04-09 06:36] LABS: International Normalized Ratio 2.1; Prothrombin Time (Protime)PT. 24.4 SECONDS (11.7-14.9)
[2024-04-09 07:15] VITALS: PULSE 77; RESP 20
[2024-04-09] MEDS: Budesonide Respules 0.5 MG/2 ML AMPUL.NEB. INHALATION ×2 (07:15→19:59)
[2024-04-09 08:17] VITALS: BP 100/59; PULSE 81; RESP 16; TEMP 36.6; O2SAT 96
[2024-04-09] MEDS: Gabapentin 600 MG Tablet PO ×3 (08:18→17:23)
[2024-04-09] MEDS: Enoxaparin 40 MG/0.4 ML Syringe SC (08:18)
[2024-04-09] MEDS: Folic Acid 1 MG Tablet PO (08:18)
[2024-04-09 08:19] VITALS: PULSE 81
[2024-04-09] MEDS: amLODIPine 5 MG Tablet PO (08:19)
[2024-04-09] MEDS: Pantoprazole Sodium 40 MG Tablet PO (08:19)
[2024-04-09] MEDS: Lisinopril 20 MG Tablet PO (08:19)
[2024-04-09] MEDS: Metoprolol(XL)Succ 50 MG Tablet PO (08:19)
[2024-04-09] MEDS: Nystatin Powder 15gm Bottle 1 APPLIC TOPICAL (08:20)
[2024-04-09 12:46] VITALS: PULSE 81; RESP 18; O2SAT 96
--- NOTE | 2024-04-09 15:20 | NURSING ---
Addendum entered by Rachel Shukla 04/09/24 15:23: new order to DC foly on tuesday 04/11 since pt started on flomax for urine retention Original Note: dr cox notified of INR 2.1, new order to DC lovenox. check INRs Mo & Th weekly
[2024-04-09] MEDS: Tamsulosin HCl 0.4 MG Capsule PO (17:24)
[2024-04-09 19:59] VITALS: PULSE 78; RESP 18
[2024-04-09] MEDS: oxyCODONE 5 MG Tablet PO (21:00)
[2024-04-09] MEDS: Senna/Docusate Sodium 1 Tablet 2 TABLET PO (21:01)
[2024-04-09] MEDS: Atorvastatin Calcium 20 MG Tablet PO (21:01)
[2024-04-10] MEDS: Acetaminophen 500 MG Tablet 1000 MG PO ×3 (05:15→21:33)
[2024-04-10 06:30] VITALS: PULSE 74; RESP 18; O2SAT 92
[2024-04-10] MEDS: Budesonide Respules 0.5 MG/2 ML AMPUL.NEB. INHALATION ×2 (06:30→19:06)
[2024-04-10 07:42] VITALS: BP 95/72; PULSE 66; RESP 16; TEMP 36.3; O2SAT 96
[2024-04-10 07:43] VITALS: BP 110/65
[2024-04-10] MEDS: Gabapentin 600 MG Tablet PO ×3 (07:44→17:36)
[2024-04-10] MEDS: Hydrocortisone 2.5% Crm 1 APPLIC TOPICAL (07:44)
[2024-04-10 07:45] VITALS: PULSE 66
[2024-04-10] MEDS: Pantoprazole Sodium 40 MG Tablet PO (07:45)
[2024-04-10] MEDS: Metoprolol(XL)Succ 50 MG Tablet PO (07:45)
[2024-04-10] MEDS: amLODIPine 5 MG Tablet PO (07:45)
[2024-04-10] MEDS: Folic Acid 1 MG Tablet PO (07:45)
[2024-04-10] MEDS: Lisinopril 20 MG Tablet PO (07:46)
[2024-04-10] MEDS: Senna/Docusate Sodium 1 Tablet 2 TABLET PO ×2 (07:46→21:33)
[2024-04-10] MEDS: Nystatin Powder 15gm Bottle 1 APPLIC TOPICAL (07:46)
--- NOTE | 2024-04-10 07:53 | NURSING ---
wagner to be removed tomorrow AM for voiding trials since starting flomax 04/06
[2024-04-10] MEDS: Tamsulosin HCl 0.4 MG Capsule PO (17:36)
[2024-04-10 19:07] VITALS: PULSE 76; RESP 18; O2SAT 86
--- NOTE | 2024-04-10 19:14 | CPS ---
Pt feels O2 reading is not accurate, nurse will check O2 again in a little bit to see if O2 is back up to normal range. Breathing treatment was ran on O2.
[2024-04-10 19:36] VITALS: PULSE 73; RESP 16; O2SAT 92
[2024-04-10] MEDS: Atorvastatin Calcium 20 MG Tablet PO (21:33)
[2024-04-11] MEDS: Acetaminophen 500 MG Tablet 1000 MG PO ×3 (06:18→21:50)
[2024-04-11] MEDS: Hydrocortisone 2.5% Crm 1 APPLIC TOPICAL (06:30)
--- NOTE | 2024-04-11 07:28 | NURSING ---
Dr. Smiley on unit, notified of right hip sx site area red/firm/warm, no drainage observed to sx site, ster-strips intact. assesses site at this time. Patient denies pain to site. Dr. Smiley to input orders. Patient denies requests at this time. Call light and personal items within reach.
[2024-04-11 07:40] VITALS: PULSE 77; RESP 16; O2SAT 98
[2024-04-11] MEDS: Budesonide Respules 0.5 MG/2 ML AMPUL.NEB. INHALATION (07:40)
[2024-04-11 08:21] VITALS: BP 105/56; PULSE 74
[2024-04-11] MEDS: Gabapentin 600 MG Tablet PO ×3 (08:21→17:26)
[2024-04-11] MEDS: amLODIPine 5 MG Tablet PO (08:21)
[2024-04-11] MEDS: Folic Acid 1 MG Tablet PO (08:21)
[2024-04-11] MEDS: Metoprolol(XL)Succ 50 MG Tablet PO (08:21)
[2024-04-11] MEDS: Lisinopril 20 MG Tablet PO (08:21)
[2024-04-11] MEDS: Senna/Docusate Sodium 1 Tablet 2 TABLET PO ×2 (08:21→21:50)
[2024-04-11] MEDS: Pantoprazole Sodium 40 MG Tablet PO (08:21)
[2024-04-11] MEDS: Nystatin Powder 15gm Bottle 1 APPLIC TOPICAL ×2 (08:22→21:52)
[2024-04-11] MEDS: Doxycycline 100 MG CAPSULE PO ×2 (09:31→21:51)
[2024-04-11] MEDS: Azithromycin 250 MG Tablet 500 MG PO (09:31)
[2024-04-11] MEDS: oxyCODONE 5 MG Tablet PO (12:14)
--- NOTE | 2024-04-11 12:18 | US_ITS ---
PROCEDURE: EXT NON VASC LIMITED/SOFT TISS REASON FOR EXAM: Redness and swelling overlying the right hip. TECHNIQUE: Ultrasound imaging of right groin. COMPARISON: None. FINDINGS: There is evidence of subcutaneous edema just distal to the right incision. No collection of fluid is seen. US/Ext Non Vasc Limited/Soft Tiss IMPRESSION: Edematous changes at the site of the right groin incision. No fluid collection is seen. Reading Location: [id number]
[2024-04-11 15:23] LABS: International Normalized Ratio 2.7
[2024-04-11 16:00] VITALS: BP 103/59; PULSE 67; RESP 18; TEMP 36.3; O2SAT 95
[2024-04-11] MEDS: Tamsulosin HCl 0.4 MG Capsule PO (17:26)
[2024-04-11] MEDS: Atorvastatin Calcium 20 MG Tablet PO (21:51)
[2024-04-12 06:32] LABS: International Normalized Ratio 2.9; Prothrombin Time (Protime)PT. 30.9 SECONDS (11.7-14.9)
[2024-04-12] MEDS: oxyCODONE 5 MG Tablet PO (06:36)
[2024-04-12] MEDS: Acetaminophen 500 MG Tablet 1000 MG PO ×3 (06:36→21:10)
[2024-04-12] MEDS: Budesonide Respules 0.5 MG/2 ML AMPUL.NEB. INHALATION (07:15)
[2024-04-12 07:18] VITALS: PULSE 73; RESP 16; O2SAT 98
[2024-04-12 09:25] VITALS: BP 80/54; PULSE 79; RESP 16; TEMP 36.3; O2SAT 94
[2024-04-12 09:27] VITALS: BP 73/45
[2024-04-12] MEDS: Doxycycline 100 MG CAPSULE PO ×2 (09:33→21:10)
[2024-04-12] MEDS: Folic Acid 1 MG Tablet PO (09:33)
[2024-04-12] MEDS: Nystatin Powder 15gm Bottle 1 APPLIC TOPICAL ×2 (09:33→21:12)
[2024-04-12] MEDS: Senna/Docusate Sodium 1 Tablet 2 TABLET PO ×2 (09:33→21:11)
[2024-04-12] MEDS: Pantoprazole Sodium 40 MG Tablet PO (09:33)
[2024-04-12] MEDS: Gabapentin 600 MG Tablet PO ×3 (09:33→16:55)
[2024-04-12] MEDS: Azithromycin 250 MG Tablet PO (09:33)
[2024-04-12] MEDS: 0.9% Normal Saline (500mL Bag) 500 ML 999 ML IV (10:04)
[2024-04-12 10:11] VITALS: BP 80/53; PULSE 79
[2024-04-12 10:39] LABS: Absolute Lymphocyte Count 1.29 X10^3/uL (0.83-4.51); Absolute Neutrophil Count 4.7 X10^3/uL (2.0-7.7); Basophil# 0.05 X10^3/uL; Basophil% 0.7 % (0-1); Eosinophil# 0.46 X10^3/uL; Eosinophils% 6.6 % (0-5); Hematocrit 33.9 % (40-54); Hemoglobin 10.5 g/dL (13.0-16.5); Lymphocyte # 1.29 X10^3/ul (0.83-4.51); Lymphocyte % 18.4 % (19-41); Mean Corpuscular Hgb 31.3 pg (27.0-32.0); Mean Corpuscular Volume 101.2 fL (80-94); Mean Platelet Vol. 9.5 fl (6.2-12.0); Monocyte# 0.48 X10^3/uL; Monocyte% 6.8 % (0-10); NRBC Flagged by Analyzer 0 % (0-5); Neutrophil # 4.68 X10^3/uL (2.7-7.7); Neutrophil % 66.8 % (47-70); Platelet Count 264 K/mm3 (150-450); RBC Distribution Width CV 16.2 % (11.6-14.6); RBC Distribution Width SD 60.4 fl (35.1-43.9); Red Blood Count 3.35 M/mm3 (4.6-6.2)
[2024-04-12 10:47] LABS: Erythrocyte Sedimentation Rate 5 mm/hr (0-20)
--- NOTE | 2024-04-12 11:11 | CASEMGMT ---
Social Work SW completed BIMS () and PHQ-2 () for MDS assessment. Shima Reddy CLINICAL PROVIDER TRAINER FARMWORKER POULTRY
--- NOTE | 2024-04-12 12:37 | NURSING ---
Updated by ROSEANN that transport needed for ortho f/u, family unable to transport. Resident given number to Jessie and he will call to see about setting up transport.
[2024-04-12 12:50] VITALS: BP 101/56; PULSE 74
[2024-04-12 13:02] LABS: BUN 29 mg/dL (4-19); Glucose 146 mg/dL (70-99)
[2024-04-12 14:14] LABS: BUN/Creat Ratio 21.3 RATIO (10-20); Creatinine, Serum 1.4 mg/dL (0.8-1.3); EST Glomerular Filtration Rate 53 (>60); Estimated Creatinine Clearance 61.14 ml/min
[2024-04-12 14:15] LABS: Calcium,Total 8.9 mg/dL (7.6-11.0); Chloride 101 mmol/L (98-107); Potassium 4.6 mmol/L (3.5-5.1); Sodium Level 137 mmol/L (136-145)
[2024-04-12 14:16] LABS: Anion Gap 10 (5-15); Carbon Dioxide 26.3 mmol/L (21.0-32.0)
[2024-04-12] MEDS: WARFARIN 5.5 MG PO (16:55)
[2024-04-12] MEDS: Tamsulosin HCl 0.4 MG Capsule PO (16:56)
[2024-04-12] MEDS: Atorvastatin Calcium 20 MG Tablet PO (21:11)
[2024-04-13] MEDS: Acetaminophen 500 MG Tablet 1000 MG PO ×3 (05:03→21:00)
[2024-04-13 05:47] LABS: Absolute Lymphocyte Count 1.18 X10^3/uL (0.83-4.51); Absolute Neutrophil Count 3.1 X10^3/uL (2.0-7.7); Basophil# 0.02 X10^3/uL; Basophil% 0.4 % (0-1); Eosinophil# 0.46 X10^3/uL; Eosinophils% 8.8 % (0-5); Hematocrit 32.4 % (40-54); Hemoglobin 10.1 g/dL (13.0-16.5); Lymphocyte # 1.18 X10^3/ul (0.83-4.51); Lymphocyte % 22.7 % (19-41); Mean Corp Hgb Conc 31.2 g/dL (32-36); Mean Corpuscular Hgb 30.9 pg (27.0-32.0); Mean Corpuscular Volume 99.1 fL (80-94); Mean Platelet Vol. 9.6 fl (6.2-12.0); Monocyte# 0.39 X10^3/uL; Monocyte% 7.5 % (0-10); NRBC Flagged by Analyzer 0 % (0-5); Neutrophil % 59.6 % (47-70); Platelet Count 263 K/mm3 (150-450); RBC Distribution Width SD 58.8 fl (35.1-43.9); Red Blood Count 3.27 M/mm3 (4.6-6.2); White Blood Count 5.2 K/mm3 (4.4-11.0)
[2024-04-13 06:44] LABS: International Normalized Ratio 3.3; Prothrombin Time (Protime)PT. 34.5 SECONDS (11.7-14.9)
[2024-04-13 08:45] VITALS: PULSE 70; RESP 20
[2024-04-13] MEDS: Budesonide Respules 0.5 MG/2 ML AMPUL.NEB. INHALATION ×2 (08:45→18:41)
--- NOTE | 2024-04-13 08:58 | NURSING ---
Manager Audio Note; MDS for 04/12/2024 Complete
[2024-04-13] MEDS: Folic Acid 1 MG Tablet PO (09:08)
[2024-04-13] MEDS: Doxycycline 100 MG CAPSULE PO ×2 (09:08→20:57)
[2024-04-13] MEDS: Gabapentin 600 MG Tablet PO ×3 (09:08→17:15)
[2024-04-13] MEDS: Nystatin Powder 15gm Bottle 1 APPLIC TOPICAL (09:08)
[2024-04-13 09:09] VITALS: BP 119/70; PULSE 90
[2024-04-13] MEDS: Senna/Docusate Sodium 1 Tablet 2 TABLET PO ×2 (09:09→20:57)
[2024-04-13] MEDS: Metoprolol(XL)Succ 50 MG Tablet PO (09:09)
[2024-04-13] MEDS: Pantoprazole Sodium 40 MG Tablet PO (09:09)
[2024-04-13] MEDS: Hydrocortisone 2.5% Crm 1 APPLIC TOPICAL (09:10)
[2024-04-13] MEDS: Azithromycin 250 MG Tablet PO (09:13)
[2024-04-13] MEDS: 0.9% Saline Lock 10 ML Syringe IV (09:20)
[2024-04-13 09:22] VITALS: BP 119/70; PULSE 90; RESP 18; TEMP 36.2; O2SAT 99
[2024-04-13] MEDS: Tuberculin,Purif.prot.deriv. 50 TU/ML Vial 0.1 ML ID (10:58)
[2024-04-13 11:00] VITALS: PULSE 90; RESP 18; O2SAT 99
--- NOTE | 2024-04-13 13:02 | CASEMGMT ---
Social Work IDT met with patient and for care plan meeting. Discussed patient's progress in PT/OT/SN. Educated to [facility], [place] insurance with [employer] 04/15 and continued stay is not guaranteed with each review. Provided with written communication on insurance process and copay coverage during stay. Pt's goal is to return home with . However, cannot physically assist pt. Pt would need to return to [facility] to return home. SW will continue to follow for DC planning. Shima Reddy ECONOMICS ANALYST JUKEBOX ROUTE DRIVER
[2024-04-13] MEDS: oxyCODONE 5 MG Tablet PO (14:01)
[2024-04-13] MEDS: Tamsulosin HCl 0.4 MG Capsule PO (17:13)
[2024-04-13 18:41] VITALS: PULSE 72; RESP 16
[2024-04-13] MEDS: Atorvastatin Calcium 20 MG Tablet PO (20:57)
[2024-04-14] MEDS: Hydrocortisone 2.5% Crm 1 APPLIC TOPICAL ×2 (02:36→21:18)
[2024-04-14] MEDS: 0.9% Saline Lock 10 ML Syringe IV ×2 (05:58→09:45)
[2024-04-14] MEDS: Acetaminophen 500 MG Tablet 1000 MG PO ×3 (06:01→21:19)
[2024-04-14 06:50] VITALS: PULSE 66; RESP 16; O2SAT 95
[2024-04-14] MEDS: Budesonide Respules 0.5 MG/2 ML AMPUL.NEB. INHALATION ×2 (06:50→19:35)
[2024-04-14 07:17] LABS: International Normalized Ratio 3.3; Prothrombin Time (Protime)PT. 34.4 SECONDS (11.7-14.9)
[2024-04-14] MEDS: Gabapentin 600 MG Tablet PO ×3 (08:12→17:06)
[2024-04-14 08:13] VITALS: PULSE 75
[2024-04-14] MEDS: Metoprolol(XL)Succ 50 MG Tablet PO (08:13)
[2024-04-14] MEDS: Nystatin Powder 15gm Bottle 1 APPLIC TOPICAL (08:13)
[2024-04-14] MEDS: Doxycycline 100 MG CAPSULE PO ×2 (08:13→21:19)
[2024-04-14] MEDS: Pantoprazole Sodium 40 MG Tablet PO (08:14)
[2024-04-14] MEDS: Senna/Docusate Sodium 1 Tablet 2 TABLET PO ×2 (08:14→21:19)
[2024-04-14] MEDS: Folic Acid 1 MG Tablet PO (08:14)
[2024-04-14] MEDS: Azithromycin 250 MG Tablet PO (08:15)
[2024-04-14 08:17] VITALS: BP 99/55; PULSE 77; RESP 15; TEMP 36.4; O2SAT 96
[2024-04-14] MEDS: oxyCODONE 5 MG Tablet PO (09:45)
--- NOTE | 2024-04-14 09:58 | NURSING ---
pt stated heard audible pop when walking with PT yesterday, today stated to this nurse had some cracking in the groin and in hip but has not noted any more increased pain. made aware, Xray ordered.
--- NOTE | 2024-04-14 12:45 | RAD_ITS ---
PROCEDURE: HIP, UNI W/ PELVIS 2-3 VIEWS REASON FOR EXAM: Pain. TECHNIQUE: Two views of the right hip were obtained. COMPARISON: Comparison is made with prior study dated March 31, 2024. FINDINGS: The patient is status post right total hip replacement. There is good alignment. No fracture. No suspicious bone lesion. Normal alignment. Soft tissues are unremarkable. RAD/HIP, UNI W/ Pelvis 2-3 Views IMPRESSION: Status post right total hip replacement. Stable examination. Reading Location: [id number]
[2024-04-14 15:26] LABS: International Normalized Ratio 3.2; Prothrombin Time (Protime)PT. 33.4 SECONDS (11.7-14.9)
[2024-04-14] MEDS: Tamsulosin HCl 0.4 MG Capsule PO (17:07)
[2024-04-14 19:35] VITALS: PULSE 67; RESP 16
[2024-04-14 19:36] VITALS: RESP 16
[2024-04-14] MEDS: Atorvastatin Calcium 20 MG Tablet PO (21:19)
[2024-04-14 21:28] LABS: Anion Gap 11 (5-15); BUN 22 mg/dL (4-19); BUN/Creat Ratio 19.1 RATIO (10-20); Calcium 8.4 mg/dL (7.6-11.0); Carbon Dioxide 25.6 mmol/L (22.0-29.0); Chloride 99 mmol/L (96-108); Creatinine, Serum 1.16 mg/dL (0.70-1.20); EST Glomerular Filtration Rate 67 (>60); Glucose 103 mg/dL (70-99); Potassium 4.4 mmol/L (3.3-5.1); Sodium Level 136 mmol/L (133-145)
[2024-04-15] MEDS: 0.9% Saline Lock 10 ML Syringe IV ×2 (05:44→07:52)
[2024-04-15] MEDS: Acetaminophen 500 MG Tablet 1000 MG PO ×2 (05:44→22:40)
[2024-04-15 06:09] LABS: International Normalized Ratio 3.1; Prothrombin Time (Protime)PT. 32.9 SECONDS (11.7-14.9)
[2024-04-15] MEDS: Budesonide Respules 0.5 MG/2 ML AMPUL.NEB. INHALATION (06:47)
[2024-04-15 06:48] VITALS: PULSE 82; RESP 16
[2024-04-15] MEDS: Gabapentin 600 MG Tablet PO ×3 (07:43→16:17)
[2024-04-15 07:46] VITALS: BP 123/58; PULSE 66
[2024-04-15] MEDS: Pantoprazole Sodium 40 MG Tablet PO (07:46)
[2024-04-15] MEDS: Metoprolol(XL)Succ 50 MG Tablet PO (07:46)
[2024-04-15] MEDS: Doxycycline 100 MG CAPSULE PO ×2 (07:46→22:40)
[2024-04-15] MEDS: Folic Acid 1 MG Tablet PO (07:46)
[2024-04-15] MEDS: Senna/Docusate Sodium 1 Tablet 2 TABLET PO ×2 (07:47→22:40)
[2024-04-15] MEDS: Azithromycin 250 MG Tablet PO (07:47)
[2024-04-15] MEDS: Nystatin Powder 15gm Bottle 1 APPLIC TOPICAL ×2 (07:47→22:46)
[2024-04-15 07:53] VITALS: BP 123/58; PULSE 66; RESP 16; TEMP 36.4; O2SAT 98
--- NOTE | 2024-04-15 13:17 | NURSING ---
pt left unit at [address] gann
[2024-04-15] MEDS: Tamsulosin HCl 0.4 MG Capsule PO (16:18)
[2024-04-15] MEDS: Atorvastatin Calcium 20 MG Tablet PO (22:40)
[2024-04-15] MEDS: Hydrocortisone 2.5% Crm 1 APPLIC TOPICAL (22:42)
[2024-04-16] MEDS: Acetaminophen 500 MG Tablet 1000 MG PO ×3 (05:42→22:14)
[2024-04-16 07:30] VITALS: PULSE 64; RESP 16; O2SAT 99
[2024-04-16] MEDS: Budesonide Respules 0.5 MG/2 ML AMPUL.NEB. INHALATION (07:30)
[2024-04-16] MEDS: Azithromycin 250 MG Tablet PO (08:15)
[2024-04-16] MEDS: Pantoprazole Sodium 40 MG Tablet PO (08:15)
[2024-04-16] MEDS: Doxycycline 100 MG CAPSULE PO ×2 (08:15→22:13)
[2024-04-16] MEDS: Folic Acid 1 MG Tablet PO (08:15)
[2024-04-16] MEDS: Gabapentin 600 MG Tablet PO ×3 (08:15→17:37)
[2024-04-16 08:16] VITALS: BP 103/61; PULSE 66
[2024-04-16] MEDS: Senna/Docusate Sodium 1 Tablet 2 TABLET PO ×2 (08:16→22:13)
[2024-04-16] MEDS: Metoprolol(XL)Succ 50 MG Tablet PO (08:16)
[2024-04-16] MEDS: Nystatin Powder 15gm Bottle 1 APPLIC TOPICAL ×2 (08:16→22:17)
[2024-04-16] MEDS: 0.9% Saline Lock 10 ML Syringe IV (13:15)
[2024-04-16 14:39] VITALS: BP 112/55; PULSE 69; RESP 14; TEMP 36.8; O2SAT 95
[2024-04-16] MEDS: Tamsulosin HCl 0.4 MG Capsule PO (17:36)
[2024-04-16] MEDS: Atorvastatin Calcium 20 MG Tablet PO (22:14)
[2024-04-16] MEDS: Hydrocortisone 2.5% Crm 1 APPLIC TOPICAL (22:17)
[2024-04-16 22:56] VITALS: RESP 16
[2024-04-17] MEDS: Hydrocortisone 2.5% Crm 1 APPLIC TOPICAL ×2 (05:48→22:33)
[2024-04-17] MEDS: Acetaminophen 500 MG Tablet 1000 MG PO ×3 (05:48→22:14)
[2024-04-17 05:55] VITALS: PULSE 75; RESP 16; O2SAT 94
[2024-04-17] MEDS: Folic Acid 1 MG Tablet PO (07:50)
[2024-04-17] MEDS: Gabapentin 600 MG Tablet PO ×3 (07:50→17:25)
[2024-04-17 08:25] VITALS: PULSE 75; RESP 16; O2SAT 97
[2024-04-17] MEDS: Budesonide Respules 0.5 MG/2 ML AMPUL.NEB. INHALATION ×2 (08:25→19:35)
[2024-04-17] MEDS: Doxycycline 100 MG CAPSULE PO ×2 (10:28→22:14)
[2024-04-17] MEDS: Senna/Docusate Sodium 1 Tablet 2 TABLET PO ×2 (10:28→22:14)
[2024-04-17] MEDS: Pantoprazole Sodium 40 MG Tablet PO (10:28)
[2024-04-17 10:29] VITALS: PULSE 70
[2024-04-17] MEDS: Metoprolol(XL)Succ 50 MG Tablet PO (10:29)
[2024-04-17] MEDS: Nystatin Powder 15gm Bottle 1 APPLIC TOPICAL ×2 (10:30→22:14)
[2024-04-17 16:00] VITALS: BP 120/66; PULSE 69; RESP 16; TEMP 36.4; O2SAT 99
[2024-04-17] MEDS: Tamsulosin HCl 0.4 MG Capsule PO (17:26)
[2024-04-17 19:35] VITALS: PULSE 86; RESP 16; O2SAT 95
[2024-04-17] MEDS: Atorvastatin Calcium 20 MG Tablet PO (22:14)
[2024-04-18] MEDS: Hydrocortisone 2.5% Crm 1 APPLIC TOPICAL (05:44)
[2024-04-18] MEDS: Acetaminophen 500 MG Tablet 1000 MG PO ×3 (05:44→19:57)
[2024-04-18 05:55] LABS: International Normalized Ratio 2.9; Prothrombin Time (Protime)PT. 31.1 SECONDS (11.7-14.9)
[2024-04-18 05:58] VITALS: PULSE 68; O2SAT 95
[2024-04-18] MEDS: Budesonide Respules 0.5 MG/2 ML AMPUL.NEB. INHALATION (07:04)
[2024-04-18 07:05] VITALS: PULSE 78; RESP 18; O2SAT 98
[2024-04-18 08:00] VITALS: BP 132/64; PULSE 73; RESP 18; O2SAT 99
[2024-04-18 08:27] VITALS: BP 132/64; PULSE 73
[2024-04-18] MEDS: Gabapentin 600 MG Tablet PO ×3 (08:27→17:41)
[2024-04-18] MEDS: Folic Acid 1 MG Tablet PO (08:27)
[2024-04-18] MEDS: Doxycycline 100 MG CAPSULE PO (08:27)
[2024-04-18] MEDS: Metoprolol(XL)Succ 50 MG Tablet PO (08:27)
[2024-04-18] MEDS: Pantoprazole Sodium 40 MG Tablet PO (08:27)
[2024-04-18] MEDS: Senna/Docusate Sodium 1 Tablet 2 TABLET PO ×2 (08:28→19:56)
[2024-04-18] MEDS: Nystatin Powder 15gm Bottle 1 APPLIC TOPICAL ×2 (08:28→19:57)
--- NOTE | 2024-04-18 08:57 | MDS.RN ---
Information for the MDS was obtained from review of the clinical record, interview of resident, staff, and direct observation of resident?s care.
[2024-04-18] MEDS: Tamsulosin HCl 0.4 MG Capsule PO (17:41)
[2024-04-18] MEDS: Atorvastatin Calcium 20 MG Tablet PO (19:56)
[2024-04-19] MEDS: Acetaminophen 500 MG Tablet 1000 MG PO ×3 (05:35→21:58)
[2024-04-19 09:04] VITALS: PULSE 72
[2024-04-19] MEDS: Folic Acid 1 MG Tablet PO (09:04)
[2024-04-19] MEDS: Metoprolol(XL)Succ 50 MG Tablet PO (09:04)
[2024-04-19] MEDS: Gabapentin 600 MG Tablet PO ×3 (09:04→16:49)
[2024-04-19] MEDS: Nystatin Powder 15gm Bottle 1 APPLIC TOPICAL ×2 (09:04→22:03)
[2024-04-19] MEDS: Senna/Docusate Sodium 1 Tablet 2 TABLET PO ×2 (09:04→21:58)
[2024-04-19] MEDS: Pantoprazole Sodium 40 MG Tablet PO (09:04)
[2024-04-19 10:03] VITALS: BP 119/61; PULSE 72; RESP 18; TEMP 36.5; O2SAT 98
[2024-04-19] MEDS: oxyCODONE 5 MG Tablet PO (11:04)
[2024-04-19 11:48] VITALS: PULSE 68; RESP 16; O2SAT 98
[2024-04-19] MEDS: Budesonide Respules 0.5 MG/2 ML AMPUL.NEB. INHALATION ×2 (11:48→20:04)
[2024-04-19 13:32] VITALS: BMI 31.9
[2024-04-19] MEDS: Tamsulosin HCl 0.4 MG Capsule PO (16:49)
[2024-04-19 20:04] VITALS: PULSE 73; RESP 16
[2024-04-19] MEDS: Atorvastatin Calcium 20 MG Tablet PO (21:58)
[2024-04-19] MEDS: Hydrocortisone 2.5% Crm 1 APPLIC TOPICAL (21:59)
[2024-04-20] MEDS: Acetaminophen 500 MG Tablet 1000 MG PO ×3 (05:29→21:22)
[2024-04-20] MEDS: Hydrocortisone 2.5% Crm 1 APPLIC TOPICAL ×2 (05:33→21:25)
[2024-04-20 05:51] LABS: Absolute Lymphocyte Count 1.46 X10^3/uL (0.83-4.51); Absolute Neutrophil Count 2.4 X10^3/uL (2.0-7.7); Basophil# 0.05 X10^3/uL; Basophil% 1.1 % (0-1); Eosinophil# 0.37 X10^3/uL; Eosinophils% 7.8 % (0-5); Hematocrit 30.8 % (40-54); Hemoglobin 9.9 g/dL (13.0-16.5); Lymphocyte # 1.46 X10^3/ul (0.83-4.51); Lymphocyte % 30.7 % (19-41); Mean Corp Hgb Conc 32.1 g/dL (32-36); Mean Corpuscular Hgb 31.9 pg (27.0-32.0); Mean Corpuscular Volume 99.4 fL (80-94); Mean Platelet Vol. 9.5 fl (6.2-12.0); Monocyte# 0.42 X10^3/uL; Monocyte% 8.8 % (0-10); NRBC Flagged by Analyzer 0 % (0-5); Neutrophil # 2.42 X10^3/uL (2.7-7.7); Platelet Count 192 K/mm3 (150-450); RBC Distribution Width CV 16.3 % (11.6-14.6); RBC Distribution Width SD 59.7 fl (35.1-43.9); White Blood Count 4.8 K/mm3 (4.4-11.0)
[2024-04-20 06:06] LABS: Anion Gap 8 (5-15); BUN 22 mg/dL (4-19); BUN/Creat Ratio 21.5 RATIO (10-20); Calcium,Total 8.5 mg/dL (7.6-11.0); Carbon Dioxide 26.9 mmol/L (21.0-32.0); Chloride 102 mmol/L (98-108); Creatinine, Serum 1.02 mg/dL (0.70-1.20); EST Glomerular Filtration Rate 79 (>60); Estimated Creatinine Clearance 83.89 ml/min (50-250); Glucose 100 mg/dL (70-99); Potassium 4.3 mmol/L (3.3-5.1); Sodium Level 136 mmol/L (133-145)
[2024-04-20 09:20] VITALS: BP 120/61; PULSE 76; RESP 14; TEMP 36.4; O2SAT 96
[2024-04-20] MEDS: Gabapentin 600 MG Tablet PO ×3 (09:26→16:49)
[2024-04-20] MEDS: Pantoprazole Sodium 40 MG Tablet PO (09:26)
[2024-04-20] MEDS: Folic Acid 1 MG Tablet PO (09:26)
[2024-04-20 09:27] VITALS: PULSE 69
[2024-04-20] MEDS: Senna/Docusate Sodium 1 Tablet 2 TABLET PO ×2 (09:27→21:22)
[2024-04-20] MEDS: Metoprolol(XL)Succ 50 MG Tablet PO (09:27)
[2024-04-20] MEDS: oxyCODONE 5 MG Tablet PO (13:02)
[2024-04-20] MEDS: Tamsulosin HCl 0.4 MG Capsule PO (16:50)
[2024-04-20] MEDS: Atorvastatin Calcium 20 MG Tablet PO (21:23)
[2024-04-21 01:05] VITALS: PULSE 76; RESP 16; O2SAT 96
[2024-04-21] MEDS: Acetaminophen 500 MG Tablet 1000 MG PO ×3 (05:43→20:15)
[2024-04-21 07:39] LABS: International Normalized Ratio 3.4; Prothrombin Time (Protime)PT. 35.4 SECONDS (11.7-14.9)
[2024-04-21 08:00] VITALS: PULSE 77; RESP 20
[2024-04-21] MEDS: Budesonide Respules 0.5 MG/2 ML AMPUL.NEB. INHALATION ×2 (08:00→18:55)
[2024-04-21 08:48] VITALS: PULSE 71
[2024-04-21] MEDS: Gabapentin 600 MG Tablet PO ×3 (08:48→16:51)
[2024-04-21] MEDS: Senna/Docusate Sodium 1 Tablet 2 TABLET PO ×2 (08:48→20:16)
[2024-04-21] MEDS: Folic Acid 1 MG Tablet PO (08:48)
[2024-04-21] MEDS: Metoprolol(XL)Succ 50 MG Tablet PO (08:48)
[2024-04-21] MEDS: Pantoprazole Sodium 40 MG Tablet PO (08:48)
[2024-04-21 09:44] VITALS: BP 109/57; PULSE 71; RESP 17; TEMP 36.4; O2SAT 98
[2024-04-21] MEDS: oxyCODONE 5 MG Tablet PO (13:18)
[2024-04-21] MEDS: Tamsulosin HCl 0.4 MG Capsule PO (16:51)
[2024-04-21 18:55] VITALS: PULSE 70; RESP 18
[2024-04-21] MEDS: Atorvastatin Calcium 20 MG Tablet PO (20:15)
[2024-04-22] MEDS: Acetaminophen 500 MG Tablet 1000 MG PO ×3 (05:39→21:04)
[2024-04-22 07:48] VITALS: BP 109/69; PULSE 52; RESP 14; TEMP 36.7; O2SAT 97
[2024-04-22 07:58] VITALS: BP 140/82; PULSE 70
[2024-04-22] MEDS: Gabapentin 600 MG Tablet PO ×3 (08:04→17:06)
[2024-04-22] MEDS: Folic Acid 1 MG Tablet PO (08:05)
[2024-04-22] MEDS: Pantoprazole Sodium 40 MG Tablet PO (08:07)
[2024-04-22 08:08] VITALS: BP 148/90; PULSE 70
[2024-04-22] MEDS: Senna/Docusate Sodium 1 Tablet 2 TABLET PO ×2 (08:08→21:03)
[2024-04-22] MEDS: Metoprolol(XL)Succ 50 MG Tablet PO (08:08)
[2024-04-22] MEDS: Hydrocortisone 2.5% Crm 1 APPLIC TOPICAL (08:12)
--- NOTE | 2024-04-22 09:54 | CASEMGMT ---
Social Work Insurance issued LCD 04/24, DC 04/25. SW spoke with pt and pt elected to DC 04/24 d/t no therapy on 04/24 or 04/25 (Thursday and day of discharge). IDT recommending FWW and skilled HHC at DC. Pt stated sister already purchased a walker, and did agree to HHC. SW provided pt with printed list of INN providers that include quality and resource data via [employer]. [facility]. Pt's GRABIEL can transport and agreed to assist pt with navigating steps. Completed BIMS () and PHQ-2 () for MDS assessment. - Phoned referral to [facility] for PT/OT Plan: DC home with 04/24, [facility] PT/OT Shima PERKINS
--- NOTE | 2024-04-22 13:46 | DS.PCM_ITS ---
Providers Date of Admission: 04/05/24 Primary Care Physician: Dr. Yobain Negron MD Reason For Visit: RT HIP FX AFTER FALL Diagnosis Discharge Diagnosis (1) Debility: Status: Acute Code(s): R53.81 - Other malaise (2) Closed right hip fracture: Status: Acute Code(s): S72.001A - Fracture of unspecified part of neck of right femur, initial encounter for closed fracture (3) Acute respiratory failure with hypoxia and hypercapnia: Status: Acute Code(s): J96.01 - Acute respiratory failure with hypoxia; J96.02 - Acute respiratory failure with hypercapnia (4) Essential hypertension: Status: Inactive Code(s): I10 - Essential (primary) hypertension (5) Hyperlipidemia: Status: Chronic Code(s): E78.5 - Hyperlipidemia, unspecified Qualifiers: Hyperlipidemia type: unspecified Qualified Code(s): E78.5 - Hyperlipidemia, unspecified (6) Persistent atrial fibrillation: Status: Inactive Code(s): I48.1 - Persistent atrial fibrillation (7) PAOD (peripheral arterial occlusive disease): Status: Acute Code(s): I77.9 - Disorder of arteries and arterioles, unspecified (8) COPD (chronic obstructive pulmonary disease): Status: Inactive Code(s): J44.9 - Chronic obstructive pulmonary disease, unspecified Qualifiers: COPD type: unspecified COPD Qualified Code(s): J44.9 - Chronic obstructive pulmonary disease, unspecified (9) Tobacco abuse: Status: Acute Code(s): Z72.0 - Tobacco use (10) Neuropathic pain: Status: Acute Code(s): M79.2 - Neuralgia and neuritis, unspecified Plan 73 year old male with below past medical history hospitalized for right hip fracture, underwent right hip hemiarthroplasty 03/31/[address] Isaacs, postoperative course complicated by acute respiratory failure with hypoxia, prolonged intubation, admitted to TCU with debility, here for rehabilitation, strengthening, prior to discharge home with . * Debility - PT/OT. * Pain - Tylenol 1000mg q8, Oxycodone 5mg q4 prn pain (1-10). * Bowel - senna/colace 2 tablets bid, Magnesium citrate 300mL daily prn, Lactulose 20gm po x 1 dose. * Adult immunization - Administer pneumonia vaccine, covid vaccine, flu vaccine as appropriate. * DVT prophylaxis - Lovenox/Warfarin. * COPD - Budesonide 0.5mg inhaled bid, Albuterol 2 puffs q4 prn. * Hypertension - Metoprolol succinate 50mg daily, Lisinopril 20mg daily, Amlodipine 5mg daily. * Hyperlipidemia - Atorvastatin 20mg qhs. * Atrial fibrillation - Metoprolol succinate 50mg daily, warfarin 6mg daily, Lovenox 40mg sc daily thru 04/13/2024 bridge. Stop aspirin, adding aspirin to warfarin increases risk of bleeding without lowering cardiovascular risk. * Folate deficiency - Folic acid 1mg daily. * Neuropathic pain - Gabapentin 600g tidcm. * Tinea corporis - Nystatin powder topical bid. * GERD - Pantoprazole 40mg daily. Medications at Discharge Home Medications atorvastatin 20 mg tablet 20 mg PO QHS cholesterol 08/21/14 gabapentin 300 mg capsule 600 mg PO TIDCM pain 08/21/14 folic acid 1 mg tablet 1 mg PO DAILY Supplement 05/22/21 warfarin 6 mg tablet 6 mg PO DAILY Anticoagulant 03/29/24 budesonide 0.5 mg/2 mL suspension for nebulization 0.5 mg (2 mL) inhalation BID.RT COPD 30 days #0 mL 04/05/24 acetaminophen 500 mg tablet 1,000 mg (2 x 500 mg) PO Q8 #0 tabs 04/22/24 metoprolol succinate 50 mg tablet,extended release 24 hr 50 mg PO DAILY 30 days #30 tabs 04/22/24 oxycodone 5 mg tablet 5 mg PO Q4H PRN Pain Score 1-10 Or Pre Pt/Ot 7 days #28 tabs 04/22/24 pantoprazole 40 mg tablet,delayed release 40 mg PO DAILY 30 days #30 tabs 04/22/24 sennosides 8.6 mg-docusate sodium 50 mg tablet (Stimulant Laxative Plus) 2 tab PO BID 30 days #120 tabs 04/22/24 tamsulosin 0.4 mg capsule 0.4 mg PO DAILY@1730 30 days #30 caps 04/22/24 Hospital Course Operations - (Right hip hemiarthroplasty.) Procedures None Summary of Care Provided Minutes Spent on Discharge: 35 Hospital Course: 73 year old male with below past medical history hospitalized for right hip fracture, underwent right hip hemiarthroplasty 03/31/[address] Isaacs, postoperative course complicated by acute respiratory failure with hypoxia, prolonged intubation, admitted to TCU with debility, here for rehabilitation, strengthening, prior to discharge home with . 04/06/2024 Urinary retention/bph - add Tamsulosin 0.4mg daily, indwelling wagner catheter, wagner removed. 04/11/2024 Cellulitis right hip incision - Surrounding area erythematous, warm, firm to palpation, suspect hematoma/seroma, will order sq ultrasound, start Doxycycline 2/ allergies, interaction with warfarin. 04/11/2024 Right hip ultrasound. IMPRESSION: Edematous changes at the site of the right groin incision. No fluid collection is seen. Discharge home with 04/24/2024, [facility] PT/OT. Physical Exam Const alert General Appearance: cooperative HEENT normocephalic Eyes PERRL and EOMs intact bilaterally Neck supple, no JVD and no carotid bruits Resp normal respiratory effort, normal air movement and clear to auscultation bilaterally Cardio regular rate and regular rhythm GI normal to inspection, nondistended, normoactive bowel sounds, non-tender and non-distended Extremity normal capillary refill General Extremity: Negative for edema Skin no rashes or lesions noted General Skin Exam: no breakdown Psych affect normal Appearance: appropriate Weight / BMI Weight Weight: 106.821 kg Body Mass Index (BMI) 31.9 ABG / Lab / Microbiology Data 04/20/24 05:11 04/20/24 05:11 Microbiology: Microbiology 04/06/24 05:45 Nasal Secretion SARS-CoV-2 Antigen (Rapid) - Final D/C Instructions Discharge Diet: No restrictions Discharge Activity: Return to Normal Activity, May Shower and Use Walker Weight Bearing Status: Weight bearing as tolerated Call your doctor if you observe: Fever of 101 or Higher, Inability to urinate, Inability to have a bowel movement, Shortness of breath, Dizziness, Fainting spells, Swelling in the ankles, Chest pain and Uncontrolled pain DC O2, CPAP, BIPAP Needs Home O2 Discharge instructions: No Additional Instructions: Discharge home with 04/24/2024, [facility] PT/OT. Please Follow Up With: Dr. Andres Isaacs When: As scheduled. Meaningful Use Info Meaningful Use Meaningful Use Diagnoses (Choose all that apply): None applicable Ischemic Stroke Statin Dosing Therapy Reference: STATIN DOSE THERAPY REFERENCE: * Patients > 75 years receive moderate or high dose statin therapy. * Patients 75 years or YOUNGER should receive HIGH intensity statin dose unless contraindicated. You will be required to document reason for non-treatment if statin daily dose does not meet guidelines. HIGH DOSE STATIN THERAPY DAILY Atorvastatin > than or = to 40 mg Rosuvastatin > than or = to 20 mg Amlodipine + Atorvastatin > than or = to 2.5/40 mg Ezetimibe + Simvastatin 10/80 mg Simvastatin 80mg Discharge Plan Admission Admit Date/Time: 04/05/24 13:47 Primary Reason for Your Visit: Debility. Attending Provider: Enrique Smiley Chi Primary Care Provider: Yobani Negron Instructions Additional Instructions / Restrictions: Discharge home with 04/24/2024, [facility] PT/OT. Discharge Orders/Prescriptions Prescriptions: New metoprolol succinate 50 mg Tablet Extended Release 24 Hr 50 mg PO DAILY 30 Days Qty: 30 0RF sennosides-docusate sodium [Stimulant Laxative Plus] 8.6-50 mg Tablet 2 tab PO BID 30 Days Qty: 120 0RF acetaminophen 500 mg Tablet 1,000 mg PO Q8 Qty: 0 0RF tamsulosin 0.4 mg Capsule 0.4 mg PO DAILY@1730 30 Days Qty: 30 0RF pantoprazole 40 mg Tablet,Delayed Release (Dr/Ec) 40 mg PO DAILY 30 Days Qty: 30 0RF oxycodone 5 mg Tablet 5 mg PO Q4H PRN (Reason: Pain Score 1-10 Or Pre Pt/Ot) 7 Days Qty: 28 0RF Continued folic acid 1 mg tablet 1 mg PO DAILY atorvastatin 20 MG tablet 20 mg PO QHS Patient Comments: CHOLESTEROL gabapentin 300 MG capsule 600 mg PO TIDCM Patient Comments: PAIN, NEUROPATHY warfarin 6 mg tablet 6 mg PO DAILY budesonide 0.5 mg/2 mL Suspension For Nebulization 0.5 mg inhalation BID.RT 30 Days Qty: 0 0RF Discontinued albuterol sulfate 90 mcg/actuation HFA aerosol inhaler 2 puff INHALATION Q4H PRN (Reason: Sob &/Or Wheezing) amlodipine 5 mg tablet 5 mg PO DAILY Qty: 90 3RF aspirin 81 MG tablet,chewable 81 mg PO DAILY@0800 Patient Comments: [facility] metoprolol succinate 50 mg Tablet Extended Release 24 Hr 50 mg PO DAILY 30 Days Qty: 0 0RF lisinopril 20 mg Tablet 20 mg PO DAILY 30 Days Qty: 0 0RF sennosides-docusate sodium [Stimulant Laxative Plus] 8.6-50 mg Tablet 1 tab PO BID 14 Days Qty: 0 0RF pantoprazole 40 mg Tablet,Delayed Release (Dr/Ec) 40 mg PO DAILY 30 Days Qty: 0 0RF acetaminophen [Tylenol Extra Strength] 500 mg tablet 1,000 mg PO Q8 14 Days Qty: 84 0RF oxycodone 5 mg tablet 5 mg PO Q6H PRN (Reason: pain) 3 Days Qty: 12 0RF Referrals / Follow Up: Yobani Negron MD [Primary Care Provider] - 04/27/24 10:00 am Andres Isaacs MD [Med Staff - Active Staff] - 05/12/24 10:30 am (6 week post- op follow-up) Disposition Disposition (needs filled in before D/C Order can be placed): Home Health Service
[2024-04-22] MEDS: Tamsulosin HCl 0.4 MG Capsule PO (17:05)
[2024-04-22] MEDS: Atorvastatin Calcium 20 MG Tablet PO (21:04)
[2024-04-23] MEDS: Hydrocortisone 2.5% Crm 1 APPLIC TOPICAL ×3 (00:23→22:37)
[2024-04-23] MEDS: Acetaminophen 500 MG Tablet 1000 MG PO ×3 (06:27→21:34)
[2024-04-23 06:50] VITALS: PULSE 71; RESP 18
[2024-04-23] MEDS: Budesonide Respules 0.5 MG/2 ML AMPUL.NEB. INHALATION ×2 (06:50→19:34)
[2024-04-23 09:10] VITALS: PULSE 66
[2024-04-23] MEDS: Metoprolol(XL)Succ 50 MG Tablet PO (09:10)
[2024-04-23] MEDS: Senna/Docusate Sodium 1 Tablet 2 TABLET PO ×2 (09:10→21:33)
[2024-04-23] MEDS: Pantoprazole Sodium 40 MG Tablet PO (09:10)
[2024-04-23] MEDS: Folic Acid 1 MG Tablet PO (09:10)
[2024-04-23] MEDS: Gabapentin 600 MG Tablet PO ×3 (09:54→17:01)
[2024-04-23] MEDS: oxyCODONE 5 MG Tablet PO (10:08)
[2024-04-23 12:15] VITALS: BP 120/64; PULSE 66; RESP 14; TEMP 36.5; O2SAT 97
[2024-04-23] MEDS: Tamsulosin HCl 0.4 MG Capsule PO (17:01)
[2024-04-23 19:34] VITALS: PULSE 72; RESP 18
[2024-04-23] MEDS: Atorvastatin Calcium 20 MG Tablet PO (21:34)
[2024-04-24] MEDS: Acetaminophen 500 MG Tablet 1000 MG PO (05:45)
[2024-04-24] MEDS: Hydrocortisone 2.5% Crm 1 APPLIC TOPICAL (05:54)
[2024-04-24 07:07] VITALS: PULSE 65; RESP 18
[2024-04-24 08:00] VITALS: BP 103/71; PULSE 60; RESP 18; TEMP 36.3; O2SAT 97
[2024-04-24 08:04] VITALS: BP 103/71; PULSE 60
[2024-04-24] MEDS: Metoprolol(XL)Succ 50 MG Tablet PO (08:04)
[2024-04-24] MEDS: Folic Acid 1 MG Tablet PO (08:04)
[2024-04-24] MEDS: Pantoprazole Sodium 40 MG Tablet PO (08:04)
[2024-04-24] MEDS: Senna/Docusate Sodium 1 Tablet 2 TABLET PO (08:04)
[2024-04-24] MEDS: Gabapentin 600 MG Tablet PO (08:04)
[2024-04-24 10:18] VITALS: BP 103/71; PULSE 60; RESP 18; TEMP 36.3; O2SAT 97
== END 2024-04-24 11:40 | disposition home health service (06) | DRG 560 ==
PROVIDERS: Admitting Provider Family Medicine Geriatric Medicine; PCP Family Medicine; Visit Provider Family Medicine Geriatric Medicine
DX: S72.001D Fracture of unspecified part of neck of right femur, subsequent encounter for closed fracture with routine healing (principal); I48.19 Other persistent atrial fibrillation; L03.115 Cellulitis of right lower limb; E53.8 Deficiency of other specified B group vitamins; B35.4 Tinea corporis; E78.5 Hyperlipidemia, unspecified; G62.9 Polyneuropathy, unspecified; J44.9 Chronic obstructive pulmonary disease, unspecified; I73.9 Peripheral vascular disease, unspecified; I10 Essential (primary) hypertension; W19.XXXD Unspecified fall, subsequent encounter; Z87.891 Personal history of nicotine dependence; Z79.82 Long term (current) use of aspirin; Z79.51 Long term (current) use of inhaled steroids; Z79.01 Long term (current) use of anticoagulants; N40.1 Benign prostatic hyperplasia with lower urinary tract symptoms; R33.8 Other retention of urine; Z96.641 Presence of right artificial hip joint; Z79.899 Other long term (current) drug therapy
CPT/HCPCS: 36415; 73502; 76882; 80048; 80061; 85025; 85610; 85652; 86140; 87811; 94640; 97110; 97116; 97162; 97166; 97530; 97535; 97802; A4216

== ENCOUNTER 2024-07-29 14:17 | Outpatient (RCR) | payer MEDICARE, SELFPAY ==
[2024-04-16 03:52] VITALS: BMI 31.4
[2024-07-29 15:24] LABS: International Normalized Ratio 2.2; Prothrombin Time (Protime)PT. 25.1 SECONDS (11.7-14.9)
== END 2024-07-29 18:00 | disposition home or self-care (01) ==
LOC: LAB 14:17
PROVIDERS: Family Provider Family Medicine; PCP Family Medicine; Referring Provider Specialist; Visit Provider Specialist
DX: Z79.01 Long term (current) use of anticoagulants (principal); I48.19 Other persistent atrial fibrillation
CPT/HCPCS: 36415; 85610

== ENCOUNTER 2024-09-02 14:57 | Outpatient (RCR) | payer MEDICARE, SELFPAY ==
[2024-09-02 15:43] LABS: Prothrombin Time (Protime)PT. 24.1 SECONDS (11.7-14.9)
== END 2024-09-15 20:57 | disposition home or self-care (01) ==
LOC: LAB 14:57
PROVIDERS: Family Provider Family Medicine; PCP Family Medicine; Referring Provider Specialist; Visit Provider Specialist
DX: Z79.01 Long term (current) use of anticoagulants (principal); I48.19 Other persistent atrial fibrillation
CPT/HCPCS: 36415; 85610

== ENCOUNTER 2024-10-06 15:03 | Outpatient (RCR) | payer MEDICARE, SELFPAY ==
[2024-10-06 15:52] LABS: Prothrombin Time (Protime)PT. 22.1 SECONDS (11.7-14.9)
== END 2024-10-06 18:00 | disposition home or self-care (01) ==
LOC: LAB 15:03
PROVIDERS: Family Provider Family Medicine; PCP Family Medicine; Referring Provider Specialist; Visit Provider Specialist
DX: Z79.01 Long term (current) use of anticoagulants (principal); I48.19 Other persistent atrial fibrillation
CPT/HCPCS: 36415; 85610

== ENCOUNTER 2024-12-01 15:31 | Outpatient (RCR) | payer MEDICARE, SELFPAY ==
[2024-11-17 15:27] LABS: Prothrombin Time (Protime)PT. 21.3 SECONDS (11.7-14.9)
[2024-12-01 16:29] LABS: Prothrombin Time (Protime)PT. 26.1 SECONDS (11.7-14.9)
== END 2024-12-01 18:00 | disposition home or self-care (01) ==
LOC: LAB 15:31
PROVIDERS: Internal Medicine Cardiovascular Disease; Family Provider Family Medicine; PCP Family Medicine; Referring Provider Specialist; Visit Provider Specialist
DX: Z79.01 Long term (current) use of anticoagulants (principal); I48.91 Unspecified atrial fibrillation
CPT/HCPCS: 36415; 85610

== ENCOUNTER 2024-12-23 14:30 | Outpatient (RCR) | payer MEDICARE, SELFPAY ==
[2024-12-23 15:47] LABS: Prothrombin Time (Protime)PT. 26.6 SECONDS (11.7-14.9)
[2024-12-23 16:03] LABS: Anion Gap 11 (5-15); BUN 49 mg/dL (4-19); BUN/Creat Ratio 29.3 RATIO (10-20); Calcium,Total 8.7 mg/dL (7.6-11.0); Carbon Dioxide 25.9 mmol/L (21.0-32.0); Chloride 104 mmol/L (98-108); Glucose 84 mg/dL (70-99); Potassium 4.8 mmol/L (3.3-5.1)
== END 2025-01-14 18:00 | disposition home or self-care (01) ==
LOC: LAB 14:30
PROVIDERS: Student in an Organized Health Care Education/Training Program; Family Provider Family Medicine; PCP Family Medicine; Referring Provider Specialist; Visit Provider Specialist
DX: Z79.01 Long term (current) use of anticoagulants (principal); I48.91 Unspecified atrial fibrillation
CPT/HCPCS: 36415; 80048; 85610

== ENCOUNTER → 2025-01-02 | Outpatient (CLI) | payer MEDICARE, SELFPAY ==
[2025-01-02 16:21] LABS: Anion Gap 10 (5-15); BUN 48 mg/dL (4-19); BUN/Creat Ratio 28.5 RATIO (10-20); Calcium,Total 9.3 mg/dL (7.6-11.0); Carbon Dioxide 27.2 mmol/L (21.0-32.0); Chloride 105 mmol/L (98-108); Glucose 101 mg/dL (70-99); Potassium 5.3 mmol/L (3.3-5.1)
== END | disposition home or self-care (01) ==
LOC: LAB 14:56
PROVIDERS: PCP Family Medicine; Referring Provider Student in an Organized Health Care Education/Training Program; Visit Provider Student in an Organized Health Care Education/Training Program
DX: N17.9 Acute kidney failure, unspecified (principal)
CPT/HCPCS: 36415; 80048

== ENCOUNTER 2025-01-23 08:13 | Inpatient (IN) | payer MEDICARE, SELFPAY ==
[2025-01-23] VITALS (11 sets, daily range): BP systolic 102–132; BP diastolic 54–98; PULSE 77–90; RESP 18–20; TEMP 36.8–37.7; O2SAT 88–96; BMI 35.8; BMI 34.6
--- NOTE | 2025-01-23 08:34 | EDS_ITS ---
HPI History of Present Illness Chief Complaint: Fall Informant: patient and EMS Narrative Narrative: Patient is a 74-year-old male with a history of knee surgery, hip fracture, neuropathy, and A-fib on warfarin, presenting with weakness and right knee pain. - Reports sudden onset of weakness this morning, causing difficulty standing and necessitating assistance to the bathroom. - Right knee, previously operated on 50 years ago, experienced multiple cracks while attempting to stand this AM; denies pain with knee extension but reports pain when weight-bearing. - Denies any recent trauma or injury. - Has a history of hip fracture/ORIF about 10 months ago, requiring a cane or walker for ambulation since; reports chronic right hip pain exacerbated by leg elevation. Diagnosed with neuropathy, causing numbness in feet and contributing to ambulation difficulties. - Reports chronic lower extremity edema, currently improving. - Denies chest pain, dyspnea, abdominal pain, emesis, or diarrhea. - Reports a cough with sputum production, denies hemoptysis. - Denies dysuria, but had difficulty reaching the bathroom this morning. - On warfarin 6 mg daily for A-fib. 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 Persistent atrial fibrillation Essential hypertension Hyperlipidemia Erectile dysfunction Depression COPD (chronic obstructive pulmonary disease) Home Medications ?Medication ?Instructions ?Recorded ?Last Taken ?Type atorvastatin 20 mg tablet 20 mg PO QHS cholesterol 07/3101/22/25 History gabapentin 300 mg capsule 600 mg PO TIDCM pain 5 01/22/25 History folic acid 1 mg tablet 1 mg PO DAILY Supplement 08/0701/22/25 History metoprolol succinate 50 mg 50 mg PO DAILY 30 days #30 tabs 04/22/24 01/22/25 Rx tablet,extended release 24 hr furosemide 40 mg tablet 40 mg PO QDAY 12/02/2401/22 History acetaminophen 500 mg tablet 1,000 mg PO Q6H PRN fever or pain 01/23/25 Unknown History amlodipine 5 mg tablet 5 mg PO DAILY 01/23/2501/22 History lisinopril 20 mg tablet 20 mg PO DAILY 01/23/25/09/09 History warfarin 4 mg tablet 6 mg PO SUMOTUWETHSA 5 01/22/25 History warfarin 4 mg tablet 8 mg PO FR 01/23/25 01/20/25 History Allergy/AdvReac Type Severity Reaction Status Date / Time amoxicillin Allergy Unknown Unknown Verified 01/23/25 08:20 clindamycin Allergy Unknown Unknown Verified 01/23/25 08:20 Penicillins (PCN) Allergy Unknown Unknown Verified 01/23/25 08:20 Sulfa (Sulfonamide Allergy Unknown Unknown Verified 01/23/25 08:20 Antibiotics) Family History Father Emphysema lung Mother , DVT History of DVT (deep vein thrombosis) Grandfather Cancer lung Surgical History History of hip replacement Femoral-femoral bypass graft thrombosis, 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) History of angioplasty of peripheral vessel (06/2021) Hx of colonoscopy Hx of right knee surgery Hx of aorto-femoral bypass Hx of appendectomy Social History household members: spouse Smoking Status: Former smoker how long ago did patient quit smokin year ago second hand exposure: No alcohol intake: never substance use type: does not use caffeine: Yes Type: coffee Number of servings: 3 frequency: does not exercise ROS ROS ED Constitutional Constitutional ED: Reports weakness; Denies chills or fever(s) Eyes Eyes: Denies change in vision or diplopia ENT ENT ED: Denies ear pain, rhinorrhea or sore throat Cardiovascular Cardiovascular: Denies chest pain or palpitations Respiratory/Chest Respiratory/Chest: Reports cough and sputum; Denies dyspnea Gastrointestinal Gastrointestinal: Denies abdominal pain, diarrhea, nausea or vomiting Genitourinary Genitourinary ED: Denies dysuria or hematuria Musculoskeletal Musculoskeletal: Reports arthralgias; Denies back pain or neck pain Integumentary Denies abscess or rash Neurologic Neurologic: Denies headache(s), paresthesias or weakness Psychiatric Psychiatric: Denies anxiety or suicidal thoughts EXAM Physical Exam Const Vital Signs: 01/23/25 08:17 01/23/25 08:20 01/23/25 08:23 Temperature 100 F H 100 F H Temperature Source Oral Oral Pulse Rate 89 90 Respiratory Rate 18 20 H Respiratory Effort Normal Blood Pressure 102/69 102/69 Blood Pressure Mean 80 80 Pulse Ox 90 90 Oxygen Delivery Method Room Air Room Air Room Air 01/23/25 08:31 01/23/25 09:20 01/23/25 10:15 Temperature 98.8 F 98.2 F Temperature Source Oral Oral Pulse Rate 90 77 Respiratory Rate 20 H 18 Respiratory Effort Blood Pressure 106/54 L 109/98 H Blood Pressure Mean 71 101 Pulse Ox 92 93 Oxygen Delivery Method Room Air Room Air Nasal Cannula Positive well nourished and well developed General Appearance ED: well developed and NAD HEENT Reports moist mucous membranes normocephalic and atraumatic Eyes PERRL and EOMs intact bilaterally Neck full ROM and supple Resp normal respiratory effort Resp Narrative: Rales right base Cardio no murmurs Rate: Negative for tachycardic Rhythm: abnormal rhythm irregularly irregular GI non-tender and non-distended Auscultation: normoactive bowel sounds Palpation: soft Back/Spine no CVA tenderness General Back: other FROM Extremity normal to inspection Extremity Narrative: Some mild pain with ranging the right hip but he is able. Limited range of motion of the right knee at extreme flexion but without pain and ligaments are all stable with short endpoint on stressing. No effusion. No bony tenderness. Otherwise full range of motion of his extremities. General Extremety ED: Yes edema; Negative for pulses abnormal or tenderness General Extremity: edema bilateral lower extremity Details: moderate; Negative for pulses abnormal Neuro oriented x3, CN's II-XII intact bilaterally and no sensory deficits noted Sensorium / Orientation: awake and alert Motor Exam: general weakness Psych mental status grossly normal Skin no rashes or lesions noted and no wounds Sepsis Attestation Sepsis Alert: Yes Sepsis Attestation: Agree w/Sepsis (w/ SIRS crit) Date exam was performed: 01/23/25 Time exam was performed: 10:09 Possible Source of Sepsis: Pulmonary and Genitourinary Sepsis Organ Dysfunction Criteria Present: Lactic Acid > 2 mmol/L Supportive Findings: generally weak, leukocytosis, low-grade fever, hypoxemia Fluid Resuscitation Fluid resuscitation indicated?: Yes Fluid Resuscitation ordered: Lesser volume fluid bolus ordered Amount of fluid ordered: 500 (ml) Reason for lesser fluid bolus:: BP Responded to a lesser volume Sepsis Note Date exam was performed: 01/23/25 Time exam was performed: 10:50 Sepsis Attestation: Sepsis re-evaluation was performed Response to fluids: Fluid responsive hypotension MDM MDM MDM Narrative Medical decision making narrative: Assessment: The patient is a 74-year-old male with PMH of atrial fibrillation on warfarin, prior hip fracture repair, and peripheral neuropathy presenting for acute generalized weakness, low-grade fever, and productive cough. Chest auscultation reveals right basal congestion and radiology reads the chest X-ray as unremarkable, yet clinically pneumonia remains likely. Leukocytosis to 16.5, lactate 2.6, mild creatinine bump to 1.84 from 1.68, and resting desaturation to 86% meet criteria for early sepsis per SIRS criteria (not sofa). Given these findings, early sepsis likely secondary to clinical community-acquired pneumonia with associated hypoxemia is the working diagnosis; urine study is negative, making UTI unlikely. Plan: - 500 mL IV crystalloid bolus completed - Started broad-spectrum IV antibiotics (non-penicillin due to allergy) for suspected CAP early sepsis - Oxygen via 2 L nasal cannula for hypoxemia - Admit to hospital medicine for continued IV antibiotics, sepsis protocol, and oxygen therapy given early sepsis and need for monitoring Diagnostics: - Chest X-ray: interpreted by radiology as negative; clinically concern for right base pneumonia remains - Labs: WBC 16.5 K/?L; lactate 2.6 mmol/L; creatinine 1.84 mg/dL (baseline 1.68 three weeks prior) - Urinalysis: negative Reevaluations: - After 500 mL IV fluids BP 109/98; SpO2 improved to 92% on 2 L NC; remains hemodynamically stable Portions of this note were generated using voice recognition software ([employer] Dict[employer]). I have reviewed the contents and every effort has been made to ensure accuracy; however, inadvertent errors in grammar, spelling, punctuation, or word choice may occur, that were not noted before signing the document and should not alter the intended clinical meaning. Lab Data Attestation: I reviewed the patient's lab results. Labs: Laboratory Results - last 24 hr 01/23/25 01/23/25 01/23/25 08:20 08:40 10:00 WBC 16.5 H RBC 3.41 L Hgb 11.8 L Hct 35.2 L MCV 103.2 H MCH 34.6 H MCHC 33.5 RDW Std Deviation 59.9 H RDW Coeff of [place] 15.8 H Plt Count 164 MPV 10.5 Immature Gran % (Auto) 0.700 Neut % (Auto) 84.1 H Lymph % (Auto) 9.6 L [place] % (Auto) 5.0 Eos % (Auto) 0.4 Baso % (Auto) 0.2 Absolute Neuts (auto) 13.9 H Absolute Lymphs (auto) 1.58 Nucleated RBC % 0 PT 22.0 H INR 1.9 APTT 29.1 Sodium 140 Potassium 4.4 Chloride 103 Carbon Dioxide 22.9 Anion Gap 15 BUN 36 H Creatinine 1.84 H Estim Creat Clear Calc 48.50 L Est GFR (MDRD) Non-Af 38 L BUN/Creatinine Ratio 19.5 Glucose 178 H Lactic Acid 2.6 H* Calcium 8.9 Total Bilirubin 0.92 AST 19 ALT 14 Alkaline Phosphatase 99 Total Protein 7.4 Albumin 4.1 Globulin 3.4 Albumin/Globulin Ratio 1.2 Urine Color Yellow Urine Clarity Clear Urine pH 6.0 Ur Specific [place] 1.015 Urine Protein 15 H Urine Glucose (UA) Normal Urine Ketones Negative Urine Occult Blood Negative Urine Nitrite Negative Urine Bilirubin Negative Urine Urobilinogen Normal Ur Leukocyte Esterase Negative Urine RBC 0 SEEN Urine WBC 0 SEEN Ur Squamous Epith Cells 0 SEEN Urine Bacteria 0 SEEN Urine Mucus 0 SEEN Radiography Diagnostic Testing: Clinical Impression(s) from Imaging Studies Chest X-Ray 01/23/25 08:53 IMPRESSION: Hyperinflation. The lungs are clear. Reading Location: [place] [id number] Rhythm Strip Rhythm Strip: A-fib Rate: 85 Ectopy: None EKG Initial EKG: Attestation: I personally reviewed and interpreted this EKG as follows: Interpretation: No Acute Injury Pattern and Atrial Fibrillation Comments: Normal intervals and axis Prior EKG tracings: available for review Prior: Unchanged Management Discussion w/another healthcare provider: Hospitalist Discharge Plan Dx/Rx/DC Orders Clinical Impression: Sepsis, Pneumonia, Hypoxemia, Generalized weakness, Warfarin-induced coagulopathy, Atrial fibrillation Disposition Disposition: [facility]
[2025-01-23] MEDS: 0.9% Normal Saline (500mL Bag) 500 ML 999 ML IV (08:50)
--- NOTE | 2025-01-23 08:53 | RAD_ITS ---
PROCEDURE: CHEST 1 VIEW (PORTABLE) 01/23/2025 REASON FOR EXAM: COUGH, FEVER TECHNIQUE: Frontal view of the chest. COMPARISON: March 31, 2024. FINDINGS: Hardware: EKG electrodes are seen. Heart: The heart size is normal. Lungs: Hyperinflation. No acute abnormality is seen. Prominence of the central pulmonary arteries suggestive of possible pulmonary hypertension. Bones: Degenerative changes are identified within the thoracic spine. RAD/Chest 1 View (Portable) IMPRESSION: Hyperinflation. The lungs are clear. Reading Location: [place] [id number]
[2025-01-23 08:57] LABS: Hematocrit 35.2 % (40-54); Hemoglobin 11.8 g/dL (13.0-16.5); Immature Granulocytes Count 0.110 X10^3/uL (0.0-0.0); Mean Corp Hgb Conc 33.5 g/dL (32-36); Mean Corpuscular Volume 103.2 fL (80-94); Mean Platelet Vol. 10.5 fl (6.2-12.0); NRBC Flagged by Analyzer 0 % (0-5); Platelet Count 164 K/mm3 (150-450); RBC Distribution Width CV 15.8 % (11.6-14.6); RBC Distribution Width SD 59.9 fl (35.1-43.9); Red Blood Count 3.41 M/mm3 (4.6-6.2); White Blood Count 16.5 K/mm3 (4.4-11.0)
[2025-01-23 09:05] LABS: Prothrombin Time (Protime)PT. 22.0 SECONDS (11.7-14.9)
[2025-01-23 09:06] LABS: Partial Thromboplast Time 29.1 Seconds (24.1-36.2)
[2025-01-23 09:21] LABS: AST(SGOT) 19 U/L (<=37); Alanine Aminotransfer ALT/SGPT 14 U/L (<=46); Albumin, Serum 4.1 g/dL (3.4-4.8); Alkaline Phosphatase 99 U/L (40-129); Anion Gap 15 (5-15); BUN 36 mg/dL (4-19); BUN/Creat Ratio 19.5 RATIO (10-20); Calcium,Total 8.9 mg/dL (7.6-11.0); Carbon Dioxide 22.9 mmol/L (21.0-32.0); Chloride 103 mmol/L (98-108); Estimated Creatinine Clearance 48.50 ml/min (50-250); Globulin 3.4 g/dL (2.2-4.2); Glucose 178 mg/dL (70-99); Potassium 4.4 mmol/L (3.3-5.1)
--- NOTE | 2025-01-23 09:33 | NURSING ---
PT TRIGGERING SEPSIS ALERT. DR CLEMENT
[2025-01-23 10:09] LABS: Mucous, Urine 0 SEEN /hpf (<or=2+); Red Blood Cells-Urine 0 SEEN /hpf (0-5); Squamous Epithelial Cells - UA 0 SEEN /hpf (0-5)
[2025-01-23 10:33] LABS: Color, Urine Yellow (Yellow); Glucose, Dipstick Normal (Normal); Ketone-Dipstick Negative (Negative); Leukocyte Esterase-Dipstick Negative /ul (Negative); Nitrite-Dipstick Negative (Negative); Occult Blood-Urine Negative /ul (Negative); Protein-Dipstick 15 mg/dl (Negative); Specific Gravity, Urine 1.015 (1.002-1.030); Urine Bilirubin Dipstick Negative (Negative)
[2025-01-23] MEDS: Ceftriaxone 2 GM in 0.9% Normal Saline (50mL MB+) 50 ML IV (11:18)
[2025-01-23] MEDS: 0.9% Normal Saline (1000mL) 1,000 ML 75 ML IV (12:16)
[2025-01-23 12:46] LABS: Reflex Lactate? Y
--- NOTE | 2025-01-23 15:09 | PCM.HP.STD ---
HPI - General General Date of Admission: 01/23/25 HPI Narrative DESIRAE REINA, is a 74 M who presents to the hospital with weakness and a cough. He says that this started this morning when he is try to get out of his recliner which is where he usually sleeps in and he noticed that he just had bilateral lower extremity weakness. He has also noticed that he has had a little bit of a cough over the last couple days but it seemed maybe a little bit worse today. Chest x-ray in the emergency room was unremarkable though he does have a leukocytosis. He is afebrile but his lactic acid is 2.6 and there is no other signs of infection, he denies any dysuria. 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 Persistent atrial fibrillation Essential hypertension Hyperlipidemia Erectile dysfunction Depression COPD (chronic obstructive pulmonary disease) Home Medications ?Medication ?Instructions ?Recorded ?Last Taken ?Type atorvastatin 20 mg tablet 20 mg PO QHS cholesterol 08/21/14 01/22/25 History gabapentin 300 mg capsule 600 mg PO TIDCM pain 08/21/14 01/22/25 History folic acid 1 mg tablet 1 mg PO DAILY Supplement 05/22/21 01/22/25 History metoprolol succinate 50 mg 50 mg PO DAILY 30 days #30 tabs 04/22/24 01/22/25 Rx tablet,extended release 24 hr furosemide 40 mg tablet 40 mg PO QDAY 12/02/24 01/22/25 History acetaminophen 500 mg tablet 1,000 mg PO Q6H PRN fever or pain 01/23/25 Unknown History amlodipine 5 mg tablet 5 mg PO DAILY 01/23/25 01/22/25 History lisinopril 20 mg tablet 20 mg PO DAILY 01/23/25 01/22/25 History warfarin 4 mg tablet 6 mg PO SUMOTUWETHSA 01/23/25 01/22/25 History warfarin 4 mg tablet 8 mg PO FR 01/23/25 01/20/25 History Allergy/AdvReac Type Severity Reaction Status Date / Time amoxicillin Allergy Unknown Unknown Verified 01/23/25 08:20 clindamycin Allergy Unknown Unknown Verified 01/23/25 08:20 Penicillins (PCN) Allergy Unknown Unknown Verified 01/23/25 08:20 Sulfa (Sulfonamide Allergy Unknown Unknown Verified 01/23/25 08:20 Antibiotics) Family History Father Emphysema lung Mother , DVT History of DVT (deep vein thrombosis) Grandfather Cancer lung Surgical History History of hip replacement Femoral-femoral bypass graft thrombosis, 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) History of angioplasty of peripheral vessel (06/2021) Hx of colonoscopy Hx of right knee surgery Hx of aorto-femoral bypass Hx of appendectomy Social History household members: spouse Smoking Status: Former smoker how long ago did patient quit smokin year ago second hand exposure: No alcohol intake: never substance use type: does not use caffeine: Yes Type: coffee Number of servings: 3 frequency: does not exercise ROS Constitutional Constitutional: Reports weakness; Denies chills, fatigue, fever(s) or malaise Eyes Eyes: Denies blurry vision ENT HEENT: Denies headache(s) or nasal discharge Cardiovascular Cardiovascular: Denies chest pain, dyspnea on exertion or syncope Respiratory/Chest Respiratory/Chest: Reports cough; Denies shortness of breath at rest or shortness of breath with exertion Gastrointestinal Gastrointestinal: Denies constipation, diarrhea, nausea or vomiting Genitourinary Genitourinary: Denies dysuria Neurologic Neurologic: Denies focal weakness, numbness or tremor(s) Psychiatric Psychiatric: Denies anxiety or depression Vital Signs Vital Signs Vital Signs: 01/23/25 08:17 01/23/25 08:20 01/23/25 08:23 Temperature 100 F H 100 F H Temperature Source Oral Oral Pulse Rate 89 90 Respiratory Rate 18 20 H Respiratory Effort Normal Respiratory Depth Respiratory Pattern Blood Pressure 102/69 102/69 Blood Pressure Mean 80 80 Pulse Ox 90 90 Oxygen Delivery Method Room Air Room Air Room Air 01/23/25 08:31 01/23/25 09:20 01/23/25 10:15 Temperature 98.8 F 98.2 F Temperature Source Oral Oral Pulse Rate 90 77 Respiratory Rate 20 H 18 Respiratory Effort Respiratory Depth Respiratory Pattern Blood Pressure 106/54 L 109/98 H Blood Pressure Mean 71 101 Pulse Ox 92 93 Oxygen Delivery Method Room Air Room Air Nasal Cannula 01/23/25 11:11 01/23/25 12:01 01/23/25 14:56 Temperature 98.6 F Temperature Source Pulse Rate 81 Respiratory Rate 20 H Respiratory Effort Normal Non-Labored Respiratory Depth Normal Respiratory Pattern Normal Blood Pressure 108/62 Blood Pressure Mean 77 Pulse Ox 96 Oxygen Delivery Method Room Air Room Air Weight Weight: 255 lb 4.725 oz Body Mass Index (BMI) 34.6 Physical Exam Narrative General: Alert, Oriented x3, Cooperative, No apparent distress HEENT: Atraumatic, PERRLA, EOMI, Normocephalic Oral: Moist Mucosa Neck: Supple, No JVD Lungs: Diminished, Normal air movement, No rhonchi, No wheeze, No rales Cardiovascular: Regular rate, Regular Rhythm, Normal S1, Normal S2, No murmurs Abdomen: Soft, Non Tender, Non-Distended, No Hepato-splenomegaly Extremities: No edema, Capillary Refill Less than 3 Seconds Skin: No rashes, No breakdown Musculoskeletal: No Tenderness to Palpation of Joints or Extremities Neurological: No focal neurological deficits, moves all extremities Psych/Mental Status: Normal Affect, Appropriate Results Lab / Micro Data 01/23/25 08:20 01/23/25 08:20 Labs: Laboratory Results - last 24 hr 01/23/25 08:20: WBC 16.5 H, RBC 3.41 L, Hgb 11.8 L, Hct 35.2 L, MCV 103.2 H, MCH 34.6 H, MCHC 33.5, RDW Std Deviation 59.9 H, RDW Coeff of Hermes 15.8 H, Plt Count 164, MPV 10.5, Immature Gran % (Auto) 0.700, Neut % (Auto) 84.1 H, Lymph % (Auto) 9.6 L, [place] % (Auto) 5.0, Eos % (Auto) 0.4, Baso % (Auto) 0.2, Absolute Neuts (auto) 13.9 H, Absolute Lymphs (auto) 1.58, Nucleated RBC % 0, PT 22.0 H, INR 1.9, APTT 29.1, Sodium 140, Potassium 4.4, Chloride 103, Carbon Dioxide 22.9, Anion Gap 15, BUN 36 H, Creatinine 1.84 H, Estim Creat Clear Calc 48.50 L, Est GFR (MDRD) Non-Af 38 L, BUN/Creatinine Ratio 19.5, Glucose 178 H, Calcium 8.9, Total Bilirubin 0.92, AST 19, ALT 14, Alkaline Phosphatase 99, Total Protein 7.4, Albumin 4.1, Globulin 3.4, Albumin/Globulin Ratio 1.2 01/23/25 08:40: Lactic Acid 2.6 H* 01/23/25 10:00: Urine Color Yellow, Urine Clarity Clear, Urine pH 6.0, Ur Specific [place] 1.015, Urine Protein 15 H, Urine Glucose (UA) Normal, Urine Ketones Negative, Urine Occult Blood Negative, Urine Nitrite Negative, Urine Bilirubin Negative, Urine Urobilinogen Normal, Ur Leukocyte Esterase Negative, Urine RBC 0 SEEN, Urine WBC 0 SEEN, Ur Squamous Epith Cells 0 SEEN, Urine Bacteria 0 SEEN, Urine Mucus 0 SEEN 01/23/25 13:04: Lactic Acid 2.6 H* Micro: Microbiology 01/23/25 08:56 Mucosa - Nose SARS-CoV-2, Influenza & RSV (PCR) - Final Rhythm Strip Rhythm Strip: A-fib Rate: 85 Ectopy: None Imaging Radiology Impression Chest X-Ray 01/23/25 08:53 IMPRESSION: Hyperinflation. The lungs are clear. Reading Location: [place] [id number] Assessment & Plan Assessment/Plan (1) Hypoxemia: PLAN: Plan 1. Acute hypoxic respiratory insufficiency with weakness and debility with an MARCIA ? There is an unclear source as to his hypoxia, it may be sleep apnea as he sleeps in a recliner most nights ? He did become hypoxic while sleeping down to 86% on room air which is why he was placed on oxygen ? Will wean as able ? Sputum cultures pending ? COVID, flu, RSV is negative, respiratory panel is pending ? Will plan for antibiotics for another 24 to 48 hours pending studies ? PT/OT ? Baseline creatinine is around 1 and is currently 1.8, continue with gentle IV fluids and will hold his diuretics ? He is not septic based on insurance 2. Essential HTN/HLD/A-fib ? Hold Lasix and his MARGARET inhibitor ? Continue with his metoprolol ? Continue with Coumadin, will monitor INR given antibiotics ? Continue with Lipitor 3. Chronic neuropathic pain with peripheral artery disease ? Will continue with gabapentin and monitor given his renal function ? Stable DVT: Coumadin 75 minutes was spent on direct patient care, including documentation as well as chart review and collaboration with colleagues Charges/Coding Visit Charges Inpatient E&M: 60752 Init Hosp L3
[2025-01-23] MEDS: Warfarin (PBKC) 6 MG Tablet PO (16:24)
[2025-01-23] MEDS: 0.9% Saline Lock 10 ML Syringe IV (21:25)
[2025-01-24] VITALS (10 sets, daily range): BP systolic 111–123; BP diastolic 61–68; PULSE 79–91; RESP 18–20; TEMP 36.2–37; O2SAT 87–99
[2025-01-24] MEDS: 0.9% Normal Saline (1000mL) 1,000 ML 75 ML IV ×2 (00:59→14:24)
[2025-01-24 06:59] LABS: Hematocrit 29.8 % (40-54); Hemoglobin 9.7 g/dL (13.0-16.5); Immature Granulocytes Count 0.040 X10^3/uL (0.0-0.0); Mean Corp Hgb Conc 32.6 g/dL (32-36); Mean Corpuscular Volume 103.8 fL (80-94); Mean Platelet Vol. 10.4 fl (6.2-12.0); NRBC Flagged by Analyzer 0 % (0-5); Platelet Count 129 K/mm3 (150-450); RBC Distribution Width CV 16.3 % (11.6-14.6); RBC Distribution Width SD 62.4 fl (35.1-43.9); Red Blood Count 2.87 M/mm3 (4.6-6.2); White Blood Count 11.2 K/mm3 (4.4-11.0)
[2025-01-24 07:28] LABS: Prothrombin Time (Protime)PT. 24.0 SECONDS (11.7-14.9)
[2025-01-24 07:30] LABS: Anion Gap 11 (5-15); BUN 33 mg/dL (4-19); BUN/Creat Ratio 22.0 RATIO (10-20); Calcium,Total 8.3 mg/dL (7.6-11.0); Carbon Dioxide 23.0 mmol/L (21.0-32.0); Chloride 107 mmol/L (98-108); Estimated Creatinine Clearance 58.48 ml/min (50-250); Glucose 107 mg/dL (70-99); Potassium 4.4 mmol/L (3.3-5.1)
[2025-01-24] MEDS: Metoprolol(XL)Succ 50 MG Tablet PO (09:36)
--- NOTE | 2025-01-24 09:50 | CASEMGMT ---
RN CM Face to Face with patient for initial transition planning/care coordination assessment. RN CM introduced self and role at [facility]. Patient lying in bed, alert and oriented. Patient willing to participate in assessment and is able to answer all questions appropriately. Care providers, pharmacy, and demographics verified. Strata: 2 PCP: Jamil Specialists: Dennis, application infrastructure engineer Preferred Pharmacy: [facility] Insurance: [employer] Prescription Benefit: yes Living Will/HPOA: yes, Yana Lord LNOK: Living Arrangements: Patient lives with in a singles story home with 2 steps and railing to enter the home. Patient states he is independent at home. Transportation: self, son DME/HHC: Patient states he has shower chair, cane, grab bars, walker at home. Patient has had [facility] in the past. No previous SNF. Patient wishes to discharge home, denies need for home health at this time. Patient states he has no further needs or concerns at this time. CM to follow for discharge planning needs that may arise. Disposition Plan: Patient to discharge home with family support and follow-up plans in place. Elvie BAIG, RN, CM
[2025-01-24] MEDS: Azithromycin 500 MG in 0.9% Normal Saline (250mL Bag) 250 ML 250 MG IV (10:48)
--- NOTE | 2025-01-24 13:18 | PCM.PN.HOSP ---
Subjective Subjective Feels better and weakness has resolved Objective Data Objective Data Vital Signs: Vital Signs Temp Pulse Resp BP Pulse Ox O2 Del Method O2 Flow Rate 98.5 F 91 18 123/68 H 94 Nasal Cannula 2 01/24/25 09:32 01/24/25 09:36 01/24/25 09:32 01/24/25 09:32 01/24/25 09:32 01/24/25 10:00 01/24/25 09:32 Oxygen Flow Rate (L/min) 2 Oxygen Delivery Method Nasal Cannula Weight: 255 lb 4.725 oz Body Mass Index (BMI) 34.6 Intake & Output: Intake and Output for Last 24 Hours 01/23/25 01/24/25 01/25/25 03:59 03:59 03:59 Intake Total 2022. / 300 / 300 Balance / 300 / 300 Lab / Micro Data 01/24/25 05:54 01/24/25 05:54 Labs: Laboratory Results - last 24 hr 01/23/25 13:04: Lactic Acid 2.6 H* 01/24/25 05:54: WBC 11.2 H, RBC 2.87 L, Hgb 9.7 L, Hct 29.8 L, MCV 103.8 H, MCH 33.8 H, MCHC 32.6, RDW Std Deviation 62.4 H, RDW Coeff of Hermes 16.3 H, Plt Count 129 L, MPV 10.4, Immature Gran % (Auto) 0.400, Neut % (Auto) 77.4 H, Lymph % (Auto) 13.0 L, [place] % (Auto) 6.8, Eos % (Auto) 2.1, Baso % (Auto) 0.3, Absolute Neuts (auto) 8.7 H, Absolute Lymphs (auto) 1.46, Nucleated RBC % 0, PT 24.0 H, INR 2.1, Sodium 141, Potassium 4.4, Chloride 107, Carbon Dioxide 23.0, Anion Gap 11, BUN 33 H, Creatinine 1.50 H, Estim Creat Clear Calc 58.48, Est GFR (MDRD) Non-Af 49 L, BUN/Creatinine Ratio 22.0 H, Glucose 107 H, Calcium 8.3 Micro: Microbiology 01/23/25 14:57 Mucosa - Nose Respiratory Panel (PCR) - Final 01/23/25 08:56 Mucosa - Nose SARS-CoV-2, Influenza & RSV (PCR) - Final Rhythm Strip Rhythm Strip: A-fib Rate: 85 Ectopy: None Physical Exam Narrative General: Alert, Oriented x3, Cooperative, No apparent distress HEENT: Atraumatic, PERRLA, EOMI, Normocephalic Oral: Moist Mucosa Neck: Supple, No JVD Lungs: Diminished, Normal air movement, No rhonchi, No wheeze, No rales Cardiovascular: Regular rate, Regular Rhythm, Normal S1, Normal S2, No murmurs Abdomen: Soft, Non Tender, Non-Distended, No Hepato-splenomegaly Extremities: No edema, Capillary Refill Less than 3 Seconds Skin: No rashes, No breakdown Musculoskeletal: No Tenderness to Palpation of Joints or Extremities Neurological: No focal neurological deficits, moves all extremities Psych/Mental Status: Normal Affect, Appropriate Assessment & Plan Assessment/Plan (1) Hypoxemia: PLAN: Plan 1. Acute hypoxic respiratory insufficiency with weakness and debility with an MARCIA ? There is an unclear source as to his hypoxia, it may be sleep apnea as he sleeps in a recliner most nights ? He did become hypoxic while sleeping down to 86% on room air which is why he was placed on oxygen ? Will wean as able, today he needed 2 L ambulation and room air at rest ? Sputum cultures pending ? COVID, flu, RSV is negative, respiratory panel is also negative ? Will plan for antibiotics for another 24 to 48 hours pending studies, white count is improving and sputum culture has not been able to be obtained ? PT/OT ? Baseline creatinine is around 1 and is currently 1.5, continue with gentle IV fluids and will hold his diuretics ? He is not septic based on insurance 2. Essential HTN/HLD/A-fib ? Hold Lasix and his MARGARET inhibitor ? Continue with his metoprolol ? Continue with Coumadin, will monitor INR given antibiotics ? Continue with Lipitor 3. Chronic neuropathic pain with peripheral artery disease ? Will continue with gabapentin and monitor given his renal function ? Stable DVT: Coumadin Charges/Coding Visit Charges Inpatient E&M: 10426 Subs Hosp L2
[2025-01-24 14:22] LABS: Ferritin 241 ng/mL (37-417); Iron 27 ug/dL (65-175); Iron Binding Capacity,Unsat 195 ug/dL (228-428)
[2025-01-24 14:42] LABS: Iron Binding Capacity,Total 222 ug/dL (250-450)
[2025-01-24] MEDS: Warfarin (PBKC) 6 MG Tablet PO (18:12)
[2025-01-24] MEDS: 0.9% Saline Lock 10 ML Syringe IV (20:05)
[2025-01-25] VITALS (9 sets, daily range): BP systolic 107–136; BP diastolic 43–70; PULSE 79–93; RESP 15–20; TEMP 36.3–36.8; O2SAT 86–100
[2025-01-25] MEDS: 0.9% Normal Saline (1000mL) 1,000 ML 75 ML IV (03:44)
[2025-01-25 05:39] LABS: Prothrombin Time (Protime)PT. 21.7 SECONDS (11.7-14.9)
[2025-01-25 05:47] LABS: Anion Gap 9 (5-15); BUN 30 mg/dL (4-19); BUN/Creat Ratio 22.5 RATIO (10-20); Calcium,Total 8.3 mg/dL (7.6-11.0); Carbon Dioxide 24.3 mmol/L (21.0-32.0); Chloride 108 mmol/L (98-108); Estimated Creatinine Clearance 64.98 ml/min (50-250); Glucose 99 mg/dL (70-99); Potassium 4.5 mmol/L (3.3-5.1)
[2025-01-25] MEDS: Metoprolol(XL)Succ 50 MG Tablet PO (09:11)
[2025-01-25] MEDS: Azithromycin 500 MG in 0.9% Normal Saline (250mL Bag) 250 ML 250 MG IV (09:12)
--- NOTE | 2025-01-25 11:44 | DCINST_ITS ---
Discharge Instructions DC O2, CPAP, BIPAP needs Home O2 Discharge instructions: No Dressing / Incision Discharge Activity: Return to Normal Activity Dressing / Incision Call your doctor if you observe: Fever of 101 or Higher, Shortness of breath, Dizziness, Fainting spells, Swelling in the ankles, Chest pain and Increased palpitations (irregular heartbeat) Follow Up Care Test Results: Test results from this visit will be discussed in further detail at your follow- up appointment, if applicable. Discharge Plan Admission Admit Date/Time: 01/23/25 11:17 Attending Provider: Acosta Santoyo Primary Care Provider: Yobani Negron Instructions Additional Instructions / Restrictions: I have reviewed the oxygen testing, and this patient qualifies for the home equipment and portability. The patient is mobile in the home and the community. Discharge Orders/Prescriptions Prescriptions: New cefdinir 300 mg capsule 300 mg PO BID Qty: 6 0RF Continued folic acid 1 mg tablet 1 mg PO DAILY atorvastatin 20 MG tablet 20 mg PO QHS Patient Comments: CHOLESTEROL gabapentin 300 MG capsule 600 mg PO TIDCM Patient Comments: PAIN, NEUROPATHY amlodipine 5 mg tablet 5 mg PO DAILY warfarin 4 mg tablet 6 mg PO SUMOTUWETHSA warfarin 4 mg tablet 8 mg PO FR acetaminophen 500 mg Tablet 1,000 mg PO Q6H PRN (Reason: fever or pain) metoprolol succinate 50 mg Tablet Extended Release 24 Hr 50 mg PO DAILY 30 Days Qty: 30 0RF Held furosemide 40 mg tablet 40 mg PO QDAY Hold Instructions: Resume on 01/28/25. lisinopril 20 mg tablet 20 mg PO DAILY Hold Instructions: Resume on 01/27/25. Referrals / Follow Up: Yobani Negron MD [Primary Care Provider, Family Practice] - Within 1 Week Jaquan Clyaton DO [Med Staff - Active Staff, Pulmonary Medicine] - Within 1 Month Disposition Disposition (needs filled in before D/C Order can be placed): Home, Self Care
--- NOTE | 2025-01-25 12:07 | CASEMGMT ---
Patient has order for discharge. Patient requires oxygen at discharge, script received and referral sent to [facility] via [facility] and arranged for portable tank to be delivered to patient's room prior to discharge. RN CM in to patient room to discuss discharge, updated regarding home oxygen setup, patient voiced understanding. Patient denies further needs or help at discharge. Patient had no further questions. RN CM updated discharge plan.
--- NOTE | 2025-01-25 13:22 | PHA.DC_ITS ---
Pharmacy [facility] Counseling Pharmacy Service has performed discharge medication reconciliation and counseling for this patient. 1. CEFDINIR 300MG PO BID X 3 DAYS 2. HOLD LISINOPRIL UNTIL 01/27 3. HOLD FUROSEMIDE UNTIL 01/28 The patient's discharge medication list was reviewed for discrepancies and discrepancies were resolved. The patient was counseled on the following discharge medications and changes in medications for homegoing were reviewed. The Reason for Use, instructions for use, and potential side effects were reviewed for all new medications. The patient's questions regarding all of their medications were answered. The patient was able to verbally demonstrate an understanding of their discharge medications. Medications at Discharge Home Medications atorvastatin 20 mg tablet 20 mg PO QHS cholesterol 08/21/14 gabapentin 300 mg capsule 600 mg PO TIDCM pain 08/21/14 folic acid 1 mg tablet 1 mg PO DAILY Supplement 05/22/21 metoprolol succinate 50 mg tablet,extended release 24 hr 50 mg PO DAILY blood pressure 30 days #30 tabs 04/22/24 furosemide 40 mg tablet 40 mg PO QDAY diuretic 12/02/24 Held on 01/25/25. Instructions: Resume on 01/28/25. acetaminophen 500 mg tablet 1,000 mg PO Q6H PRN fever or pain 01/23/25 amlodipine 5 mg tablet 5 mg PO DAILY blood pressure 01/23/25 lisinopril 20 mg tablet 20 mg PO DAILY blood pressure 01/23/25 Held on 01/25/25. Instructions: Resume on 01/27/25. warfarin 4 mg tablet 6 mg PO SUMOTUWETHSA blood thinner 01/23/25 warfarin 4 mg tablet 8 mg PO FR blood pressure 01/23/25 cefdinir 300 mg capsule 300 mg PO BID #6 caps 01/25/25
--- NOTE | 2025-01-25 17:06 | DS.PCM_ITS ---
Providers Date of Admission: 01/23/25 Primary Care Physician: Dr. Yobani Negron MD Reason For Visit: PNEUMONIA Diagnosis Discharge Diagnosis (1) Hypoxemia: Status: Acute Code(s): R09.02 - Hypoxemia Medications at Discharge Home Medications atorvastatin 20 mg tablet 20 mg PO QHS cholesterol 08/21/14 gabapentin 300 mg capsule 600 mg PO TIDCM pain 08/21/14 folic acid 1 mg tablet 1 mg PO DAILY Supplement 05/22/21 metoprolol succinate 50 mg tablet,extended release 24 hr 50 mg PO DAILY blood pressure 30 days #30 tabs 04/22/24 furosemide 40 mg tablet 40 mg PO QDAY diuretic 12/02/24 Held on 01/25/25. Instructions: Resume on 01/28/25. acetaminophen 500 mg tablet 1,000 mg PO Q6H PRN fever or pain 01/23/25 amlodipine 5 mg tablet 5 mg PO DAILY blood pressure 01/23/25 lisinopril 20 mg tablet 20 mg PO DAILY blood pressure 01/23/25 Held on 01/25/25. Instructions: Resume on 01/27/25. warfarin 4 mg tablet 6 mg PO SUMOTUWETHSA blood thinner 01/23/25 warfarin 4 mg tablet 8 mg PO FR blood pressure 01/23/25 cefdinir 300 mg capsule 300 mg PO BID #6 caps 01/25/25 Hospital Course Operations None Procedures None Summary of Care Provided Minutes Spent on Discharge: 36 Hospital Course: Per HPI: DESIRAE REINA, is a 74 M who presents to the hospital with weakness and a cough. He says that this started this morning when he is try to get out of his recliner which is where he usually sleeps in and he noticed that he just had bilateral lower extremity weakness. He has also noticed that he has had a little bit of a cough over the last couple days but it seemed maybe a little bit worse today. Chest x-ray in the emergency room was unremarkable though he does have a leukocytosis. He is afebrile but his lactic acid is 2.6 and there is no other signs of infection, he denies any dysuria. Urine analysis was unremarkable Hospital Course: 1. Acute hypoxic respiratory sufficiency with weakness and debility with an MARCIA?74-year-old male presented to the hospital with weakness and cough. He was also found to be hypoxic incidentally when he fell asleep in the emergency room he went down into the mid to low 80s and had to be placed on oxygen. 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 He did have improvement in his weakness and had requested be discharged yesterday however we discussed the possibility of weaning off of oxygen while 1 more day in the hospital however today on the day of discharge he did not require any oxygen at rest but he did require oxygen with ambulation to 3 L nasal cannula. I have reviewed the oxygen testing, and this patient qualifies for the home equipment and portability. The patient is mobile in the home and the community. I discussed with him the possibility of discharge and completing oral antibiotics at home and he expressed understanding of the risks and benefits of going home and would like to go home today. Viral workup was negative. His renal function is improving, his baseline creatinine is around 1 and on admission he was 1.84 and started on some IV fluids, on the day of discharge he was down to 1.35 therefore I recommend holding his lisinopril and Lasix for another few days with outpatient follow-up to monitor blood pressure as well as renal function and electrolytes. 2. Essential hypertension, hyperlipidemia, A-fib, chronic neuropathic pain with peripheral artery disease all chronic medical conditions which complicate his care. His home medications were continued where appropriate Physical Exam Narrative General: Alert, Oriented x3, Cooperative, No apparent distress HEENT: Atraumatic, PERRLA, EOMI, Normocephalic Oral: Moist Mucosa Neck: Supple, No JVD Lungs: Diminished, Normal air movement, No rhonchi, No wheeze, No rales Cardiovascular: Regular rate, Regular Rhythm, Normal S1, Normal S2, No murmurs Abdomen: Soft, Non Tender, Non-Distended, No Hepato-splenomegaly Extremities: No edema, Capillary Refill Less than 3 Seconds Skin: No rashes, No breakdown Musculoskeletal: No Tenderness to Palpation of Joints or Extremities Neurological: No focal neurological deficits, moves all extremities Psych/Mental Status: Normal Affect, Appropriate Weight / BMI Weight Weight: 255 lb 4.725 oz Body Mass Index (BMI) 34.6 ABG / Lab / Microbiology Data 01/24/25 05:54 01/25/25 04:36 Laboratory: Laboratory Results - last 24 hr 01/25/25 04:36: PT 21.7 H, INR 1.8, Sodium 141, Potassium 4.5, Chloride 108, Carbon Dioxide 24.3, Anion Gap 9, BUN 30 H, Creatinine 1.35 H, Estim Creat Clear Calc 64.98, Est GFR (MDRD) Non-Af 56 L, BUN/Creatinine Ratio 22.5 H, Glucose 99, Calcium 8.3 Microbiology: Microbiology 01/23/25 08:56 Blood Culture (Wb) - Arm Left Blood Culture - Preliminary No growth in 48 hours. 01/23/25 08:40 Blood Culture (Wb) - Anticubital Left Blood Culture - Preliminary No growth in 48 hours. 01/23/25 10:00 Urine, Clean Catch Urine Culture - Final Culture exhibits no growth. 01/23/25 14:57 Mucosa - Nose Respiratory Panel (PCR) - Final 01/23/25 08:56 Mucosa - Nose SARS-CoV-2, Influenza & RSV (PCR) - Final D/C Instructions Call your doctor if you observe: Fever of 101 or Higher, Shortness of breath, Dizziness, Fainting spells, Swelling in the ankles, Chest pain and Increased palpitations (irregular heartbeat) DC O2, CPAP, BIPAP Needs Home O2 Discharge instructions: No Meaningful Use Info Meaningful Use Meaningful Use Diagnoses (Choose all that apply): None applicable Discharge Plan Admission Admit Date/Time: 01/23/25 11:17 Attending Provider: Acosta Santoyo Primary Care Provider: Yobani Negron Instructions Additional Instructions / Restrictions: I have reviewed the oxygen testing, and this patient qualifies for the home equipment and portability. The patient is mobile in the home and the community. Discharge Orders/Prescriptions Prescriptions: New cefdinir 300 mg capsule 300 mg PO BID Qty: 6 0RF Continued folic acid 1 mg tablet 1 mg PO DAILY atorvastatin 20 MG tablet 20 mg PO QHS Patient Comments: CHOLESTEROL gabapentin 300 MG capsule 600 mg PO TIDCM Patient Comments: PAIN, NEUROPATHY amlodipine 5 mg tablet 5 mg PO DAILY warfarin 4 mg tablet 6 mg PO SUMOTUWETHSA warfarin 4 mg tablet 8 mg PO FR acetaminophen 500 mg Tablet 1,000 mg PO Q6H PRN (Reason: fever or pain) metoprolol succinate 50 mg Tablet Extended Release 24 Hr 50 mg PO DAILY 30 Days Qty: 30 0RF Held furosemide 40 mg tablet 40 mg PO QDAY Hold Instructions: Resume on 01/28/25. lisinopril 20 mg tablet 20 mg PO DAILY Hold Instructions: Resume on 01/27/25. Referrals / Follow Up: Yobani Negron MD [Primary Care Provider, Family Practice] - Within 1 Week Jaquan Clayton DO [Med Staff - Active Staff, Pulmonary Medicine] - Within 1 Month Disposition Disposition (needs filled in before D/C Order can be placed): Home, Self Care Charges/Coding Visit Charges Inpatient E&M: 88744 Disch Hosp >30min
== END 2025-01-25 16:04 | disposition home or self-care (01) | DRG 206 ==
LOC: ED 10:57 → PCU 11:26
PROVIDERS: Admitting Provider Family Medicine; Emergency Provider Emergency Medicine; PCP Family Medicine; Visit Provider Family Medicine
DX: R09.02 Hypoxemia (principal); N17.9 Acute kidney failure, unspecified; I48.91 Unspecified atrial fibrillation; D72.829 Elevated white blood cell count, unspecified; G62.9 Polyneuropathy, unspecified; J44.9 Chronic obstructive pulmonary disease, unspecified; I10 Essential (primary) hypertension; I73.9 Peripheral vascular disease, unspecified; E78.5 Hyperlipidemia, unspecified; M25.551 Pain in right hip; M25.561 Pain in right knee; G89.29 Other chronic pain; R53.1 Weakness; R60.0 Localized edema; R53.81 Other malaise; Z79.01 Long term (current) use of anticoagulants; Z98.62 Peripheral vascular angioplasty status; Z79.899 Other long term (current) drug therapy; Z87.891 Personal history of nicotine dependence; Z96.641 Presence of right artificial hip joint
CPT/HCPCS: 36415; 71045; 80048; 80053; 81001; 82728; 83540; 83550; 83605; 85025; 85610; 85730; 87040; 87086; 87631; 87633; 93005; 94668; 97162; 97166; 99285; A4216; J0696

== ENCOUNTER 2025-01-31 11:33 | Emergency (ER) | payer MEDICARE, SELFPAY ==
[2025-01-31 11:35] VITALS: BP 104/60; PULSE 83; RESP 18; TEMP 36.1; O2SAT 95; BMI 35.2
--- NOTE | 2025-01-31 12:03 | RAD_ITS ---
PROCEDURE: CHEST 1 VIEW (PORTABLE) N/A REASON FOR EXAM: CHF TECHNIQUE: Frontal view of the chest. COMPARISON: January 23, 2025 FINDINGS: Heart size and mediastinal configuration are within normal limits. There is minimal atelectasis or scar in the right middle lobe and left lingular segment. There is no pneumothorax or significant effusion. Aortic calcifications are noted. There is no acute bony abnormality. RAD/Chest 1 View (Portable) IMPRESSION: There is minimal atelectasis or scar in the right middle lobe and left lingular segment. Reading Location: [facility]
--- NOTE | 2025-01-31 12:03 | EKG12_ITS ---
Test Reason : GENERAL Blood Pressure : */* mmHG Vent. Rate : 75 BPM Atrial Rate : * BPM P-R Int : * ms QRS Dur : 72 ms QT Int : 368 ms P-R-T Axes : * 34 35 degrees QTcB Int : 410 ms Atrial fibrillation Abnormal ECG Confirmed by Minh Izquierdo ([id number]), editorial project manager [facility] ([id number]) on 02/01/2025 10:22:48 AM Referred By: Confirmed By: Minh Izquierdo
--- NOTE | 2025-01-31 12:06 | EDS_ITS ---
HPI History of Present Illness Chief Complaint: Shortness of Breath Informant: patient and spouse/S.O. Narrative Narrative: 74-year-old male presenting to the emergency room for the evaluation of hypoxia. Patient was sent by his PCPs office where he was noted to be 88%. Patient states he was recently admitted to the hospital out of concern for pneumonia. He has home oxygen at home for as needed use. History of COPD hypertension atrial fibrillation peripheral artery disease HFpEF. Patient notes his lower extremities are swollen. He denies any significant sputum or fever. He chronically sleeps in a chair that is not new. [facility] Medical History COPD (chronic obstructive pulmonary disease) Atrial fibrillation Former smoker Obesity (BMI 30.0-34.9) Hip fracture, right Peripheral vascular disease of extremity with claudication jail (current) use of anticoagulants Persistent atrial fibrillation Essential hypertension Hyperlipidemia Erectile dysfunction Depression COPD (chronic obstructive pulmonary disease) Home Medications ?Medication ?Instructions ?Recorded ?Last Taken ?Type atorvastatin 20 mg tablet 20 mg PO QHS cholesterol 07/3101/22/25 History gabapentin 300 mg capsule 600 mg PO TIDCM pain 5 01/22/25 History folic acid 1 mg tablet 1 mg PO DAILY Supplement 08/0701/22/25 History metoprolol succinate 50 mg 50 mg PO DAILY blood pressu re 30 04/22/24 01/22/25 Rx tablet,extended release 24 hr days #30 tabs furosemide 40 mg tablet 40 mg PO QDAY diuretic 12/0201/22/25 History Held on 01/25/25. Instructions: Resume on 01/28/25. acetaminophen 500 mg tablet 1,000 mg PO Q6H PRN fever or pain 01/23/25 Unknown History amlodipine 5 mg tablet 5 mg PO DAILY blood pressure 01/23/25 01/22/25 History lisinopril 20 mg tablet 20 mg PO DAILY blood pressur e 01/23/25 01/22/25 History Held on 01/25/25. Instructions: Resume on 01/27/25. warfarin 4 mg tablet 6 mg PO SUMOTUWETHSA blood t hinner 01/23/25 01/22/25 History warfarin 4 mg tablet 8 mg PO FR blood pressure 01/20/25 History cefdinir 300 mg capsule 300 mg PO BID #6 caps Unknown Rx Allergy/AdvReac Type Severity Reaction Status Date / Time amoxicillin Allergy Unknown Unknown Verified 01/31/25 11:35 clindamycin Allergy Unknown Unknown Verified 01/31/25 11:35 Penicillins (PCN) Allergy Unknown Unknown Verified 01/31/25 11:35 Sulfa (Sulfonamide Allergy Unknown Unknown Verified 01/31/25 11:35 Antibiotics) Family History Father Emphysema lung Mother , DVT History of DVT (deep vein thrombosis) Grandfather Cancer lung Surgical History History of hip replacement Femoral-femoral bypass graft thrombosis, 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) History of angioplasty of peripheral vessel (06/2021) Hx of colonoscopy Hx of right knee surgery Hx of aorto-femoral bypass Hx of appendectomy Social History household members: spouse Smoking Status: Former smoker how long ago did patient quit smokin year ago second hand exposure: No alcohol intake: never substance use type: does not use caffeine: Yes Type: coffee Number of servings: 3 frequency: does not exercise ROS ROS ED Constitutional Constitutional ED: Denies chills, fever(s) or weight loss Eyes Eyes: Denies change in vision or diplopia ENT ENT ED: Denies ear pain, rhinorrhea or sore throat Cardiovascular Cardiovascular: Reports other Details: Lower extremity swelling ; Denies chest pain, orthopnea, palpitations or racing heartbeat Respiratory/Chest Respiratory/Chest: Reports cough, dyspnea and dyspnea on exertion; Denies orthopnea Gastrointestinal Gastrointestinal: Denies abdominal pain, diarrhea, nausea or vomiting Genitourinary Genitourinary ED: Denies dysuria, hematuria or urinary frequency Musculoskeletal Musculoskeletal: Denies arthralgias or myalgias Integumentary Denies abscess or rash Neurologic Neurologic: Denies headache(s) or weakness Psychiatric Psychiatric: Denies anxiety, depression, suicidal ideation or suicidal thoughts Endocrine Endocrinology: Denies polydipsia, polyphagia or polyuria Allergic/Immunologic Allergic/Immunologic ED: Denies mouth swelling, tongue swelling or urticaria EXAM Physical Exam Const Vital Signs: 12/16/25 11:35 Temperature 97 F L Temperature Source Temporal Pulse Rate 83 Respiratory Rate 18 Blood Pressure 104/60 Blood Pressure Mean 74 Pulse Ox 95 Oxygen Delivery Method Room Air Positive well nourished and well developed General Appearance ED: well developed and NAD HEENT Reports normocephalic, head/scalp atraumatic and moist mucous membranes Eyes PERRL and EOMs intact bilaterally Neck no lymphadenopathy, supple and no JVD Resp normal respiratory effort and clear to auscultation bilaterally Cardio regular rate, regular rhythm and no murmurs GI normal to inspection, nondistended, normoactive bowel sounds and non-tender Palpation: soft Back/Spine no CVA tenderness and normal ROM Extremity General Extremety ED: Yes edema General Extremity: edema bilateral lower extremity Details: severe Neuro oriented x3 and CN's II-XII intact bilaterally Sensorium / Orientation: alert Motor Exam: strength 5/5 throughout Psych mental status grossly normal Mood & Affect: Negative for depressed or tearful Skin no rashes or lesions noted and no wounds Discharge Plan Triage Chief Complaint: Shortness of Breath Other Complaint: Edema ED Provider: Kwadwo Rey Dx/Rx/DC Orders Prescriptions: No Action folic acid 1 mg tablet 1 mg PO DAILY furosemide 40 mg tablet 40 mg PO QDAY atorvastatin 20 MG tablet 20 mg PO QHS Patient Comments: CHOLESTEROL gabapentin 300 MG capsule 600 mg PO TIDCM Patient Comments: PAIN, NEUROPATHY lisinopril 20 mg tablet 20 mg PO DAILY amlodipine 5 mg tablet 5 mg PO DAILY warfarin 4 mg tablet 6 mg PO SUMOTUWETHSA warfarin 4 mg tablet 8 mg PO FR acetaminophen 500 mg Tablet 1,000 mg PO Q6H PRN (Reason: fever or pain) cefdinir 300 mg capsule 300 mg PO BID Qty: 6 0RF metoprolol succinate 50 mg Tablet Extended Release 24 Hr 50 mg PO DAILY 30 Days Qty: 30 0RF Primary Care Provider: Yobani Negron Referrals: Yobani Negron MD [Primary Care Provider, Family Practice] Print Language: Emirati
--- NOTE | 2025-01-31 12:06 | ED.VIS.DYS ---
HPI History of Present Illness Chief Complaint: Shortness of Breath Informant: patient and spouse/S.O. Narrative Narrative: 74-year-old male presenting to the emergency room for the evaluation of hypoxia. Patient was sent by his PCPs office where he was noted to be 88%. Patient states he was recently admitted to the hospital out of concern for pneumonia. He has home oxygen at home for as needed use. History of COPD hypertension atrial fibrillation peripheral artery disease HFpEF. Patient notes his lower extremities are swollen. He denies any significant sputum or fever. He chronically sleeps in a chair that is not new. [facility] Medical History COPD (chronic obstructive pulmonary disease) Atrial fibrillation Former smoker Obesity (BMI 30.0-34.9) Hip fracture, right Peripheral vascular disease of extremity with claudication senior care (current) use of anticoagulants Persistent atrial fibrillation Essential hypertension Hyperlipidemia Erectile dysfunction Depression COPD (chronic obstructive pulmonary disease) Home Medications ?Medication ?Instructions ?Recorded ?Last Taken ?Type gabapentin 300 mg capsule 600 mg PO TIDCM pain 08/21/14 01/30/25 History albuterol sulfate 90 mcg/actuation 2 puff inhalation Q4H PRN PRN 01/31/25 01/30/25 History aerosol inhaler wheezing amlodipine 5 mg tablet 5 mg PO DAILY 01/31/25 01/30/25 History atorvastatin 20 mg tablet 20 mg PO QHS 01/31/25 01/30/25 History bumetanide 1 mg tablet 1 mg PO BID #10 tabs 01/31/25 Unknown Rx folic acid 1 mg tablet 1 mg PO DAILY 01/31/25 01/30/25 History lisinopril 20 mg tablet 20 mg PO DAILY 01/31/25 01/30/25 History metoprolol succinate 50 mg 50 mg PO DAILY 01/31/25 01/30/25 History tablet,extended release 24 hr warfarin 4 mg tablet 6 mg PO SUMOTUWETHSA 01/31/25 01/30/25 History warfarin 4 mg tablet (Jantoven) 8 mg PO FR 01/31/25 01/27/25 History Allergy/AdvReac Type Severity Reaction Status Date / Time amoxicillin Allergy Unknown Unknown Verified 01/31/25 11:35 clindamycin Allergy Unknown Unknown Verified 01/31/25 11:35 Penicillins (PCN) Allergy Unknown Unknown Verified 01/31/25 11:35 Sulfa (Sulfonamide Allergy Unknown Unknown Verified 01/31/25 11:35 Antibiotics) Family History Father Emphysema lung Mother , DVT History of DVT (deep vein thrombosis) Grandfather Cancer lung Surgical History History of hip replacement Femoral-femoral bypass graft thrombosis, 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) History of angioplasty of peripheral vessel (06/2021) Hx of colonoscopy Hx of right knee surgery Hx of aorto-femoral bypass Hx of appendectomy Social History household members: spouse Smoking Status: Former smoker how long ago did patient quit smokin year ago second hand exposure: No alcohol intake: never substance use type: does not use caffeine: Yes Type: coffee Number of servings: 3 frequency: does not exercise ROS ROS ED Constitutional Constitutional ED: Denies chills, fever(s) or weight loss Eyes Eyes: Denies change in vision or diplopia ENT ENT ED: Denies ear pain, rhinorrhea or sore throat Cardiovascular Cardiovascular: Reports other Details: Lower extremity swelling ; Denies chest pain, orthopnea, palpitations or racing heartbeat Respiratory/Chest Respiratory/Chest: Reports cough, dyspnea and dyspnea on exertion; Denies orthopnea Gastrointestinal Gastrointestinal: Denies abdominal pain, diarrhea, nausea or vomiting Genitourinary Genitourinary ED: Denies dysuria, hematuria or urinary frequency Musculoskeletal Musculoskeletal: Denies arthralgias or myalgias Integumentary Denies abscess or rash Neurologic Neurologic: Denies headache(s) or weakness Psychiatric Psychiatric: Denies anxiety, depression, suicidal ideation or suicidal thoughts Endocrine Endocrinology: Denies polydipsia, polyphagia or polyuria Allergic/Immunologic Allergic/Immunologic ED: Denies mouth swelling, tongue swelling or urticaria EXAM Physical Exam Const Vital Signs: 01/31/25 11:35 01/31/25 12:20 01/31/25 12:22 Temperature 97 F L Temperature Source Temporal Pulse Rate 83 Respiratory Rate 18 Respiratory Effort Normal Non-Labored Respiratory Depth Normal Respiratory Pattern Normal Normal Blood Pressure 104/60 Blood Pressure Mean 74 Pulse Ox 95 Oxygen Delivery Method Room Air Room Air Fraction of Inspired Oxygen (FIO2) 94 01/31/25 13:38 Temperature Temperature Source Pulse Rate 94 Respiratory Rate 20 H Respiratory Effort Respiratory Depth Respiratory Pattern Blood Pressure 100/69 Blood Pressure Mean 79 Pulse Ox 95 Oxygen Delivery Method Room Air Fraction of Inspired Oxygen (FIO2) Positive well nourished and well developed General Appearance ED: well developed and NAD HEENT Reports normocephalic, head/scalp atraumatic and moist mucous membranes Eyes PERRL and EOMs intact bilaterally Neck no lymphadenopathy, supple and no JVD Resp normal respiratory effort and clear to auscultation bilaterally Cardio regular rate, regular rhythm and no murmurs GI normal to inspection, nondistended, normoactive bowel sounds and non-tender Palpation: soft Back/Spine no CVA tenderness and normal ROM Extremity General Extremety ED: Yes edema General Extremity: edema bilateral lower extremity Details: severe Neuro oriented x3 and CN's II-XII intact bilaterally Sensorium / Orientation: alert Motor Exam: strength 5/5 throughout Psych mental status grossly normal Mood & Affect: Negative for depressed or tearful Skin no rashes or lesions noted and no wounds MDM MDM MDM Narrative Medical decision making narrative: Differential diagnosis includes congestive heart failure pneumonia pleural effusion COPD pulmonary embolism anemia EKG demonstrates atrial fibrillation at a rate of 75. INR is in the therapeutic range of 2.6 hemoglobin 10.9 white count 7.1 platelet count of 236. BUN of 30 creatinine 1.67 troponin is 19 proBNP is 2222. My independent or potation of the chest x-ray is no acute process. Patient has had no significant events on the monitor. He has not been hypoxic here. He was able to ambulate in the department without hypoxia. Patient has had his diuretic held. Going to start him on Bumex 1 mg twice a day for the next 5 days. I would asked that he have his repeat creatinine/BMP on Thursday. Patient to return if worsening or concerns ideally he would see primary care on Thursday afternoon. History & Record Review Discussion w/independent historian: Patient and Family Lab Data Attestation: I reviewed the patient's lab results. Labs: Laboratory Results - last 24 hr 01/31/25 12:15 WBC 7.1 RBC 3.26 L Hgb 10.9 L Hct 33.6 L MCV 103.1 H MCH 33.4 H MCHC 32.4 RDW Std Deviation 61.5 H RDW Coeff of Hermes 16.1 H Plt Count 236 MPV 9.5 Immature Gran % (Auto) 0.700 Neut % (Auto) 64.5 Lymph % (Auto) 23.0 Hooker % (Auto) 6.8 Eos % (Auto) 4.4 Baso % (Auto) 0.6 Absolute Neuts (auto) 4.6 Absolute Lymphs (auto) 1.63 Nucleated RBC % 0 PT 28.2 H INR 2.6 Sodium 141 Potassium 4.5 Chloride 104 Carbon Dioxide 27.2 Anion Gap 10 BUN 30 H Creatinine 1.67 H Estim Creat Clear Calc 52.93 Est GFR (MDRD) Non-Af 43 L BUN/Creatinine Ratio 18.1 Glucose 108 H Calcium 9.2 Troponin T High Sens 19 NT pro BNP II 2222 H Radiography Diagnostic Testing: Clinical Impression(s) from Imaging Studies Chest X-Ray 01/31/25 12:03 IMPRESSION: There is minimal atelectasis or scar in the right middle lobe and left lingular segment. Reading Location: [facility] Initial EKG: Attestation: I personally reviewed and interpreted this EKG as follows: Comments: Atrial fibrillation ventricular rate of 75 bpm Discharge Plan Triage Chief Complaint: Shortness of Breath Other Complaint: Edema ED Provider: Kwadwo Rey Dx/Rx/DC Orders Clinical Impression: Peripheral edema, (HFpEF) heart failure with preserved ejection fraction, PAOD (peripheral arterial occlusive disease), CKD (chronic kidney disease) Instructions: ED Lymphedema Prescriptions: New bumetanide 1 mg tablet 1 mg PO BID Qty: 10 0RF No Action gabapentin 300 MG capsule 600 mg PO TIDCM Patient Comments: PAIN, NEUROPATHY atorvastatin 20 mg tablet 20 mg PO QHS metoprolol succinate 50 mg tablet extended release 24 hr 50 mg PO DAILY lisinopril 20 mg tablet 20 mg PO DAILY amlodipine 5 mg tablet 5 mg PO DAILY folic acid 1 mg tablet 1 mg PO DAILY albuterol sulfate 90 mcg/actuation HFA aerosol inhaler 2 puff inhalation Q4H PRN PRN (Reason: wheezing) warfarin 4 mg tablet 6 mg PO SUMOTUWETHSA Rx Instructions: 6 mg orally; warfarin [Jantoven] 4 mg tablet 8 mg PO FR Other Ambulatory Orders: Basic Metabolic Profile (BMP) (Routine) Timeframe: 3 Days Facility[facility] Location: Laboratory Ordered By: Dr. Kwadwo Rey Primary Care Provider: Yobani Negron Referrals: Yobani Negron MD [Primary Care Provider, Family Practice] - 3-5 Days Activity Restrictions/Additional Instructions: I am placing you on a diuretic to take twice a day for the next 5 days. Please have your kidney function checked on Thursday. Ideally it would be optimal to see your doctor on Thursday but may not be possible. Monitor salt intake. Your INR today was 2.6. Print Language: Hungarian Disposition Disposition: Home, Self Care Discharge Date/Time: 01/31/25 14:31
[2025-01-31 12:25] LABS: Hematocrit 33.6 % (40-54); Hemoglobin 10.9 g/dL (13.0-16.5); Immature Granulocytes Count 0.050 X10^3/uL (0.0-0.0); Mean Corp Hgb Conc 32.4 g/dL (32-36); Mean Corpuscular Volume 103.1 fL (80-94); Mean Platelet Vol. 9.5 fl (6.2-12.0); NRBC Flagged by Analyzer 0 % (0-5); Platelet Count 236 K/mm3 (150-450); RBC Distribution Width CV 16.1 % (11.6-14.6); RBC Distribution Width SD 61.5 fl (35.1-43.9); Red Blood Count 3.26 M/mm3 (4.6-6.2); White Blood Count 7.1 K/mm3 (4.4-11.0)
[2025-01-31 12:37] LABS: Prothrombin Time (Protime)PT. 28.2 SECONDS (11.7-14.9)
[2025-01-31 12:51] LABS: Anion Gap 10 (5-15); BUN 30 mg/dL (4-19); BUN/Creat Ratio 18.1 RATIO (10-20); Calcium,Total 9.2 mg/dL (7.6-11.0); Carbon Dioxide 27.2 mmol/L (21.0-32.0); Chloride 104 mmol/L (98-108); Estimated Creatinine Clearance 52.93 ml/min (50-250); Glucose 108 mg/dL (70-99); Potassium 4.5 mmol/L (3.3-5.1); Pro- Brain NATRIURETIC PEPTIDE 2222 pg/mL (<=900); Troponin T High Sensitivity 19 ng/L (<=22)
[2025-01-31 13:25] VITALS: O2SAT 95
[2025-01-31 13:38] VITALS: BP 100/69; PULSE 94; RESP 20; O2SAT 95
== END 2025-01-31 14:31 | disposition home or self-care (01) ==
PROVIDERS: Emergency Provider Emergency Medicine; PCP Family Medicine; Visit Provider Emergency Medicine
DX: R60.0 Localized edema (principal); I13.0 Hypertensive heart and chronic kidney disease with heart failure and stage 1 through stage 4 chronic kidney disease, or unspecified chronic kidney disease; I50.30 Unspecified diastolic (congestive) heart failure; J44.9 Chronic obstructive pulmonary disease, unspecified; I48.11 Longstanding persistent atrial fibrillation; E78.5 Hyperlipidemia, unspecified; I73.9 Peripheral vascular disease, unspecified; Z87.891 Personal history of nicotine dependence; N18.9 Chronic kidney disease, unspecified; Z79.899 Other long term (current) drug therapy; Z79.01 Long term (current) use of anticoagulants
CPT/HCPCS: 71045; 80048; 83880; 84484; 85025; 85610; 93005; 96374; 99285; A4216; J1938

== ENCOUNTER 2025-02-14 15:06 | Outpatient (RCR) | payer MEDICARE, SELFPAY ==
[2025-02-03 16:55] LABS: Prothrombin Time (Protime)PT. 35.3 SECONDS (11.7-14.9)
[2025-02-03 17:27] LABS: Anion Gap 14 (5-15); BUN 36 mg/dL (4-19); BUN/Creat Ratio 17.8 RATIO (10-20); Calcium,Total 9.3 mg/dL (7.6-11.0); Carbon Dioxide 30.9 mmol/L (21.0-32.0); Chloride 100 mmol/L (98-108); Glucose 100 mg/dL (70-99); Potassium 4.7 mmol/L (3.3-5.1)
[2025-02-14 17:18] LABS: Anion Gap 12 (7-18); BUN 29 mg/dL (4-19); BUN/Creat Ratio 19.3 RATIO (10-20); Calcium,Total 9.4 mg/dL (7.6-11.0); Carbon Dioxide 28.3 mmol/L (20.0-29.0); Chloride 104 mmol/L (96-106); Glucose 65 mg/dL (70-99); Potassium 4.7 mmol/L (3.5-5.1)
== END 2025-02-14 18:00 | disposition home or self-care (01) ==
LOC: LAB 15:06
PROVIDERS: Emergency Medicine; Family Provider Family Medicine; PCP Family Medicine; Referring Provider Specialist; Visit Provider Specialist
DX: N18.9 Chronic kidney disease, unspecified (principal); I50.30 Unspecified diastolic (congestive) heart failure
CPT/HCPCS: 36415; 80048; 85610